=== PATIENT | female | born 1960 | race Caucasian/White ===

== ENCOUNTER → 2017-04-28 | Outpatient (CLI) | payer MEDICARE, SELFPAY | PROVIDERS: Visit Provider Family Medicine | DX: Z87.891 Personal history of nicotine dependence (principal); Z12.2 Encounter for screening for malignant neoplasm of respiratory organs ==

== ENCOUNTER 2017-06-01 13:06 | Day surgery (SDC) | payer MEDICARE, SELFPAY ==
[2017-05-27 16:27] VITALS: BMI 29.9
--- NOTE | 2017-05-27 16:51 | SUR.PREOP ---
LEFT MESSAGE WITH [facility] OFFICE FOR CLEARANCE
[2017-06-01 13:27] VITALS: BP 119/64; PULSE 81; RESP 20; TEMP 36.3; O2SAT 97
--- NOTE | 2017-06-01 13:42 | P.PN_ITS ---
[facility] Anesthesia Checklist - Patient Identification Patient Identification: Arm Band - Structural Data Admitted From: Home Consent for Planned Operative Procedure(s) Verified: Yes - Airway Assessment C-Spine Mobility Assessed: Yes TMJ Mobility Assessed: Yes Dentition: Edentulous - Neurological Assessment Level of Consciousness: Awake, Alert - Anesthesia Plan Anesthesia Risk discussed: Yes Anesthesia Plan: Verified ASA Class: III Anesthesia Type: MAC [facility] Anesthesia HX I have reviewed the patient's past medical history: Yes Medical History: Reports:: Chronic Obstructive Pulmonary Disease (COPD), Coronary Artery Disease (TRIPLE BYPASS), Diabetes Mellitus Type 2 (NIDDM), Hyperlipidemia, Hypertension, Lung Disease (COPD) Denies:: Diabetes Mellitus Type 1, Internal Pacemaker, Seizures Other Surgeries: Yes: Coronary Stent (X4), Hysterectomy-Total. No: Pacemaker Amputation: No Fractures: No Comment: [id number] [id number] *Family Hx:: Cancer, Hypertension, Diabetes
[2017-06-01 13:45] LABS: POC Glucose,Bedside 75 mg/dL
[2017-06-01 15:00] VITALS: O2SAT 98
--- NOTE | 2017-06-01 15:31 | HMH.PROC ---
[facility] Procedure Note Procedure Note:: Colonoscopy Procedure Report: Colonoscopy with cold snare polypectomy Endoscopist: Franky Preston II, MD Referring physician: Mikhail Catalan MD Date of Procedure: June 01, 2017 Equipment: Olympus 180 variable stiffness pediatric colonoscope Sedation: MAC sedation Indication: Mrs. Aguila is a 56-year-old female who is here for initial screening colonoscopy. She reports no abdominal pain, weight loss, change in her bowel habits or rectal bleeding. She reports no family history of colon cancer. Procedure: Prior to the procedure, a history and physical exam was performed, and patient's medications and allergies were reviewed. The risks, benefits and alternatives of the sedation and procedure were discussed with the patient. All questions were answered and informed consent was obtained. The patient was brought to the procedure room. Patient identification and proposed procedure were verified by the physician and the nurse. The patient was placed in a left lateral decubitus position and the scope was passed under direct vision. Throughout the procedure, the patient's blood pressure, pulse, and oxygen saturations were monitored continuously. The colonoscopy was accomplished without difficulty. The patient tolerated the procedure well. Findings: On digital rectal examination there was normal rectal tone. There were no external hemorrhoids. The colonoscope was introduced through the anal canal to the rectum and advanced to the cecum. The ileocecal valve and appendiceal orifice were identified. The scope was advanced a short distance into the ileum which appeared grossly normal. The scope was then withdrawn into the colon. There were 5 colon polyps identified in the transverse ?3 and descending ?2. These ranged in size from 4-8 mm and were all removed via cold snare polypectomy. The remaining cecum, ascending, transverse, descending, sigmoid and rectum were grossly normal. There were no other mucosal abnormalities identified. Upon retroflexion within the rectum there were grade 1 internal hemorrhoids. Impression: 1. Colonic polyps ?5 2. Grade 1 internal hemorrhoids Plan: I will follow up the polyp pathology and recommend repeat colonoscopy again in 3-5 years based upon the polyp histology. I would encourage fiber supplementation on a long-term daily maintenance basis.
[2017-06-01 15:35] VITALS: BP 91/61; PULSE 79; RESP 18; TEMP 36.5; O2SAT 92
[2017-06-01 15:45] VITALS: BP 109/63; PULSE 82; RESP 18; O2SAT 93
[2017-06-01 15:55] VITALS: BP 108/61; PULSE 81; RESP 18; O2SAT 93
[2017-06-01 15:59] VITALS: BP 118/58; PULSE 82; RESP 18; TEMP 36.5; O2SAT 94
== END 2017-06-01 15:59 | disposition home or self-care (01) ==
LOC: OUTP 13:08
PROVIDERS: Family Provider Family Medicine; PCP Family Medicine; Visit Provider Internal Medicine Gastroenterology
PROC: 0DJD8ZZ Inspection of Lower Intestinal Tract, Via Natural or Artificial Opening Endoscopic (ICD-10-PCS; CPT 45378; principal; 2017-06-01 14:00)
DX: Z12.11 Encounter for screening for malignant neoplasm of colon (principal); K63.5 Polyp of colon; K64.0 First degree hemorrhoids; E11.9 Type 2 diabetes mellitus without complications
CPT/HCPCS: 45380; 82962; 88305

== ENCOUNTER → 2017-06-29 13:47 | Outpatient (CLI) | payer MEDICARE, SELFPAY ==
--- NOTE | 2017-06-29 13:54 | XR_ITS ---
XR DEXA axial skeleton HISTORY: ITS.REASON: POST MENOPAUSAL ORDERING PHYSICIAN: Surinder Burgess MD PATIENT AGE: 56 years FINDINGS: The BMD measured at the left femoral neck is 1.214 g/cm squared with a T score of 1.3. This is considered normal according to the World Health Organization criteria. Fracture risk is low. Recommend follow up exam June 2019. The lumbar spine density from L1 L4 has a T score of 2.3 and is unchanged from 05/01/2014. The hip density is essentially unchanged from the previous exam.. IMPRESSION: Normal bone density
--- NOTE | 2017-06-29 13:54 | MM_ITS ---
MM Dig screening mamm BI w/CAD CAD Screening COMPARISON: Digital mammograms 05/07/2015 and 06/20/2016 INDICATION: There is a history of breast cancer patient's mother diagnosed at age 59. TECHNIQUE: Standard CC and MLO images were obtained. R2 CAD reviewed. FINDINGS: Moderate diffuse fibroglandular densities are seen throughout both breast. Again noted is a stable benign-appearing density upper outer quadrant right breast likely an intramammary node. There is a benign-appearing calcification left breast. There is no suspicious lesion in either breast and no suspicious microcalcifications. There are stable small nodes in both axilla. IMPRESSION: Stable exam no suspicious lesion seen BI-RADS Category: 2 Benign Finding(s) RECOMMENDED FOLLOW-UP: 1YR - 1 YEAR FOLLOW-UP (A letter has been sent to the patient regarding results of the study.)
== END ==
PROVIDERS: Family Provider Family Medicine; PCP Family Medicine; Visit Provider Obstetrics & Gynecology
DX: Z78.0 Asymptomatic menopausal state (principal); Z12.31 Encounter for screening mammogram for malignant neoplasm of breast; Z13.820 Encounter for screening for osteoporosis
CPT/HCPCS: 77067; 77080

== ENCOUNTER 2017-07-09 03:40 | Emergency (ER) | payer MEDICARE, SELFPAY ==
[2017-07-09 03:42] VITALS: BP 152/84; PULSE 72; RESP 16; TEMP 37.1; O2SAT 90; BMI 30.3
--- NOTE | 2017-07-09 04:00 | XR_ITS ---
XR chest 2V HISTORY: Left arm numbness ITS.REASON: left arm sensation change ORDERING PHYSICIAN: Barber Lucio MD PATIENT AGE: 56 years COMPARISON: 06-17-12 FINDINGS: There has been prior median sternotomy with CABG. Normal heart size. No evidence of CHF. Coronary artery stent is present. No lobar consolidation or collapse. No acute bony anomalies or effusions. IMPRESSION: Prior CABG. No change with no acute finding.
--- NOTE | 2017-07-09 04:00 | CT_ITS ---
CT head/brain wo con HISTORY: Disoriented, confusion, altered level of consciousness, ITS.REASON: disorientation, now resolved ORDERING PHYSICIAN: Barber Lucio MD PATIENT AGE: 56 years COMPARISON: None TECHNIQUE: Axial images obtained without contrast. Brain and bone windows reviewed. FINDINGS: No midline shift, mass effect, intracranial hemorrhage, hydrocephalus, or extra-axial fluid collection is evident. The calvarium has an unremarkable appearance. No mastoid effusion. No sinus air-fluid levels.. IMPRESSION: Negative CT head without contrast. No acute finding.
[2017-07-09 04:15] LABS: Basophils % 0.4 % (0.1-2.0); Eosinophils # 0.1 K/mm3 (0.0-0.4); Eosinophils % 1.5 % (0.1-12.0); Hematocrit 48.8 % (37.0-47.0); Hemoglobin 16.4 g/dL (12.2-16.2); Lymphocytes # 2.3 K/mm3 (0.7-4.5); Lymphocytes % 28.1 K/mm3 (10-50); Mean Corpuscular HGB Conc 33.6 g/dL (31.8-35.4); Mean Corpuscular Hemoglobin 32.7 pg (27.0-31.2); Mean Corpuscular Volume 97.2 fl (81-99); Mean Platelet Volume 7.7 fl (7.4-10.4); Monocytes # 0.6 K/mm3 (0.1-1.0); Monocytes % 7.3 % (1.7-9.3); Neutrophils # 5.1 K/mm3 (1.8-7.8); Neutrophils % 62.7 % (37.0-80.0); Platelet Count 251 K/mm3 (142-424); Red Blood Count 5.02 M/mm3 (4.20-5.40); Red Cell Distribution Width 13.8 % (11.5-17.5); White Blood Count 8.1 K/mm3 (4.8-10.8)
[2017-07-09 04:24] LABS: Activated Partial Thrombo Time 27.7 seconds (23.6-34.0); INR 0.93 (0.9-1.1)
[2017-07-09 04:40] LABS: Alanine Aminotransferase 26 U/L (12-78); Albumin Level 3.8 gm/dL (3.4-5.0); Albumin/Globulin Ratio 0.8 (1.1-1.8); Alkaline Phosphatase 95 U/L (46-116); Anion Gap 11.5 mEq/L (5-15); Aspartate Amino Transferase 14 U/L (15-37); Bilirubin,Total 0.3 mg/dL (0.2-1.0); Blood Urea Nitrogen 16 mg/dL (7-18); Calcium 9.1 mg/dL (8.5-10.1); Carbon Dioxide 31 mmol/L (21.0-32.0); Chloride 101 mmol/L (98-107); Creatine Kinase 90 U/L (26-192); Creatinine Clearance Estimated 81 mL/min (0-300); Creatinine,Serum 1.02 mg/dL (0.55-1.02); Estimated Glomerular Filt Rate 56 ml/min (>60); GFR (African American) 68 ML/MIN (>60); Globulin 4.7 gm/dl (1.3-3.2); Glucose 110 mg/dL (74-106); Potassium 3.5 mmoL/L (3.5-5.1); Sodium 140 mmol/L (136-145); Total Protein,Serum 8.5 gm/dL (6.4-8.2); Troponin I < 0.02 ng/ml (0.00-0.06)
[2017-07-09 04:41] LABS: CKMB Relative Index 0.6 U/L (0-4.0); Creatine Kinase MB < 0.5 mg/ml (0.0-3.6)
--- NOTE | 2017-07-09 04:49 | HMH.EDNEU ---
ED Disposition Clinical Impression: Cerebrovascular accident Qualifiers: CVA mechanism: unspecified Qualified Code(s): I63.9 - Cerebral infarction, unspecified Disposition: Xfer Short-Term Hosp Condition on Discharge: Good Referrals: Benja Catalan MD [Primary Care Provider] - - Critical Care Critical Care Time: No Attestation: On 07/09/17, the high probability of a clinically significant, sudden or life threatening deterioration of the following system(s) required my full and direct attention, intervention and personal management. The time I documented below is in addition to time spent performing reported procedures but includes the following listed in this critical care notation. Medical Decision Making - Medical Records Medical records reviewed: Yes: I reviewed the patient's medical records. Vital Signs: 07/09/17 03:42 Temperature 98.8 F Temperature Source Oral Pulse Rate [Right Radial] 72 Respiratory Rate 16 Blood Pressure [Right Arm] 152/84 Blood Pressure Mean [Right Arm] 106 Blood Pressure Source [Right Arm] Automatic Cuff Blood Pressure Position [Right Arm] Supine 02 Sat by Pulse Oximetry 90 L Oxygen Delivery Method Room Air - Lab Data Lab results reviewed: Yes: I reviewed the patient's lab results. Lab Results 07/09/17 04:00: WBC 8.1, RBC 5.02, Hgb 16.4 H, Hct 48.8 H, MCV 97.2, MCH 32.7 H, MCHC 33.6, RDW 13.8, Plt Count 251, MPV 7.7, Neut % (Auto) 62.7, Lymph % (Auto) 28.1, [place] % (Auto) 7.3, Eos % (Auto) 1.5, Baso % (Auto) 0.4, Neut # (Auto) 5.1, Lymph # (Auto) 2.3, [place] # (Auto) 0.6, Eos # (Auto) 0.1, Baso # (Auto) 0.0 07/09/17 04:00: Sodium 140, Potassium 3.5, Chloride 101, Carbon Dioxide 31, Anion Gap 11.5, BUN 16, Creatinine 1.02, Estimated Creat Clear 81, Estimated GFR 56 L, Est GFR ( Amer) 68, Glucose 110 H, Calcium 9.1, Total Bilirubin 0.3, AST 14 L, ALT 26, Alkaline Phosphatase 95, Total Creatine Kinase 90, CK-MB (CK-2) < 0.5, CK-MB (CK-2) Rel Index 0.6, Troponin I < 0.02, Total Protein 8.5 H, Albumin 3.8, Globulin 4.7 H, Albumin/Globulin Ratio 0.8 L 07/09/17 04:00: PT 10.0, INR 0.93, APTT 27.7 Result diagrams: 07/09/17 04:00 07/09/17 04:00 - Radiology Data #1 Image(s): Chest Image Reviewed: Yes I reviewed the patient's radiology image Preliminary Findings: Normal/NAD - CT Data CT Scan: Head Time Received: 04:[address] Reviewed: Yes: I have viewed the radiologist's interpretation Preliminary Findings: Normal/NAD - ECG Data Tracing #1 I reviewed this ECG and interpreted as documented below: Normal Sinus Rhythm: Yes Ischemic changes: non-specific ST-T wave changes - Physician Consults Physician Consulted: aj Reason -: Transfer to another facilty - [place] Inquiry Pt receiving controlled substance: No Neuro HPI - General Chief Complaint: Neuro Symptoms/Deficit Stated Complaint: left arm numb,disoriented Time Seen by Provider: 07/09/17 04:00 Mode of Arrival: Ambulatory Source of Information: Patient, Relative, Medical Record Limitations: No Limitations Description of Symptoms (Recalled from ER Triage Doc. by RN): left arm feels different but is able to move it, feels unsteady - History of Present Illness HPI Narrative: pt went to bed about 2200 last pm and awoke this am with dec use of lt upper ext and lt lower ext with confusion but no gross vision or speech sx- she is diabetic and does use tob -she is better now but not at baseline Onset (ago): hour(s) Timing confirmed by: family member Location: left arm, left leg History of same: No Severity: moderate Quality: weak Context: other (awoke with sx ) On Anticoagulants: Yes - Related Data Home Medications: Home Medications Medication Instructions Recorded Confirmed aspirin 81 mg tablet,delayed 81 mg PO QDAY 05/22/17 07/09/17 release ergocalciferol (vitamin D2) 400 400 unit PO QDAY 05/22/17 07/09/17 unit tablet metformin 1,000 mg tablet 1,000 mg PO BID 05/22/17
--- NOTE | 2017-07-09 04:52 | ED_ITS ---
ED Disposition Clinical Impression: Cerebrovascular accident Qualifiers: CVA mechanism: unspecified Qualified Code(s): I63.9 - Cerebral infarction, unspecified Disposition: Xfer Short-Term Hosp Condition on Discharge: Good Referrals: Benja Catalan MD [Primary Care Provider] - - Critical Care Critical Care Time: No Attestation: On 07/09/17, the high probability of a clinically significant, sudden or life threatening deterioration of the following system(s) required my full and direct attention, intervention and personal management. The time I documented below is in addition to time spent performing reported procedures but includes the following listed in this critical care notation. Medical Decision Making - Medical Records Medical records reviewed: Yes: I reviewed the patient's medical records. Vital Signs: 07/09/17 03:42 Temperature 98.8 F Temperature Source Oral Pulse Rate [Right Radial] 72 Respiratory Rate 16 Blood Pressure [Right Arm] 152/84 Blood Pressure Mean [Right Arm] 106 Blood Pressure Source [Right Arm] Automatic Cuff Blood Pressure Position [Right Arm] Supine 02 Sat by Pulse Oximetry 90 L Oxygen Delivery Method Room Air - Lab Data Lab results reviewed: Yes: I reviewed the patient's lab results. Lab Results 07/09/17 04:00: WBC 8.1, RBC 5.02, Hgb 16.4 H, Hct 48.8 H, MCV 97.2, MCH 32.7 H , MCHC 33.6, RDW 13.8, Plt Count 251, MPV 7.7, Neut % (Auto) 62.7, Lymph % (Auto ) 28.1, [place] % (Auto) 7.3, Eos % (Auto) 1.5, Baso % (Auto) 0.4, Neut # (Auto) 5.1, Lymph # (Auto) 2.3, [place] # (Auto) 0.6, Eos # (Auto) 0.1, Baso # (Auto) 0.0 07/09/17 04:00: Sodium 140, Potassium 3.5, Chloride 101, Carbon Dioxide 31, Anion Gap 11.5, BUN 16, Creatinine 1.02, Estimated Creat Clear 81, Estimated GFR 56 L, Est GFR ( Amer) 68, Glucose 110 H, Calcium 9.1, Total Bilirubin 0.3, AST 14 L, ALT 26, Alkaline Phosphatase 95, Total Creatine Kinase 90, CK-MB (CK-2) < 0.5, CK-MB (CK-2) Rel Index 0.6, Troponin I < 0.02, Total Protein 8.5 H, Albumin 3.8, Globulin 4.7 H, Albumin/Globulin Ratio 0.8 L 07/09/17 04:00: PT 10.0, INR 0.93, APTT 27.7 Result diagrams: 07/09/17 04:00 07/09/17 04:00 - Radiology Data #1 Image(s): Chest Image Reviewed: Yes I reviewed the patient's radiology image Preliminary Findings: Normal/NAD - CT Data CT Scan: Head Time Received: 04:[address] Reviewed: Yes: I have viewed the radiologist's interpretation Preliminary Findings: Normal/NAD - ECG Data Tracing #1 I reviewed this ECG and interpreted as documented below: Normal Sinus Rhythm: Yes Ischemic changes: non-specific ST-T wave changes - Physician Consults Physician Consulted: aj Reason -: Transfer to another facilty - [place] Inquiry Pt receiving controlled substance: No Neuro HPI - General Chief Complaint: Neuro Symptoms/Deficit Stated Complaint: left arm numb,disoriented Time Seen by Provider: 07/09/17 04:00 Mode of Arrival: Ambulatory Source of Information: Patient, Relative, Medical Record Limitations: No Limitations Description of Symptoms (Recalled from ER Triage Doc. by RN): left arm feels different but is able to move it, feels unsteady - History of Present Illness HPI Narrative: pt went to bed about 2200 last pm and awoke this am with dec use of lt upper ext and lt lower ext with confusion but no gross vision or speech sx- she is diabetic and does use tob -she is better now but not at ba
--- NOTE | 2017-07-09 05:10 | PC.NURSE ---
Dr Cuellar accepting pt at ER.
--- NOTE | 2017-07-09 05:20 | PC.NURSE ---
[facility] called for transport to .
[2017-07-09 05:31] VITALS: BP 153/72; PULSE 74; RESP 17; TEMP 37.2; O2SAT 91
== END 2017-07-09 05:32 | disposition short-term general hospital (02) ==
PROVIDERS: Emergency Provider Emergency Medicine; Family Provider Family Medicine; PCP Family Medicine
DX: I63.9 Cerebral infarction, unspecified (principal); R41.0 Disorientation, unspecified; R20.2 Paresthesia of skin
CPT/HCPCS: 70450; 71046; 80053; 82550; 82553; 84484; 85025; 85610; 85730; 93005; 93041; 99284

== ENCOUNTER → 2018-02-24 10:29 | Outpatient (CLI) | payer MEDICARE, SELFPAY ==
[2018-02-24 12:25] LABS: Alanine Aminotransferase 32 U/L (12-78); Albumin Level 3.8 gm/dL (3.4-5.0); Albumin/Globulin Ratio 1.1 (1.1-1.8); Alkaline Phosphatase 83 U/L (46-116); Anion Gap 10.3 mEq/L (5-15); Aspartate Amino Transferase 18 U/L (15-37); Bilirubin,Total 0.3 mg/dL (0.2-1.0); Blood Urea Nitrogen 18 mg/dL (7-18); Calcium 9.1 mg/dL (8.5-10.1); Carbon Dioxide 29 mmol/L (21.0-32.0); Chloride 105 mmol/L (98-107); Chol/HDL Ratio 3.1 (1-3.5); Cholesterol 129 mg/dL (140-200); Creatinine,Serum 0.81 mg/dL (0.55-1.02); Estimated Glomerular Filt Rate 73 ml/min (>60); GFR (African American) 89 ML/MIN (>60); Globulin 3.6 gm/dl (1.3-3.2); Glucose 130 mg/dL (74-106); HDL Cholesterol 42 mg/dL (29-89); LDL Cholesterol 69 mg/dL (0-130); Potassium 4.3 mmoL/L (3.5-5.1); Sodium 140 mmol/L (136-145); Total Protein,Serum 7.4 gm/dL (6.4-8.2); Triglycerides 89 mg/dL (30-200); VLDL Cholesterol 18 mg/dL (0-40)
[2018-02-24 12:45] LABS: Hemoglobin A1C 8.9 % (0.0-7.0)
== END ==
PROVIDERS: PCP Family Medicine; Visit Provider Family Medicine
DX: E11.9 Type 2 diabetes mellitus without complications (principal); I10 Essential (primary) hypertension; E78.5 Hyperlipidemia, unspecified; Z86.79 Personal history of other diseases of the circulatory system
CPT/HCPCS: 36415; 80053; 80061; 83036

== ENCOUNTER → 2018-07-15 15:08 | Outpatient (CLI) | payer MEDICARE, SELFPAY ==
--- NOTE | 2018-07-15 15:09 | XR_ITS ---
DEXA SCAN.-BONE DENSITY STUDY HIPS AND LUMBAR SPINE HISTORY: Postmenopausal female 57-year-old postmenopausal hysterectomy. No fracture remote past. Diabetic Female TECHNIQUE: DEXA scan hip and lumbar spine The most complete data summary and color graphic presentation of the today's ( and any prior ) DEXA findings are available in PACS. Definition and treatment guidelines included. COMPARISON: None listed LUMBAR SPINE: Overall normal bone marrow density L4 vertebral body demonstrates the lowest T score 0.7 with BMD1.283 g/cm sq Overall mean lumbar L1-L4 T score 1.4 with BMD1.348 g/cm sq . 06/29/2017 prior DEXA the mean T score 2.3 with BMD was1.46g/cm sq Thus when comparing today's study to the prior exam there's been a 7.7% decrease mean bone density at the lumbar spine. However the bone density still remains above normal-possibly dense marginal osteophytes contribute to such HIPS: Normal bone density bilaterally Femoral neck density is best predictor of hip fracture risk . Right femoral neck demonstrates the lowest T score 0.6 with BMD1.12 g/cm sq . Left femoral neck T score 1.0 with BMD 1.18 Average of all regions yields today's Hip Mean T score 1.1 with BMD1.143 g/cm sq . 2018 DEXA hip T score 2.1 with mean BMD1.272 g/cm sq Thus this reflects 10% decrease mean bone density at the hips in the interval. IMPRESSION------- 1. LUMBAR SPINE: Overall normal bone density Overall T score 1.4. L4 with lowest T score 0.7. 2. HIPS: Overall normal bone density Mean hip T score today = 1.1. Lowest femoral neck T score on right = 0.6 3. Added note: would note there is a curious 10% drop in hip bone density; & 7.7% overall decrease lumbar bone density since last years 2018 DEXA study.., More than typically seen. Possibly the patient is now on steroids? Or or other interval medical change. (I had the technologist reprocess the lumbar series and still same result. I would recommend follow-up next year to confirm & validate date this trend) WHO criteria for post-menopausal, Women: Normal: T-score at or above -1 SD Osteopenia: T-score between -1 and -2.5 SD Osteoporosis: T-score at or below -2.5 SD
--- NOTE | 2018-07-15 15:09 | MM_ITS ---
MM Dig screening mamm BI w/CAD CAD Screening COMPARISON: Digital mammograms with CAD to 06/29/2017 and 06/20/2016 INDICATION: There is a history of breast cancer in patient's mother diagnosed after menopause. TECHNIQUE: Standard CC and MLO images were obtained. R2 CAD reviewed. FINDINGS: Prominent diffuse fiber glandular densities are seen throughout both breasts. There is a stable nodular density with smooth borders upper outer quadrant right breast likely a low-lying node. There are couple benign-appearing calcifications in each breast. There is no suspicious lesion in either breast and there are no suspicious microcalcifications. IMPRESSION: Stable exam with no suspicious lesion seen BI-RADS Category: 2 Benign Finding(s) RECOMMENDED FOLLOW-UP: 1YR - 1 YEAR FOLLOW-UP (A letter has been sent to the patient regarding results of the study.)
== END ==
PROVIDERS: PCP Family Medicine; Visit Provider Obstetrics & Gynecology
DX: Z12.31 Encounter for screening mammogram for malignant neoplasm of breast (principal); Z78.0 Asymptomatic menopausal state
CPT/HCPCS: 77067; 77080

== ENCOUNTER → 2018-08-23 09:54 | Outpatient (CLI) | payer MEDICARE, SELFPAY ==
[2018-08-23 11:35] LABS: Hemoglobin A1C 8.9 % (0.0-7.0)
[2018-08-23 12:07] LABS: Alanine Aminotransferase 31 U/L (12-78); Albumin Level 3.9 gm/dL (3.4-5.0); Albumin/Globulin Ratio 1.1 (1.1-1.8); Alkaline Phosphatase 92 U/L (46-116); Anion Gap 14.2 mEq/L (5-15); Aspartate Amino Transferase 8 U/L (15-37); Bilirubin,Total 0.3 mg/dL (0.2-1.0); Blood Urea Nitrogen 25 mg/dL (7-18); Carbon Dioxide 26 mmol/L (21.0-32.0); Chloride 104 mmol/L (98-107); Chol/HDL Ratio 3.4 (1-3.5); Cholesterol 158 mg/dL (140-200); Creatinine,Serum 0.88 mg/dL (0.55-1.02); Estimated Glomerular Filt Rate 66 ml/min (>60); GFR (African American) 80 ML/MIN (>60); Globulin 3.7 gm/dl (1.3-3.2); Glucose 185 mg/dL (74-106); HDL Cholesterol 47 mg/dL (29-89); LDL Cholesterol 99 mg/dL (0-130); Potassium 4.2 mmoL/L (3.5-5.1); Sodium 140 mmol/L (136-145); Total Protein,Serum 7.6 gm/dL (6.4-8.2); Triglycerides 62 mg/dL (30-200); VLDL Cholesterol 12 mg/dL (0-40)
== END ==
PROVIDERS: Visit Provider Family Medicine
DX: E11.9 Type 2 diabetes mellitus without complications (principal); E78.5 Hyperlipidemia, unspecified; I10 Essential (primary) hypertension; Z79.84 Long term (current) use of oral hypoglycemic drugs; Z87.891 Personal history of nicotine dependence
CPT/HCPCS: 36415; 80053; 80061; 83036

== ENCOUNTER → 2018-11-30 13:08 | Outpatient (CLI) | payer MEDICARE, SELFPAY ==
--- NOTE | 2018-11-30 13:12 | XR_ITS ---
XR hand RT min 3V HISTORY: ITS.REASON: right hand pain/ trigger finger ORDERING PHYSICIAN: Tarik Sherman MD PATIENT AGE: 58 years COMPARISON: None FINDINGS: No fracture or dislocation. No lytic or blastic change. There is normal mineralization.. The joint spaces are well-preserved. No significant degenerative/arthritic changes. No erosive changes evident.. IMPRESSION: Negative, no acute finding
== END ==
PROVIDERS: PCP Family Medicine; Visit Provider Orthopaedic Surgery
DX: M79.641 Pain in right hand (principal)
CPT/HCPCS: 73130

== ENCOUNTER → 2019-01-07 10:37 | Outpatient (CLI) | payer MEDICARE, SELFPAY ==
--- NOTE | 2019-01-07 10:41 | XR_ITS ---
PROCEDURE: XR SHOULDER LT MIN 2V Three views obtained: AP internal and external rotation along with Y-view Patient Age:58Y CLINICAL INDICATION: LT SHOULDER PAIN No trauma. Persistent pain 1 month COMPARISON: CXR2V XR chest 2V from 07/09/2017 FINDINGS No acute findings.. No fracture nor dislocation. The humeral head and neck appear normal the glenohumeral joint intact. Normal relationships. AC joint intact. Bones well mineralized. No erosive changes. . The left lung apex is clear upper left ribs and scapula unremarkable. Previous sternotomy noted There is a modest subacromial space but nonspecific plain-film observation but can be seen with rotator cuff this thinning, demise or tear... Clinical correlation required IMPRESSION: Left shoulder is intact with no acute findings.. No prominent findings Humeral head and glenohumeral joint intact. I would note modest subacromial space. Nonspecific but can be seen with rotator cuff demise or impingement. Requires correlation Dictated by: Ander Clifford MD 01/07/2019 11:08 Signed by: <Electronically signed by Ander Clifford MD in [place]> 01/07/2019 11:08
== END ==
PROVIDERS: PCP Family Medicine; Visit Provider Family Medicine
DX: M25.512 Pain in left shoulder (principal)
CPT/HCPCS: 73030

== ENCOUNTER → 2019-01-25 12:57 | Outpatient (CLI) | payer MEDICARE, SELFPAY ==
--- NOTE | 2019-01-25 13:13 | XR_ITS ---
PROCEDURE: XR CHEST 2V CLINICAL HISTORY: HTN,FORMER TOBACCO USE COMPARISON: CXR1 CHEST-PORTABLE from 06/17/2012 CXR2V XR chest 2V from 07/09/2017 FINDINGS: Status post CABG. Normal heart size. There is fracture of the 2nd from top median sternotomy wire The lungs are clear without infiltrates, suspicious nodules, or pleural effusions. No acute bony abnormalities. IMPRESSION: No change with no acute finding Dictated by: Elias Diaz MD 01/25/2019 14:54 Electronically signed by Elias Diaz MD in [facility] 01/25/2019 14:54
[2019-01-25 13:36] LABS: Basophils % 0.4 % (0.1-2.0); Eosinophils # 0.1 K/mm3 (0.0-0.4); Eosinophils % 1.1 % (0.1-12.0); Hematocrit 44.8 % (37.0-47.0); Hemoglobin 14.4 g/dL (12.2-16.2); Lymphocytes # 1.6 K/mm3 (0.7-4.5); Lymphocytes % 24.7 % (10-50); Mean Corpuscular HGB Conc 32.2 g/dL (31.8-35.4); Mean Corpuscular Volume 93.3 fl (81-99); Mean Platelet Volume 7.7 fl (7.4-10.4); Monocytes # 0.3 K/mm3 (0.1-1.0); Monocytes % 5.4 % (1.7-9.3); Neutrophils # 4.3 K/mm3 (1.8-7.8); Neutrophils % 68.4 % (37.0-80.0); Platelet Count 262 K/mm3 (142-424); Red Cell Distribution Width 14.8 % (11.5-17.5); White Blood Count 6.3 K/mm3 (4.8-10.8)
--- NOTE | 2019-01-25 13:51 | ECG_ITS ---
APPROVED REPORT Exam: Resting ECG HR:82 bpm ECG Measurements Heart Rate 82 AXES ID 174 P 13 QRSd 74 QRS 55 QT 360 T 141 QTc 420 <Conclusion> Normal sinus rhythm Septal infarct, age undetermined T wave abnormality, consider anterior ischemia Abnormal ECG Electronically signed by : Jairo Powell, 01/26/2019 10:34:54
[2019-01-25 16:18] LABS: Anion Gap 18.2 mEq/L (5-15); Blood Urea Nitrogen 21 mg/dL (7-18); Calcium 9.6 mg/dL (8.5-10.1); Carbon Dioxide 25 mmol/L (21.0-32.0); Chloride 100 mmol/L (98-107); Creatinine,Serum 0.97 mg/dL (0.55-1.02); Estimated Glomerular Filt Rate 59 ml/min (>60); GFR (African American) 72 ML/MIN (>60); Glucose 285 mg/dL (74-106); Potassium 4.2 mmoL/L (3.5-5.1); Sodium 139 mmol/L (136-145)
[2019-01-25 17:00] LABS: Hemoglobin A1C 10.1 % (0.0-7.0)
== END ==
PROVIDERS: Visit Provider Orthopaedic Surgery
DX: Z01.818 Encounter for other preprocedural examination (principal); M65.311 Trigger thumb, right thumb; Z79.899 Other long term (current) drug therapy
CPT/HCPCS: 36415; 71046; 80048; 83036; 85025; 93005

== ENCOUNTER → 2019-02-01 13:30 | Outpatient (CLI) | payer MEDICARE, SELFPAY ==
--- NOTE | 2019-02-01 13:32 | CA_ITS ---
APPROVED REPORT EXAM: Comprehensive 2D, Doppler, and color-flow Echocardiogram Calculating Machine Operator: Rosio Drummond CRT Ht: 5 ft 5 in Wt: 199lbs BSA: 1.97 BP: 157/70 mmHg Indications: COPD, CVA/TIA, Diabetes, CAD,ex-smoker, stent, CABG 2D Dimensions LVOT 1.60 cm (M/F) 1.5-2.5 M-Mode Dimensions RVDd 2.00 cm (0.9-2.6) LA Diam 4.20 cm (1.9-4.0) LVDd 6.00 cm (3.5-5.7) Ao Diam 3.70 cm (2.0-3.7) LVDs 4.50 cm (3.5-5.7) AV Cusp 2.00 cm (1.5-2.6) IVSd 1.00 cm (0.6-1.1) PWd 0.70 cm (0.6-1.1) EF (Teich) 48.70% FS 25.00% EDV (Teich) 180.00 mL ESV (Teich) 92.40 mL LV Diastology E/A Ratio 1.20 MED E' 6.34 (< 7 cm/sec) E'/MED E' Ratio 16.10 (>14) LAT E' 7.51 (<10 cm/sec) E/LAT E' Ratio 13.60 (>14) Aortic Valve AoV Peak Pete. 161.00 (50-130 cm/s) AO Peak GR. 10.00 mmHg Mitral Valve MV E Max Pete. 102.00 (40-130 cm/s) MV A Velocity 85.90 (40-130 cm/s) E/A Ratio 1.20 Pulmonary Valve NJ End VMAX 160.00 cm/s PA Accel Time 116.00 (>120 msec) Tricuspid Valve TR P. Velocity 247.00 cm/s RAP Estimate 10.00 mmHg RVSP 34.00 mmHg Left Ventricle Left atrium is mildly enlarged, left ventricle is normal size, mild concentric left ventricular hypertrophy, visually estimated ejection fraction of 55% with no regional wall motion abnormality, grade 1 diastolic dysfunction seen with tissue Doppler evidence of raise left atrial pressure. Right Ventricle Right atrium and right ventricular mildly enlarged with normal contractility. Aortic Valve Aortic valve is minimally thickened and fibrosed, there is no aortic stenosis aortic insufficiency. Mitral Valve Mitral valve is grossly normal, there is mild mitral regurgitation. Tricuspid Valve Tricuspid valve is grossly normal, there is mild tricuspid regurgitation, tricuspid regurgitation jet velocity is inadequate for calculation of the right ventricular systolic pressure. Pulmonic Valve Pulmonic valve is poorly visualized. Great Vessels Aortic root is normal size. Pericardium No significant pericardial effusion noted. Conclusion 1. Mildly enlarged left atrium, normal left ventricular size, mild concentric left ventricular hypertrophy, visually estimated ejection fraction 55% with no regional wall motion abnormality, grade 1 diastolic dysfunction seen with tissue Doppler evidence of raise left atrial pressure. 2. Mildly enlarged right ventricle with normal contractility. 3. Mild mitral and tricuspid regurgitation. 4. No significant pericardial effusion noted. Electronically signed by : Ajith Evans, 02/02/2019 06:00:21
== END ==
PROVIDERS: PCP Family Medicine; Visit Provider Nurse Practitioner Family
DX: E11.9 Type 2 diabetes mellitus without complications (principal); E78.5 Hyperlipidemia, unspecified; F17.200 Nicotine dependence, unspecified, uncomplicated; I10 Essential (primary) hypertension; I25.10 Atherosclerotic heart disease of native coronary artery without angina pectoris; I63.9 Cerebral infarction, unspecified; J44.9 Chronic obstructive pulmonary disease, unspecified; Z95.1 Presence of aortocoronary bypass graft
CPT/HCPCS: 93306

== ENCOUNTER 2019-04-15 13:00 | Outpatient (RCR) | payer MEDICARE, SELFPAY ==
--- NOTE | 2019-02-23 14:01 | HMH.OTOPEV ---
OT Inpatient Evaluation Rehab OT Outpatient Eval Start: 02/23/19 13:37 Freq: Status: Active Protocol: Document 02/23/19 13:45 RMMARY ANN (Rec: 02/23/19 14:01 RMETHANHALL [id number]) Electronically Signed By Chriss Sher OT 02/23/19 13:45 Outpatient Therapy Subjective History Subjective History Pt is a 58 year old female who reports to therapy for initial evaluation to left shoulder. Pt explains her shoulder/arm pain began ~2 month ago and does not recall a specific injury causing symptoms. 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 Pt feels this may have attributed to her pain. Pt does demonstrate with a decline in normal shoulder AROM and strength. Pt will continue to be seen twice a week in order to address all deficits. Chief Complaint Stiff,Weakness Symptom Type Ache,Throb,Sharp,Dull Symptoms Relieved By Rest/Positioning Symptoms Aggravated By Physical Activity,Lifting Prior Functional Limitations None Current Functional Limitations Reaching,Lifting,Housework Symptom Description Intermittent,Activity Dependent Level of pain today (0-10) 0 Pain scale - at its best (0-10) 0 Pain scale - at its worst (0-10) 5 Shoulder/Elbow Eval Shoulder Objective Measurements Shoulder ROM Left Shoulder Abduction Active Range of 80 degrees Motion (degrees) Shoulder Flexion Active Range of Motion 118 degrees (degrees) Query Text: Shoulder External Rotation Active Range 50 degrees of Motion (degrees) Shoulder Internal Rotation Active Range 50 degrees of Motion (degrees) pain with active ROM shoulder exam left standard pain with passive ROM shoulder exam left standard decreased ROM shoulder exam standard left full ROM shoulder exam standard right Shoulder MMT Shoulder Abduction Strength Grade 4- Good- Shoulder Extension Strength Grade 4- Good- Shoulder Flexion Strength Grade 4- Good- Shoulder External Rotation Strength 4- Good- Grade Shoulder Internal Rotation Strength 4- Good- Grade Shoulder Strength Patient Testing Sitting Position
--- NOTE | 2019-04-12 13:52 | HMH.RHREAS ---
Rehab Reassessment Rehab OP Re-assessment Start: 04/12/19 13:21 Freq: Status: Active Protocol: Document 04/12/19 13:21 ALEJANDRO (Rec: 04/12/19 13:52 RMETHANHALL [id number]) Electronically Signed By Chriss Sher OT 04/12/19 13:21 Rehab Re-assessment Objective Objective Notes Pt continues to be seen twice a week for left shoulder. Each time pt engages in AROM/ AAROM/Strengthening exercises. Pt also receives modalities in order to decrease pain/ inflammation. Assessment Progress Assessment Progressing as Expected Assessment Notes Pt demonstrates some improvement of AROM and strength at left shoulder since initial evaluation. Pt has been inconsistent about attending therapy sessions. Pt reports she is completing HEP daily. Therapist recommended pt return to doctor in order to be evaluated again due to minimal improvement. Current L shoulder AROM/MMT Flex: 127 degrees, 4+ Abd: 117 degrees, 4+ ER: 68 degrees, 4 IR: 65 degrees, 4 Patient goals met n/a Goals Not Met All STG and LTG Revised Goals Continue progressing towards all STG and LTG written on initial evaluation. Plan Plan Continue with OT plan of care at this time Frequency of Therapy 2x's a week Duration of therapy 4 more weeks Time and Billing Re-Eval Time 15 Re-Eval Billing Units 1 PHYSICIAN CERTIFICATION: I certify the specified therapy services for Bibi Aguila are required, authorized, and reviewed every 30 days.
== END 2019-04-15 13:05 | disposition home or self-care (01) ==
LOC: OT 13:00
PROVIDERS: PCP Family Medicine; Visit Provider Orthopaedic Surgery
DX: M25.512 Pain in left shoulder (principal)
CPT/HCPCS: 97014; 97110; 97164; 97165; G0283

== ENCOUNTER → 2019-06-01 12:56 | Outpatient (CLI) | payer MEDICARE, SELFPAY ==
--- NOTE | 2019-06-01 12:56 | MR_ITS ---
PROCEDURE: MR SHOULDER LT WO CON CLINICAL INDICATION: evaluate for rotator cuff tear COMPARISON: No exams were available for comparison TECHNIQUE: Routine multiplanar multisequence exam was performed. FINDINGS: There is intermediate signal in the supraspinatus tendon compatible with tendinopathy but without definite tear. A thin rim of fluid is seen in the adjacent subacromial/subdeltoid bursa. Infraspinatus tendon has a normal appearance. There is mild acromioclavicular joint arthropathy with some bony overgrowth projecting inferiorly not appearing to impinge rotator cuff structures. A small amount of fluid is seen in the joint space. Glenoid labrum appears intact. Bicipital tendon is in place IMPRESSION: Supraspinatus tendinopathy but no rotator cuff tear. AC joint arthropathy without significant rotator cuff impingement at this time. Dictated by: Jaspal Perea 06/01/2019 14:26 Electronically signed by Jaspal Perea in [place] 06/01/2019 14:26
== END ==
PROVIDERS: PCP Family Medicine; Visit Provider Orthopaedic Surgery
DX: G89.29 Other chronic pain (principal); M25.512 Pain in left shoulder
CPT/HCPCS: 73221

== ENCOUNTER → 2019-08-08 09:11 | Outpatient (CLI) | payer MEDICARE, SELFPAY ==
--- NOTE | 2019-08-08 09:11 | MM_ITS ---
PROCEDURE: MM DIG SCREENING MAMM BI W/CAD Digital Breast Tomosynthesis Included CLINICAL INDICATION: screening COMPARISON: [facility] DIG MAMM-SCREEN EVA W/CAD from 06/20/2016 [facility] MM Dig screening mamm BI w/CAD from 06/29/2017 [facility] MM Dig screening mamm BI w/CAD from 07/15/2018 TECHNIQUE: Standard CC and MLO images and 3D Tomosynthesis was obtained. R2 CAD reviewed. FINDINGS: The breasts are heterogeneously dense. Benign appearing nodules in both breasts unchanged over the interval are most consistent with lymph nodes. There are no new findings suspicious for malignancy. IMPRESSION: BI-RAD Category: 2 Benign Finding(s) FOLLOW-UP: 1YR 1 Year Follow-up (A letter has been sent to the patient regarding results of the study.) Dictated by: Jaspal Perea 08/08/2019 18:32 Electronically signed by Jaspal Perea in [place] 08/08/2019 18:32
== END ==
PROVIDERS: PCP Family Medicine; Visit Provider Obstetrics & Gynecology
DX: Z12.31 Encounter for screening mammogram for malignant neoplasm of breast (principal)
CPT/HCPCS: 77063; 77067

== ENCOUNTER → 2019-10-28 10:36 | Outpatient (CLI) | payer MEDICARE, SELFPAY ==
--- NOTE | 2019-10-28 | XR_ITS ---
PROCEDURE: XR FOOT RT MIN 3V CLINICAL INDICATION: NEUROPATHY COMPARISON: No exams were available for comparison FINDINGS: No fracture or dislocation. No lytic or blastic change. There is normal mineralization. The joint spaces are well-preserved. No significant degenerative/arthritic changes. No erosive changes evident. Other findings:There is a small calcaneal spur IMPRESSION: No acute findings. Dictated by: Elias Diaz MD 10/28/2019 15:34 Electronically signed by Elias Diaz MD in [place] 10/28/2019 15:34
--- NOTE | 2019-10-28 | XR_ITS ---
PROCEDURE: XR FOOT LT MIN 3V CLINICAL INDICATION: Bilateral foot pain COMPARISON: No exams were available for comparison FINDINGS: No fracture or dislocation. No lytic or blastic change. There is normal mineralization. The joint spaces are well-preserved. No significant degenerative/arthritic changes. No erosive changes evident. Other findings:There is a small calcaneal spur IMPRESSION: No acute findings. Dictated by: Elias Diaz MD 10/28/2019 15:34 Electronically signed by Elias Diaz MD in [place] 10/28/2019 15:34
== END ==
PROVIDERS: PCP Family Medicine; Visit Provider Family Medicine
DX: M79.672 Pain in left foot (principal); M79.671 Pain in right foot
CPT/HCPCS: 73630

== ENCOUNTER → 2019-11-05 16:22 | Outpatient (CLI) | payer MEDICARE, SELFPAY ==
[2019-11-10 15:53] LABS: Covid-19 Nasal PCR Sendout UK NOT DETECTED
== END ==
PROVIDERS: PCP Family Medicine; Visit Provider Family Medicine
DX: Z03.818 Encounter for observation for suspected exposure to other biological agents ruled out (principal)
CPT/HCPCS: U0003

== ENCOUNTER → 2020-05-29 13:04 | Outpatient (CLI) | payer MEDICARE, SELFPAY ==
--- NOTE | 2020-05-29 13:09 | XR_ITS ---
PROCEDURE: XR SHOULDER LT MIN 2V CLINICAL INDICATION: left shoulder pain COMPARISON: CR XR SHOULDER LT MIN 2V from 01/07/2019 FINDINGS: No fracture or dislocation. No lytic or blastic change. There is normal mineralization. The joint spaces are well-preserved. No significant degenerative/arthritic changes. No erosive changes evident. Other findings:No subacromial stenosis IMPRESSION: Negative left shoulder Dictated by: Elias Diaz MD 05/29/2020 13:43 Elias Diaz MD in [place] 05/29/2020 13:43
== END ==
PROVIDERS: PCP Family Medicine; Visit Provider Orthopaedic Surgery
DX: G89.29 Other chronic pain (principal); M25.512 Pain in left shoulder
CPT/HCPCS: 73030

== ENCOUNTER → 2020-06-06 13:54 | Outpatient (CLI) | payer MEDICARE, SELFPAY ==
--- NOTE | 2020-06-06 14:02 | XR_ITS ---
PROCEDURE: XR SHOULDER RT MIN 2V CLINICAL INDICATION: right shoulder pain COMPARISON: CR XR SHOULDER LT MIN 2V from 01/07/2019 CR XR SHOULDER LT MIN 2V from 05/29/2020 FINDINGS: No fracture or dislocation. No lytic or blastic change. There is normal mineralization. The joint spaces are well-preserved. No significant degenerative/arthritic changes. No erosive changes evident. Other findings:None. IMPRESSION: No acute findings. Dictated by: Elias Diaz MD 06/06/2020 16:37 Elias Diaz MD in [place] 06/06/2020 16:37
== END ==
PROVIDERS: PCP Family Medicine; Visit Provider Orthopaedic Surgery
DX: M25.511 Pain in right shoulder (principal)
CPT/HCPCS: 73030

== ENCOUNTER → 2020-09-24 16:49 | Outpatient (CLI) | payer MEDICARE, SELFPAY ==
--- NOTE | 2020-09-24 16:49 | MR_ITS ---
PROCEDURE INFORMATION: Exam: MR Right Upper Extremity Joint Without Contrast; Shoulder Exam date and time: 09/24/2020 4:49 PM Age: 60 years old Clinical indication: Patient HX: Right shoulder pain, pulling sensation from elbow, trouble reaching behind back. No injury or trauma. Prior xray 06-06-20; Additional info: Right shoulder pain/ evaluate for rotator cufftear TECHNIQUE: Imaging protocol: MR of the Right upper extremity without contrast. Exam focused on the shoulder. COMPARISON: DX XR SHOULDER RT MIN 2V 06/06/2020 2:23 PM FINDINGS: Bones/joints: No acute fracture. No dislocation. Fluid: No significant joint effusion. Small fluid within subacromial-subdeltoid bursa. Glenoid labrum: Grossly intact. Supraspinatus tendon: Moderate tendinosis. No definite tear. Infraspinatus tendon: Moderate tendinosis. No definite tear. Subscapularis tendon: Moderate tendinosis. No definite tear. Teres minor tendon: No definite tear. Tendon of biceps brachii: Intact. Glenohumeral ligaments: Grossly intact. Muscles: Unremarkable. Soft tissues: Unremarkable. IMPRESSION: Rotator cuff tendinosis.
== END ==
PROVIDERS: PCP Family Medicine; Visit Provider Orthopaedic Surgery
DX: M25.511 Pain in right shoulder (principal)
CPT/HCPCS: 73221

== ENCOUNTER → 2020-11-21 13:42 | Outpatient (CLI) | payer MEDICARE, SELFPAY ==
--- NOTE | 2020-11-21 14:01 | XR_ITS ---
PROCEDURE: XR HAND RT MIN 3V CLINICAL INDICATION: right hand pain; CTS; trigger finger COMPARISON: No exams were available for comparison FINDINGS: No fracture or dislocation. No lytic or blastic change. There is normal mineralization. The joint spaces are well-preserved. No significant degenerative/arthritic changes. No erosive changes evident. Other findings:None. IMPRESSION: No acute findings. Dictated by: Elias Diaz MD 11/21/2020 14:55 Elias Diaz MD in [facility] 11/21/2020 14:55
--- NOTE | 2020-11-21 14:01 | XR_ITS ---
PROCEDURE: XR CHEST 2V CLINICAL HISTORY: surgery 11/29/20; hypertension COMPARISON: CR CXR1 CHEST-PORTABLE from 06/17/2012 CR CXR2V XR chest 2V from 07/09/2017 CR XR CHEST 2V from 01/25/2019 FINDINGS: There has been a prior CABG. There is fracture of the 2nd from top median sternotomy wire unchanged. Heart size is normal. The lungs are clear without infiltrates, suspicious nodules, or pleural effusions. No acute bony abnormalities. IMPRESSION: No change with no acute finding Dictated by: Elias Diaz MD 11/21/2020 14:55 Elias Diaz MD in [facility] 11/21/2020 14:55
[2020-11-21 14:19] LABS: Hemoglobin A1C 11.1 % (4.0-6.0)
[2020-11-21 14:28] LABS: Basophils % 0.6 % (0.1-2.0); Eosinophils # 0.1 K/mm3 (0.0-0.4); Hematocrit 43.6 % (37.0-47.0); Hemoglobin 14.8 g/dL (12.2-16.2); Lymphocytes # 1.6 K/mm3 (0.7-4.5); Mean Corpuscular HGB Conc 33.9 g/dL (31.8-35.4); Mean Corpuscular Hemoglobin 32.4 pg (27.0-31.2); Mean Corpuscular Volume 95.6 fl (81-99); Mean Platelet Volume 8.2 fl (7.4-10.4); Monocytes # 0.3 K/mm3 (0.1-1.0); Monocytes % 4.9 % (1.7-9.3); Neutrophils # 3.4 K/mm3 (1.8-7.8); Neutrophils % 63.6 % (37.0-80.0); Platelet Count 229 K/mm3 (142-424); Red Blood Count 4.57 M/mm3 (4.20-5.40); Red Cell Distribution Width 14.7 % (11.5-17.5); White Blood Count 5.3 K/mm3 (4.8-10.8)
[2020-11-21 14:41] LABS: Chloride 102 mmol/L (98-107); Sodium 140 mmol/L (136-145)
[2020-11-21 14:43] LABS: Alanine Aminotransferase 34 U/L (12-78); Albumin Level 4.7 g/dl (3.5-5.0); Albumin/Globulin Ratio 1.8 (1.1-1.8); Alkaline Phosphatase 87 U/L (38-126); Aspartate Amino Transferase 34 U/L (14-36); Bilirubin,Total 0.5 mg/dl (0.2-1.3); Blood Urea Nitrogen 21 mg/dl (7-17); Carbon Dioxide 29 mmol/L (22.0-30.0); Estimated Glomerular Filt Rate 64 ml/min (>60); GFR (African American) 78 ML/MIN (>60); Globulin 2.6 g/dL (1.3-3.2); Total Protein,Serum 7.3 g/dl (6.3-8.2)
[2020-11-21 15:00] LABS: Glucose 415 mg/dl (74-100)
== END ==
PROVIDERS: Visit Provider Orthopaedic Surgery
DX: Z01.818 Encounter for other preprocedural examination (principal); E11.9 Type 2 diabetes mellitus without complications; G56.01 Carpal tunnel syndrome, right upper limb; Z79.4 Long term (current) use of insulin
CPT/HCPCS: 36415; 71046; 73130; 80053; 83036; 85025

== ENCOUNTER → 2020-11-29 09:46 | Outpatient (CLI) | payer MEDICARE, SELFPAY ==
--- NOTE | 2020-11-29 09:49 | CA_ITS ---
APPROVED REPORT EXAM: Comprehensive 2D, Doppler, and color-flow Echocardiogram Butter Melter: Suzette Coronado, RCS, RVS Ht: 5 ft 5 in Wt: 203lbs BSA: 1.99 BP: 146/67 mmHg Indications: COPD, Diabetes, CAD, Hyperlipidemia, Hypertension/HDD, Pre-Op, hx-mi, hx-cabg age 36, Hx-CVA 2D Dimensions IVSd 1.32 cm LVEF (Visual) 37.20 % PWd 1.27 cm LA Volume 62.50 mL LVDd 5.10 cm LA Volume Index 31.40 mL/m2 (M/F) 16-34 LVDs 4.18 cm Aortic Root 2.92 cm Left Atrium 3.21 cm LVOT 2.07 cm (M/F) 1.5-2.5 M-Mode Dimensions LA Diam 4.24 cm (1.9-4.0) LVDd 4.61 cm (3.5-5.7) Ao Diam 3.13 cm (2.0-3.7) LVDs 3.36 cm (3.5-5.7) EF (Teich) 52.90% EPSs 0.74 cm FS 27.10% EDV (Teich) 97.80 mL TAPSE 1.86 (<1.7) ESV (Teich) 46.10 mL LV Diastology E Decel Time 177.00 (160-240 msec) E/A Ratio 1.17 MED E' 7.90 (< 7 cm/sec) MED A' 9.30 cm/s E'/MED E' Ratio 10.33 (>14) LAT E' 8.50 (<10 cm/sec) LAT A' 6.80 cm/s E/LAT E' Ratio 9.60 (>14) Pulm Vein s 49.00 cm/sec Pulm Vein d 20.00 cm/sec Ar-A Duration 117.00 msec Aortic Valve LVOT Max 97.00 (70-110 cm/s) LVOT VTI 23.96 cm AoV Peak Pete. 123.00 (50-130 cm/s) AO Peak GR. 6.00 mmHg AO Mean GR. 3.10 (<5 mmHg) AO VTI 28.05 (18-25 cm) DORINA (VTI) 2.87 (2.5-4.5 cm2) Mitral Valve MV A Velocity 70.00 (40-130 cm/s) E/A Ratio 1.17 MV Decel. Time 177.00 (160-240 ms) Pulmonary Valve PV Peak Velocity 81.00 (50-150 cm/s) GA End VMAX 198.00 cm/s Tricuspid Valve TR P. Velocity 205.00 cm/s Left Ventricle Left atrium is mildly enlarged, left ventricle is normal size, mild concentric left ventricular hypertrophy, visually estimated ejection fraction 55% with no regional wall motion abnormality, diastolic parameters are within normal range. Right Ventricle Right atrium and right ventricle are normal size and contractility. Aortic Valve Aortic valve is minimally thickened and fibrosed, there is no aortic stenosis or aortic insufficiency. Mitral Valve Mitral valve is grossly normal, there is mild mitral regurgitation. Tricuspid Valve Tricuspid valve grossly normal, there is mild tricuspid regurgitation, tricuspid regurgitation jet velocity is inadequate for calculation of the right ventricular systolic pressure. Pulmonic Valve Pulmonic valve is poorly visualized. Great Vessels Aortic root is normal size. Pericardium No significant pericardial effusion noted. Conclusion 1. Mildly enlarged left atrium, normal left ventricular size, visually estimated ejection fraction 55% with no regional wall motion abnormality, diastolic parameters are within normal range. 2. Mild mitral and tricuspid regurgitation. 3. No significant pericardial effusion noted. Electronically signed by : Ajith Evans, 11/29/2020 15:32:52
--- NOTE | 2020-11-29 10:23 | NM_ITS ---
APPROVED REPORT Exam: Nuclear Stress Test Indication: fatigue..pre-op Patient Location: Outpatient Stress Tech: Myriam Anand MA Tech:Marlene ManMICKEY RT(R)(N) Ht: 5 ft 5 in Wt: 202 lbs Bra Size: 2x HR: 65 bpm BP: 142/70 mmHg BSA: 1.99 m2 BMI: 33.6 History: fatigue..pre-op Procedure: Patient received a 0.4 mg of intravenous Lexiscan, resting heart rate 65 bpm, resting blood pressure 142/70 mmHg, with Lexiscan maximum heart rate achived was 95 bpm which is Less than 85 % of the maximum predicted heart rate and blood pressure was 161/72 mmHg. With Lexiscan, patient denied any complaint of chest pain. Electrocardiogram Resting electrocardiogram showed sinus rhythm, with Lexiscan there is less than 1.[address] segment depression noted from the baseline EKG. The EKG portion of the Lexiscan is nondiagnostic. Cardiac Stress and Resting SPECT Images: Cardiac Stress and Resting SPECT images were obtained using technetium 99m Myoview 31.6 mCi stress and 10.62 mCi at rest. Gated SPECT for analysis of segmental wall motion and calculation of the ejection fraction also done. Prone images were also obtained. Cardiac stress and resting SPECT images show a fixed defect involving the anteroseptal wall with reduced contractility gated SPECT is likely secondary to prior myocardial scarring without significant chelsey-infarct ischemia, computer derived ejection fraction is 50% with moderate anteroseptal wall hypokinesis. Right ventricle is normal size and contractility. Conclusion: 1. The EKG portion of the Lexiscan is nondiagnostic. 2. Scintigraphic evidence of myocardial scarring involving the anteroseptal wall, computer derived ejection fraction is 50% with segmental wall motion abnormality described above, right ventricle is normal size and contractility. 3. This study is technically limited due to patient's body habitus, possibility of breast attenuation cannot be excluded. 4. Likely abnormal Lexiscan Myoview study. Electronically signed by : Ajith Evans, 11/29/2020 15:51:27
--- NOTE | 2020-11-29 14:12 | CA_ITS ---
APPROVED REPORT Exam: Pharmacologic Technologist: Myriam Anand, Ht: 5 ft 5 in Wt: 203 lbs BSA: 1.99 m2 HR: 65 bpm BP: 142/70 mmHg Medical History Medications: Lisinopril,,,,, Aspirin,,,,, Metformin,,,,, Vitamin D3,,,,, Atorvastatin,,,,, Glimepiride,,,,, HCTZ,,,,, Citalopram,,,,, INSULIN,,,,, Plavix,,,,, Metoclopramide,,,,, Nitroglycerin,,,,, Stress Test Details Test: LEXISCAN HR Resting HR: 67 bpm Max Heart Rate (APMHR): 161.037473 bpm Max HR Achieved: 96 bpm Target HR (85% APMHR): 136.821702 bpm % of APMHR: 59.63 Recovery HR: 81 bpm BP Resting BP: 142/70 mmHg Max BP: 161/72 mmHg Recovery BP: 161.0/73.0 mmHg ECG Resting ECG: NSR, low voltage QRS, NS T wave abns, PVC Clinical Exercise duration: 04:00 min Highest Stage Achieved: Stress ECG Conclusion Symptoms: Mild SOA and nausea. Mildly light-headed. No CP. Arrhythmais/Ectopy: Occ PVC. ST-T Changes: NS ST-T abns inferiorly and anterolaterally Conclusion: Non-diagnostic Lexiscan stress. Myoview images reported separately. Electronically signed by : Ajith Evans, 11/29/2020 15:40:21
== END ==
PROVIDERS: PCP Family Medicine; Visit Provider Urology
DX: Z01.810 Encounter for preprocedural cardiovascular examination (principal); Z95.1 Presence of aortocoronary bypass graft; E78.2 Mixed hyperlipidemia; F17.200 Nicotine dependence, unspecified, uncomplicated; I10 Essential (primary) hypertension; I25.10 Atherosclerotic heart disease of native coronary artery without angina pectoris; I63.9 Cerebral infarction, unspecified; Z95.5 Presence of coronary angioplasty implant and graft; R94.31 Abnormal electrocardiogram [ECG] [EKG]
CPT/HCPCS: 78452; 93017; 93306; A9502; J2785

== ENCOUNTER → 2021-06-25 07:51 | Outpatient (CLI) | payer MEDICARE, SELFPAY ==
--- NOTE | 2021-06-25 07:54 | CT_ITS ---
FINAL REPORT CLINICAL HISTORY: H/O NICOTINE DEPENDENCE, PRIOR 04-28-17 COMPARISON: April 28, 2017 FINDINGS: Low-Dose Chest CT CTDI vol (mGy): 2.90 DLP (mGy-cm): 99.25 Axial images were obtained from the lung apex to the mid abdomen by computed tomography. Low-dose protocol was utilized. FINDINGS: CHEST: There is been median sternotomy. There is no axillary adenopathy. There is no hilar or mediastinal adenopathy. The heart is proper size. There is no pericardial or pleural effusion. Limited images of the upper abdomen are unremarkable. Lung window images demonstrate moderate emphysema. There are calcified granulomas in the left lung. There is a new 4 mm nodule in the posterior left upper lobe best seen on image 27. IMPRESSION: Lung RADS category 2. Recommend 12 month follow-up low-dose chest CT. Reviewed, Interpreted and Dictated by Wilton Jacobsen III, MD Transcribed by Gracia Pollock Authenticated by Wilton Jacobsen III, MD on 06/25/2021 10:23:34 AM [facility]
--- NOTE | 2021-06-25 07:55 | XR_ITS ---
FINAL REPORT TECHNIQUE: Bone densitometry calculations of the lumbar spine and left hip were obtained. CLINICAL HISTORY: . post menopausal FINDINGS: Using L1-4, the bone mineral density of the spine is 1.131 g/cm2, corresponding to T-score of 0.8. Using the left hip, the bone mineral density of the femoral neck is 0.968 g/cm2, corresponding to a T-score of 1.1. IMPRESSION: Normal bone mineralization of the lumbar spine and the left hip. Reviewed, Interpreted and Dictated by Wilton Jacobsen III, MD Transcribed by Gracia Pollock Authenticated by Wilton Jacobsen III, MD on 06/25/2021 03:42:59 PM [facility]
--- NOTE | 2021-06-25 07:56 | MM_ITS ---
PROCEDURE INFORMATION: Exam: MG Bilateral Screening 3D Mammography Exam date and time: 06/25/2021 7:56 AM Age: 60 years old Clinical indication: Screening mammogram TECHNIQUE: Imaging protocol: Bilateral Screening tomosynthesis and 2D mammography including computer-aided detection (CAD) when performed. COMPARISON: 1. MG MM DIG SCREENING MAMM BI W/CAD 08/08/2019 9:38 AM 2. MG [facility] MM Dig screening mamm BI w/CAD 07/15/2018 3:32 PM 3. MG [facility] MM Dig screening mamm BI w/CAD 06/29/2017 2:08 PM 4. MG D[facility]B DIG MAMM-SCREEN EVA W/CAD 06/20/2016 9:45 AM FINDINGS: MAMMOGRAPHY: Breast composition: There are scattered areas of fibroglandular density. Mass: None. Architectural distortion: No new or suspicious architectural distortion. Calcifications: No new or suspicious calcifications are present Asymmetric density: No new or suspicious asymmetric density is present Skin thickening: None. Axillary adenopathy: None. IMPRESSION: No mammographic evidence of malignancy. Recommend annual screening mammography unless otherwise clinically indicated. ASSESSMENT: BI-RADS category 1: Negative
== END ==
PROVIDERS: PCP Family Medicine; Visit Provider Family Medicine
DX: Z12.31 Encounter for screening mammogram for malignant neoplasm of breast (principal); Z78.0 Asymptomatic menopausal state; Z87.891 Personal history of nicotine dependence; Z12.2 Encounter for screening for malignant neoplasm of respiratory organs
CPT/HCPCS: 71271; 77063; 77067; 77080

== ENCOUNTER → 2021-07-01 10:51 | Outpatient (CLI) | payer MEDICARE, SELFPAY ==
--- NOTE | 2021-07-01 10:55 | XR_ITS ---
FINAL REPORT CLINICAL HISTORY: RIGHT SHOULDER PAIN FINDINGS: RIGHT SHOULDER Three views demonstrate no acute fracture or dislocation. The visualized joint spaces are normally aligned. The soft tissues are unremarkable. IMPRESSION: No acute process. Reviewed, Interpreted and Dictated by Godfrey Cuadra MD Transcribed by Sofya Coleman Authenticated by Godfrey Cuadra MD on 07/01/2021 01:15:[address] [facility]
== END ==
PROVIDERS: PCP Family Medicine; Visit Provider Orthopaedic Surgery
DX: M25.511 Pain in right shoulder (principal)
CPT/HCPCS: 73030

== ENCOUNTER 2021-07-30 11:00 | Outpatient (RCR) | payer MEDICARE, SELFPAY ==
--- NOTE | 2021-07-05 16:40 | HMH.OTOPEV ---
OT Inpatient Evaluation Rehab OT Outpatient Eval Start: 07/05/21 16:21 Freq: Status: Active Protocol: Document 07/05/21 16:21 LUISALDO (Rec: 07/05/21 16:40 JANET [id number]) Electronically Signed By Yamini Pompa OT 07/05/21 16:21 Outpatient Therapy Subjective History Subjective History 60 year old female referred to skilled OP OT services for right shoulder pain for the past 4-5 months. X-ray to R shoulder compled on 07/01/21 with no acute findings. Patient recieved cortisone shot on 07/03/21. Patient stated this was the 3rd cortisone shot in the R shoulder. Chief Complaint Pain,Weakness Symptom Type Ache Symptoms Relieved By Nothing Symptoms Aggravated By Physical Activity Prior Functional Limitations None Current Functional Limitations Reaching,Lifting,Recreation Activity Symptom Description Constant and Continuous Level of pain today (0-10) 3 Pain scale - at its best (0-10) 3 Pain scale - at its worst (0-10) 5 Shoulder/Elbow Eval Shoulder Objective Measurements Shoulder ROM Right Shoulder Abduction Active Range of 148 Motion (degrees) Shoulder Flexion Active Range of Motion 138 (degrees) Query Text: Shoulder External Rotation Passive Range 70 of Motion (degrees) Shoulder Internal Rotation Passive Range 50 of Motion (degrees) pain with active ROM shoulder exam right standard Shoulder MMT Shoulder Abduction Strength Grade 3- Fair- Shoulder Extension Strength Grade 3- Fair- Shoulder Flexion Strength Grade 3- Fair- Infraspinatus/Teres Minor Strength Grade 3- Fair- Shoulder External Rotation Strength 3- Fair- Grade Shoulder Internal Rotation Strength 3- Fair- Grade Elbow Objective Measurements OT Outpatient Assessment Impairments Problems/Impairments Impaired Range of Motion, Impaired Strength,Impaired Endurance,Subjective C/O Pain Prognosis Rehab Potential Good Clinical Impression Consistent with Diagnosis Yes Short Term Goals Number of Weeks 2 Increase Range of Motion Yes: AROM of RUE shoulder flex : 145; abd: 155; er: 80; ir: 60 Increase Strength Yes: Increase R UE shld
== END 2021-07-30 11:05 | disposition home or self-care (01) ==
LOC: OT 11:00
PROVIDERS: PCP Family Medicine; Visit Provider Orthopaedic Surgery
DX: M25.511 Pain in right shoulder (principal)
CPT/HCPCS: 97010; 97014; 97035; 97110; 97140; G0283

== ENCOUNTER 2021-12-24 22:48 | Emergency (ER) | payer MEDICARE, SELFPAY ==
[2021-12-24 22:49] VITALS: BP 132/62; PULSE 74; RESP 16; TEMP 36.5; O2SAT 98; BMI 32.3
--- NOTE | 2021-12-24 23:22 | PC.NURSE ---
Dr Lucio on phone with Dr. Parker who is alterations manager for Dr. Bolivar
[2021-12-24 23:23] VITALS: BP 132/62; PULSE 73; O2SAT 92
[2021-12-24 23:51] LABS: Microscopic, Urine URINE MICROSCOPIC (MICROSCOPIC)
[2021-12-24 23:52] LABS: Appearance,Urine CLEAR (Clear); Bilirubin,Urine Negative (Negative); Blood, Urine 3+ (Negative); Color,Urine YELLOW (Yellow); Glucose,Urine (UA) 3+ (Negative); Ketones,Urine Negative (Negative); Leukocyte Esterase,Urine Negative (Negative); Nitrate,Urine Negative (Negative); Protein,Urine Negative (Negative); Specific Gravity, Urine 1.015 (1.005-1.030); Urobilinogen,Urine 0.2 EU/dl (0.2)
[2021-12-24 23:58] LABS: Bacteria,Urine Trace /lpf; WBC,Urine Occasional #/hpf (0-3)
[2021-12-25] VITALS: BP 155/58; PULSE 75; O2SAT 92
--- NOTE | 2021-12-25 00:23 | HMH.EDUROGF ---
ED Disposition Clinical Impression: Hydronephrosis Qualifiers: Hydronephrosis type: unspecified Qualified Code(s): N13.30 - Unspecified hydronephrosis Disposition: Home, Self-Care Condition on Discharge: Good Instructions: DI for Urinary Tract Infection (UTI) Additional Instructions: fluids and call pcp in am Referrals: Benja Catalan MD [Primary Care Provider] - - Critical Care Critical Care Time: No Attestation: On 12/24/21, the high probability of a clinically significant, sudden or life threatening deterioration of the following system(s) required my full and direct attention, intervention and personal management. The time I documented below is in addition to time spent performing reported procedures but includes the following listed in this critical care notation. Medical Decision Making - Medical Records Medical records reviewed: Yes: I reviewed the patient's medical records. - [place] Inquiry Pt receiving controlled substance: No Vital Signs: 12/24/21 22:49 12/24/21 23:23 12/25/21 00:00 Temperature 97.7 F Temperature Source Oral Pulse Rate 73 75 Pulse Rate [Left] 74 Respiratory Rate 16 Blood Pressure 132/62 155/58 H Blood Pressure [Right Arm] 132/62 Blood Pressure Mean [Right Arm] 85 02 Sat by Pulse Oximetry 98 92 L 92 L Oxygen Delivery Method Room Air Room Air Room Air 12/25/21 01:49 Temperature Temperature Source Pulse Rate 82 Pulse Rate [Left] Respiratory Rate Blood Pressure 120/58 L Blood Pressure [Right Arm] Blood Pressure Mean [Right Arm] 02 Sat by Pulse Oximetry 94 L Oxygen Delivery Method Room Air - Lab Data Lab results reviewed: Yes: I reviewed the patient's lab results. Lab Results 12/24/21 23:00: Urine Color Yellow, Urine Appearance Clear, Urine pH 6.0, Ur Specific Gilliam 1.015, Urine Protein Negative, Urine Glucose (UA) 3+, Urine Ketones Negative, Urine Blood 3+, Urine Nitrate Negative, Urine Bilirubin Negative, Urine Urobilinogen 0.2, Ur Leukocyte Esterase Negative, Urine RBC 5-10, Urine WBC Occasional, Ur Squamous Epith Cells 3-5, Urine Bacteria Trace 12/25/21 00:00: WBC 6.0, RBC 4.61, Hgb 14.7, Hct 46.3, MCV 100.3 H, MCH 31.8 H, MCHC 31.7 L, RDW 14.0, Plt Count 285, MPV 8.4, Neut % (Auto) 63.7, Lymph % (Auto) 25.2, [place] % (Auto) 8.4, Eos % (Auto) 1.4, Baso % (Auto) 1.3, Neut # (Auto) 3.8, Lymph # (Auto) 1.5, [place] # (Auto) 0.5, Eos # (Auto) 0.1, Baso # (Auto) 0.1 12/25/21 00:00: Sodium 138, Potassium 3.9, Chloride 97 L, Carbon Dioxide 33 H, Anion Gap 11.9, BUN 22 H, Creatinine 1.00, Estimated Creat Clear 84, Estimated GFR 57 L, Est GFR ( Amer) 68, Glucose 167 H, Calcium 9.8, Total Bilirubin 0.2, AST 36, ALT 30, Alkaline Phosphatase 79, Total Protein 8.2, Albumin 4.6, Globulin 3.6 H, Albumin/Globulin Ratio 1.3 12/25/21 00:00: Lactate 1.6 12/25/21 00:00: Amylase 60, Lipase 206 Result diagrams: 12/25/21 00:00 12/25/21 00:00 Orders (Tests/Meds): ED MEDICATIONS Generic Name Dose Route Start Last Admin Trade Name Freq PRN Reason Stop Dose Admin Sodium Chloride 1,000 mls @ 999 mls/hr 12/25/21 00:30 12/25/21 00:29 Sod Chlor 0.9% 1000ml Bag IV 12/25/21 01:30 999 mls/hr .Q1H1M AUDREY Administration Discontinued Medications Generic Name Dose Route Start Last Admin Trade Name Freq PRN Reason Stop Dose Admin Ketorolac Tromethamine 30 mg 12/25/21 00:27 12/25/21 00:29 Ketorolac 30mg/Ml Vial IV 12/25/21 00:28 30 mg ONCE ONE Administration Ondansetron HCl 4 mg 12/25/21 00:16 12/25/21 00:29 Ondansetron 4mg/2ml Vial IV 12/25/21 00:17 4 mg ONCE ONE Administration - CT Data CT Scan: Abdomen, Pelvis Time Received: 02:[address] Reviewed: Yes: I have viewed the radiologist's interpretation Preliminary Findings: Abnormal (see report ) Medical Decision Narrative: rt kidney swollen w/o def stone Female Urogenital HPI - General Chief complaint: Urogenital-Female Stated complaint: possible UTI Mauro
[2021-12-25 00:24] LABS: Basophils # 0.1 K/mm3 (0-0.2); Basophils % 1.3 % (0.1-2.0); Eosinophils # 0.1 K/mm3 (0.0-0.4); Eosinophils % 1.4 % (0.1-12.0); Hematocrit 46.3 % (37.0-47.0); Hemoglobin 14.7 g/dL (12.2-16.2); Lymphocytes # 1.5 K/mm3 (0.7-4.5); Lymphocytes % 25.2 % (10-50); Mean Corpuscular HGB Conc 31.7 g/dL (31.8-35.4); Mean Corpuscular Hemoglobin 31.8 pg (27.0-31.2); Mean Corpuscular Volume 100.3 fl (81-99); Mean Platelet Volume 8.4 fl (7.4-10.4); Monocytes # 0.5 K/mm3 (0.1-1.0); Monocytes % 8.4 % (1.7-9.3); Neutrophils # 3.8 K/mm3 (1.8-7.8); Neutrophils % 63.7 % (37.0-80.0); Platelet Count 285 K/mm3 (142-424); Red Blood Count 4.61 M/mm3 (4.20-5.40)
--- NOTE | 2021-12-25 00:27 | CT_ITS ---
PROCEDURE INFORMATION: Exam: CT Abdomen And Pelvis Without Contrast Exam date and time: 12/25/2021 12:31 AM Age: 61 years old Clinical indication: Abdominal pain; Localized; Lower; Prior surgery; Surgery type: Hysterectomy TECHNIQUE: Imaging protocol: Computed tomography of the abdomen and pelvis without contrast. Radiation optimization: All CT scans at this facility use at least one of these dose optimization techniques: automated exposure control; mA and/or kV adjustment per patient size (includes targeted exams where dose is matched to clinical indication); or iterative reconstruction. COMPARISON: CT LUNG SCREENING 06/25/2021 8:01 AM FINDINGS: Liver: Multiple calcifications.. No mass. Gallbladder and bile ducts: Normal. No calcified stones. No ductal dilation. Pancreas: Normal. No ductal dilation. Spleen: Multiple small calcifications. No splenomegaly. Adrenal glands: Normal. No mass. Kidneys and ureters: Right kidney is mildly edematous. There is mild right sided hydronephrosis. 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 The ureter extends medially. There is dilatation ureter extending into the pelvis. There is no renal or ureteral stone. There is medial displacement left sided ureter but no similar inflammatory changes. There is no left sided edema. Stomach and bowel: See Bones/joints finding. Appendix: No evidence of appendicitis. Intraperitoneal space: Unremarkable. No free air. No significant fluid collection. Vasculature: Unremarkable. No abdominal aortic aneurysm. Lymph nodes: Unremarkable. No enlarged lymph nodes. Urinary bladder: Unremarkable as visualized. Reproductive: There are postsurgical changes from hysterectomy. There is no adnexal mass present. Bones/joints: Mild amount of fat stranding within the lower pelvis surrounding the rectum. There is no thickening of the rectal wall. The bowel is unremarkable. For Soft tissues: Unremarkable. IMPRESSION: 1. Moderate edema of the right kidney with mild hydronephrosis and dilatation ureter. There is no distal ureteral stone. This is concerning for pyelonephritis versus a stone that is too small to be seen. 2. Mild amount of fat stranding within the lower pelvis adjacent to the rectum. This may be consumer sales representative of proctitis but may be postsurgical in nature.
[2021-12-25 00:31] LABS: Alanine Aminotransferase 30 U/L (12-78); Albumin Level 4.6 g/dl (3.5-5.0); Albumin/Globulin Ratio 1.3 (1.1-1.8); Alkaline Phosphatase 79 U/L (38-126); Amylase 60 U/L (30-110); Anion Gap 11.9 mEq/L (5-15); Aspartate Amino Transferase 36 U/L (14-36); Bilirubin,Total 0.2 mg/dl (0.2-1.3); Blood Urea Nitrogen 22 mg/dl (7-17); Calcium 9.8 mg/dl (8.4-10.2); Carbon Dioxide 33 mmol/L (22.0-30.0); Chloride 97 mmol/L (98-107); Creatinine Clearance Estimated 84 mL/min (50-200); Estimated Glomerular Filt Rate 57 ml/min (>60); GFR (African American) 68 ML/MIN (>60); Globulin 3.6 g/dL (1.3-3.2); Glucose 167 mg/dl (74-100); Lactic Acid 1.6 mmol/L (0.7-2.1); Lipase 206 U/L (23-300); Potassium 3.9 mmoL/L (3.5-5.1); Sodium 138 mmol/L (136-145); Total Protein,Serum 8.2 g/dl (6.3-8.2)
[2021-12-25 01:49] VITALS: BP 120/58; PULSE 82; O2SAT 94
--- NOTE | 2021-12-25 01:54 | PC.NURSE ---
Pt ambulatory to bathroom. Pt back to bed. No new needs voiced at this time.
[2021-12-25 02:42] VITALS: BP 125/58; PULSE 80; RESP 16; TEMP 36.6; O2SAT 99
== END 2021-12-25 02:48 | disposition home or self-care (01) ==
PROVIDERS: Emergency Provider Emergency Medicine; PCP Family Medicine
DX: N13.2 Hydronephrosis with renal and ureteral calculous obstruction (principal); R11.0 Nausea; I10 Essential (primary) hypertension; I25.10 Atherosclerotic heart disease of native coronary artery without angina pectoris; E78.5 Hyperlipidemia, unspecified; E11.9 Type 2 diabetes mellitus without complications; Z79.4 Long term (current) use of insulin; Z79.82 Long term (current) use of aspirin; Z79.84 Long term (current) use of oral hypoglycemic drugs; Z79.899 Other long term (current) drug therapy; Z87.891 Personal history of nicotine dependence; Z95.1 Presence of aortocoronary bypass graft; Z95.5 Presence of coronary angioplasty implant and graft; Z82.49 Family history of ischemic heart disease and other diseases of the circulatory system; Z83.3 Family history of diabetes mellitus; Z80.9 Family history of malignant neoplasm, unspecified
CPT/HCPCS: 74176; 80053; 81001; 82150; 83605; 83690; 85025; 96361; 96374; 96375; 99285; J2405

== ENCOUNTER → 2021-12-31 12:09 | Outpatient (CLI) | payer MEDICARE, SELFPAY ==
--- NOTE | 2021-12-31 12:17 | XR_ITS ---
FINAL REPORT CLINICAL HISTORY: right hand pointer finger pain FINDINGS: RIGHT HAND Three views demonstrate no acute fracture or dislocation. The visualized joint spaces are normally aligned. The soft tissues are unremarkable. IMPRESSION: No acute bony abnormality. Reviewed, Interpreted and Dictated by Godfrey Cuadra MD Transcribed by Judi Cano Authenticated and [facility]
== END ==
PROVIDERS: PCP Family Medicine; Visit Provider Orthopaedic Surgery
DX: M79.641 Pain in right hand (principal)
CPT/HCPCS: 73130

== ENCOUNTER → 2022-05-15 09:04 | Outpatient (CLI) | payer MEDICARE, SELFPAY ==
[2022-05-15 10:04] LABS: Hemoglobin A1C 11.9 % (4.0-6.0)
[2022-05-15 10:11] LABS: Chloride 101 mmol/L (98-107); Potassium 4.1 mmoL/L (3.5-5.1); Sodium 140 mmol/L (136-145)
[2022-05-15 10:13] LABS: Blood Urea Nitrogen 20 mg/dl (7-17); Estimated Glomerular Filt Rate 64 ml/min (>60); GFR (African American) 77 ML/MIN (>60)
[2022-05-15 10:14] LABS: Alanine Aminotransferase 43 U/L (12-78); Albumin Level 4.4 g/dl (3.5-5.0); Albumin/Globulin Ratio 1.5 (1.1-1.8); Alkaline Phosphatase 69 U/L (38-126); Anion Gap 14.1 mEq/L (5-15); Aspartate Amino Transferase 47 U/L (14-36); Bilirubin,Total 0.5 mg/dl (0.2-1.3); Calcium 9.2 mg/dl (8.4-10.2); Carbon Dioxide 29 mmol/L (22.0-30.0); Chol/HDL Ratio 4.9 (1-3.5); Cholesterol 136 mg/dl (140-200); Globulin 2.9 g/dL (1.3-3.2); Glucose 234 mg/dl (74-100); HDL Cholesterol 28 mg/dl (40-60); Total Protein,Serum 7.3 g/dl (6.3-8.2); Triglycerides 146 mg/dl (30-150); VLDL Cholesterol 29 mg/dL (0-40)
[2022-05-15 10:25] LABS: Direct LDL Cholesterol 74.15 mg/dL (100-129)
== END ==
PROVIDERS: PCP Family Medicine; Visit Provider Family Medicine
DX: I10 Essential (primary) hypertension (principal); E78.5 Hyperlipidemia, unspecified; E11.42 Type 2 diabetes mellitus with diabetic polyneuropathy; Z79.4 Long term (current) use of insulin
CPT/HCPCS: 36415; 80053; 80061; 83036

== ENCOUNTER → 2022-07-22 11:19 | Outpatient (CLI) | payer MEDICARE, SELFPAY ==
--- NOTE | 2022-07-22 11:42 | CA_ITS ---
APPROVED REPORT EXAM: Comprehensive 2D, Doppler, and color-flow Echocardiogram Savings Teller: Macrina Stanley RVT Ht: 5 ft 5 in Wt: 207lbs BSA: 2.01 BP: 173/85 mmHg Indications: CP,CAD,CABG,COPD,SMOKER,HTN,HLD 2D Dimensions LVOT 1.86 cm (M/F) 1.5-2.5 LA Volume 44.50 mL LA Volume Index 22.14 mL/m2 (M/F) 16-34 M-Mode Dimensions RVDd 3.54 cm (0.9-2.6) LA Diam 4.34 cm (1.9-4.0) LVDd 5.63 cm (3.5-5.7) Ao Diam 3.11 cm (2.0-3.7) LVDs 4.10 cm (3.5-5.7) IVSd 0.68 cm (0.6-1.1) PWd 0.80 cm (0.6-1.1) EF (Teich) 52.30% FS 27.20% EDV (Teich) 155.60 mL TAPSE 1.72 (<1.7) ESV (Teich) 74.20 mL LV Diastology E Decel Time 150.00 (160-240 msec) E/A Ratio 1.3 MED E' 5.40 (< 7 cm/sec) E'/MED E' Ratio 17.67 (>14) LAT E' 6.20 (<10 cm/sec) E/LAT E' Ratio 15.39 (>14) Aortic Valve AO Peak GR. 3.00 mmHg Mitral Valve MV E Max Pete. 95.00 (40-130 cm/s) MV A Velocity 73.00 (40-130 cm/s) E/A Ratio 1.32 MV Decel. Time 150.00 (160-240 ms) MV PHT 44.00 ms Pulmonary Valve PV Peak Velocity 77.00 (50-150 cm/s) Tricuspid Valve TR P. Velocity 203.00 cm/s RAP Estimate 10.00 mmHg RVSP 26.50 mmHg Left Ventricle Technically difficult study because of the patient factors and poor acoustic windows. Left atrium is mildly enlarged, left ventricle is normal size, estimated ejection fraction 50% with no regional wall motion abnormality, diastolic parameters are inconclusive. Right Ventricle Right atrium and right ventricle are mildly enlarged with normal contractility. Aortic Valve Aortic valve is minimally thickened and fibrosed there is no aortic stenosis or aortic insufficiency. Mitral Valve Mitral valve is grossly normal, there is mild mitral regurgitation. Tricuspid Valve Tricuspid grossly normal, there is mild tricuspid regurgitation, tricuspid regurgitation jet velocity is inadequate for calculation of the right ventricular systolic pressure. Pulmonic Valve Pulmonic valve is poorly visualized. Great Vessels Aortic root is normal size. Inferior vena cava is poorly visualized. Pericardium No significant pericardial effusion noted. Conclusion 1. Mild biatrial enlargement, normal left ventricular size, mild concentric left ventricular hypertrophy, estimated ejection fraction 50% with no regional wall motion abnormality, endocardial surfaces are poorly visualized. 2. Mildly enlarged right ventricle with normal contractility. 3. Mild mitral and tricuspid regurgitation. 4. No significant pericardial effusion noted 5. Inferior vena cava is poorly visualized. Electronically signed by : Ajith Evans MD 07/22/2022 19:26:49
--- NOTE | 2022-07-22 12:54 | NM_ITS ---
APPROVED REPORT Exam: Nuclear Stress Test Indication: CAD, H/O ME, CABG, HTN, DM, HYPERLIPIDEMIA, FORMER SMOKER, FM HX, C.P., SOB, PALPITATIONS, FATIGUE Patient Location: Outpatient Stress Tech: Renetta Muñoz NM Tech:Cyn Clark GOLDENVincent RT (R)(N)(M) Ht: 5 ft 5 in Wt: 207 lbs Bra Size: D HR: 70 bpm BP: 148/76 mmHg BSA: 2.01 m2 TID: 1.12 BMI: 34.4 History: CAD, H/O ME, CABG, HTN, DM, HYPERLIPIDEMIA, FORMER SMOKER, FM HX, C.P., SOB, PALPITATIONS, FATIGUE Procedure: Patient received 0.4 mg of intravenous Lexiscan, resting heart rate 70 bpm, resting blood pressure 148/76 mmHg, with Lexiscan maximum heart rate achieved was 87 bpm which is Less than 85 % of the maximum predicted heart rate and blood pressure was 142/74 mmHg. Electrocardiogram Resting electrocardiogram shows sinus rhythm with Lexiscan there is less than 1.[address] segment depression noted from the baseline EKG. The EKG portion of the Lexiscan is nondiagnostic. Cardiac Stress and Resting SPECT Images: Cardiac Stress and Resting SPECT images were obtained using technetium 99m Myoview 31.9 mCi stress and 9.92 mCi at rest. Gated SPECT analysis of segmental wall motion and calculation of the ejection fraction also done. Cardiac stress and rest respectively show reversible ischemia involving the anterolateral and lateral wall, computer derived ejection fraction is 48% with mild anterolateral wall hypokinesis. Right ventricle is normal size and contractility. Conclusion: 1. The EKG portion of the Lexiscan is nondiagnostic. 2. Scintigraphic evidence of reversible ischemia involving the anterolateral lateral wall, computer derived ejection fraction is 48% with segmental wall motion abnormality described above, right ventricle is normal size and contractility. 3. Abnormal Lexiscan Myoview study. Electronically signed by : Ajith Evans MD 07/22/2022 19:06:01
--- NOTE | 2022-07-22 15:02 | CA_ITS ---
APPROVED REPORT Exam: Pharmacologic Technologist: Renetta Muñoz Ht: 5 ft 5 in Wt: 207 lbs BSA: 2.01 m2 HR: 70 bpm BP: 148/76 mmHg Indications: Angina, CAD Medical History Medications: Lisinopril,,,,, Asa,,,,, Metformin,,,,, Gabapentin,,,,, Vitamin E,,,,, Vitamin D3,,,,, Atorvastatin,,,,, Glimepiride,,,,, HCTZ,,,,, Citalopram,,,,, INSULIN,,,,, CloPIdogrel,,,,, Stress Test Details Test: LEXISCAN HR Resting HR: 73 bpm Max Heart Rate (APMHR): 160.990312 bpm Max HR Achieved: 89 bpm Target HR (85% APMHR): 136.729274 bpm % of APMHR: 55.63 Recovery HR: 82 bpm BP Resting BP: 148.0/76.0 mmHg Max BP: 148.0/76.0 mmHg Recovery BP: 146.0/79.0 mmHg ECG Resting ECG: Normal sinus rhythm, rightward axis Clinical Exercise duration: 03:00 min Highest Stage Achieved: Exercise capacity: 1.0 METs Stress ECG Conclusion Symptoms: Shortness of air, fleeting chest pain, mild and brief stomach discomfort. Arrhythmias/Ectopy: none ST-T Changes: No significant changes. Conclusion: Unremarkable Lexiscan stress. Myoview images reported separately. Test Summary REST . . . . . . . Resting REST 07:17 . . 73 . 148/ 76 . . Stage 1 . . . . . . . Myoview Injected Stage 1 01:00 . . 81 . . . . Stage 2 01:00 . . 87 . 142/ 74 . . Stage 3 01:00 . . 87 . 142/ 73 . Stop exercise at 03:00 RECOVERY 01:00 . . 87 . 140/ 75 . . RECOVERY 02:00 . . 88 . 140/ 75 . . RECOVERY 03:00 . . 82 . 140/ 75 . . RECOVERY 03:58 . . 82 . 146/ 79 . . Electronically signed by : Ajith Evans MD 07/22/2022 18:56:56
== END ==
PROVIDERS: PCP Family Medicine; Visit Provider Nurse Practitioner
DX: E78.2 Mixed hyperlipidemia (principal); F17.200 Nicotine dependence, unspecified, uncomplicated; I10 Essential (primary) hypertension; Z95.1 Presence of aortocoronary bypass graft; Z95.5 Presence of coronary angioplasty implant and graft; I20.8 Other forms of angina pectoris
CPT/HCPCS: 78452; 93017; 93306; A9502; J2785

== ENCOUNTER 2022-07-30 08:46 | Day surgery (SDC) | payer MEDICARE, SELFPAY ==
[2022-07-30] VITALS (13 sets, daily range): BP systolic 136–155; BP diastolic 51–100; PULSE 65–79; RESP 16–20; TEMP 36.1; O2SAT 89–98; BMI 34.4
--- NOTE | 2022-07-30 | IR_ITS ---
APPROVED REPORT Patient Location: Outpatient Band Sawyer: MICKEY Macias RT (R) PROCEDURES Left heart catheterization Left ventriculogram Selective coronary angiogram Selective engagement of left internal mammary artery Drug-eluting stent deployment to the mid dominant circumflex artery INDICATION Coronary artery disease, History of coronary bypass surgery, Angina pectoris, Abnormal Myoview, Informed consent was obtained prior to the procedure. COMPLICATIONS None Estimated Blood Loss: Less than 10 ML TECHNIQUE One percent lidocaine used to anesthetize the right groin. The right femoral artery was accessed via the Seldinger technique and a 5 [place] sheath was placed in the right femoral artery. A JL 4, JR4 catheter were used to perform left heart catheterization, left ventriculogram selective coronary angiography as well as selective engagement of the left internal mammary artery. The vein graft was noted to be occluded from previous diagnostic angiography. At the end of the procedure the 5 [place] sheath was exchanged for a 6 [place] sheath and therapeutic heparin was administered giving a therapeutic ACT. A JL 4 guide catheter was placed in the left main artery followed by Choice PT extra-support wire being placed on the circumflex artery. 3.5 x 34 mm resolute Anton stent was deployed at 20 yu reducing the severe stenosis to 0%. BIGG-3 flow was present before and after the procedure. At the end the procedure the apparatus was removed the groin is reprepped closure changed sheath was removed good hemostasis was achieved using Perclose device patient was transferred to the postop holding in stable condition ANGIOGRAPHIC RESULTS The left main artery Has a stent in the ostial proximal mid distal segment which is widely patent free of in-stent restenosis with excellent proximal distal transitioning The left anterior descending artery Ostially occluded The circumflex artery Has a stent which originates off the left main artery and is patent. Distal to the stent are tandem 80 and 90% stenoses The right coronary artery Small nondominant and patent The ORTEZ ventriculogram reveals Normal 65% The left ventricular end-diastolic pressure Severely elevated at 40 mmHg MURRAY to LAD widely patent Saphenous vein graft to circumflex artery noted to be previously occluded IMPRESSION Severe nulato coronary disease involving the dominant circumflex artery as described above with successful stenting reducing the severe and critical stenosis to 0% with 1 drug-eluting stent Normal ejection fraction Severe to critically elevated LVEDP PLAN 1. Dual antiplatelet therapy 2. Add Lasix 20 mg a day along with Aldactone 50 mg daily for treatment of severe diastolic dysfunction 3. Avoidance of carbonated drinks 4. LDL less than 55 to be achieved with high intensity statin 5. Cardiac rehabilitation 6. Aggressive risk factor modification Electronically signed by : Nilton Lange MD 07/30/2022 13:17:56
[2022-07-30 09:26] LABS: Basophils # 0.1 K/mm3 (0-0.2); Eosinophils # 0.1 K/mm3 (0.0-0.4); Eosinophils % 1.9 % (0.1-12.0); Hematocrit 42.5 % (37.0-47.0); Hemoglobin 13.6 g/dL (12.2-16.2); Lymphocytes # 1.8 K/mm3 (0.7-4.5); Lymphocytes % 33.6 % (10-50); Mean Corpuscular HGB Conc 32.1 g/dL (31.8-35.4); Mean Corpuscular Hemoglobin 31.7 pg (27.0-31.2); Mean Platelet Volume 8.4 fl (7.4-10.4); Monocytes # 0.4 K/mm3 (0.1-1.0); Monocytes % 7.8 % (1.7-9.3); Neutrophils % 54.9 % (37.0-80.0); Platelet Count 260 K/mm3 (142-424); Red Cell Distribution Width 14.7 % (11.5-17.5); White Blood Count 5.4 K/mm3 (4.8-10.8)
[2022-07-30 09:32] LABS: Chloride 102 mmol/L (98-107); Potassium 4.3 mmoL/L (3.5-5.1); Sodium 139 mmol/L (136-145)
[2022-07-30 09:35] LABS: Blood Urea Nitrogen 19 mg/dl (7-17); Creatinine Clearance Estimated 111 mL/min (50-200); Estimated Glomerular Filt Rate 73 ml/min (>60); GFR (African American) 89 ML/MIN (>60)
[2022-07-30 09:36] LABS: Anion Gap 11.3 mEq/L (5-15); Calcium 9.2 mg/dl (8.4-10.2); Carbon Dioxide 30 mmol/L (22.0-30.0); Glucose 228 mg/dl (74-100)
[2022-07-30 12:54] LABS: CATHL Activated Clotting Time 281 SEC (74-125)
--- NOTE | 2022-07-30 14:15 | HMH.PHACL ---
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
== END 2022-07-30 15:41 | disposition home or self-care (01) ==
PROVIDERS: PCP Family Medicine; Visit Provider Internal Medicine
DX: I25.118 Atherosclerotic heart disease of native coronary artery with other forms of angina pectoris (principal); R94.39 Abnormal result of other cardiovascular function study; Z95.1 Presence of aortocoronary bypass graft; I25.810 Atherosclerosis of coronary artery bypass graft(s) without angina pectoris; I25.82 Chronic total occlusion of coronary artery; Z79.899 Other long term (current) drug therapy; Z79.01 Long term (current) use of anticoagulants; E11.9 Type 2 diabetes mellitus without complications; Z79.4 Long term (current) use of insulin; J44.9 Chronic obstructive pulmonary disease, unspecified; Z95.5 Presence of coronary angioplasty implant and graft
CPT/HCPCS: 80048; 85025; 85347; 92928; 93459; 99152; C1725; C1760; C1769; C1876; C1894; C9600; J1644; Q9967

== ENCOUNTER → 2022-08-27 07:33 | Outpatient (CLI) | payer MEDICARE, SELFPAY ==
--- NOTE | 2022-08-27 07:37 | CT_ITS ---
FINAL REPORT CLINICAL HISTORY: H/O TOBACCO USE, previous smoker, quit 5 years ago, previously smoked 2 ppd x 30 years COMPARISON: 06/25/2021 FINDINGS: Low-Dose Chest CT Axial images were obtained from the lung apex to the mid abdomen by computed tomography. Low-dose protocol was utilized. CTDI vol (mGy): 2.90 DLP (mGy-cm): 102.3 There is no axillary adenopathy. There is no hilar adenopathy. There are small mediastinal lymph nodes. There are postoperative changes from median sternotomy. The heart is proper size. There is no pericardial or pleural effusion. Lung window images demonstrate mild changes of emphysema. There are multiple calcified granulomas. The posterior left upper lobe nodule measures 3 mm and was 4 mm. The difference in size may be due to imaging variation versus interval improvement. No new mass or nodule is identified. Limited images of the upper abdomen are unremarkable. IMPRESSION: Stable left upper lobe nodule. Lung RADS category 2. Recommend 12 month follow-up low-dose chest CT. Reviewed, Interpreted and Dictated by Wilton Jacobsen III, MD Transcribed by Gracia Pollock Authenticated and [facility]
--- NOTE | 2022-08-27 07:38 | MM_ITS ---
PROCEDURE INFORMATION: Exam: MG Bilateral Screening 3D Mammography Exam date and time: 08/27/2022 7:46 AM Age: 62 years old Clinical indication: Screening examination TECHNIQUE: Imaging protocol: Bilateral Screening tomosynthesis and 2D mammography including computer-aided detection (CAD) when performed. COMPARISON: 1. MG MM DIG SCREENING MAMM BI W/CAD 06/25/2021 8:18 AM 2. MG MM DIG SCREENING MAMM BI W/CAD 08/08/2019 9:38 AM 3. MG SCBI MM Dig screening mamm BI w/CAD 07/15/2018 3:32 PM FINDINGS: MAMMOGRAPHY: Breast composition: The breasts are heterogeneously dense, which may obscure small masses. Mass: No suspicious masses. Architectural distortion: No suspicious distortion. Calcifications: No suspicious calcifications. Asymmetric density: None. Skin thickening: None. Axillary adenopathy: None. IMPRESSION: No mammographic evidence of malignancy. Annual screening is recommended unless otherwise clinically indicated. ASSESSMENT: BI-RADS Category 1: Negative
== END ==
PROVIDERS: PCP Family Medicine; Visit Provider Family Medicine
DX: Z87.891 Personal history of nicotine dependence (principal); Z12.2 Encounter for screening for malignant neoplasm of respiratory organs; Z12.31 Encounter for screening mammogram for malignant neoplasm of breast
CPT/HCPCS: 71271; 77063; 77067

== ENCOUNTER 2023-05-27 08:51 | Outpatient (CLI) | payer MEDICARE, SELFPAY ==
--- NOTE | 2023-05-27 08:51 | MR_ITS ---
FINAL REPORT CLINICAL HISTORY: right shoulder pain. LIMITED ROM. NO INJURY OR TRAUMA COMPARISON: 09/24/2020 FINDINGS: Multiplanar MR imaging of the right shoulder was performed without contrast. There is supraspinatus tendinosis present, as well as a focal full-thickness tear at the footprint of the supraspinatus tendon which measures 8 mm in AP diameter. This tear is new since the prior MRI. There is mild acromioclavicular degenerative change present, with a spur projecting from the undersurface of the acromion. There is moderate fluid present in the subacromial/subdeltoid bursa. The glenoid labrum is intact. The long head of the biceps tendon is intact. A small glenohumeral joint effusion is seen. There is no evidence of fracture or dislocation. The musculature is intact. Small subchondral cysts are present in the humeral head. IMPRESSION: Supraspinatus tendinosis with a focal full-thickness tear at the footprint of the supraspinatus tendon as described, new since the prior MRI of 2020. There is a moderate amount of fluid present in the subacromial/subdeltoid bursa. Reviewed, Interpreted and Dictated by Wilton Jacobsen III, MD Transcribed by Reba Silva Authenticated and [facility]
== END 2023-05-27 23:59 ==
LOC: RAD 08:51
PROVIDERS: PCP Family Medicine; Visit Provider Orthopaedic Surgery
DX: M25.511 Pain in right shoulder (principal)
CPT/HCPCS: 73221

== ENCOUNTER 2023-08-17 09:44 | Outpatient (CLI) | payer MEDICARE, SELFPAY ==
--- NOTE | 2023-08-17 09:47 | XR_ITS ---
FINAL REPORT CLINICAL HISTORY: cough pre-op right shoulder 08/18/23 COMPARISON: None FINDINGS: Two views of the chest were obtained. The patient has undergone a prior midline sternotomy. The heart size and pulmonary vascularity are within normal limits. The mediastinum is normal. No acute pulmonary abnormality is identified. There is no pneumothorax. The bony thorax is intact. IMPRESSION: No active cardiopulmonary disease. Reviewed, Interpreted and Dictated by Wilton Jacobsen III, MD Transcribed by Reba Silva Authenticated and [facility]
--- NOTE | 2023-08-17 10:07 | ECG_ITS ---
APPROVED REPORT Exam: Resting ECG HR:71 bpm ECG Measurements Heart Rate 71 AXES KS 187 P 60 QRSd 94 QRS 65 QT 388 T 44 QTc 410 Conclusion SINUS RHYTHM LOW QRS VOLTAGE IN PRECORDIAL LEADS [QRS DEFLECTION < 1.0 mV IN CHEST LEADS] NONSPECIFIC ST & T-WAVE ABNORMALITY BORDERLINE ECG UNCONFIRMED REPORT Electronically signed by : Jairo Powell MD 08/17/2023 14:06:30
[2023-08-17 10:14] LABS: Basophils # 0.1 K/mm3 (0-0.2); Basophils % 1.1 % (0.1-2.0); Eosinophils # 0.1 K/mm3 (0.0-0.4); Eosinophils % 1.4 % (0.1-12.0); Hematocrit 44.7 % (37.0-47.0); Hemoglobin 14.3 g/dL (12.2-16.2); Lymphocytes # 2.3 K/mm3 (0.7-4.5); Mean Platelet Volume 8.9 fl (7.4-10.4); Monocytes # 0.3 K/mm3 (0.1-1.0); Neutrophils # 2.9 K/mm3 (1.8-7.8); Neutrophils % 51.5 % (37.0-80.0); Platelet Count 256 K/mm3 (142-424); Red Blood Count 4.47 M/mm3 (4.20-5.40); Red Cell Distribution Width 13.9 % (11.5-17.5); White Blood Count 5.7 K/mm3 (4.8-10.8)
[2023-08-17 12:00] LABS: Alanine Aminotransferase 39 U/L (12-78); Albumin Level 4.7 g/dl (3.5-5.0); Albumin/Globulin Ratio 1.7 (1.1-1.8); Alkaline Phosphatase 72 U/L (38-126); Anion Gap 14.4 mEq/L (5-15); Aspartate Amino Transferase 45 U/L (14-36); Bilirubin,Total 0.6 mg/dl (0.2-1.3); Blood Urea Nitrogen 23 mg/dl (7-17); Calcium 10.6 mg/dl (8.4-10.2); Carbon Dioxide 28 mmol/L (22.0-30.0); Chloride 99 mmol/L (98-107); Estimated Glomerular Filt Rate 64 ml/min (>60); GFR (African American) 77 ML/MIN (>60); Globulin 2.7 g/dL (1.3-3.2); Glucose 214 mg/dl (74-100); Potassium 4.4 mmoL/L (3.5-5.1); Sodium 137 mmol/L (136-145); Total Protein,Serum 7.4 g/dl (6.3-8.2)
== END 2023-08-17 23:59 ==
LOC: LAB 09:44
PROVIDERS: PCP Family Medicine; Visit Provider Orthopaedic Surgery
DX: M75.101 Unspecified rotator cuff tear or rupture of right shoulder, not specified as traumatic (principal); M25.511 Pain in right shoulder; Z01.818 Encounter for other preprocedural examination
CPT/HCPCS: 36415; 71046; 80053; 85025; 93005

== ENCOUNTER 2023-08-18 10:11 | Inpatient (IN) | payer MEDICARE, SELFPAY ==
[2023-08-18] VITALS (32 sets, daily range): BP systolic 98–192; BP diastolic 47–88; PULSE 70–98; RESP 15–22; TEMP 36.1–37.9; O2SAT 92–100; BMI 32.5
[2023-08-18] MEDS: LACTATED RINGERS 1000ML 1,000 ML 25 ML IV (06:23)
[2023-08-18] MEDS: EPINEPHrine 1 MG/ML AMPUL 2 MG (07:45)
[2023-08-18] MEDS: CEFAZOLIN SODIUM 2 GM in 0.9 % SODIUM CHLORIDE 100 ML IV (07:45)
--- NOTE | 2023-08-18 07:48 | P.PNANES_ITS ---
[facility] Disclaimer: The information contained in this section may have been updated after the patient was seen, as this information can be updated by other users. Medical History Sleep apnea History of stroke Typical angina Cerebrovascular accident COPD (chronic obstructive pulmonary disease) Tobacco dependence Diabetes mellitus HTN (hypertension) HLD (hyperlipidemia) CAD (coronary artery disease) Surgical History History of coronary artery stent placement H/O hysterectomy with oophorectomy History of coronary artery bypass graft Family History Other Heart disease Social History Smoking Status: Former smoker tobacco type: cigarettes packs per day: 1 second hand exposure: No alcohol intake: never substance use type: denies use current occupational status: disabled Travel in the last 8 weeks: None household members: significant other housing: house current occupational exposures/hazards: No caffeine: Yes [facility] Anesthesia Checklist Patient Identification Patient Identification: Arm Band and Verbal (Name & ) Structural Data Admitted From: Home Planned Operative Procedure/s: Shoulder arthroscopy Consent for Planned Operative Procedure(s) Verified: Yes NPO Status Verified Time NPO: 00:00 Chart Verification Results Verified: CBC and BMP Additional verifications Anesthesia Reactions: No Hx Blood Transfusions: No Blood Transfusion Reaction: No Airway Assessment Mallampati Score:: Class IV C-Spine Mobility Assessed: Yes TMJ Mobility Assessed: Yes Dentition: Edentulous Neurological Assessment Level of Consciousness: Awake Hx Seizures: No Numbness or tingling in extremities: No Anesthesia Plan Anesthesia Risk discussed: Yes Anesthesia Plan: Verified ASA Class: III Anesthesia Type: General w/block
[2023-08-18] MEDS: RINGERS SOLUTION,LACTATED 6,000 ML 100 ML IR (08:24)
--- NOTE | 2023-08-18 08:35 | P.OP_ITS ---
Date of procedure: 08/18/23 Pre-op Diagnosis:: Right shoulder impingement with partial-thickness rotator cuff tear of the supraspinatus Post-op Diagnosis:: Right shoulder impingement with partial-thickness rotator cuff tear of the supraspinatus Procedure performed:: Right shoulder arthroscopy with extensive debridement to include intra-articular and subacromial rotator cuff debridement along with bursectomy and labral debridement. Arthroscopic subacromial decompression Surgeon:: Xiang Tyson MD Wafer Polishing Worker(s):: None ANIMATION CAMERA OPERATOR:: Maxi Rangel Anesthesia: GETA and regional Estimated blood loss (mL): 5 Clinical Note:: Bibi is a very pleasant 62-year-old female who has been dealing with right shoulder pain over the past couple of years secondary to impingement syndrome with degenerative rotator cuff tear of the supraspinatus as seen on MRI from May. Subacromial cortisone injections most recently in February provided temporary relief but not long-lasting relief. She has been doing a home exercise program and takes [id number] anti-inflammatories as needed. History of coronary artery disease. She obtained cardiac clearance and stopped Plavix 5 days ago. Was deemed low cardiac risk for surgery. We discussed all the risks, benefits and alternatives to right shoulder arthroscopy for rotator cuff debridement versus repair. She agreed to proceed and surgical consent form was signed Operative findings:: Right shoulder glenohumeral joint with no significant degenerative changes. Age-related degenerative changes of the superior labrum. Long head biceps tendon intact with no significant fraying or inflammation. Less than 50% articular sided partial-thickness tear anterior leading edge of the supraspinatus with no full-thickness rotator cuff tear. Subacromial impingement with large subacromial spur. Operative note:: The patient was seen in the preoperative holding area. Right shoulder was signed to confirm the correct operative site. She received an interscalene block by anesthesia for perioperative pain control. She received Ancef 2 g IV prophylactic antibiotics within 1 hour incision time. She was brought back to the OR. General anesthesia induced without difficulty. She was placed in the lateral decubitus position. Axillary roll was placed and all bony prominences were well-padded. Right upper extremity was prepped and draped in the usual sterile fashion. Timeout performed to confirm right shoulder arthroscopy for patient Bibi Aguila. Arm hicks was placed with 15 pounds of traction. I made a posterior lateral viewing portal with an 11 blade scalpel. Arthroscope was introduced into the shoulder joint. I then made an anterior portal localizing with a spinal needle. This incision was made with an 11 blade. I placed a 5.5 mm cannula. Diagnostic arthroscopy commenced. She was seen to have some age-related degenerative fraying of the superior labrum. Long head biceps tendon was intact with no significant inflammation. No significant chondromalacia of the glenohumeral joint. Subscapularis tendon was intact. She had some partial-thickness fraying anterior leading edge articular sided supraspinatus less than 50%. This was debrided with a 4.0 mm shaver back to a smooth stable border. No full-thickness rotator cuff tear was seen. The superior aspect of the labrum was debrided as well with a shaver back to a smooth and stable border. Some inflamed tissue in the rotator interval was repeated with an electrocautery wand. We then redirected the scope into the subacromial space. A lateral portal was established. We performed a bursectomy with an electrocautery wand and the shaver. Edges of the acromion were well-defined. She was seen to have a large subacromial spur. This was treated with a subacromial decompression removing 5 to 7 mm of bone from the anterior aspect of the acromion with the shaver. The bursal side of the cuff was debrided. No significant tearing other than some mild fraying of the bursal side of the cuff. At this time arthroscopy instruments were removed from the joint. Portals were closed with 3-0 nylon horizontal mattress sutures. Applied a sterile dressing with Xeroform, 4 x 4's, ABD and tape. She was placed in a sling. Anesthesia reversed without difficulty. Transferred to recovery in stable condition. All sponge and needle counts were correct. Postoperative plan: She will remain in the sling at all times unless bathing or changing clothes. Okay to remove the dressing in 3 days and apply Band-Aids to the incisions and shower. Oxycodone prescribed to take as needed for pain. Follow-up in the office next Sunday 08/27 and we will initiate physical therapy at that time. Tourniquet time (min): 0 Condition: stable Disposition: PACU Specimens:: None Complications:: None
--- NOTE | 2023-08-18 08:42 | P.PNANES_ITS ---
[facility] Anesthesia Record Part I Anesthesia Record I Intake, IV Amount: 1,000 Hydration: Adequate Estimated blood loss (mL): 25 Urine output (mL): 0 Blood Pressure: 149/84 SaO2: 92 Pulse Rate: 98 Airway Patency: Patent Respiratory Rate: 15 Temperature: 97 F Patient is:: Awake Stable to PACU at:: 08:38
[2023-08-18 09:00] LABS: POC Glucose,Bedside 264 (70-110)
--- NOTE | 2023-08-18 09:34 | XR_ITS ---
FINAL REPORT CLINICAL HISTORY: s/p surgery drop in sats COMPARISON: 08/17/2023 FINDINGS: A single portable view of the chest was obtained. Cardiomegaly is noted. There is evidence of prior median sternotomy. Worsening pulmonary vascular congestion is noted. There are worsening pulmonary opacities which are favored to represent edema over pneumonia. The bony thorax is intact. IMPRESSION: Worsening pulmonary opacities favor edema over pneumonia. Cardiomegaly with worsening pulmonary vascular congestion. Reviewed, Interpreted and Dictated by Wilton Jacobsen III, MD Transcribed by Yary Estrada Authenticated and [facility]
[2023-08-18] MEDS: IPRATROPIUM/ALBUTEROL 3 ML NEB IH ×3 (09:40→23:21)
--- NOTE | 2023-08-18 09:41 | ECG_ITS ---
APPROVED REPORT Exam: Resting ECG HR:106 bpm ECG Measurements Heart Rate 106 AXES IN 201 P 74 QRSd 104 QRS -15 QT 348 T 102 QTc 410 Conclusion SINUS TACHYCARDIA WITH OCCASIONAL SUPRAVENTRICULAR PREMATURE COMPLEXES SEPTAL MYOCARDIAL INFARCTION , OF INDETERMINATE AGE [40+ ms Q WAVE IN V1/V2] ST DEVIATION AND MODERATE T-WAVE ABNORMALITY, CONSIDER LATERAL ISCHEMIA [-0.1+ mV T-WAVE IN I/aVL/V5/V6] ABNORMAL ECG UNCONFIRMED REPORT Electronically signed by : Jairo Powell MD 08/18/2023 20:37:13
[2023-08-18] MEDS: FUROSEMIDE 40MG/4ML VIAL 40 MG (09:50)
[2023-08-18] MEDS: ASPIRIN 300MG SUPPOSITORY 300 MG RC (09:50)
--- NOTE | 2023-08-18 10:06 | ECG_ITS ---
APPROVED REPORT Exam: Resting ECG HR:97 bpm ECG Measurements Heart Rate 97 AXES CA 210 P 87 QRSd 90 QRS 21 QT 373 T 82 QTc 428 Conclusion SINUS RHYTHM WITH FIRST DEGREE AV BLOCK LOW QRS VOLTAGE IN PRECORDIAL LEADS [QRS DEFLECTION < 1.0 mV IN CHEST LEADS] MODERATE ST DEPRESSION [0.05+ mV ST DEPRESSION] ABNORMAL ECG INTERPRETATION BASED ON A DEFAULT AGE OF 40 YEARS UNCONFIRMED REPORT Electronically signed by : Jairo Powell MD 08/18/2023 20:36:43
--- NOTE | 2023-08-18 10:07 | XR_ITS ---
FINAL REPORT CLINICAL HISTORY: check placement COMPARISON: 08/18/2023 FINDINGS: SINGLE-VIEW CHEST There is cardiomegaly. The patient is status post median sternotomy. NG tube terminates 1.5 cm from the collin. There is worsening pulmonary vascular congestion. There are worsening pulmonary opacities, favor edema. There is no pneumothorax. IMPRESSION: NG tube as above. Worsening pulmonary opacities and pulmonary vascular congestion. Reviewed, Interpreted and Dictated by Wilton Jacobsen III, MD Transcribed by Kamla Woody Authenticated and [facility]
[2023-08-18] MEDS: PROPOFOL 10 MG/ML 50 MG IV ×3 (10:09→10:45)
[2023-08-18] MEDS: INSULIN HUMAN REGULAR 100 UNITS/ML 10ML VIAL 100 UNIT (10:21)
[2023-08-18 10:48] LABS: ABG Oxygen Saturation 97 % (90-100); ABG PCO2 54.1 mmhg (35.0-45.0); ABG PH 7.14 mmol/L (7.35-7.45); ABG PO2 116.2 mmhg (80-100); ABG TCO2 19.7 mmhg (23-27); Lactate Arterial 2.8 mmol/L (0.4-2.0)
--- NOTE | 2023-08-18 10:50 | PC.NURSE ---
Pt arrived to the floor at this time via stretcher.
[2023-08-18 10:53] LABS: Anion Gap 13.7 mEq/L (5-15); Blood Urea Nitrogen 20 mg/dl (7-17); Calcium 8.5 mg/dl (8.4-10.2); Carbon Dioxide 21 mmol/L (22.0-30.0); Chloride 104 mmol/L (98-107); Creatinine Clearance Estimated 83 mL/min (50-200); Estimated Glomerular Filt Rate 73 ml/min (>60); GFR (African American) 88 ML/MIN (>60); Glucose 363 mg/dl (74-100); Potassium 4.7 mmoL/L (3.5-5.1); Sodium 134 mmol/L (136-145)
[2023-08-18 11:00] LABS: Basophils # 0.1 K/mm3 (0-0.2); Basophils % 0.7 % (0.1-2.0); Eosinophils # 0.1 K/mm3 (0.0-0.4); Eosinophils % 0.7 % (0.1-12.0); Hematocrit 39.9 % (37.0-47.0); Hemoglobin 12.3 g/dL (12.2-16.2); Lymphocytes # 2.8 K/mm3 (0.7-4.5); Lymphocytes % 40.1 % (10-50); Mean Corpuscular HGB Conc 30.8 g/dL (31.8-35.4); Mean Corpuscular Hemoglobin 32.3 pg (27.0-31.2); Mean Corpuscular Volume 104.6 fl (81-99); Mean Platelet Volume 8.9 fl (7.4-10.4); Monocytes # 0.2 K/mm3 (0.1-1.0); Monocytes % 2.8 % (1.7-9.3); Neutrophils # 3.9 K/mm3 (1.8-7.8); Neutrophils % 55.7 % (37.0-80.0); Platelet Count 200 K/mm3 (142-424); Red Blood Count 3.82 M/mm3 (4.20-5.40); Red Cell Distribution Width 13.9 % (11.5-17.5); White Blood Count 7.1 K/mm3 (4.8-10.8)
[2023-08-18 11:02] LABS: Alanine Aminotransferase 37 U/L (12-78); Albumin Level 3.6 g/dl (3.5-5.0); Albumin/Globulin Ratio 1.5 (1.1-1.8); Alkaline Phosphatase 74 U/L (38-126); Aspartate Amino Transferase 41 U/L (14-36); Bilirubin,Total 0.3 mg/dl (0.2-1.3); Globulin 2.4 g/dL (1.3-3.2); Magnesium 1.4 mg/dl (1.6-2.3)
--- NOTE | 2023-08-18 11:02 | CT_ITS ---
FINAL REPORT CLINICAL HISTORY: acute respiratory failure COMPARISON: 08/27/2022 FINDINGS: Thin section axial CT images of the chest were obtained with contrast. 3D reformatted images were also obtained. This study was performed with techniques to keep radiation doses as low as reasonably achievable (ALARA). Individualized dose reduction techniques using automated exposure control or adjustment of mA and/or kV according to the patient''s size were employed. There is cardiomegaly. The patient is status post median sternotomy. Endotracheal tube tip is near the collin. There is soft tissue air in the right shoulder and chest wall of uncertain etiology. There is no evidence of pulmonary embolism. There is no evidence of thoracic aortic aneurysm or dissection. There is no evidence of mediastinal or hilar mass or adenopathy. There is bilateral lower lobe atelectasis. There are bilateral pulmonary ground-glass and alveolar opacities worrisome for bilateral pneumonia. This may be superimposed on edema. Limited images of the upper abdomen are unremarkable. IMPRESSION: No evidence of pulmonary embolism. Bilateral ground-glass and alveolar opacities worrisome for pneumonia. This may be superimposed on edema. Reviewed, Interpreted and Dictated by Wilton Jacobsen III, MD Transcribed by Kamla Woody Authenticated and [facility]
--- NOTE | 2023-08-18 11:03 | HMH.PHAINT1 ---
Pharmacy Intervention Comments: HOME MEDICATION LIST VERIFED VIA OUTSIDE PHARMACY AND LAST OFFICE VISIT IN JUN 2023
[2023-08-18] MEDS: propofoL 100 ML 10.67 MG IV (11:06)
[2023-08-18] MEDS: FENTANYL CITRATE/PF 1,000 MCG in 0.9 % SODIUM CHLORIDE 80 ML 2.5 MCG IV (11:06)
--- NOTE | 2023-08-18 11:06 | CA_ITS ---
APPROVED REPORT EXAM: Comprehensive 2D, Doppler, and color-flow Echocardiogram Charge Coordinator: Macrina Stanley RVT Ht: 5 ft 5 in Wt: 196lbs BSA: 1.96 BP: 145/71 mmHg Indications: CHF,RESP FAILURE S/P SHOULDER SURGERY,PT INTUBATED,CABG,CAD,HTN,HLD TDS-PT INTUBATED FLAT ON BACK,EXTERNAL PACER PADSAND PT'S RT ARM IN SLING 2D Dimensions IVSd 0.75 cm F: 0.6-1.0 LVEF (Visual) 56.50 % PWd 0.98 cm F: 0.6 - 1.0 LA Volume 39.80 mL LVDd 5.58 cm F: 3.9 - 5.3 LA Volume Index 20.31 mL/m2 (M/F) 16-34 LVDs 3.91 cm F: 2.2 - 3.5 EF AP4 51.50 % Left Atrium 3.16 cm F: 2.7 - 3.8 GL Strain -17.4 % RVID Base (AP4) 3.27 cm (M/F) 2.5-4.1 LVOT 1.94 cm (M/F) 1.5-2.5 M-Mode Dimensions LVDd 5.58 cm (3.5-5.7) Ao Diam 2.85 cm (2.0-3.7) LVDs 3.91 cm (3.5-5.7) IVSd 0.75 cm (0.6-1.1) PWd 0.98 cm (0.6-1.1) FS 29.90% LV Diastology E Decel Time 233 (160-240 msec) E/A Ratio 0.8 MED E' 5.8 (>= 7 cm/sec) E'/MED E' Ratio 11.69 (<= 14) LAT E' 6.2 (>= 10 cm/sec) E/LAT E' Ratio 10.94 (<= 14) Aortic Valve LVOT Max 108.0 (70-110 cm/s) DORINA Index 1.49 cm2/m2 LVOT VTI 21.36 cm AoV Peak Pete. 135.0 (50-130 cm/s) AO Peak GR. 5.80 mmHg AO Mean GR. 4.10 (<5 mmHg) AO VTI 21.6 (18-25 cm) DORINA (VTI) 2.93 (2.5-4.5 cm2) Mitral Valve MV E Max Pete. 68.0 (40-130 cm/s) MV A Velocity 88.0 (40-130 cm/s) E/A Ratio 0.77 MV Decel. Time 233 (160-240 ms) Tricuspid Valve TR P. Velocity 248.00 cm/s RAP Estimate 10.00 mmHg RVSP 34.60 mmHg Left Ventricle The left ventricle is normal size. The left ventricular systolic function is low normal. There is increased LV wall thickness. The septum is asynchronous. There is mild hypokinesis of the septal and anteroseptal LV lozano. Diastolic function is indeterminate. LVEF is 50%. Right Ventricle The right ventricle is mildly dilated. Right ventricle is mildly hypokinetic. Atria The left atrium size is normal. The right atrium size is normal. Lipomatous hypertrophy of the interatrial septum is noted. Aortic Valve The aortic valve is mildly thickened. There is no aortic valvular stenosis. Trace aortic regurgitation. Mitral Valve The mitral valve leaflets are mildly thickened. No evidence of mitral valve stenosis. Mild mitral regurgitation. Tricuspid Valve The tricuspid valve leaflets are thin and pliable. Trace tricuspid regurgitation. There is insufficient TR jet to estimate RVSP. Pulmonic Valve The pulmonary valve is normal in structure. Trace pulmonic regurgitation. Great Vessels The aortic root is not well-visualized. The IVC is not well-visualized. Pericardium There is no pericardial effusion. Other Information Study Quality: Technically Difficult Conclusion Technically difficult study due to intubation and mechanical ventilation. Low normal LV systolic function (LVEF 50%). Septum is asynchronous. There is mild hypokinesis of the septal and anteroseptal LV lozano. Mild RV dilation with mild reduction in RV function. Mild MR. When visually and directly compared to the prior study from 1 year prior on 07/22/2022, there is no significant change in the LVEF or the regional wall motion. Electronically signed by : Samira Amanda MD 08/18/2023 23:01:22
[2023-08-18 11:12] LABS: NT Pro Brain Natriuretic Pep. 59.5 pg/mL (0-125)
[2023-08-18 11:15] LABS: Troponin I < 0.01 ng/ml (0.00-0.034)
[2023-08-18 11:35] LABS: Hemoglobin A1C 10.4 % (4.0-6.0)
[2023-08-18 12:00] LABS: Thyroid Stimulating Hormone 2.77 uIU/mL (0.465-4.68)
--- NOTE | 2023-08-18 12:07 | SUR.PHASEII ---
0910: Pt to postop bay with Nathaly Pinedo RN. Report given to this RN and Juan Luis Feliciano RN. Pt is alert and requests starry. Vitals: 163/85, HR 100, Resp 19 (shallow and unlabored), 78% O2 sat room air. Pt placed on 3L NC. states: Pt has sleep apnea , and pt confirmed. 0915: Pt continues to be alert. Complains of urge to have a BM. Pt placed on Bedpan per this RN and Lee Ann Phillips RN. Pt continues to be hypoxic despite increased O2 and being placed on simple mask. 0920: Pt is diaphoretic but still alert and following commands. Incentive spirometer is in use at this time. Pt unable to take deep breaths despite multiple efforts by nursing staff. She is sitting on the side of the bed. Sat 63% on non rebreather. Finger stick bg obtained. Readin. 0925: Maxi Rangel CREDENTIALING COORDINATOR contacted to come to bedside. Respiratory staff called to bedside for duo neb. 0932: Pt O2 sat 62% non rebreather. Still conscious and able to respond to commands. BP stable. CREDENTIALING COORDINATOR Rosalva Rangel at bedside. Duo neb being administered. 0938: Pt becomes less responsive. Rapid response called overhead. 0943: Bipap in place, pt sats not improving. 0944: Ambu initiated, pt placed on zoll. Pt tachy on monitor. BP stable: 139/87 0950: Eunice Ernandez and Eunice Mars at head of bed preparing to intubate. 0952: ABG being obtained. Dr. Tyson updated at this time. 0955: 150mg succs and 30mg of etomidate. 0957: Pt intubated. 7.5 et tube 22 at lip. Hakeem breath sounds: Crackles noted per Dr. Mars, color change noted. 0958:152/94, hr 109, sat 91% bvm in place. Dr. Mars obtaining US of heart at bedside. 40 of lasix and rectal aspirin administered at this time. Lab at bedside. 1003: Changed to Vent by Janie RT. Radiology at bedside for chest xray post tube placement. Lactic 4.8. Second IV placed 20g in lac per Candice Murguia RN. 1007: Repeat EKG. hot dip tinning supervisor on phone with admitting hospitalist giving report. 1021: Gonzalez cath placed. Bg obtained BG 422. 10 units IV insulin administered. 1040: 105/61, 94HR, 95% 1050: Pt transferred to the floor to room 219 ICU. Pt on electrical line mechanic, pulse ox, zoll, RT ambu bagging. Also present Maxi Rangel, kev RN, Candice Murguia, Lee Ann Phillips, Melissa Perea, Lucille Castellanos. See MAR for medication administration documentation.
--- NOTE | 2023-08-18 12:33 | EXP.HP ---
History of Present Illness *Admission Date: 08/18/23 *Reason for visit:: respiratory failure *History of present illness: Ms. Aguila is a 62-year-old female with history of poorly [place], history of CABG, hypertension, history of CVA, hyperlipidemia, CAD. She presented today for an elective repair of her right rotator cuff. Tolerated procedure well with no complications during procedure other than hypertension. After surgery while in PACU, developed worsening respiratory failure. Symptoms declined and she did not respond to noninvasive methods of ventilation including Ventimask and BiPAP. Necessitated intubation for stability of her respiratory failure. Initial imaging showed concern for bilateral pulmonary edema. Given her respiratory failure, medicine was consulted for admission and further management. Upon arrival to the floor, patient is intubated and on a ventilator. Requiring PEEP of 10 and FiO2 100% to maintain sats in the 90s. Volume 420 and rate 22. Initial pH 7.1. Pulmonology consulted to assist with management of respiratory failure and ventilator. Initial troponin 0.01. Labs showing hyperglycemia with mild hypercarbia with pCO2 in the 50s. Lactate initially 4.5. Has shown response to initial vent settings. Was somewhat responsive on initial exam, making eye contact and nodding when spoken to. Sedation increased with propofol and fentanyl. Patient's initial blood pressure elevated in the 150s systolic, has decreased with sedation but not necessitating vasopressors at this time. [facility] Disclaimer: The information contained in this section may have been updated after the patient was seen, as this information can be updated by other users. Medical History (Updated 08/18/23 @ 18:58 by Matthieu Parker MD) On mechanically assisted ventilation Sleep apnea History of stroke Typical angina Cerebrovascular accident COPD (chronic obstructive pulmonary disease) Tobacco dependence Diabetes mellitus HTN (hypertension) HLD (hyperlipidemia) CAD (coronary artery disease) Surgical History History of coronary artery stent placement H/O hysterectomy with oophorectomy History of coronary artery bypass graft Family History Heart disease Social History Smoking Status: Former smoker tobacco type: cigarettes packs per day: 1 second hand exposure: No alcohol intake: never substance use type: denies use current occupational status: disabled Travel in the last 8 weeks: None household members: significant other housing: house current occupational exposures/hazards: No caffeine: Yes Review of Systems Review of Systems Review of systems:: unable to obtain Meds Home Medications and Allergies Home Medications Medication Instructions Recorded Confirmed Type aspirin 81 mg tablet,delayed 81 mg PO DAILY 05/22/17 08/18/23 History release (Aspir-) multivitamin-ferrous 1 tab PO QAM 05/22/17 08/18/23 History fumarate-folic acid 18 mg-400 mcg tablet (Centrum Complete) nitroglycerin 0.6 mg sublingual 0.6 mg sublingual Q5M PRN Chest 05/22/17 08/18/23 History tablet Pain cholecalciferol (vitamin D3) 25 1,000 unit PO DAILY 09/22/17 08/18/23 History mcg (1,000 unit) capsule sennosides 8.6 mg tablet (Senna 8.6 mg PO DAILY PRN Constipation 09/22/17 08/18/23 History Lax) black cohosh 200 mg capsule 540 mg PO DAILY 06/05/20 08/18/23 History glimepiride 4 mg tablet 8 mg PO DAILY 06/05/20 08/18/23 History insulin aspart prot-aspart 100 60 unit SQ BID 06/05/20 08/18/23 History unit/mL (70-30) subcutaneous cartridge metoclopramide HCl 10 mg tablet 10 mg PO BID 06/05/20 08/18/23 History vitamin E 400 unit tablet 450 mg PO DAILY 06/05/20 08/18/23 History gabapentin 800 mg tablet 800 mg PO TID 07/08/21 08/18/23 History metformin 1,000 mg tablet 1,000 mg PO QPMWITHMEAL 07/29/22 08/18/23 History furosemide 20 mg tablet (Lasix) 20 mg PO DAILY #30 tabs 07/30/22 08/18/23 Rx spironolactone 50 mg tablet 50 mg PO DAILY #30 tabs 07/30/22 08/18/23 Rx (Aldactone) atorvastatin 80 mg tablet 80 mg PO HS 08/18/23 08/18/23 History bisoprolol fumarate 5 mg tablet 5 mg PO DAILY 08/18/23 08/18/23 History citalopram 40 mg tablet 40 mg PO DAILY 08/18/23 08/18/23 History clopidogrel 75 mg tablet (Plavix) 75 mg PO DAILY 08/18/23 08/18/23 History gemfibrozil 600 mg tablet 600 mg PO BID 08/18/23 08/18/23 History hydrochlorothiazide 25 mg tablet 25 mg PO DAILY 08/18/23 08/18/23 History lisinopril 10 mg tablet 10 mg PO BID 08/18/23 08/18/23 History omega-3 fatty acids 1,000 mg 1,000 mg PO QDAY 08/18/23 08/18/23 History capsule oxycodone 5 mg tablet 5 mg PO Q4H PRN pain #30 tabs 08/18/23 08/18/23 Rx semaglutide 1 mg/dose (4 mg/3 mL) 1 mg SQ WEEKLY 08/18/23 08/18/23 History subcutaneous pen injector (Ozempic) New Prescriptions to Start Prescriptions: Allergies Allergy/AdvReac Type Severity Reaction Status Date / Time No Known Allergies Allergy Verified 08/18/23 06:28 Exam Data for Last 24 hours Vital signs and Labs for Last 24 Hours: Temp Pulse Resp BP Pulse Ox O2 Del Method O2 Flow Rate 97 F L 90 19 188/82 H 95 Nasal Cannula 2 08/18/23 08:43 08/18/23 09:08 08/18/23 09:08 08/18/23 09:08 08/18/23 09:08 08/18/23 09:08 08/18/23 09:08 Laboratory Results - last 24 hr 08/18/23 08:52: POC Glucose 264 H 08/18/23 10:00: WBC 7.1, RBC 3.82 L, Hgb 12.3, Hct 39.9, MCV 104.6 H, MCH 32.3 H, MCHC 30.8 L, RDW 13.9, Plt Count 200, MPV 8.9, Neut % (Auto) 55.7, Lymph % (Auto) 40.1, Curry % (Auto) 2.8, Eos % (Auto) 0.7, Baso % (Auto) 0.7, Neut # (Auto) 3.9, Lymph # (Auto) 2.8, Curry # (Auto) 0.2, Eos # (Auto) 0.1, Baso # (Auto) 0.1, Sodium 134 L, Potassium 4.7, Chloride 104, Carbon Dioxide 21 L, Anion Gap 13.7, BUN 20 H, Creatinine 0.80, Estimated Creat Clear 83, Estimated GFR 73, Est GFR ( Amer) 88, Glucose 363 H, Hemoglobin A1c 10.4 H, Calcium 8.5, Magnesium 1.4 L, Total Bilirubin 0.3, AST 41 H, ALT 37, Alkaline Phosphatase 74, Troponin I < 0.01, NT-Pro-B Natriuret Pep 59.5, Total Protein 6.0 L, Albumin 3.6 D, Globulin 2.4, Albumin/Globulin Ratio 1.5, TSH 2.77 08/18/23 10:45: ABG pH 7.14 L*, ABG pCO2 54.1 H, ABG pO2 116.2 H, ABG HCO3 18.0 L, ABG Total CO2 19.7 L, ABG O2 Saturation 97, ABG Base Excess -11.0 L, ABG Lactate 2.8 H I & O for Last 24 hours: Intake & Output 08/15/23 08/16/23 08/17/23 08/18/23 23:59 23:59 23:59 23:59 Intake Total 1000 / 1000 Output Total 650 / 650 Balance 350 / 350 Weight 88.904 kg Constitutional Constitutional: mild distress, obese and somnolent *Routine HEENT Exam Head: Present normocephalic Eye: Present EOMI and PERRL ENT: Present mucous membranes moist *Routine Neck Exam Neck: Present supple; Absent lymphadenopathy *Routine Respiratory Exam Respiratory: Present patient mechanically ventilated, rhonchi and crackles *Routine Cardiovascular Exam Cardiovascular: Present RRR *Routine Abdominal Exam Abdominal: Present soft and normoactive bowel sounds; Absent tenderness *Routine Rectal Exam Rectal:: deferred *Routine Genitalia Exam Genitalia:: normal female *Routine Extremities Exam Extremities: Absent cyanosis, clubbing or edema Comments: right shoulder in post-op bandage. *Routine Skin Exam Skin: Present warm; Absent rash *Routine Neurological Exam Neurological: Present alert Comments: sedated, intubated, opens eyes spontaneously. Assessment and Plan *Assessment and plan (1) Acute hypoxemic respiratory failure: Status: Acute Category: Medical Code(s): J96.01 - Acute respiratory failure with hypoxia (2) Pulmonary edema: Status: Acute Category: Medical Code(s): J81.1 - Chronic pulmonary edema (3) Rotator cuff tear, right: Status: Acute Qualifiers: Rotator cuff tear extent: complete Rotator cuff tear trauma status: nontraumatic Qualified Code(s): M75.121 - Complete rotator cuff tear or rupture of right shoulder, not specified as traumatic Category: Medical Code(s): M75.101 - Unspecified rotator cuff tear or rupture of right shoulder, not specified as traumatic (4) Diabetes mellitus: Status: Chronic Qualifiers: Diabetes mellitus complication status: without complication Diabetes mellitus cake puncher insulin use: without alf use Diabetes mellitus type: type 2 Qualified Code(s): E11.9 - Type 2 diabetes mellitus without complications Category: Medical Code(s): E11.9 - Type 2 diabetes mellitus without complications (5) CAD (coronary artery disease): Status: Chronic Qualifiers: Associated angina: without angina Coronary Disease-Associated Artery/Lesion type: [place] artery [place] vs. transplanted heart: [place] heart Qualified Code(s): I25.10 - Atherosclerotic heart disease of [place] coronary artery without angina pectoris Category: Medical Code(s): I25.10 - Atherosclerotic heart disease of [place] coronary artery without angina pectoris (6) HLD (hyperlipidemia): Status: Chronic Qualifiers: Hyperlipidemia type: mixed hyperlipidemia Qualified Code(s): E78.2 - Mixed hyperlipidemia Category: Medical Code(s): E78.5 - Hyperlipidemia, unspecified (7) HTN (hypertension): Status: Chronic Qualifiers: Hypertension type: essential hypertension Qualified Code(s): I10 - Essential (primary) hypertension Category: Medical Code(s): I10 - Essential (primary) hypertension (8) COPD (chronic obstructive pulmonary disease): Status: Chronic Qualifiers: COPD type: emphysema Emphysema type: centrilobular Qualified Code(s): J43.2 - Centrilobular emphysema Category: Medical Code(s): J44.9 - Chronic obstructive pulmonary disease, unspecified (9) NSTEMI (non-ST elevated myocardial infarction): Status: Acute Category: Medical Code(s): I21.4 - Non-ST elevation (NSTEMI) myocardial infarction (10) On mechanically assisted ventilation: Status: Acute Category: Medical Code(s): Z99.11 - Dependence on respirator [ventilator] status Plan 62-year-old female who presented for elective right rotator cuff repair. Postsurgery had acute hypoxemic respiratory failure. Differential includes pneumonia, flash pulmonary edema, [place], PE. Intubated in PACU. Discussed case with anesthesia, requested admission for further management. Medicine agreed to admit. Pulmonology consulted to assist with respiratory failure treatment. Necessitating ICU level care. Problems addressed as follows: Acute hypoxemic respiratory failure Mixed respiratory and metabolic acidosis -CTA of the chest obtained, no PE is identified. Does have bilateral opacifications on personal review. Concerning for edema versus pneumonia versus combination. -Discussed case with pulmonology, continue mechanical ventilation. Initial blood gas showing respiratory and metabolic acidosis with pH 7.1. Adjustments made to vent. Current vent settings include PEEP of 10, rate of 18, FiO2 50%, volume 420. Most recent blood gas improving with pH 7.4. Oxygenation showing improvement. -Status post Lasix 40 mg IV x 1. -2 L so far. Continue to monitor strict output with Gonzalez catheter. Consider repeat diuresis in the morning. -Continue propofol and fentanyl for sedation, pending improvement in ventilation, consider SBT in the morning - Continue DuoNebs every 6 hours on a scheduled basis. - Initiate levofloxacin 750mg daily pending tracheal aspirate cultures History of CAD and CABG NSTEMI -Initial troponin less than 0.01. Repeat troponin elevated to 4.0. Discussed case with cardiology, consult placed for them to see patient in the morning. EKGs obtained showing no ST elevations or depressions as troponin increases. Initial EKG showed ST depression during hypoxemic event with severely elevated blood pressure. -Resumed aspirin 81 mg daily, Plavix 75 mg daily. First dose given per tube this afternoon. Loaded with aspirin 300 mg rectal during event in the PACU -Repeat echocardiogram obtained. Preliminary review with no new wall motion abnormalities. EF 45 to 50%. - holding home antihtn regimen in setting of normotensive state with sedation, resume if BP elevates SBP >160 Uncontrolled diabetes with hyperglycemia -Initiated on sliding scale insulin every 6 hours with fingersticks every 6 hours scheduled -A1c obtained, 10.4 Electrolyte disturbances -BUN/creatinine within normal limits. Adequate urine output. Hypomagnesemia, repleted with primary team. GI prophy: Famotidine 20mg IV BID Full code NPO TLOV
[2023-08-18 12:43] LABS: ABG Base Excess -9.9 mmol/L (-2.4-2.3); ABG HCO3 18.9 mmhg (22.0-26.0); ABG Oxygen Saturation 96 % (90-100); ABG TCO2 20.6 mmhg (23-27); Allen's Test Acceptable; Oxygen 100% %; Source Left Brachial
[2023-08-18 12:44] LABS: ABG PCO2 54.7 mmhg (35.0-45.0); ABG PH 7.16 mmol/L (7.35-7.45)
--- NOTE | 2023-08-18 13:09 | EXP.PULM.CON ---
History of Present Illness History of present illness: Ms. Aguila is a 62-year-old female with reported history of greater than 77-[id number]-vwix smoking history, stopped smoking in 2018 after CVA, COPD, sleep apnea on CPAP, CAD status post CABG, CVA uncontrolled diabetes presented to hospital for elective shoulder surgery procedure complicated by worsening hypoxic respiratory failure postprocedure needing intubation mechanical ventilatory support and pulmonary was called for further evaluation and management. Much of the history is obtained from chart review and patient's family. [facility] Disclaimer: The information contained in this section may have been updated after the patient was seen, as this information can be updated by other users. Medical History (Updated 08/18/23 @ 13:24 by Gaby Singh MD) On mechanically assisted ventilation Sleep apnea History of stroke Typical angina Cerebrovascular accident COPD (chronic obstructive pulmonary disease) Tobacco dependence Diabetes mellitus HTN (hypertension) HLD (hyperlipidemia) CAD (coronary artery disease) Surgical History History of coronary artery stent placement H/O hysterectomy with oophorectomy History of coronary artery bypass graft Family History Heart disease Social History Smoking Status: Former smoker tobacco type: cigarettes packs per day: 1 second hand exposure: No alcohol intake: never substance use type: denies use current occupational status: disabled Travel in the last 8 weeks: None household members: significant other housing: house current occupational exposures/hazards: No caffeine: Yes Review of Systems Review of Systems Review of systems:: unable to obtain Review of systems (narrative): Intubated and Sedated Pulmonology Exam Inpatient Vital signs and Labs for Last 24 Hours: Temp Pulse Resp BP Pulse Ox O2 Del Method O2 Flow Rate 97 F L 90 19 188/82 H 95 Mechanical Ventilation 2 08/18/23 08:43 08/18/23 09:08 08/18/23 09:08 08/18/23 09:08 08/18/23 09:08 08/18/23 13:00 08/18/23 09:08 Laboratory Results - last 24 hr 08/18/23 08:52: POC Glucose 264 H 08/18/23 10:00: WBC 7.1, RBC 3.82 L, Hgb 12.3, Hct 39.9, MCV 104.6 H, MCH 32.3 H, MCHC 30.8 L, RDW 13.9, Plt Count 200, MPV 8.9, Neut % (Auto) 55.7, Lymph % (Auto) 40.1, [place] % (Auto) 2.8, Eos % (Auto) 0.7, Baso % (Auto) 0.7, Neut # (Auto) 3.9, Lymph # (Auto) 2.8, [place] # (Auto) 0.2, Eos # (Auto) 0.1, Baso # (Auto) 0.1, Specimen Source Left brachial, O2 % 100%, ABG pH 7.16 L*, ABG pCO2 54.7 H, ABG pO2 100.0, ABG HCO3 18.9 L, ABG Total CO2 20.6 L, ABG O2 Saturation 96, ABG Base Excess -9.9 L, Elias Test Acceptable, Sodium 134 L, Potassium 4.7, Chloride 104, Carbon Dioxide 21 L, Anion Gap 13.7, BUN 20 H, Creatinine 0.80, Estimated Creat Clear 83, Estimated GFR 73, Est GFR ( Amer) 88, Glucose 363 H, Hemoglobin A1c 10.4 H, Calcium 8.5, Magnesium 1.4 L, Total Bilirubin 0.3, AST 41 H, ALT 37, Alkaline Phosphatase 74, Troponin I < 0.01, NT-Pro-B Natriuret Pep 59.5, Total Protein 6.0 L, Albumin 3.6 D, Globulin 2.4, Albumin/Globulin Ratio 1.5, TSH 2.77 08/18/23 10:45: ABG pH 7.14 L*, ABG pCO2 54.1 H, ABG pO2 116.2 H, ABG HCO3 18.0 L, ABG Total CO2 19.7 L, ABG O2 Saturation 97, ABG Base Excess -11.0 L, ABG Lactate 2.8 H I & O for Labs for Last 24 Hours: Intake & Output 08/15/23 08/16/23 08/17/23 08/18/23 23:59 23:59 23:59 23:59 Intake Total 1000 / 1000 Output Total 1450 / 1450 Balance -450 / -450 Weight 196 lb Constitutional: Present severe distress Comment:: Intubated and Sedated Head: Present normocephalic and atraumatic Neck: Present normal inspection and trachea midline Respiratory: Present patient mechanically ventilated, prolonged expiratory phase, rhonchi and wheezes Cardiac: Present S1/S2 and Tachycardia GI: Present soft; Absent distention or tenderness Skin: Present intact; Absent cyanosis Neuro: Absent alert, awake or oriented x 3 Extremities: Present normal inspection; Absent clubbing or cyanosis Psychiatric: Present unable to assess Meds Home Medications and Allergies Home Medications Medication Instructions Recorded Confirmed Type aspirin 81 mg tablet,delayed 81 mg PO DAILY 05/22/17 08/18/23 History release (Aspir-) multivitamin-ferrous 1 tab PO QAM 05/22/17 08/18/23 History fumarate-folic acid 18 mg-400 mcg tablet (Centrum Complete) nitroglycerin 0.6 mg sublingual 0.6 mg sublingual Q5M PRN Chest 05/22/17 08/18/23 History tablet Pain cholecalciferol (vitamin D3) 25 1,000 unit PO DAILY 09/22/17 08/18/23 History mcg (1,000 unit) capsule sennosides 8.6 mg tablet (Senna 8.6 mg PO DAILY PRN Constipation 09/22/17 08/18/23 History Lax) black cohosh 200 mg capsule 540 mg PO DAILY 06/05/20 08/18/23 History glimepiride 4 mg tablet 8 mg PO DAILY 06/05/20 08/18/23 History insulin aspart prot-aspart 100 60 unit SQ BID 06/05/20 08/18/23 History unit/mL (70-30) subcutaneous cartridge metoclopramide HCl 10 mg tablet 10 mg PO BID 06/05/20 08/18/23 History vitamin E 400 unit tablet 450 mg PO DAILY 06/05/20 08/18/23 History gabapentin 800 mg tablet 800 mg PO TID 07/08/21 08/18/23 History metformin 1,000 mg tablet 1,000 mg PO QPMWITHMEAL 07/29/22 08/18/23 History furosemide 20 mg tablet (Lasix) 20 mg PO DAILY #30 tabs 07/30/22 08/18/23 Rx spironolactone 50 mg tablet 50 mg PO DAILY #30 tabs 07/30/22 08/18/23 Rx (Aldactone) atorvastatin 80 mg tablet 80 mg PO HS 08/18/23 08/18/23 History bisoprolol fumarate 5 mg tablet 5 mg PO DAILY 08/18/23 08/18/23 History citalopram 40 mg tablet 40 mg PO DAILY 08/18/23 08/18/23 History clopidogrel 75 mg tablet (Plavix) 75 mg PO DAILY 08/18/23 08/18/23 History gemfibrozil 600 mg tablet 600 mg PO BID 08/18/23 08/18/23 History hydrochlorothiazide 25 mg tablet 25 mg PO DAILY 08/18/23 08/18/23 History lisinopril 10 mg tablet 10 mg PO BID 08/18/23 08/18/23 History omega-3 fatty acids 1,000 mg 1,000 mg PO QDAY 08/18/23 08/18/23 History capsule oxycodone 5 mg tablet 5 mg PO Q4H PRN pain #30 tabs 08/18/23 08/18/23 Rx semaglutide 1 mg/dose (4 mg/3 mL) 1 mg SQ WEEKLY 08/18/23 08/18/23 History subcutaneous pen injector (Ozempic) New Prescriptions to Start Prescriptions: Allergies Allergy/AdvReac Type Severity Reaction Status Date / Time No Known Allergies Allergy Verified 08/18/23 06:28 Results Laboratory Findings 08/18/23 10:00 08/18/23 10:00 ABG ABG pH 7.14 mmol/L (7.35-7.45) L* 08/18/23 10:45 ABG pCO2 54.1 mmhg (35.0-45.0) H 08/18/23 10:45 ABG pO2 116.2 mmhg (80-100) H 08/18/23 10:45 ABG O2 Saturation 97 % (90-100) 08/18/23 10:45 Abnormal lab findings: Abnormal Labs 08/18/23 08/18/23 08/18/23 08:52 10:00 10:45 RBC 3.82 L MCV 104.6 H MCH 32.3 H MCHC 30.8 L ABG pH 7.16 L* 7.14 L* ABG pCO2 54.7 H 54.1 H ABG pO2 116.2 H ABG HCO3 18.9 L 18.0 L ABG Total CO2 20.6 L 19.7 L ABG Base Excess -9.9 L -11.0 L ABG Lactate 2.8 H Sodium 134 L Carbon Dioxide 21 L BUN 20 H Glucose 363 H POC Glucose 264 H Hemoglobin A1c 10.4 H Magnesium 1.4 L AST 41 H Total Protein 6.0 L Assessment and Plan *Assessment and plan (1) Acute hypoxemic respiratory failure: Status: Acute Category: Medical Code(s): J96.01 - Acute respiratory failure with hypoxia (2) On mechanically assisted ventilation: Status: Acute Category: Medical Code(s): Z99.11 - Dependence on respirator [ventilator] status Plan Ms. Aguila is a 62-year-old female with reported history of greater than 91-khgc-zizr smoking history, stopped smoking in 2018 after CVA, COPD, sleep apnea on CPAP, CAD status post CABG, CVA uncontrolled diabetes presented to hospital for elective shoulder surgery procedure complicated by worsening hypoxic respiratory failure postprocedure needing intubation mechanical ventilatory support and pulmonary was called for further evaluation and management. Much of the history is obtained from chart review and patient's family. Chest x-ray postprocedure bilateral diffuse pulm infiltrates, concerning for pulmonary edema/aspiration pneumonitis. Afebrile. Hemodynamically stable. Hypertensive. No evidence of worsening leukocytosis postintubation. ABG postintubation showed hypercarbic respiratory failure. Patient currently on PEEP of 10 FiO2 of 70% for 20 and a rate of 22. Will follow with repeat ABG. Plan: -Continue propofol and fentanyl for sedation, SBT when appropriate. F/U CTA-PE protocol Continue current ventilator settings at PEEP of 10, rate of 22, FiO2 of 70% and tidal volume of 420. Continue to wean FiO2 as tolerated. Follow with repeat ABG. Continue DuoNebs every 6 hours on a scheduled basis. Initiate levofloxacin 750mg daily pending tracheal aspirate cultures -Hemodynamically stable. Received 40mg IV Lasix ONCE postintubation. Responded well. Follow with echocardiogram. -Abdomen soft nontender. -BUN/creatinine within normal limits. Adequate urine output. Hypomagnesemia, repleted with primary team. - Continue mechanical ventilatory support - Continue AnalgoSedation with Propofol and Fentanyl with CPOT gal less than or euqal to 2 and RASS goal of to 2 (No need for deep sedation) - VAP bundle Recommend elevate head of the bed at 30 to 45 degrees Recommend oral care with chlorhexidne Recommend GI ulcer prophylaxis - Famotidine 20mg IV BID Recommend chemical DVT prophylaxis Total critical care time spent on this patient is 35 minutes managing acute hypoxic respiratory failure needing mechanical ventilation. This time spent include reviewing test results including interpreting chest x-rays, labs and arterial blood gas, optimizing the ventilator settings,formulating plan of care, discussing the plan of care with the team and the nursing staff.
[2023-08-18] MEDS: IOPAMIDOL-370 (76%);100ML BOTTLE 70 ML IV (13:48)
[2023-08-18] MEDS: 0.9 % SODIUM CHLORIDE 50 ML VIAL IV (13:48)
[2023-08-18] MEDS: SODIUM CHLORIDE 0.9% 10ML SYR (RAD ONLY) 10 ML IV (13:48)
--- NOTE | 2023-08-18 14:01 | XR_ITS ---
FINAL REPORT CLINICAL HISTORY: et placement COMPARISON: 08/18/2023 FINDINGS: SINGLE-VIEW CHEST There is cardiomegaly with pulmonary vascular congestion. The patient is status post median sternotomy. New ET tube tip terminates approximately 1.5 cm above the collin. There are slightly improved pulmonary opacities, may represent improved edema. There is no pneumothorax. IMPRESSION: New ETT as above. Slightly improved pulmonary opacities. Reviewed, Interpreted and Dictated by Wilton Jacobsen III, MD Transcribed by Kamla Woody Authenticated and [facility]
[2023-08-18] MEDS: MAGNESIUM SULFATE IN WATER 2 GM/50 ML PIGGYBACK IV (14:34)
[2023-08-18] MEDS: LEVOFLOXACIN/D5W 750 MG/150 ML 750 MG/150 ML PIGGYBACK 100 MG IV (14:35)
[2023-08-18] MEDS: propofoL 100 ML 60 MG IV (14:43)
[2023-08-18] MEDS: humaLOG 100 UNITS/ML 3ML VIAL (SSI) SQ ×2 (15:06→21:33)
[2023-08-18 15:36] LABS: Troponin I 4.14 ng/ml (0.00-0.034)
[2023-08-18 15:36] LABS: Microscopic,Cath URINE MICROSCOPIC (MICROSCOPIC)
[2023-08-18 15:40] LABS: Appearance,Urine/Cath CLEAR (Clear); Bilirubin,Cath Negative (Negative); Blood, Urine/Cath Negative (Negative); Color,Urine/Cath YELLOW (Yellow); Glucose,Urine/Cath (UA) 2+ (Negative); Ketones,Urine/Cath Negative (Negative); Leukocyte Esterase,Cath Negative (Negative); Nitrate,Cath Negative (Negative); Protein,Urine/Cath Negative (Negative); Specific Gravity, Urine/Cath 1.015 (1.005-1.030); Urobilinogen,Cath 0.2 EU/dl (0.2)
[2023-08-18 15:42] LABS: Adenovirus,PCR Not Detected (NotDetected); Coronavirus 19, PCR Not Detected (NotDetected); Coronavirus 229E Not Detected (NotDetected); Coronavirus NL63 Not Detected (NotDetected); Coronavirus OC43 Not Detected (NotDetected); Coronovirus HKU1,PCR Not Detected (NotDetected); Human Metapneumovirus Not Detected (NotDetected); Influenza A, PCR Not Detected (NotDetected); Influenza AH1, 2009 Not Detected (NotDetected); Influenza AH1, PCR Not Detected (NotDetected); Influenza AH3,PCR Not Detected (NotDetected); Influenza B, PCR Not Detected (NotDetected); Parainfluenza 1, PCR Not Detected (NotDetected); Parainfluenza 2, PCR Not Detected (NotDetected); Parainfluenza 3, PCR Not Detected (NotDetected); Parainfluenza 4, PCR Not Detected (NotDetected); Respiratory Syncytial Virus Not Detected (NotDetected); Rhinovirus/Enterovirus Not Detected (NotDetected)
[2023-08-18 15:51] LABS: ABG Base Excess -4.9 mmol/L (-2.4-2.3); ABG Oxygen Saturation 98 % (90-100); ABG PCO2 27.7 mmhg (35.0-45.0); ABG PH 7.46 mmol/L (7.35-7.45); ABG PO2 128.5 mmhg (80-100); ABG TCO2 19.9 mmhg (23-27)
[2023-08-18 15:54] LABS: Allen's Test ACCEPTABLE; Oxygen 70 %; PEEP 10; Source Right Radial; Tidal Volume 420; Vent Rate 22
--- NOTE | 2023-08-18 15:56 | ECG_ITS ---
APPROVED REPORT Exam: Resting ECG HR:75 bpm ECG Measurements Heart Rate 75 AXES SC 200 P 50 QRSd 109 QRS 59 QT 402 T 46 QTc 430 Conclusion SINUS RHYTHM LOW QRS VOLTAGE IN PRECORDIAL LEADS [QRS DEFLECTION < 1.0 mV IN CHEST LEADS] POSSIBLE RIGHT VENTRICULAR CONDUCTION DELAY [RSR (QR) IN V1/V2] NONSPECIFIC ST & T-WAVE ABNORMALITY BORDERLINE ECG UNCONFIRMED REPORT Electronically signed by : Jairo Powell MD 08/18/2023 20:35:23
--- NOTE | 2023-08-18 16:07 | XR_ITS ---
PROCEDURE INFORMATION: Exam: XR Chest Exam date and time: 08/18/2023 4:35 PM Age: 62 years old Clinical indication: Device placement; Other: Og tube placement; Additional info: Check og tube placement TECHNIQUE: Imaging protocol: Radiologic exam of the chest. Views: 1 view. COMPARISON: CR XR CHEST PORTABLE 08/18/2023 4:35 PM FINDINGS: Tubes, catheters and devices: NG tube in the stomach. ET tube is below the thoracic inlet and above the collin. Lungs: Unremarkable. No consolidation. Pleural spaces: Unremarkable. No pleural effusion. No pneumothorax. Heart/Mediastinum: Unremarkable. No cardiomegaly. Bones/joints: Median sternotomy with CABG. IMPRESSION: 1. NG tube in the stomach. 2. ET tube is below the thoracic inlet and above the collin.
--- NOTE | 2023-08-18 16:58 | PC.NURSE ---
VS stable, vent managed by rt fio2 decreased tp 50% peep 10, rate 18. tidal volume 420. Turn q2, perez in place, patient diuresing well. NSR on monitor, og tube placed and verified to use. Lung sounds diminished on ascultation.
[2023-08-18] MEDS: CLOPIDOGREL 75MG TAB 75 MG PO (17:14)
[2023-08-18] MEDS: ASPIRIN EC 81MG TABLET 81 MG PO (17:15)
[2023-08-18] MEDS: FENTANYL CITRATE/PF 1,000 MCG in 0.9 % SODIUM CHLORIDE 80 ML 12.5 MCG IV ×2 (18:28→21:34)
[2023-08-18 18:29] LABS: Squamous Epithelial Ur./Cath Occasional #/hpf (0-5)
[2023-08-18] MEDS: propofoL 100 ML 26.67 MG IV ×2 (18:29→21:28)
--- NOTE | 2023-08-18 19:00 | ECG_ITS ---
APPROVED REPORT Exam: Resting ECG HR:78 bpm ECG Measurements Heart Rate 78 AXES [place] 192 P 52 QRSd 94 QRS 61 QT 396 T 91 QTc 429 Conclusion SINUS RHYTHM LOW QRS VOLTAGE IN PRECORDIAL LEADS [QRS DEFLECTION < 1.0 mV IN CHEST LEADS] POSSIBLE RIGHT VENTRICULAR CONDUCTION DELAY [RSR (QR) IN V1/V2] NONSPECIFIC ST & T-WAVE ABNORMALITY BORDERLINE ECG UNCONFIRMED REPORT Electronically signed by : Jairo Powell MD 08/20/2023 19:24:52
[2023-08-18 19:39] LABS: POC Glucose,Bedside 379 (70-110)
[2023-08-18] MEDS: ATORVASTATIN 40MG TABLET 80 MG PO (21:28)
[2023-08-18] MEDS: ENOXAPARIN 100MG/ML SYRINGE 90 MG SQ (21:28)
--- NOTE | 2023-08-18 22:00 | ECG_ITS ---
APPROVED REPORT Exam: Resting ECG HR:71 bpm ECG Measurements Heart Rate 71 AXES [place] 203 P 47 QRSd 95 QRS 57 QT 410 T 90 QTc 433 Conclusion SINUS RHYTHM NONSPECIFIC ST & T-WAVE ABNORMALITY BORDERLINE ECG UNCONFIRMED REPORT Electronically signed by : Jairo Powell MD 08/20/2023 19:24:45
[2023-08-18] MEDS: FAMOTIDINE 20MG/2ML VIAL 20 MG IV (22:01)
[2023-08-18 22:15] LABS: POC Glucose,Bedside 227 (70-110)
[2023-08-19] VITALS (90 sets, daily range): BP systolic 85–188; BP diastolic 45–82; PULSE 70–90; RESP 18–36; TEMP 36.1–37.6; O2SAT 73–99; BMI 33.0
--- NOTE | 2023-08-19 02:45 | ECG_ITS ---
APPROVED REPORT Exam: Resting ECG HR:75 bpm ECG Measurements Heart Rate 75 AXES AL 190 P 25 QRSd 90 QRS 44 QT 403 T 39 QTc 433 Conclusion SINUS RHYTHM POSSIBLE RIGHT VENTRICULAR CONDUCTION DELAY [RSR (QR) IN V1/V2] ST DEVIATION AND MODERATE T-WAVE ABNORMALITY, CONSIDER ANTERIOR ISCHEMIA [-0.1+ mV T-WAVE IN V3/V4] ABNORMAL ECG UNCONFIRMED REPORT Electronically signed by : Jairo Powell MD 08/20/2023 19:24:40
--- NOTE | 2023-08-19 03:19 | P.PN_ITS ---
Subjective *Date: 08/19/23 *Time: 03:19 Interval history: Trend in troponin to 16.9 this morning. EKG with notable mild ST changes. Spoke with Dr. Lange in regards to EKG changes. Patient is currently on the ventilator unable to answer questions regarding chest pain. Given patient's increased troponin ST changes, per Dr. Lange, will initiate low-dose nitro drip. Patient was medicated with therapeutic Lovenox last night. No orders for heparin drip at this time. Will repeat EKG at 3-hour cindy and update Dr. Lange with any changes. Also instructions for no further IV diuresis at this time. Medical Exam Vital signs and Labs for Last 24 Hours: Vital Signs Temp Pulse Pulse Pulse Resp BP BP 08/19/23 02:45 115/50 L 08/19/23 02:30 107/62 L 08/19/23 02:15 101/56 L 08/19/23 02:00 73 18 91/51 L 08/19/23 01:00 74 18 92/49 L 08/19/23 01:00 08/19/23 00:00 73 18 91/51 L 08/19/23 00:00 99.6 F 08/19/23 00:00 08/18/23 23:48 82 08/18/23 23:46 18 08/18/23 23:00 70 18 101/56 L 08/18/23 23:00 08/18/23 22:00 78 18 104/47 L 08/18/23 21:00 73 18 100/55 L 08/18/23 21:00 08/18/23 20:42 18 08/18/23 20:00 75 18 103/59 L 08/18/23 20:00 08/18/23 20:00 80 08/18/23 19:54 98.5 F 08/18/23 19:00 08/18/23 19:00 77 18 124/53 L 08/18/23 18:29 18 08/18/23 18:28 83 08/18/23 18:00 78 18 105/59 L 08/18/23 17:58 98.4 F 08/18/23 17:00 08/18/23 17:00 100.3 F H 80 18 98/56 L 08/18/23 16:00 80 08/18/23 16:00 08/18/23 16:00 75 22 108/58 L 08/18/23 15:00 08/18/23 15:00 74 22 111/59 L 08/18/23 14:00 97.6 F 84 22 117/70 08/18/23 13:30 73 22 111/60 08/18/23 13:00 80 22 150/79 H 08/18/23 13:00 08/18/23 12:30 81 22 145/71 H 08/18/23 12:00 85 22 150/78 H 08/18/23 12:00 90 08/18/23 11:45 89 22 154/82 H 08/18/23 11:30 92 H 22 150/88 H 08/18/23 11:15 92 H 22 153/81 H 08/18/23 11:00 91 H 22 146/73 H 08/18/23 10:54 08/18/23 09:08 90 19 188/82 H 08/18/23 08:58 90 19 192/61 H 08/18/23 08:48 97 H 19 179/88 H 08/18/23 08:43 97 F L 98 H 15 149/84 H 08/18/23 08:38 97.0 F L 97 H 19 149/84 H 08/18/23 06:29 97.6 F 71 18 167/78 H Pulse Ox O2 Del Method O2 Flow Rate FiO2 08/19/23 02:45 08/19/23 02:30 08/19/23 02:15 08/19/23 02:00 96 Mechanical Ventilation 08/19/23 01:00 96 Mechanical Ventilation 08/19/23 01:00 Mechanical Ventilation 08/19/23 00:00 96 Mechanical Ventilation 08/19/23 00:00 08/19/23 00:00 Mechanical Ventilation 08/18/23 23:48 08/18/23 23:46 50 08/18/23 23:00 97 Mechanical Ventilation 08/18/23 23:00 Mechanical Ventilation 08/18/23 22:00 96 Mechanical Ventilation 08/18/23 21:00 96 Mechanical Ventilation 08/18/23 21:00 Mechanical Ventilation 08/18/23 20:42 50 08/18/23 20:00 98 Mechanical Ventilation 08/18/23 20:00 Mechanical Ventilation 08/18/23 20:00 08/18/23 19:54 08/18/23 19:00 Room Air 08/18/23 19:00 97 Mechanical Ventilation 50 08/18/23 18:29 50 08/18/23 18:28 08/18/23 18:00 97 Mechanical Ventilation 50 08/18/23 17:58 08/18/23 17:00 Room Air 08/18/23 17:00 Mechanical Ventilation 08/18/23 16:00 08/18/23 16:00 Mechanical Ventilation 08/18/23 16:00 98 Mechanical Ventilation 08/18/23 15:00 Room Air 08/18/23 15:00 99 Mechanical Ventilation 70 08/18/23 14:00 98 Mechanical Ventilation 70 08/18/23 13:30 98 Mechanical Ventilation 08/18/23 13:00 98 Mechanical Ventilation 70 08/18/23 13:00 Mechanical Ventilation 08/18/23 12:30 98 Mechanical Ventilation 08/18/23 12:00 96 Mechanical Ventilation 70 08/18/23 12:00 08/18/23 11:45 96 Mechanical Ventilation 08/18/23 11:30 95 Mechanical Ventilation 08/18/23 11:15 100 Mechanical Ventilation 08/18/23 11:00 100 Mechanical Ventilation 70 08/18/23 10:54 Mechanical Ventilation 70 08/18/23 09:08 95 Nasal Cannula 2 08/18/23 08:58 95 Nasal Cannula 4 08/18/23 08:48 94 L Nasal Cannula 4 08/18/23 08:43 08/18/23 08:38 94 L Nasal Cannula 4 08/18/23 06:29 92 L Room Air Intake and Output 08/18/23 08/18/23 08/19/23 15:59 23:59 07:59 Intake Total 1130.063 / 1420.573 290.510 / 1420.573 73.175 / 73.175 Output Total 2550 / 3135 585 / 3135 Balance -1419.937 / -1714.427 -294.490 / -1714.427 73.175 / 73.175 Intake: Intake, Oral Amount 0 / 0 Intake, Total IV Amount 1130.063 / 1420.573 290.510 / 1420.573 73.175 / 73.175 Output: Output, Urine Amount (Catheter) 2550 / 3135 585 / 3135 Gonzalez 2550 / 3135 585 / 3135 Other: Number of Unmeasured Voids 0 0 Number of Bowel Movements 1 Laboratory Results - last 24 hr 08/18/23 08:52: POC Glucose 264 H 08/18/23 10:00: WBC 7.1, RBC 3.82 L, Hgb 12.3, Hct 39.9, MCV 104.6 H, MCH 32.3 H , MCHC 30.8 L, RDW 13.9, Plt Count 200, MPV 8.9, Neut % (Auto) 55.7, Lymph % (Auto) 40.1, [place] % (Auto) 2.8, Eos % (Auto) 0.7, Baso % (Auto) 0.7, Neut # (Auto) 3.9, Lymph # (Auto) 2.8, [place] # (Auto) 0.2, Eos # (Auto) 0.1, Baso # (Auto) 0.1, Specimen Source Left brachial, O2 % 100%, ABG pH 7.16 L*, ABG pCO2 54.7 H, ABG pO2 100.0, ABG HCO3 18.9 L, ABG Total CO2 20.6 L, ABG O2 Saturation 96, ABG Base Excess -9.9 L, Elias Test Acceptable, Sodium 134 L, Potassium 4.7, Chloride 104, Carbon Dioxide 21 L, Anion Gap 13.7, BUN 20 H, Creatinine 0.80, Estimated Creat Clear 83, Estimated GFR 73, Est GFR ( Amer) 88, Glucose 363 H, Hemoglobin A1c 10.4 H, Calcium 8.5, Magnesium 1.4 L, Total Bilirubin 0.3, AST 41 H, ALT 37, Alkaline Phosphatase 74, Troponin I < 0.01, NT-Pro-B Natriuret Pep 59.5, Total Protein 6.0 L, Albumin 3.6 D, Globulin 2.4, Albumin/Globulin Ratio 1.5, TSH 2.77 08/18/23 10:45: ABG pH 7.14 L*, ABG pCO2 54.1 H, ABG pO2 116.2 H, ABG HCO3 18.0 L, ABG Total CO2 19.7 L, ABG O2 Saturation 97, ABG Base Excess -11.0 L, ABG Lactate 2.8 H 08/18/23 14:06: POC Glucose 379 H* 08/18/23 14:25: Chlamy pneumoniae PCR TNP, Adenovirus (PCR) Not detected, B. pertussis DNA (PCR) TNP, Coronavirus OC43 (PCR) Not detected, Coronavirus HKU1 (PCR) Not detected, Coronavirus 229E (PCR) Not detected, SARS-CoV-2 (PCR) Not detected, Coronavirus NL63 (PCR) Not detected, Human Metapneumovir PCR Not detected, Influenza A (H1) PCR Not detected, Influ A (H1N1/09) PCR Not detected, Influenza A (H3) PCR Not detected, Influenza Type A (PCR) Not detected, Influenza Type B (PCR) Not detected, M. pneumoniae (PCR) TNP, Parainfluenza 1 (PCR) Not detected, Parainfluenza 2 (PCR) Not detected, Parainfluenza 3 (PCR) Not detected, Parainfluenza 4 (PCR) Not detected, RSV (PCR) Not detected, Entero/Rhino (PCR) Not detected 08/18/23 14:35: Troponin I 4.14 H 08/18/23 15:25: Specimen Source Right radial, O2 % 70, ABG pH 7.46 H, ABG pCO2 27.7 L, ABG pO2 128.5 H, ABG HCO3 19.0 L, ABG Total CO2 19.9 L, ABG O2 Saturation 98, ABG Base Excess -4.9 L, Elias Test Acceptable, Vent Rate 22, Tidal Volume 420, PEEP 10 08/18/23 15:26: Urine Color Yellow, Urine Appearance Clear, Urine pH 6.0, Ur Specific [place] 1.015, Urine Protein Negative, Urine Glucose (UA) 2+, Urine Ketones Negative, Urine Blood Negative, Urine Nitrate Negative, Urine Bilirubin Negative, Urine Urobilinogen 0.2, Ur Leukocyte Esterase Negative, Urine RBC None, Urine WBC None, Ur Squamous Epith Cells Occasional, Urine Bacteria None, Hyaline Casts 3-5 08/18/23 18:02: Troponin I 12.50 H 08/18/23 21:32: POC Glucose 227 H 08/18/23 22:04: Troponin I 14.50 H 08/19/23 02:05: Troponin I 16.90 H I & O for Labs for Last 24 Hours: Intake & Output 08/16/23 08/17/23 08/18/23 08/19/23 23:59 23:59 23:59 23:59 Intake Total 1420.573 / 1420.573 73.175 / 73.175 Output Total 3135 / 3135 Balance -1714.427 / -1714.427 73.175 / 73.175 Weight 88.904 kg Constitutional: Present no acute distress Head: Present atraumatic ENT: Present normal exam Neck: Present normal inspection Respiratory: Present patient mechanically ventilated and normal respiratory effort Cardiac: Present Reg Rate and Rhythm GI: Present normal bowel sounds; Absent tenderness (female): Present deferred Extremities: Present normal inspection and full ROM Skin: Present intact; Absent erythema Neuro: Present Grossly Intact and moves all extremities
[2023-08-19] MEDS: NITROGLYCERIN IN 5 % DEXTROSE 250 ML 1.5 MG IV (03:29)
[2023-08-19] MEDS: humaLOG 100 UNITS/ML 3ML VIAL (SSI) SQ ×3 (03:33→21:11)
[2023-08-19 03:40] LABS: POC Glucose,Bedside 188 (70-110)
[2023-08-19] MEDS: propofoL 100 ML 13.34 MG IV (04:31)
[2023-08-19 05:30] LABS: Basophils % 0.5 % (0.1-2.0); Eosinophils # 0.1 K/mm3 (0.0-0.4); Eosinophils % 1.1 % (0.1-12.0); Hemoglobin 11.9 g/dL (12.2-16.2); Lymphocytes # 1.8 K/mm3 (0.7-4.5); Lymphocytes % 20.5 % (10-50); Mean Corpuscular HGB Conc 32.3 g/dL (31.8-35.4); Mean Corpuscular Volume 99.1 fl (81-99); Mean Platelet Volume 9.2 fl (7.4-10.4); Monocytes # 0.4 K/mm3 (0.1-1.0); Monocytes % 5.1 % (1.7-9.3); Neutrophils # 6.3 K/mm3 (1.8-7.8); Neutrophils % 72.7 % (37.0-80.0); Platelet Count 209 K/mm3 (142-424); Red Blood Count 3.73 M/mm3 (4.20-5.40); Red Cell Distribution Width 14.2 % (11.5-17.5); White Blood Count 8.6 K/mm3 (4.8-10.8)
[2023-08-19 05:34] LABS: Chloride 103 mmol/L (98-107); Potassium 3.9 mmoL/L (3.5-5.1); Sodium 135 mmol/L (136-145)
[2023-08-19 05:37] LABS: Alanine Aminotransferase 44 U/L (12-78); Albumin Level 3.8 g/dl (3.5-5.0); Albumin/Globulin Ratio 1.5 (1.1-1.8); Alkaline Phosphatase 70 U/L (38-126); Anion Gap 9.9 mEq/L (5-15); Aspartate Amino Transferase 112 U/L (14-36); Bilirubin,Total 0.4 mg/dl (0.2-1.3); Blood Urea Nitrogen 27 mg/dl (7-17); Calcium 9.3 mg/dl (8.4-10.2); Carbon Dioxide 26 mmol/L (22.0-30.0); Creatinine Clearance Estimated 64 mL/min (50-200); Estimated Glomerular Filt Rate 42 ml/min (>60); GFR (African American) 50 ML/MIN (>60); Globulin 2.5 g/dL (1.3-3.2); Glucose 194 mg/dl (74-100); Lactic Acid 2.1 mmol/L (0.7-2.1); Total Protein,Serum 6.3 g/dl (6.3-8.2)
[2023-08-19 05:50] LABS: C-Reactive Protein 12.5 mg/L (0-4)
[2023-08-19 05:53] LABS: Erythrocyte Sedimentation Rate 35 mm/hr (0-30)
--- NOTE | 2023-08-19 05:54 | ECG_ITS ---
APPROVED REPORT Exam: Resting ECG HR:75 bpm ECG Measurements Heart Rate 75 AXES ID 183 P 20 QRSd 97 QRS 36 QT 392 T 0 QTc 421 Conclusion SINUS RHYTHM INCOMPLETE RIGHT BUNDLE BRANCH BLOCK [90+ ms QRS DURATION, TERMINAL R IN V1/V2, 40+ ms S IN I/aVL/V4/V5/V6] ST DEVIATION AND MODERATE T-WAVE ABNORMALITY, CONSIDER ANTERIOR ISCHEMIA [-0.1+ mV T-WAVE IN V3/V4] ABNORMAL ECG UNCONFIRMED REPORT Electronically signed by : Jairo Powell MD 08/20/2023 19:24:36
[2023-08-19 06:05] LABS: Procalcitonin 0.127 ng/mL (0.0-2.0)
[2023-08-19] MEDS: FENTANYL CITRATE/PF 1,000 MCG in 0.9 % SODIUM CHLORIDE 80 ML 15 MCG IV ×2 (06:19→13:10)
[2023-08-19] MEDS: IPRATROPIUM/ALBUTEROL 3 ML NEB IH ×2 (06:25→18:42)
[2023-08-19 07:09] LABS: ABG HCO3 22.8 mmhg (22.0-26.0); ABG Oxygen Saturation 97 % (90-100); ABG PCO2 32.7 mmhg (35.0-45.0); ABG PH 7.46 mmol/L (7.35-7.45); ABG PO2 100.7 mmhg (80-100); ABG TCO2 23.8 mmhg (23-27)
[2023-08-19 07:10] LABS: Allen's Test Acceptable; Oxygen 50% %; PEEP 8; Source Right Radial; Tidal Volume 420; Vent Rate 19
--- NOTE | 2023-08-19 07:29 | IR_ITS ---
APPROVED REPORT Patient Location: Inpatient Software Engineer Mobile: MICKEY Montgomery RT (R) PROCEDURES Left heart catheterization Left ventriculogram Selective coronary angiogram Selective engagement of the left internal mammary artery to the LAD Drug-eluting stent deployment to the mid dominant circumflex artery Bilateral selective renal angiography INDICATION Acute non-ST elevation myocardial infarction, Coronary artery disease, History of coronary bypass surgery, Chronic renal sufficiency creatinine 1.3, Flash pulmonary edema suspect possible renovascular hypertension with malignant hypertension from renal artery stenosis Informed consent was obtained prior to the procedure. COMPLICATIONS NONE Estimated Blood Loss: LESS THAN 10 ML TECHNIQUE One percent lidocaine used to anesthetize the right groin. The right femoral artery was accessed via the Seldinger technique and a 5 [place] sheath was placed in the right femoral artery. A JL 4, JR4 catheter were used to perform left heart catheterization, left ventriculogram selective coronary angiography as well as selective engagement of the left internal mammary artery. At the end of the diagnostic angiogram therapeutic Was administered giving a therapeutic ACT and the 5 [place] sheath was exchanged for a 6 [place] sheath. A JL 4 guide catheter was placed in the left main artery followed by Choice PT extra-support wire placed distally in the circumflex artery. A 2.75 x 18 mm Satish frontier stent was deployed at 24 yu reducing the critical stenosis to 0%. BIGG-3 flow was present before and after the procedure. At the end the procedure the apparatus was removed the groin was reprepped closure change sheath was removed however there was resistance upon passing both the Angio-Seal device and the Perclose device as the sheath was accessed and a calcified area. I felt it was unsafe to deploy a closure device therefore the apparatus was removed and the sheath was reinserted with plans to perform manual pull. Patient was transferred to postop holding in stable condition ANGIOGRAPHIC RESULTS The left main artery Has a stent in the ostial segment which extends into the dominant circumflex artery which is widely patent with a minimal 20% distal stenosis The left anterior descending artery Proximally occluded The circumflex artery Large dominant and has stents originating off the left main artery which are widely patent with minimal in-stent restenosis. Distal to the stent and proximal to multiple distal circumflex artery branches there is a concentric 80 to 90% stenosis The right coronary artery Small nondominant with an ostial 80% stenosis however the vessel was smaller than 2 mm in diameter The ORTEZ ventriculogram reveals Preserved at 55 to 60% The left ventricular end-diastolic pressure 10 mmHg MURRAY to LAD widely patent Saphenous vein graft noted to be ostially occluded Bilateral renal artery singular normal IMPRESSION Severe stenosis involving the mid dominant circumflex artery with successful stenting reducing severe to critical stenosis to 0% with 1 drug-eluting stent Patent MURRAY to LAD Severe disease in a small nondominant right coronary artery which is too small for percutaneous intervention Preserved ejection fraction Normal left ventricular end-diastolic pressure Suspect flash pulmonary edema stemming from transient papillary muscle dysfunction creating severe mitral regurgitation secondary to severe ischemia Normal renal arteries Calcified atheromatous right femoral artery PLAN 1. I would like for patient to remain intubated as long as the femoral sheath is in place and throughout the entire post sheath removal recovery. 2. The femoral access was a high stick and patient is at increased risk for retroperitoneal bleed upon removal of the sheath. She needs to be closely monitored following sheath removal and I would like her to remain heavily sedated so as not to move cough or increased intraperitoneal pressure which could precipitate bleeding in the groin. 3. Dual antiplatelet therapy 4. Cardiac rehabilitation 5. Avoidance of tobacco products 6. LDL less than 55 to be achieved with high intensity statin Electronically signed by : Nilton Lange MD 08/19/2023 10:24:45
--- NOTE | 2023-08-19 07:46 | EXP.ANES.II ---
[facility] Anesthesia Record Part II Anesthesia Record Part II Discharge Time: 09:08 Destination: Surgical Day Care (OP Surgery) PACU nurse assessment reviewed?: Yes Patient Condition:: Good Anesthesia Complications:: None Swallowing reflex intact?: Yes Airway Patency: Patent Cyanosis?: No Blood Pressure: 188/82 SaO2: 95 Respiratory Rate: 19 Pulse Rate: 90 Temperature: 97 F Mental Status: Alert & Oriented Pain level:: 0 Nausea and/or vomitting:: None Intake, IV Amount: 0 Hydration: Adequate Comments:: Pt was stable upon leaving PACU area with 02 Saturations 95% and pt talking. Upon entering Post-Op area, pt 02 saturations decreased to 70's with labor breathing and eventually became unresponsive. Rapid Response called. Pt ultimately required intubation with mechanical ventilation. Discussed case with Dr. Parker and Dr. Singh and they both agreed to admit. Pt was taken to MedSurg/StepDown with vital signs stable.
--- NOTE | 2023-08-19 07:58 | P.PN_ITS ---
Subjective *Date: 08/19/23 *Time: 16:09 Interval history: Overnight patient's troponin continued to elevate, peaked at 16. Cardiology was consulted. Will go for cath this morning. Continues to require mechanical ventilation though she is tolerating weaning. Alert on exam, following commands with wiggling of toes. Nodding head to questions. Afebrile overnight. Blood pressure acceptable with MAP greater than 65. Urine output is decreased overnight after diuresis yesterday. Medical Exam Vital signs and Labs for Last 24 Hours: Vital Signs Temp Pulse Pulse Pulse Resp BP BP 08/19/23 07:51 19 08/19/23 07:15 78 20 106/47 L 08/19/23 06:29 80 08/19/23 06:29 76 08/19/23 06:20 18 08/19/23 06:00 73 18 98/55 L 08/19/23 05:00 74 18 85/46 L 08/19/23 05:00 08/19/23 04:00 80 08/19/23 04:00 73 18 98/51 L 08/19/23 04:00 08/19/23 04:00 98.8 F 08/19/23 03:00 74 18 103/50 L 08/19/23 02:45 115/50 L 08/19/23 02:30 107/62 L 08/19/23 02:15 101/56 L 08/19/23 02:00 73 18 91/51 L 08/19/23 01:00 74 18 92/49 L 08/19/23 01:00 08/19/23 00:00 70 08/19/23 00:00 73 18 91/51 L 08/19/23 00:00 99.6 F 08/19/23 00:00 08/18/23 23:48 82 08/18/23 23:46 18 08/18/23 23:00 70 18 101/56 L 08/18/23 23:00 08/18/23 22:00 78 18 104/47 L 08/18/23 21:00 73 18 100/55 L 08/18/23 21:00 08/18/23 20:42 18 08/18/23 20:00 75 18 103/59 L 08/18/23 20:00 08/18/23 20:00 80 08/18/23 19:54 98.5 F 08/18/23 19:00 08/18/23 19:00 77 18 124/53 L 08/18/23 18:29 18 08/18/23 18:28 83 08/18/23 18:00 78 18 105/59 L 08/18/23 17:58 98.4 F 08/18/23 17:00 08/18/23 17:00 100.3 F H 80 18 98/56 L 08/18/23 16:00 80 08/18/23 16:00 08/18/23 16:00 75 22 108/58 L 08/18/23 15:00 08/18/23 15:00 74 22 111/59 L 08/18/23 14:00 97.6 F 84 22 117/70 08/18/23 13:30 73 22 111/60 08/18/23 13:00 80 22 150/79 H 08/18/23 13:00 08/18/23 12:30 81 22 145/71 H 08/18/23 12:00 85 22 150/78 H 08/18/23 12:00 90 08/18/23 11:45 89 22 154/82 H 08/18/23 11:30 92 H 22 150/88 H 08/18/23 11:15 92 H 22 153/81 H 08/18/23 11:00 91 H 22 146/73 H 08/18/23 10:54 08/18/23 09:08 90 19 188/82 H 08/18/23 08:58 90 19 192/61 H 08/18/23 08:48 97 H 19 179/88 H 08/18/23 08:43 97 F L 98 H 15 149/84 H 08/18/23 08:38 97.0 F L 97 H 19 149/84 H Pulse Ox O2 Del Method O2 Flow Rate FiO2 08/19/23 07:51 08/19/23 07:15 97 Mechanical Ventilation 08/19/23 06:29 08/19/23 06:29 08/19/23 06:20 97 50 08/19/23 06:00 73 L Mechanical Ventilation 08/19/23 05:00 95 Mechanical Ventilation 08/19/23 05:00 Mechanical Ventilation 08/19/23 04:00 08/19/23 04:00 97 Mechanical Ventilation 08/19/23 04:00 Mechanical Ventilation 08/19/23 04:00 08/19/23 03:00 97 Mechanical Ventilation 08/19/23 02:45 08/19/23 02:30 08/19/23 02:15 08/19/23 02:00 96 Mechanical Ventilation 08/19/23 01:00 96 Mechanical Ventilation 08/19/23 01:00 Mechanical Ventilation 08/19/23 00:00 08/19/23 00:00 96 Mechanical Ventilation 08/19/23 00:00 08/19/23 00:00 Mechanical Ventilation 08/18/23 23:48 08/18/23 23:46 50 08/18/23 23:00 97 Mechanical Ventilation 08/18/23 23:00 Mechanical Ventilation 08/18/23 22:00 96 Mechanical Ventilation 08/18/23 21:00 96 Mechanical Ventilation 08/18/23 21:00 Mechanical Ventilation 08/18/23 20:42 50 08/18/23 20:00 98 Mechanical Ventilation 08/18/23 20:00 Mechanical Ventilation 08/18/23 20:00 08/18/23 19:54 08/18/23 19:00 Room Air 08/18/23 19:00 97 Mechanical Ventilation 50 08/18/23 18:29 50 08/18/23 18:28 08/18/23 18:00 97 Mechanical Ventilation 50 08/18/23 17:58 08/18/23 17:00 Room Air 08/18/23 17:00 Mechanical Ventilation 08/18/23 16:00 08/18/23 16:00 Mechanical Ventilation 08/18/23 16:00 98 Mechanical Ventilation 08/18/23 15:00 Room Air 08/18/23 15:00 99 Mechanical Ventilation 70 08/18/23 14:00 98 Mechanical Ventilation 70 08/18/23 13:30 98 Mechanical Ventilation 08/18/23 13:00 98 Mechanical Ventilation 70 08/18/23 13:00 Mechanical Ventilation 08/18/23 12:30 98 Mechanical Ventilation 08/18/23 12:00 96 Mechanical Ventilation 70 08/18/23 12:00 08/18/23 11:45 96 Mechanical Ventilation 08/18/23 11:30 95 Mechanical Ventilation 08/18/23 11:15 100 Mechanical Ventilation 08/18/23 11:00 100 Mechanical Ventilation 70 08/18/23 10:54 Mechanical Ventilation 70 08/18/23 09:08 95 Nasal Cannula 2 08/18/23 08:58 95 Nasal Cannula 4 08/18/23 08:48 94 L Nasal Cannula 4 08/18/23 08:43 08/18/23 08:38 94 L Nasal Cannula 4 Intake and Output 08/18/23 08/18/23 08/19/23 15:59 23:59 07:59 Intake Total 1130.063 / 1420.573 290.510 / 1420.573 191.222 / 191.222 Output Total 2550 / 3154 585 / 3154 104 / 104 Balance -1419.937 / -1733.427 -294.490 / -1733.427 87.222 / 87.222 Intake: Intake, Oral Amount 0 / 0 Intake, Total IV Amount 1130.063 / 1420.573 290.510 / 1420.573 191.222 / 191.222 Output: Output, Urine Amount (Catheter) 2550 / 3154 585 / 3154 104 / 104 Gonzalez 2550 / 3154 585 / 3154 104 / 104 Other: Number of Unmeasured Voids 0 0 Number of Bowel Movements 1 Weight 89.811 kg Patient Weight 08/19/23 23:59 Weight 89.811 kg Laboratory Results - last 24 hr 08/18/23 08:52: POC Glucose 264 H 08/18/23 10:00: WBC 7.1, RBC 3.82 L, Hgb 12.3, Hct 39.9, MCV 104.6 H, MCH 32.3 H , MCHC 30.8 L, RDW 13.9, Plt Count 200, MPV 8.9, Neut % (Auto) 55.7, Lymph % (Auto) 40.1, [place] % (Auto) 2.8, Eos % (Auto) 0.7, Baso % (Auto) 0.7, Neut # (Auto) 3.9, Lymph # (Auto) 2.8, [place] # (Auto) 0.2, Eos # (Auto) 0.1, Baso # (Auto) 0.1, Specimen Source Left brachial, O2 % 100%, ABG pH 7.16 L*, ABG pCO2 54.7 H, ABG pO2 100.0, ABG HCO3 18.9 L, ABG Total CO2 20.6 L, ABG O2 Saturation 96, ABG Base Excess -9.9 L, Elias Test Acceptable, Sodium 134 L, Potassium 4.7, Chloride 104, Carbon Dioxide 21 L, Anion Gap 13.7, BUN 20 H, Creatinine 0.80, Estimated Creat Clear 83, Estimated GFR 73, Est GFR ( Amer) 88, Glucose 363 H, Hemoglobin A1c 10.4 H, Calcium 8.5, Magnesium 1.4 L, Total Bilirubin 0.3, AST 41 H, ALT 37, Alkaline Phosphatase 74, Troponin I < 0.01, NT-Pro-B Natriuret Pep 59.5, Total Protein 6.0 L, Albumin 3.6 D, Globulin 2.4, Albumin/Globulin Ratio 1.5, TSH 2.77 08/18/23 10:45: ABG pH 7.14 L*, ABG pCO2 54.1 H, ABG pO2 116.2 H, ABG HCO3 18.0 L, ABG Total CO2 19.7 L, ABG O2 Saturation 97, ABG Base Excess -11.0 L, ABG Lactate 2.8 H 08/18/23 14:06: POC Glucose 379 H* 08/18/23 14:25: Chlamy pneumoniae PCR TNP, Adenovirus (PCR) Not detected, B. pertussis DNA (PCR) TNP, Coronavirus OC43 (PCR) Not detected, Coronavirus HKU1 (PCR) Not detected, Coronavirus 229E (PCR) Not detected, SARS-CoV-2 (PCR) Not detected, Coronavirus NL63 (PCR) Not detected, Human Metapneumovir PCR Not detected, Influenza A (H1) PCR Not detected, Influ A (H1N1/09) PCR Not detected, Influenza A (H3) PCR Not detected, Influenza Type A (PCR) Not detected, Influenza Type B (PCR) Not detected, M. pneumoniae (PCR) TNP, Parainfluenza 1 (PCR) Not detected, Parainfluenza 2 (PCR) Not detected, Parainfluenza 3 (PCR) Not detected, Parainfluenza 4 (PCR) Not detected, RSV (PCR) Not detected, Entero/Rhino (PCR) Not detected 08/18/23 14:35: Troponin I 4.14 H 08/18/23 15:25: Specimen Source Right radial, O2 % 70, ABG pH 7.46 H, ABG pCO2 27.7 L, ABG pO2 128.5 H, ABG HCO3 19.0 L, ABG Total CO2 19.9 L, ABG O2 Saturation 98, ABG Base Excess -4.9 L, Elias Test Acceptable, Vent Rate 22, Tidal Volume 420, PEEP 10 08/18/23 15:26: Urine Color Yellow, Urine Appearance Clear, Urine pH 6.0, Ur Specific [place] 1.015, Urine Protein Negative, Urine Glucose (UA) 2+, Urine Ketones Negative, Urine Blood Negative, Urine Nitrate Negative, Urine Bilirubin Negative, Urine Urobilinogen 0.2, Ur Leukocyte Esterase Negative, Urine RBC None, Urine WBC None, Ur Squamous Epith Cells Occasional, Urine Bacteria None, Hyaline Casts 3-5 08/18/23 18:02: Troponin I 12.50 H 08/18/23 21:32: POC Glucose 227 H 08/18/23 22:04: Troponin I 14.50 H 08/19/23 02:05: Troponin I 16.90 H 08/19/23 03:32: POC Glucose 188 H 08/19/23 05:10: WBC 8.6, RBC 3.73 L, Hgb 11.9 L, Hct 37.0, MCV 99.1 H, MCH 32.0 H, MCHC 32.3, RDW 14.2, Plt Count 209, MPV 9.2, Neut % (Auto) 72.7, Lymph % (Auto) 20.5, [place] % (Auto) 5.1, Eos % (Auto) 1.1, Baso % (Auto) 0.5, Neut # (Auto) 6.3, Lymph # (Auto) 1.8, [place] # (Auto) 0.4, Eos # (Auto) 0.1, Baso # (Auto) 0.0, ESR 35 H, Sodium 135 L, Potassium 3.9, Chloride 103, Carbon Dioxide 26, Anion Gap 9.9, BUN 27 H D, Creatinine 1.30 H D, Estimated Creat Clear 64, Estimated GFR 42 L, Est GFR ( Amer) 50 L D, Glucose 194 H D, Lactate 2.1, Calcium 9.3, Magnesium 2.0 D, Total Bilirubin 0.4, AST 112 H D, ALT 44, Alkaline Phosphatase 70, Troponin I 15.50 H, C-Reactive Protein 12.5 H, Total Protein 6.3, Albumin 3.8, Globulin 2.5, Albumin/Globulin Ratio 1.5, Procalcitonin 0.127 08/19/23 06:00: Specimen Source Right radial, O2 % 50%, ABG pH 7.46 H, ABG pCO2 32.7 L, ABG pO2 100.7 H, ABG HCO3 22.8, ABG Total CO2 23.8, ABG O2 Saturation 97, ABG Base Excess -1.0, Elisa Test Acceptable, Vent Rate 19, Tidal Volume 420, PEEP 8 I & O for Labs for Last 24 Hours: Intake & Output 08/16/23 08/17/23 08/18/23 08/19/23 23:59 23:59 23:59 23:59 Intake Total 1420.573 / 1420.573 191.222 / 191.222 Output Total 3135 / 3154 104 / 104 Balance -1714.427 / -1733.427 87.222 / 87.222 Weight 88.904 kg 89.811 kg Constitutional: Present no acute distress and obese Head: Present atraumatic ENT: Present normal exam Comment:: ETT and OG in place Neck: Present normal inspection Respiratory: Present patient mechanically ventilated and normal respiratory effort Cardiac: Present Reg Rate and Rhythm GI: Present soft and normal bowel sounds; Absent distention or tenderness (female): Present deferred Extremities: Present normal inspection and full ROM Skin: Present intact; Absent erythema Neuro: Present Grossly Intact, alert and moves all extremities Assessment and Plan *Assessment and plan (1) Acute hypoxemic respiratory failure: Status: Acute Category: Medical Code(s): J96.01 - Acute respiratory failure with hypoxia (2) Pulmonary edema: Status: Acute Category: Medical Code(s): J81.1 - Chronic pulmonary edema (3) Rotator cuff tear, right: Status: Acute Qualifiers: Rotator cuff tear extent: complete Rotator cuff tear trauma status: nontraumatic Qualified Code(s): M75.121 - Complete rotator cuff tear or rupture of right shoulder, not specified as traumatic Category: Medical Code(s): M75.101 - Unspecified rotator cuff tear or rupture of right shoulder, not specified as traumatic (4) Diabetes mellitus: Status: Chronic Qualifiers: Diabetes mellitus complication status: without complication Diabetes mellitus longterm insulin use: without longterm use Diabetes mellitus type: type 2 Qualified Code(s): E11.9 - Type 2 diabetes mellitus without complications Category: Medical Code(s): E11.9 - Type 2 diabetes mellitus without complications (5) CAD (coronary artery disease): Status: Chronic Qualifiers: Associated angina: without angina Coronary Disease-Associated Artery/Lesion type: [place]ski artery [place] vs. transplanted heart: andreafski heart Qualified Code(s): I25.10 - Atherosclerotic heart disease of andreafski coronary artery without angina pectoris Category: Medical Code(s): I25.10 - Atherosclerotic heart disease of [place]reafski coronary artery without angina pectoris (6) HLD (hyperlipidemia): Status: Chronic Qualifiers: Hyperlipidemia type: mixed hyperlipidemia Qualified Code(s): E78.2 - Mixed hyperlipidemia Category: Medical Code(s): E78.5 - Hyperlipidemia, unspecified (7) HTN (hypertension): Status: Chronic Qualifiers: Hypertension type: essential hypertension Qualified Code(s): I10 - Essential (primary) hypertension Category: Medical Code(s): I10 - Essential (primary) hypertension (8) COPD (chronic obstructive pulmonary disease): Status: Chronic Qualifiers: COPD type: emphysema Emphysema type: centrilobular Qualified Code(s): J43.2 - Centrilobular emphysema Category: Medical Code(s): J44.9 - Chronic obstructive pulmonary disease, unspecified (9) NSTEMI (non-ST elevated myocardial infarction): Status: Acute Category: Medical Code(s): I21.4 - Non-ST elevation (NSTEMI) myocardial infarction (10) On mechanically assisted ventilation: Status: Acute Category: Medical Code(s): Z99.11 - Dependence on respirator [ventilator] status (11) Class 1 obesity: Status: Chronic Category: Medical Code(s): E66.9 - Obesity, unspecified (12) Complication of surgery: Status: Acute Category: Medical Code(s): T81.9XXA - Unspecified complication of procedure, initial encounter Plan 62-year-old female who presented for elective right rotator cuff repair. Postsurgery had acute hypoxemic respiratory failure. Differential includes pneumonia, flash pulmonary edema, SC, PE. Intubated in PACU. Discussed case with anesthesia, requested admission for further management. Medicine agreed to admit. Pulmonology consulted to assist with respiratory failure treatment. Patient continues to require intubation and sedation. Going for heart cath today. Necessitating ICU level care. Problems addressed as follows: Acute hypoxemic respiratory failure Mixed respiratory and metabolic acidosis -Patient has diuresed well. Negative over 2 L since initiation of diuretics. Had slight bump in creatinine this morning to 1.3, BUN 27. Will hold on further diuretics today -Discussed case with pulmonology. Tolerating weaning on vent. Most recent settings with vent 50% FiO2, volume 420, rate 18, PEEP of 8. -Status post Lasix 40 mg IV x 1. -2 L so far. Continue to monitor strict output with Gonzalez catheter. Consider repeat diuresis in the morning. -Continue propofol and fentanyl for sedation, pending improvement in ventilation, consider SBT in the morning - Continue DuoNebs every 6 hours on a scheduled basis. -Continue levofloxacin 750mg daily pending tracheal aspirate cultures History of CAD and CABG NSTEMI -Initial troponin less than 0.01. Repeat troponin elevated to 4.0, trended up to 16 overnight with most recent troponin 15.5. Discussed case with cardiology, going for left heart cath today. Findings as follows: Severe stenosis involving the mid dominant circumflex artery with successful stenting reducing severe to critical stenosis to 0% with 1 drug-eluting stent Patent MURRAY to LAD Severe disease in a small nondominant right coronary artery which is too small for percutaneous intervention Preserved ejection fraction Normal left ventricular end-diastolic pressure Suspect flash pulmonary edema stemming from transient papillary muscle dysfunction creating severe mitral regurgitation secondary to severe ischemia Normal renal arteries Calcified atheromatous right femoral artery - Discussed case with cardiology, will resume aspirin 81 mg daily and Plavix 75 mg daily. - Repeat echocardiogram obtained. Preliminary review with no new wall motion abnormalities. EF 45 to 50%. - holding home antihtn regimen in setting of normotensive state with sedation, resume if BP elevates SBP >160 -Will keep patient intubated and sedated to maintain her laying supine given fem oral access. Uncontrolled diabetes with hyperglycemia -Initiated on sliding scale insulin every 6 hours with fingersticks every 6 hours scheduled. received 22 units yesterday. -Initiate Jardiance 10 mg daily -Will initiate long-acting insulin when patient extubated and able to eat. Further adjustments prior to discharge home pending improvement in p.o. intake and close monitoring of glucose -A1c obtained, 10.4 MINAL: Creatinine bumped to 1.3. Will give 500 cc LR after her cath today to decrease risk for contrast-induced nephropathy. Monitoring closely with repeat BMP this afternoon and CBC, CMP, magnesium ordered for the morning. GI prophy: Famotidine 20mg IV BID Full code NPO TLOV
--- NOTE | 2023-08-19 08:07 | DIET.NUTRFU ---
start TF if NPO >3 days d/t vent tx. Start Glucerna 1.0 at 20ml/hr and increase to 80ml/hr to provide 1920ml/1920kcal/80gm protein/1637ml
--- NOTE | 2023-08-19 08:10 | EXP.ANES.I ---
[facility] Anesthesia Record Part I Anesthesia Record I Intake, IV Amount: 0 Hydration: Adequate Estimated blood loss (mL): 0 Urine output (mL): 0 Blood Products used (#): none Blood Pressure: 92/39 SaO2: 98 Pulse Rate: 130 Airway Patency: Patent Respiratory Rate: 24 Temperature: 98 F Patient is:: Drowsy and Stable Stable to PACU at:: 08:05
[2023-08-19] MEDS: diphenhydrAMINE 50MG/ML VIAL 50 MG IV (09:04)
[2023-08-19 09:05] LABS: POC Glucose,Bedside 231 (70-110)
[2023-08-19] MEDS: LIDOCAINE 1% 10ML MDV 20 ML IJ (09:07)
[2023-08-19] MEDS: HEPARIN 1,000 UNITS/500ML NS (CATH LAB) 3000 UNIT IV (09:07)
[2023-08-19] MEDS: 0.9 % SODIUM CHLORIDE 500 ML 25 ML IV (09:07)
[2023-08-19] MEDS: HEPARIN 1,000 UNITS/ML 10ML VIAL (CATH LAB) 10000 UNIT IV (09:20)
[2023-08-19 09:22] LABS: Reflex Lactic Add Lactic Reflex
--- NOTE | 2023-08-19 09:42 | EXP.PULM.PN ---
Subjective *Date: 08/19/23 *Time: 15:48 Interval history: No acute respiratory events overnight. Improving ventilator settings. Pulmonology Exam Inpatient Vital signs and Labs for Last 24 Hours: Temp Pulse Resp BP Pulse Ox O2 Del Method O2 Flow Rate 98 F 130 H 24 92/39 L 96 Mechanical Ventilation 70 08/19/23 08:12 08/19/23 08:12 08/19/23 08:12 08/19/23 08:12 08/19/23 08:00 08/19/23 08:00 08/18/23 15:00 FiO2 50 08/19/23 08:00 Laboratory Results - last 24 hr 08/18/23 10:00: WBC 7.1, RBC 3.82 L, Hgb 12.3, Hct 39.9, MCV 104.6 H, MCH 32.3 H, MCHC 30.8 L, RDW 13.9, Plt Count 200, MPV 8.9, Neut % (Auto) 55.7, Lymph % (Auto) 40.1, [place] % (Auto) 2.8, Eos % (Auto) 0.7, Baso % (Auto) 0.7, Neut # (Auto) 3.9, Lymph # (Auto) 2.8, [place] # (Auto) 0.2, Eos # (Auto) 0.1, Baso # (Auto) 0.1, Specimen Source Left brachial, O2 % 100%, ABG pH 7.16 L*, ABG pCO2 54.7 H, ABG pO2 100.0, ABG HCO3 18.9 L, ABG Total CO2 20.6 L, ABG O2 Saturation 96, ABG Base Excess -9.9 L, Elias Test Acceptable, Sodium 134 L, Potassium 4.7, Chloride 104, Carbon Dioxide 21 L, Anion Gap 13.7, BUN 20 H, Creatinine 0.80, Estimated Creat Clear 83, Estimated GFR 73, Est GFR ( Amer) 88, Glucose 363 H, Hemoglobin A1c 10.4 H, Calcium 8.5, Magnesium 1.4 L, Total Bilirubin 0.3, AST 41 H, ALT 37, Alkaline Phosphatase 74, Troponin I < 0.01, NT-Pro-B Natriuret Pep 59.5, Total Protein 6.0 L, Albumin 3.6 D, Globulin 2.4, Albumin/Globulin Ratio 1.5, TSH 2.77 04/09/24 10:45: ABG pH 7.14 L*, ABG pCO2 54.1 H, ABG pO2 116.2 H, ABG HCO3 18.0 L, ABG Total CO2 19.7 L, ABG O2 Saturation 97, ABG Base Excess -11.0 L, ABG Lactate 2.8 H 08/18/23 14:06: POC Glucose 379 H* 08/18/23 14:25: Chlamy pneumoniae PCR TNP, Adenovirus (PCR) Not detected, B. pertussis DNA (PCR) TNP, Coronavirus OC43 (PCR) Not detected, Coronavirus HKU1 (PCR) Not detected, Coronavirus 229E (PCR) Not detected, SARS-CoV-2 (PCR) Not detected, Coronavirus NL63 (PCR) Not detected, Human Metapneumovir PCR Not detected, Influenza A (H1) PCR Not detected, Influ A (H1N1/) PCR Not detected, Influenza A (H3) PCR Not detected, Influenza Type A (PCR) Not detected, Influenza Type B (PCR) Not detected, M. pneumoniae (PCR) TNP, Parainfluenza 1 (PCR) Not detected, Parainfluenza 2 (PCR) Not detected, Parainfluenza 3 (PCR) Not detected, Parainfluenza 4 (PCR) Not detected, RSV (PCR) Not detected, Entero/Rhino (PCR) Not detected 08/18/23 14:35: Troponin I 4.14 H 08/18/23 15:25: Specimen Source Right radial, O2 % 70, ABG pH 7.46 H, ABG pCO2 27.7 L, ABG pO2 128.5 H, ABG HCO3 19.0 L, ABG Total CO2 19.9 L, ABG O2 Saturation 98, ABG Base Excess -4.9 L, Elias Test Acceptable, Vent Rate 22, Tidal Volume 420, PEEP 10 08/18/23 15:26: Urine Color Yellow, Urine Appearance Clear, Urine pH 6.0, Ur Specific [place] 1.015, Urine Protein Negative, Urine Glucose (UA) 2+, Urine Ketones Negative, Urine Blood Negative, Urine Nitrate Negative, Urine Bilirubin Negative, Urine Urobilinogen 0.2, Ur Leukocyte Esterase Negative, Urine RBC None, Urine WBC None, Ur Squamous Epith Cells Occasional, Urine Bacteria None, Hyaline Casts 3-5 08/18/23 18:02: Troponin I 12.50 H 08/18/23 21:32: POC Glucose 227 H 08/18/23 22:04: Troponin I 14.50 H 08/19/23 02:05: Troponin I 16.90 H 08/19/23 03:32: POC Glucose 188 H 08/19/23 05:10: WBC 8.6, RBC 3.73 L, Hgb 11.9 L, Hct 37.0, MCV 99.1 H, MCH 32.0 H, MCHC 32.3, RDW 14.2, Plt Count 209, MPV 9.2, Neut % (Auto) 72.7, Lymph % (Auto) 20.5, [place] % (Auto) 5.1, Eos % (Auto) 1.1, Baso % (Auto) 0.5, Neut # (Auto) 6.3, Lymph # (Auto) 1.8, [place] # (Auto) 0.4, Eos # (Auto) 0.1, Baso # (Auto) 0.0, ESR 35 H, Sodium 135 L, Potassium 3.9, Chloride 103, Carbon Dioxide 26, Anion Gap 9.9, BUN 27 H D, Creatinine 1.30 H D, Estimated Creat Clear 64, Estimated GFR 42 L, Est GFR ( Amer) 50 L D, Glucose 194 H D, Lactate 2.1, Calcium 9.3, Magnesium 2.0 D, Total Bilirubin 0.4, AST 112 H D, ALT 44, Alkaline Phosphatase 70, Troponin I 15.50 H, C-Reactive Protein 12.5 H, Total Protein 6.3, Albumin 3.8, Globulin 2.5, Albumin/Globulin Ratio 1.5, Procalcitonin 0.127 08/19/23 06:00: Specimen Source Right radial, O2 % 50%, ABG pH 7.46 H, ABG pCO2 32.7 L, ABG pO2 100.7 H, ABG HCO3 22.8, ABG Total CO2 23.8, ABG O2 Saturation 97, ABG Base Excess -1.0, Elias Test Acceptable, Vent Rate 19, Tidal Volume 420, PEEP 8 08/19/23 08:38: POC Glucose 231 H Temp Pulse Resp BP Pulse Ox O2 Del Method O2 Flow Rate 97 F L 90 19 188/82 H 95 Mechanical Ventilation 2 08/18/23 08:43 08/18/23 09:08 08/18/23 09:08 08/18/23 09:08 08/18/23 09:08 08/18/23 13:00 08/18/23 09:08 Laboratory Results - last 24 hr 08/18/23 08:52: POC Glucose 264 H 08/18/23 10:00: WBC 7.1, RBC 3.82 L, Hgb 12.3, Hct 39.9, MCV 104.6 H, MCH 32.3 H, MCHC 30.8 L, RDW 13.9, Plt Count 200, MPV 8.9, Neut % (Auto) 55.7, Lymph % (Auto) 40.1, [place] % (Auto) 2.8, Eos % (Auto) 0.7, Baso % (Auto) 0.7, Neut # (Auto) 3.9, Lymph # (Auto) 2.8, [place] # (Auto) 0.2, Eos # (Auto) 0.1, Baso # (Auto) 0.1, Specimen Source Left brachial, O2 % 100%, ABG pH 7.16 L*, ABG pCO2 54.7 H, ABG pO2 100.0, ABG HCO3 18.9 L, ABG Total CO2 20.6 L, ABG O2 Saturation 96, ABG Base Excess -9.9 L, Elias Test Acceptable, Sodium 134 L, Potassium 4.7, Chloride 104, Carbon Dioxide 21 L, Anion Gap 13.7, BUN 20 H, Creatinine 0.80, Estimated Creat Clear 83, Estimated GFR 73, Est GFR ( Amer) 88, Glucose 363 H, Hemoglobin A1c 10.4 H, Calcium 8.5, Magnesium 1.4 L, Total Bilirubin 0.3, AST 41 H, ALT 37, Alkaline Phosphatase 74, Troponin I < 0.01, NT-Pro-B Natriuret Pep 59.5, Total Protein 6.0 L, Albumin 3.6 D, Globulin 2.4, Albumin/Globulin Ratio 1.5, TSH 2.77 08/18/23 10:45: ABG pH 7.14 L*, ABG pCO2 54.1 H, ABG pO2 116.2 H, ABG HCO3 18.0 L, ABG Total CO2 19.7 L, ABG O2 Saturation 97, ABG Base Excess -11.0 L, ABG Lactate 2.8 H I & O for Labs for Last 24 Hours: Intake & Output 08/16/23 08/17/23 08/18/23 08/19/23 23:59 23:59 23:59 23:59 Intake Total 1420.573 / 1420.573 191.222 / 191.222 Output Total 3135 / 3154 109 / 109 Balance -1714.427 / -1733.427 82.222 / 82.222 Weight 196 lb 197 lb 15.99 oz Intake & Output 08/15/23 08/16/23 08/17/23 08/18/23 23:59 23:59 23:59 23:59 Intake Total 1000 / 1000 Output Total 1450 / 1450 Balance -450 / -450 Weight 196 lb Constitutional: Present severe distress Comment:: Intubated and Sedated Head: Present normocephalic and atraumatic Neck: Present normal inspection and trachea midline Respiratory: Present patient mechanically ventilated, prolonged expiratory phase, rhonchi and wheezes Cardiac: Present S1/S2 and Tachycardia GI: Present soft; Absent distention or tenderness Skin: Present intact; Absent cyanosis Neuro: Absent alert, awake or oriented x 3 Extremities: Present normal inspection; Absent clubbing or cyanosis Psychiatric: Present unable to assess Assessment and Plan *Assessment and plan (1) Acute hypoxemic respiratory failure: Status: Acute Category: Medical Code(s): J96.01 - Acute respiratory failure with hypoxia (2) On mechanically assisted ventilation: Status: Acute Category: Medical Code(s): Z99.11 - Dependence on respirator [ventilator] status Plan Ms. Aguila is a 62-year-old female with reported history of greater than [id number] smoking history, stopped smoking in 2018 after CVA, COPD, sleep apnea on CPAP, CAD status post CABG, CVA uncontrolled diabetes presented to hospital for elective shoulder surgery procedure complicated by worsening hypoxic respiratory failure postprocedure needing intubation mechanical ventilatory support and pulmonary was called for further evaluation and management. Much of the history is obtained from chart review and patient's family. Chest x-ray postprocedure bilateral diffuse pulm infiltrates, concerning for pulmonary edema/aspiration pneumonitis. Afebrile. Hemodynamically stable. Hypertensive. No evidence of worsening leukocytosis postintubation. ABG postintubation showed hypercarbic respiratory failure. Interval update: Interval update: No acute respiratory events overnight. Improving ventilator settings and arterial blood gas. Afebrile. Stable leukocytosis. Worsening BUN/creatinine. Echo reported relatively stable from prior, with chronic changes including regional wall motion abnormalities. Worsening troponins, scheduled for right left heart catheter today. CT PE protocol no evidence of pulmonary embolism. Bilateral upper lobe predominant lung lesser percent lower lobe dense consolidative changes, left greater than right. Deep Chest wall emphysema likely from shoulder surgery. Plan: -Continue propofol and fentanyl for sedation, SBT when appropriate. -No significant respiratory events overnight. Improving ventilator settings, 2 PEEP of 8 and FiO2 50%. Increased settings while lying flat post left heart cath today. Currently on PEEP of 10 and FiO2 of 60%. Will continue to wean as tolerated. Patient supposed to lie flat as per cardiology for 8 hours postprocedure. Will hold off on weaning sedation and SBT today. Continue DuoNebs every 6 hours on a scheduled basis. Continue levofloxacin 750mg daily pending tracheal aspirate cultures -Adequate urine output.. BUN/creatinine slightly worsened from yesterday. Status post 500 LR bolus. Monitor UO -Abdomen soft nontender -Hemodynamically stable. Status post left heart cath. F/U cards recs - Continue mechanical ventilatory support - Continue AnalgoSedation with Propofol and Fentanyl with CPOT gal less than or euqal to 2 and RASS goal of to 2 (No need for deep sedation) - VAP bundle Recommend elevate head of the bed at 30 to 45 degrees Recommend oral care with chlorhexidne Recommend GI ulcer prophylaxis - Famotidine 20mg IV BID Recommend chemical DVT prophylaxis Total critical care time spent on this patient is 35 minutes managing acute hypoxic respiratory failure needing mechanical ventilation. This time spent include reviewing test results including interpreting chest x-rays, labs and arterial blood gas, optimizing the ventilator settings,formulating plan of care, discussing the plan of care with the team and the nursing staff.
--- NOTE | 2023-08-19 09:49 | PC.NURSE ---
Patient in [employer] lab[employer] while lactic acid lab draw due. Will call lab when pt back to floor.
[2023-08-19] MEDS: propofoL 100 ML 21.34 MG IV ×3 (10:04→17:37)
[2023-08-19] MEDS: FENTANYL CITRATE/PF 1,000 MCG in 0.9 % SODIUM CHLORIDE 80 ML 20 MCG IV (10:06)
--- NOTE | 2023-08-19 10:06 | [facility].ITSTN ---
Patient in Cathlab. We were unable to do port cxr at this time. Nurse Monique will call and let us know when patient is ready for port cxr. Patient has to lay flat due to sheath in groin.
--- NOTE | 2023-08-19 11:17 | P.CONCA_ITS ---
History of Present Illness History of Present Illness Consult date: 08/19/23 Requesting physician: Matthieu Parker Consult reason: known to you Chief complaint: respiratory failure, eelvated troponin History of present illness: This is a 62-year-old white female who was admitted to the hospital due to respiratory failure following an elective repair of her right rotator cuff. The patient has a past medical history of CAD status post coronary artery bypass grafting, hypertension, hyperlipidemia, and CVA. The patient underwent an elective right rotator repair cuff surgery. The patient tolerated the procedure well except for having some hypertension during the surgery. After surgery while in PACU she developed worsening respiratory failure and she declined. The patient did not respond to noninvasive methods of ventilation with a Ventimask and BiPAP. She ultimately ended up intubated and on mechanical ventilation. The patient's initial troponin after her respiratory event was negative and then did elevate to 4.14. Cardiology was consulted and an echocardiogram was obtained. Her echo showed an EF of 50% with mild MR and mild RV dilatation. There was also mild hypokinesis of the septal and anterior septal lozano which was unchanged from previous echocardiogram a year ago. She was started back on her dual antiplatelet therapy with Plavix and aspirin via OG tube. Through the night her troponin continued to elevate to a max of 16.90 with some dynamic EKG changes. So the patient will be taken to the [facility] this morning to undergo left cardiac catheterization for further evaluation of her coronary artery disease secondary to her non-STEMI. [facility] Disclaimer: The information contained in this section may have been updated after the patient was seen, as this information can be updated by other users. Medical History (Updated 08/19/23 @ 11:54 by Matthieu Parker MD) On mechanically assisted ventilation Sleep apnea History of stroke Typical angina Cerebrovascular accident COPD (chronic obstructive pulmonary disease) Tobacco dependence Diabetes mellitus HTN (hypertension) HLD (hyperlipidemia) CAD (coronary artery disease) Surgical History History of coronary artery stent placement H/O hysterectomy with oophorectomy History of coronary artery bypass graft Family History Heart disease Social History Smoking Status: Former smoker tobacco type: cigarettes packs per day: 1 second hand exposure: No alcohol intake: never substance use type: denies use current occupational status: disabled Travel in the last 8 weeks: None household members: significant other housing: house current occupational exposures/hazards: No caffeine: Yes Review of Systems Review of Systems Review of systems:: unable to obtain (Patient intubated and on mechanical ventilation.) Exam Data for Last 24 hours Vital signs and Labs for Last 24 Hours: Temp Pulse Resp BP Pulse Ox O2 Del Method O2 Flow Rate 98 F 80 34 H 101/58 L 99 Mechanical Ventilation 70 08/19/23 08:12 08/19/23 11:15 08/19/23 11:15 08/19/23 11:15 08/19/23 11:15 08/19/23 11:15 08/18/23 15:00 FiO2 50 08/19/23 08:00 Laboratory Results - last 24 hr 08/18/23 10:00: Specimen Source Left brachial, O2 % 100%, ABG pH 7.16 L*, ABG pCO2 54.7 H, ABG pO2 100.0, ABG HCO3 18.9 L, ABG Total CO2 20.6 L, ABG O2 Saturation 96, ABG Base Excess -9.9 L, Elias Test Acceptable, Hemoglobin A1c 10.4 H, TSH 2.77 08/18/23 14:06: POC Glucose 379 H* 08/18/23 14:25: Chlamy pneumoniae PCR TNP, Adenovirus (PCR) Not detected, B. pertussis DNA (PCR) TNP, Coronavirus OC43 (PCR) Not detected, Coronavirus HKU1 (PCR) Not detected, Coronavirus 229E (PCR) Not detected, SARS-CoV-2 (PCR) Not detected, Coronavirus NL63 (PCR) Not detected, Human Metapneumovir PCR Not detected, Influenza A (H1) PCR Not detected, Influ A (H1N1/09) PCR Not detected, Influenza A (H3) PCR Not detected, Influenza Type A (PCR) Not detected, Influenza Type B (PCR) Not detected, M. pneumoniae (PCR) TNP, Parainfluenza 1 (PCR) Not detected, Parainfluenza 2 (PCR) Not detected, Parainfluenza 3 (PCR) Not detected, Parainfluenza 4 (PCR) Not detected, RSV (PCR) Not detected, Entero/Rhino (PCR) Not detected 08/18/23 14:35: Troponin I 4.14 H 08/18/23 15:25: Specimen Source Right radial, O2 % 70, ABG pH 7.46 H, ABG pCO2 27.7 L, ABG pO2 128.5 H, ABG HCO3 19.0 L, ABG Total CO2 19.9 L, ABG O2 Saturation 98, ABG Base Excess -4.9 L, Elias Test Acceptable, Vent Rate 22, Tidal Volume 420, PEEP 10 08/18/23 15:26: Urine Color Yellow, Urine Appearance Clear, Urine pH 6.0, Ur Specific [place] 1.015, Urine Protein Negative, Urine Glucose (UA) 2+, Urine Ketones Negative, Urine Blood Negative, Urine Nitrate Negative, Urine Bilirubin Negative, Urine Urobilinogen 0.2, Ur Leukocyte Esterase Negative, Urine RBC None, Urine WBC None, Ur Squamous Epith Cells Occasional, Urine Bacteria None, Hyaline Casts 3-5 08/18/23 18:02: Troponin I 12.50 H 08/18/23 21:32: POC Glucose 227 H 08/18/23 22:04: Troponin I 14.50 H 08/19/23 02:05: Troponin I 16.90 H 08/19/23 03:32: POC Glucose 188 H 08/19/23 05:10: WBC 8.6, RBC 3.73 L, Hgb 11.9 L, Hct 37.0, MCV 99.1 H, MCH 32.0 H, MCHC 32.3, RDW 14.2, Plt Count 209, MPV 9.2, Neut % (Auto) 72.7, Lymph % (Auto) 20.5, [place] % (Auto) 5.1, Eos % (Auto) 1.1, Baso % (Auto) 0.5, Neut # (Auto) 6.3, Lymph # (Auto) 1.8, [place] # (Auto) 0.4, Eos # (Auto) 0.1, Baso # (Auto) 0.0, ESR 35 H, Sodium 135 L, Potassium 3.9, Chloride 103, Carbon Dioxide 26, Anion Gap 9.9, BUN 27 H D, Creatinine 1.30 H D, Estimated Creat Clear 64, Estimated GFR 42 L, Est GFR ( Amer) 50 L D, Glucose 194 H D, Lactate 2.1, Calcium 9.3, Magnesium 2.0 D, Total Bilirubin 0.4, AST 112 H D, ALT 44, Alkaline Phosphatase 70, Troponin I 15.50 H, C-Reactive Protein 12.5 H, Total Protein 6.3, Albumin 3.8, Globulin 2.5, Albumin/Globulin Ratio 1.5, Procalcitonin 0.127 08/19/23 06:00: Specimen Source Right radial, O2 % 50%, ABG pH 7.46 H, ABG pCO2 32.7 L, ABG pO2 100.7 H, ABG HCO3 22.8, ABG Total CO2 23.8, ABG O2 Saturation 97, ABG Base Excess -1.0, Elias Test Acceptable, Vent Rate 19, Tidal Volume 420, PEEP 8 08/19/23 08:38: POC Glucose 231 H I & O for Last 24 hours: Intake & Output 08/16/23 08/17/23 08/18/23 08/19/23 23:59 23:59 23:59 23:59 Intake Total 1420.573 / 1420.573 322.009 / 322.009 Output Total 3135 / 3154 109 / 109 Balance -1714.427 / -1733.427 213.009 / 213.009 Weight 196 lb 197 lb 15.99 oz Constitutional Constitutional: no acute distress and obese *Routine HEENT Exam Head: Present normocephalic and atraumatic ENT: Present mucous membranes moist *Routine Neck Exam Neck: Present supple; Absent JVD or lymphadenopathy *Routine Respiratory Exam Respiratory: Present patient mechanically ventilated *Routine Cardiovascular Exam Cardiovascular: Present RRR, Normal S1 and Normal S2; Absent murmur or gallop *Routine Abdominal Exam Abdominal: Present soft and normoactive bowel sounds; Absent organomegaly *Routine Extremities Exam Extremities: Present pulses intact and normal capillary refill; Absent cyanosis, clubbing or edema *Routine Skin Exam Skin: Present intact and warm; Absent erythema *Routine Neurological Exam Neurological: Present altered mental status (Due to sedation) Routine Psychiatric Exam Psychiatric: Present unable to assess Meds Home Medications and Allergies Home Medications Medication Instructions Recorded Confirmed Type aspirin 81 mg tablet,delayed 81 mg PO DAILY 05/22/17 08/18/23 History release (Aspir-) multivitamin-ferrous 1 tab PO QAM 05/22/17 08/18/23 History fumarate-folic acid 18 mg-400 mcg tablet (Centrum Complete) nitroglycerin 0.6 mg sublingual 0.6 mg sublingual Q5M PRN Chest 05/22/17 08/18/23 History tablet Pain cholecalciferol (vitamin D3) 25 1,000 unit PO DAILY 09/22/17 08/18/23 History mcg (1,000 unit) capsule sennosides 8.6 mg tablet (Senna 8.6 mg PO DAILY PRN Constipation 09/22/17 08/18/23 History Lax) black cohosh 200 mg capsule 540 mg PO DAILY 06/05/20 08/18/23 History glimepiride 4 mg tablet 8 mg PO DAILY 06/05/20 08/18/23 History insulin aspart prot-aspart 100 60 unit SQ BID 06/05/20 08/18/23 History unit/mL (70-30) subcutaneous cartridge metoclopramide HCl 10 mg tablet 10 mg PO BID 06/05/20 08/18/23 History vitamin E 400 unit tablet 450 mg PO DAILY 06/05/20 08/18/23 History gabapentin 800 mg tablet 800 mg PO TID 07/08/21 08/18/23 History metformin 1,000 mg tablet 1,000 mg PO QPMWITHMEAL 07/29/22 08/18/23 History furosemide 20 mg tablet (Lasix) 20 mg PO DAILY #30 tabs 07/30/22 08/18/23 Rx spironolactone 50 mg tablet 50 mg PO DAILY #30 tabs 07/30/22 08/18/23 Rx (Aldactone) atorvastatin 80 mg tablet 80 mg PO HS 08/18/23 08/18/23 History bisoprolol fumarate 5 mg tablet 5 mg PO DAILY 08/18/23 08/18/23 History citalopram 40 mg tablet 40 mg PO DAILY 08/18/23 08/18/23 History clopidogrel 75 mg tablet (Plavix) 75 mg PO DAILY 08/18/23 08/18/23 History gemfibrozil 600 mg tablet 600 mg PO BID 08/18/23 08/18/23 History hydrochlorothiazide 25 mg tablet 25 mg PO DAILY 08/18/23 08/18/23 History lisinopril 10 mg tablet 10 mg PO BID 08/18/23 08/18/23 History omega-3 fatty acids 1,000 mg 1,000 mg PO QDAY 08/18/23 08/18/23 History capsule oxycodone 5 mg tablet 5 mg PO Q4H PRN pain #30 tabs 08/18/23 08/18/23 Rx semaglutide 1 mg/dose (4 mg/3 mL) 1 mg SQ WEEKLY 08/18/23 08/18/23 History subcutaneous pen injector (Ozempic) New Prescriptions to Start Prescriptions: Allergies Allergy/AdvReac Type Severity Reaction Status Date / Time No Known Allergies Allergy Verified 08/18/23 06:28 Assessment and Plan *Assessment and plan (1) NSTEMI (non-ST elevated myocardial infarction): Status: Acute Category: Medical Code(s): I21.4 - Non-ST elevation (NSTEMI) myocardial infarction (2) On mechanically assisted ventilation: Status: Acute Category: Medical Code(s): Z99.11 - Dependence on respirator [ventilator] status (3) Pulmonary edema: Status: Acute Qualifiers: Chronicity: acute Qualified Code(s): J81.0 - Acute pulmonary edema Category: Medical Code(s): J81.1 - Chronic pulmonary edema (4) Acute hypoxemic respiratory failure: Status: Acute Category: Medical Code(s): J96.01 - Acute respiratory failure with hypoxia (5) Rotator cuff tear, right: Status: Acute Qualifiers: Rotator cuff tear extent: complete Rotator cuff tear trauma status: nontraumatic Qualified Code(s): M75.121 - Complete rotator cuff tear or rupture of right shoulder, not specified as traumatic Category: Medical Code(s): M75.101 - Unspecified rotator cuff tear or rupture of right shoulder, not specified as traumatic (6) CAD (coronary artery disease): Status: Chronic Qualifiers: Associated angina: without angina Coronary Disease-Associated Artery/Lesion type: squaxin artery [place] vs. transplanted heart: squaxin heart Qualified Code(s): I25.10 - Atherosclerotic heart disease of squaxin coronary artery without angina pectoris Category: Medical Code(s): I25.10 - Atherosclerotic heart disease of squaxin coronary artery without angina pectoris (7) History of coronary artery bypass graft: Status: Chronic Category: Surgical Code(s): Z95.1 - Presence of aortocoronary bypass graft (8) HLD (hyperlipidemia): Status: Chronic Qualifiers: Hyperlipidemia type: mixed hyperlipidemia Qualified Code(s): E78.2 - Mixed hyperlipidemia Category: Medical Code(s): E78.5 - Hyperlipidemia, unspecified (9) HTN (hypertension): Status: Chronic Qualifiers: Hypertension type: essential hypertension Qualified Code(s): I10 - Essential (primary) hypertension Category: Medical Code(s): I10 - Essential (primary) hypertension (10) Tobacco dependence: Status: Chronic Category: Medical Code(s): F17.200 - Nicotine dependence, unspecified, uncomplicated (11) Cerebrovascular accident: Status: Resolved Qualifiers: CVA mechanism: unspecified Qualified Code(s): I63.9 - Cerebral infarction, unspecified Category: Medical Code(s): I63.9 - Cerebral infarction, unspecified (12) Diabetes mellitus: Status: Chronic Qualifiers: Diabetes mellitus complication status: without complication Diabetes mellitus 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 The patient came into the hospital to undergo elective right rotator cuff repair. The patient tolerated the surgery well then while in PACU she did have respiratory distress and ultimately ended up intubated and on the ventilator. Pulmonology has been consulted. Will defer management of the ventilator to pulmonology. 2. The patient's chest x-ray is concerning for pulmonary edema/aspiration pneumonitis. The patient was given a dose of Lasix. Her BNP is negative. Will hold off on Lasix at this time to see how she recovers following left cardiac catheterization. 3. The patient's initial troponin after her respiratory failure event was normal at 0.02. Her second troponin did elevate to 4.14. Her third troponin went up to 12.50 fourth troponin was 14.50 and fifth troponin did elevate to a max of 16.90. Around 3 AM the patient did have some dynamic EKG changes with ST depression and T wave inversion. The patient will be taken directly to the cardiac catheterization laboratory this morning to undergo left cardiac catheterization for evaluation of her coronary artery disease due to her non- STEMI and EKG changes. 4. The patient's family has been educated the risk and benefits of proceeding with left cardiac catheterization. They verbalized understanding and are agreeable in proceeding with the procedure. 5. The patient's blood pressure is marginal but acceptable at this time. 6. Her LDL goal is less than 55. She is on a statin. Will get a lipid panel in the morning. 7. Her echocardiogram shows a preserved ejection fraction of 50%. The patient does have some mild hypokinesis of the septal and anterior septal lozano which is unchanged from her previous echocardiogram 1 year ago. 8. Continue Plavix and aspirin at this time due to her coronary artery disease and non-STEMI. 9. Continue bisoprolol for her CAD. 10. Further recommendations will be made pending the patient's response to treatment and the results of her left cardiac catheterization today. Thank you for the opportunity to help participate in the care of this patient. All recommendations and orders are per Dr. Amanda. Addendum: [facility] shows: Severe stenosis involving the mid dominant circumflex artery with successful stenting reducing severe to critical stenosis to 0% with 1 drug-eluting stent Patent MURRAY to LAD Severe disease in a small nondominant right coronary artery which is too small for percutaneous intervention Preserved ejection fraction Normal left ventricular end-diastolic pressure Suspect flash pulmonary edema stemming from transient papillary muscle dysfunction creating severe mitral regurgitation secondary to severe ischemia Normal renal arteries Calcified atheromatous right femoral artery PLAN 1. I would like for patient to remain intubated as long as the femoral sheath is in place and throughout the entire post sheath removal recovery. 2. The femoral access was a high stick and patient is at increased risk for retroperitoneal bleed upon removal of the sheath. She needs to be closely monitored following sheath removal and I would like her to remain heavily sedated so as not to move cough or increased intraperitoneal pressure which could precipitate bleeding in the groin. 3. Dual antiplatelet therapy 4. Cardiac rehabilitation 5. Avoidance of tobacco products 6. LDL less than 55 to be achieved with high intensity statin
[2023-08-19] MEDS: CLOPIDOGREL 300MG TABLET 300 MG PO (11:40)
[2023-08-19 12:02] LABS: POC Glucose,Bedside 309 (70-110)
[2023-08-19 12:02] LABS: POC Glucose,Bedside 230 (70-110)
[2023-08-19] MEDS: IOPAMIDOL-370 (76%);100ML BOTTLE 80 ML IV (12:46)
[2023-08-19 12:48] LABS: CATHL Activated Clotting Time 316 SEC (74-125)
[2023-08-19] MEDS: LEVOFLOXACIN/D5W 750 MG/150 ML 750 MG/150 ML PIGGYBACK 100 MG IV (13:11)
[2023-08-19] MEDS: LACTATED RINGERS 1000ML 500 ML 250 ML IV (13:12)
[2023-08-19] MEDS: FAMOTIDINE 20MG/2ML VIAL 20 MG IV ×2 (13:23→21:11)
[2023-08-19 14:01] LABS: POC Glucose,Bedside 279 (70-110)
[2023-08-19 15:08] LABS: Lactic Acid Follow Up (RFLX 1) 1.8 mmol/L (0.7-2.1)
--- NOTE | 2023-08-19 15:48 | PC.NURSE ---
VS stable, Patient remained flat for shift, bedrest until 1999 per cardiology. Vent settings managed per rt, fio2 50 peep 10. Right groin site covered with gauze and tegaderm. Site clean dry and intact, no hematoma noted. Lung sounds clear.
--- NOTE | 2023-08-19 16:10 | HMH.ITSTN ---
Spoke to RN, states patient not able to sit up for chest xray. Wants to wait until rounds 4/11 am for xray.
[2023-08-19 17:43] LABS: Chloride 107 mmol/L (98-107); Potassium 4.4 mmoL/L (3.5-5.1); Sodium 134 mmol/L (136-145)
[2023-08-19 17:46] LABS: Anion Gap 9.4 mEq/L (5-15); Blood Urea Nitrogen 30 mg/dl (7-17); Calcium 8.7 mg/dl (8.4-10.2); Carbon Dioxide 22 mmol/L (22.0-30.0); Creatinine Clearance Estimated 64 mL/min (50-200); Estimated Glomerular Filt Rate 42 ml/min (>60); GFR (African American) 50 ML/MIN (>60); Glucose 224 mg/dl (74-100)
[2023-08-19] MEDS: FENTANYL CITRATE/PF 1,000 MCG in 0.9 % SODIUM CHLORIDE 80 ML 17.5 MCG IV (19:23)
[2023-08-19] MEDS: propofoL 100 ML 37.34 MG IV (20:24)
[2023-08-19 20:48] LABS: POC Glucose,Bedside 232 (70-110)
[2023-08-19] MEDS: ATORVASTATIN 40MG TABLET 80 MG PO (21:11)
[2023-08-19] MEDS: SODIUM CHLORIDE 0.9% 10ML VIAL 8 ML IV (21:11)
[2023-08-19] MEDS: propofoL 100 ML 24 MG IV (23:52)
[2023-08-20] VITALS (30 sets, daily range): BP systolic 95–176; BP diastolic 53–102; PULSE 70–105; RESP 18–26; TEMP 36.7–38.1; O2SAT 91–99; BMI 33.0
[2023-08-20] MEDS: IPRATROPIUM/ALBUTEROL 3 ML NEB IH ×5 (00:22→23:13)
[2023-08-20 02:02] LABS: POC Glucose,Bedside 279 (70-110)
[2023-08-20] MEDS: humaLOG 100 UNITS/ML 3ML VIAL (SSI) SQ ×4 (02:02→20:46)
[2023-08-20] MEDS: propofoL 100 ML 24 MG IV (03:58)
[2023-08-20] MEDS: FENTANYL CITRATE/PF 1,000 MCG in 0.9 % SODIUM CHLORIDE 80 ML 7.5 MCG IV (04:55)
--- NOTE | 2023-08-20 06:00 | XR_ITS ---
PROCEDURE INFORMATION: Exam: XR Chest Exam date and time: 08/20/2023 6:05 AM Age: 62 years old Clinical indication: Device placement; Ett placement (vent status); Additional info: Mv TECHNIQUE: Imaging protocol: Radiologic exam of the chest. Views: 1 view. COMPARISON: CR XR CHEST PORTABLE 08/18/2023 4:35 PM FINDINGS: Tubes, catheters and devices: Endotracheal tube 4 cm above the collin. Overlying monitoring leads. Nasogastric tube tip and side hole overlying left upper quadrant of abdomen. Lungs: Low lung volumes. Interstitial edema. New retrocardiac indistinctness. Pleural spaces: Unremarkable. No pleural effusion. No pneumothorax. Heart/Mediastinum: Cardiac enlargement. Post CABG pericardiac surgical clips. Coronary artery stent. Bones/joints: Sternotomy wires. IMPRESSION: New left lower lung field opacity may be secondary to atelectasis in the setting of hypoventilated lungs. Pneumonia not excluded.
[2023-08-20 06:34] LABS: Basophils % 0.5 % (0.1-2.0); Eosinophils # 0.1 K/mm3 (0.0-0.4); Eosinophils % 1.1 % (0.1-12.0); Hematocrit 32.6 % (37.0-47.0); Hemoglobin 11.5 g/dL (12.2-16.2); Lymphocytes # 1.1 K/mm3 (0.7-4.5); Lymphocytes % 17.4 % (10-50); Mean Corpuscular HGB Conc 35.2 g/dL (31.8-35.4); Mean Corpuscular Hemoglobin 35.1 pg (27.0-31.2); Mean Corpuscular Volume 99.6 fl (81-99); Mean Platelet Volume 9.9 fl (7.4-10.4); Monocytes # 0.5 K/mm3 (0.1-1.0); Monocytes % 7.3 % (1.7-9.3); Neutrophils # 4.9 K/mm3 (1.8-7.8); Neutrophils % 73.8 % (37.0-80.0); Platelet Count 173 K/mm3 (142-424); Red Blood Count 3.28 M/mm3 (4.20-5.40); Red Cell Distribution Width 14.3 % (11.5-17.5); White Blood Count 6.6 K/mm3 (4.8-10.8)
[2023-08-20 06:43] LABS: Chloride 99 mmol/L (98-107)
[2023-08-20 06:44] LABS: Potassium 3.9 mmoL/L (3.5-5.1); Sodium 127 mmol/L (136-145)
[2023-08-20 06:46] LABS: Alanine Aminotransferase 30 U/L (12-78); Aspartate Amino Transferase 90 U/L (14-36); Bilirubin,Total 0.5 mg/dl (0.2-1.3); Blood Urea Nitrogen 27 mg/dl (7-17); Creatinine Clearance Estimated 70 mL/min (50-200); Estimated Glomerular Filt Rate 46 ml/min (>60); GFR (African American) 55 ML/MIN (>60)
[2023-08-20 06:47] LABS: Albumin Level 3.1 g/dl (3.5-5.0); Albumin/Globulin Ratio 1.1 (1.1-1.8); Alkaline Phosphatase 61 U/L (38-126); Anion Gap 9.9 mEq/L (5-15); Calcium 8.2 mg/dl (8.4-10.2); Carbon Dioxide 22 mmol/L (22.0-30.0); Globulin 2.8 g/dL (1.3-3.2); Glucose 253 mg/dl (74-100); Magnesium 1.8 mg/dl (1.6-2.3); Total Protein,Serum 5.9 g/dl (6.3-8.2)
[2023-08-20 07:03] LABS: Cholesterol 133 mg/dl (140-200); HDL Cholesterol 19 mg/dl (40-60)
[2023-08-20 07:13] LABS: Direct LDL Cholesterol 31.11 mg/dL (100-129)
--- NOTE | 2023-08-20 08:06 | EXP.ACUTE.PN ---
Subjective *Date: 08/20/23 *Time: 16:49 Interval history: Patient did well overnight. Able to wean vent for extubated will settings. Performing SBT this morning. Had temperature to 100.6 this morning at 1 AM. Labs reassuring aside from hyponatremia. White cell count normal. Having improved urine output. Medical Exam Vital signs and Labs for Last 24 Hours: Vital Signs Temp Pulse Pulse Resp BP BP Pulse Ox 08/20/23 07:00 87 24 95/53 L 92 L 08/20/23 06:47 08/20/23 06:00 94 H 18 132/69 99 08/20/23 05:48 92 H 08/20/23 05:48 81 08/20/23 05:48 18 97 08/20/23 05:00 76 18 109/55 L 96 08/20/23 05:00 08/20/23 04:36 100 F H 08/20/23 04:00 80 08/20/23 04:00 77 95 08/20/23 04:00 77 18 106/57 L 95 08/20/23 03:00 88 18 120/62 96 08/20/23 03:00 08/20/23 02:15 18 96 08/20/23 02:00 83 18 109/55 L 97 08/20/23 01:00 100.6 F H 85 18 107/59 L 96 08/20/23 01:00 08/20/23 00:35 80 08/20/23 00:35 80 08/20/23 00:00 70 08/20/23 00:00 77 98 08/20/23 00:00 75 18 100/57 L 98 08/19/23 23:26 19 98 08/19/23 23:00 08/19/23 23:00 80 18 110/60 99 08/19/23 22:00 79 18 99/57 L 96 08/19/23 21:00 81 18 115/58 L 96 08/19/23 21:00 08/19/23 20:21 19 97 08/19/23 20:00 80 08/19/23 20:00 79 96 08/19/23 20:00 80 18 109/54 L 96 08/19/23 20:00 80 18 109/54 L 96 08/19/23 19:00 79 24 103/59 L 97 08/19/23 18:56 74 08/19/23 18:56 80 08/19/23 18:56 18 95 08/19/23 18:41 08/19/23 18:00 74 24 96/57 L 08/19/23 17:00 08/19/23 17:00 72 22 108/59 L 95 08/19/23 16:00 70 08/19/23 16:00 08/19/23 16:00 74 22 113/57 L 96 08/19/23 15:30 75 24 107/59 L 96 08/19/23 15:00 75 24 101/75 L 08/19/23 15:00 08/19/23 14:30 76 24 109/57 L 97 08/19/23 14:00 77 24 107/60 L 99 08/19/23 14:00 08/19/23 13:45 76 28 H 106/55 L 98 08/19/23 13:30 76 26 H 101/52 L 97 08/19/23 13:15 76 26 H 101/52 L 97 08/19/23 13:00 78 30 H 110/56 L 98 08/19/23 13:00 08/19/23 12:54 80 08/19/23 12:45 80 32 H 101/55 L 97 08/19/23 12:42 79 30 H 98/54 L 97 08/19/23 12:39 79 34 H 96/53 L 97 08/19/23 12:36 79 36 H 95/55 L 97 08/19/23 12:33 80 30 H 94/51 L 97 08/19/23 12:30 81 32 H 95/55 L 97 08/19/23 12:27 81 32 H 99/55 L 97 08/19/23 12:24 81 30 H 102/58 L 97 08/19/23 12:21 80 34 H 104/59 L 98 08/19/23 12:18 78 34 H 99/55 L 97 08/19/23 12:15 78 30 H 96/54 L 97 08/19/23 12:12 78 30 H 97/52 L 97 08/19/23 12:09 79 32 H 97/54 L 97 08/19/23 12:06 79 32 H 98/54 L 97 08/19/23 12:03 79 34 H 96/53 L 97 08/19/23 12:00 79 30 H 96/55 L 97 08/19/23 11:57 79 32 H 95/53 L 97 08/19/23 11:54 79 32 H 94/55 L 97 08/19/23 11:51 80 30 H 94/53 L 97 08/19/23 11:48 79 30 H 94/56 L 97 08/19/23 11:45 79 32 H 93/55 L 98 08/19/23 11:42 79 34 H 95/66 L 99 08/19/23 11:39 80 36 H 98/56 L 99 08/19/23 11:36 81 30 H 107/62 L 99 08/19/23 11:33 80 34 H 103/55 L 97 08/19/23 11:30 80 32 H 99/56 L 98 08/19/23 11:27 78 30 H 97/57 L 98 08/19/23 11:24 79 36 H 100/57 L 99 08/19/23 11:21 79 30 H 98/55 L 99 08/19/23 11:18 79 36 H 98/54 L 99 08/19/23 11:15 80 34 H 101/58 L 99 08/19/23 11:12 79 36 H 98/56 L 98 08/19/23 11:09 79 32 H 99/56 L 98 08/19/23 11:06 80 34 H 103/58 L 98 08/19/23 11:03 79 32 H 103/59 L 97 08/19/23 11:00 79 30 H 99/55 L 97 08/19/23 10:57 78 34 H 100/56 L 96 08/19/23 10:54 78 36 H 99/54 L 96 08/19/23 10:51 78 30 H 98/54 L 95 08/19/23 10:48 79 34 H 98/54 L 95 08/19/23 10:45 78 30 H 99/56 L 95 08/19/23 10:42 79 32 H 97/57 L 94 L 08/19/23 10:39 79 30 H 98/55 L 92 L 08/19/23 10:36 79 28 H 98/55 L 92 L 08/19/23 10:33 80 28 H 96/54 L 92 L 08/19/23 10:30 80 30 H 95/54 L 94 L 08/19/23 10:24 79 34 H 96/53 L 94 L 08/19/23 10:21 79 34 H 94/54 L 94 L 08/19/23 10:18 80 30 H 97/54 L 95 08/19/23 10:15 81 25 H 94/53 L 95 08/19/23 10:12 80 25 H 96/54 L 96 08/19/23 10:09 81 30 H 97/57 L 97 08/19/23 10:06 83 29 H 97/56 L 94 L 08/19/23 10:03 86 28 H 104/52 L 97 08/19/23 10:00 84 30 H 111/59 L 96 O2 Del Method FiO2 08/20/23 07:00 Mechanical Ventilation 08/20/23 06:47 Mechanical Ventilation 08/20/23 06:00 Mechanical Ventilation 08/20/23 05:48 08/20/23 05:48 08/20/23 05:48 40 08/20/23 05:00 Mechanical Ventilation 50 08/20/23 05:00 Mechanical Ventilation 08/20/23 04:36 08/20/23 04:00 08/20/23 04:00 Mechanical Ventilation 50 08/20/23 04:00 Mechanical Ventilation 50 08/20/23 03:00 Mechanical Ventilation 50 08/20/23 03:00 Mechanical Ventilation 08/20/23 02:15 49 08/20/23 02:00 Mechanical Ventilation 50 08/20/23 01:00 Mechanical Ventilation 50 08/20/23 01:00 Mechanical Ventilation 08/20/23 00:35 08/20/23 00:35 08/20/23 00:00 08/20/23 00:00 Mechanical Ventilation 50 08/20/23 00:00 Mechanical Ventilation 50 08/19/23 23:26 49 08/19/23 23:00 Mechanical Ventilation 08/19/23 23:00 Mechanical Ventilation 50 08/19/23 22:00 Mechanical Ventilation 50 08/19/23 21:00 Mechanical Ventilation 50 08/19/23 21:00 Mechanical Ventilation 08/19/23 20:21 49 08/19/23 20:00 08/19/23 20:00 Mechanical Ventilation 70 08/19/23 20:00 Mechanical Ventilation 50 08/19/23 20:00 Mechanical Ventilation 50 08/19/23 19:00 Mechanical Ventilation 08/19/23 18:56 08/19/23 18:56 08/19/23 18:56 49 08/19/23 18:41 Mechanical Ventilation 08/19/23 18:00 Mechanical Ventilation 08/19/23 17:00 Mechanical Ventilation 08/19/23 17:00 Mechanical Ventilation 08/19/23 16:00 08/19/23 16:00 Mechanical Ventilation 08/19/23 16:00 Mechanical Ventilation 08/19/23 15:30 Mechanical Ventilation 08/19/23 15:00 Mechanical Ventilation 08/19/23 15:00 Mechanical Ventilation 08/19/23 14:30 Mechanical Ventilation 08/19/23 14:00 Mechanical Ventilation 08/19/23 14:00 80 08/19/23 13:45 Mechanical Ventilation 08/19/23 13:30 Mechanical Ventilation 08/19/23 13:15 Mechanical Ventilation 08/19/23 13:00 Mechanical Ventilation 08/19/23 13:00 Mechanical Ventilation 80 08/19/23 12:54 08/19/23 12:45 08/19/23 12:42 08/19/23 12:39 08/19/23 12:36 08/19/23 12:33 08/19/23 12:30 08/19/23 12:27 08/19/23 12:24 08/19/23 12:21 08/19/23 12:18 08/19/23 12:15 08/19/23 12:12 08/19/23 12:09 08/19/23 12:06 08/19/23 12:03 08/19/23 12:00 08/19/23 11:57 08/19/23 11:54 08/19/23 11:51 08/19/23 11:48 08/19/23 11:45 08/19/23 11:42 08/19/23 11:39 08/19/23 11:36 08/19/23 11:33 08/19/23 11:30 08/19/23 11:27 08/19/23 11:24 Mechanical Ventilation 08/19/23 11:21 Mechanical Ventilation 08/19/23 11:18 Mechanical Ventilation 08/19/23 11:15 Mechanical Ventilation 08/19/23 11:12 Mechanical Ventilation 08/19/23 11:09 Mechanical Ventilation 08/19/23 11:06 Mechanical Ventilation 08/19/23 11:03 Mechanical Ventilation 08/19/23 11:00 Mechanical Ventilation 08/19/23 10:57 Mechanical Ventilation 08/19/23 10:54 Mechanical Ventilation 08/19/23 10:51 Mechanical Ventilation 08/19/23 10:48 Mechanical Ventilation 08/19/23 10:45 Mechanical Ventilation 08/19/23 10:42 Mechanical Ventilation 08/19/23 10:39 Mechanical Ventilation 08/19/23 10:36 Mechanical Ventilation 08/19/23 10:33 Mechanical Ventilation 08/19/23 10:30 08/19/23 10:24 08/19/23 10:21 08/19/23 10:18 08/19/23 10:15 08/19/23 10:12 08/19/23 10:09 08/19/23 10:06 08/19/23 10:03 08/19/23 10:00 Intake and Output 08/19/23 08/20/23 08/20/23 23:59 07:59 15:59 Intake Total 393.531 / 867.568 254.863 / 254.863 Output Total 360 / 726 260 / 260 Balance 33.531 / 141.568 -5.137 / -5.137 Intake: Intake, Oral Amount 0 / 0 Intake, Total IV Amount 393.531 / 867.568 254.863 / 254.863 Output: Output, Urine Amount 100 / 100 Output, Urine Amount (Catheter) 260 / 626 260 / 260 Gonzalez 260 / 626 260 / 260 Other: Number of Unmeasured Voids 0 Weight 89.8 kg Patient Weight 08/20/23 23:59 Weight 89.8 kg Laboratory Results - last 24 hr 08/18/23 06:31: POC Glucose 230 H 08/18/23 09:35: POC Glucose 309 H* 08/19/23 08:38: POC Glucose 231 H 08/19/23 09:16: Activated Clotting Time 316 H* 08/19/23 13:24: POC Glucose 279 H 08/19/23 14:45: Lactate 1.8 08/19/23 16:42: Sodium 134 L, Potassium 4.4, Chloride 107, Carbon Dioxide 22, Anion Gap 9.4, BUN 30 H, Creatinine 1.30 H, Estimated Creat Clear 64, Estimated GFR 42 L, Est GFR ( Amer) 50 L, Glucose 224 H, Calcium 8.7 08/19/23 19:59: POC Glucose 232 H 08/20/23 01:55: POC Glucose 279 H 08/20/23 05:25: WBC 6.6, RBC 3.28 L, Hgb 11.5 L, Hct 32.6 L, MCV 99.6 H, MCH 35.1 H, MCHC 35.2, RDW 14.3, Plt Count 173, MPV 9.9, Neut % (Auto) 73.8, Lymph % (Auto) 17.4, [place] % (Auto) 7.3, Eos % (Auto) 1.1, Baso % (Auto) 0.5, Neut # (Auto) 4.9, Lymph # (Auto) 1.1, [place] # (Auto) 0.5, Eos # (Auto) 0.1, Baso # (Auto) 0.0, Sodium 127 L, Potassium 3.9, Chloride 99, Carbon Dioxide 22, Anion Gap 9.9, BUN 27 H, Creatinine 1.20 H, Estimated Creat Clear 70, Estimated GFR 46 L, Est GFR ( Amer) 55 L, Glucose 253 H, Calcium 8.2 L, Magnesium 1.8, Total Bilirubin 0.5, AST 90 H, ALT 30 D, Alkaline Phosphatase 61, Total Protein 5.9 L, Albumin 3.1 L D, Globulin 2.8, Albumin/Globulin Ratio 1.1, Cholesterol 133 L, LDL Cholesterol Direct 31.11 L, HDL Cholesterol 19 L, Cholesterol/HDL Ratio 7.0 H I & O for Labs for Last 24 Hours: Intake & Output 08/17/23 08/18/23 08/19/23 08/20/23 23:59 23:59 23:59 23:59 Intake Total 1420.573 / 1420.573 867.568 / 867.568 254.863 / 254.863 Output Total 3135 / 3154 696 / 726 260 / 260 Balance -1714.427 / -1733.427 171.568 / 141.568 -5.137 / -5.137 Weight 88.904 kg 89.811 kg 89.8 kg Microbiology Reports for the Last 24 Hours: Microbiology 08/18/23 10:47 Sputum - Endotracheal Tube Aspirate Gram Stain - Final 08/18/23 10:47 Sputum - Endotracheal Tube Aspirate Sputum Culture - Preliminary Constitutional: Present no acute distress and obese Head: Present atraumatic ENT: Present normal exam Comment:: ETT and OG in place Neck: Present normal inspection Respiratory: Present patient mechanically ventilated and normal respiratory effort Cardiac: Present Reg Rate and Rhythm GI: Present soft and normal bowel sounds; Absent distention or tenderness (female): Present deferred Extremities: Present normal inspection and full ROM Comment:: Right shoulder with scant amount of dried blood at one of the surgical incisions. No active bleeding. No erythema. Skin: Present intact; Absent erythema Neuro: Present Grossly Intact, alert and moves all extremities Assessment and Plan *Assessment and plan (1) Acute hypoxemic respiratory failure: Status: Acute Category: Medical Code(s): J96.01 - Acute respiratory failure with hypoxia (2) On mechanically assisted ventilation: Status: Acute Category: Medical Code(s): Z99.11 - Dependence on respirator [ventilator] status (3) Pulmonary edema: Status: Acute Qualifiers: Chronicity: acute Qualified Code(s): J81.0 - Acute pulmonary edema Category: Medical Code(s): J81.1 - Chronic pulmonary edema (4) Rotator cuff tear, right: Status: Acute Qualifiers: Rotator cuff tear extent: complete Rotator cuff tear trauma status: nontraumatic Qualified Code(s): M75.121 - Complete rotator cuff tear or rupture of right shoulder, not specified as traumatic Category: Medical Code(s): M75.101 - Unspecified rotator cuff tear or rupture of right shoulder, not specified as traumatic (5) Diabetes mellitus: Status: Chronic Qualifiers: Diabetes mellitus type: type 2 Diabetes mellitus complication status: without complication 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 transplanted heart: marshall heart Associated angina: without angina Qualified Code(s): I25.10 - Atherosclerotic heart disease of marshall coronary artery without angina pectoris Category: Medical Code(s): I25.10 - Atherosclerotic heart disease of marshall coronary artery without angina pectoris (7) HLD (hyperlipidemia): Status: Chronic Qualifiers: Hyperlipidemia type: mixed hyperlipidemia Qualified Code(s): E78.2 - Mixed hyperlipidemia Category: Medical Code(s): E78.5 - Hyperlipidemia, unspecified (8) HTN (hypertension): Status: Chronic Qualifiers: Hypertension type: essential hypertension Qualified Code(s): I10 - Essential (primary) hypertension Category: Medical Code(s): I10 - Essential (primary) hypertension (9) COPD (chronic obstructive pulmonary disease): Status: Chronic Qualifiers: COPD type: emphysema Emphysema type: centrilobular Qualified Code(s): J43.2 - Centrilobular emphysema Category: Medical Code(s): J44.9 - Chronic obstructive pulmonary disease, unspecified (10) NSTEMI (non-ST elevated myocardial infarction): Status: Acute Category: Medical Code(s): I21.4 - Non-ST elevation (NSTEMI) myocardial infarction (11) Class 1 obesity: Status: Chronic Category: Medical Code(s): E66.9 - Obesity, unspecified (12) Complication of surgery: Status: Acute Category: Medical Code(s): T81.9XXA - Unspecified complication of procedure, initial encounter (13) Hyponatremia: Status: Acute Category: Medical Code(s): E87.1 - Hypo-osmolality and hyponatremia Plan 62-year-old female who presented for elective right rotator cuff repair. Postsurgery had acute hypoxemic respiratory failure. Differential includes pneumonia, flash pulmonary edema, [place], PE. Intubated in PACU. Discussed case with anesthesia, requested admission for further management. Medicine agreed to admit. Pulmonology consulted to assist with respiratory failure treatment. Tolerating SBT this morning. Anticipate extubation today. Cardiology consulted, taken for heart cath yesterday. Continues to require ICU level care. Problems addressed as follows: Acute hypoxemic respiratory failure Mixed respiratory and metabolic acidosis -Diuresed well. Continues to be negative fluid status. Tolerating SBT, extubate this afternoon. -Discontinue sedation with propofol and fentanyl - Continue DuoNebs every 6 hours on a scheduled basis. - Continue levofloxacin 750mg daily pending tracheal aspirate cultures History of CAD and CABG NSTEMI -Peak and troponin at 16. Taken for heart cath yesterday. Severe stenosis involving mid dominant circumflex, status post stenting x 1. Doing well today. - Discussed case with cardiology, continue aspirin 81 mg daily and Plavix 75 mg daily. - Repeat echocardiogram obtained. Preliminary review with no new wall motion abnormalities. EF 45 to 50%. -Resume home bisoprolol 5 mg daily. Hypertriglyceridemia -Triglycerides over 1999, suspect secondary to propofol. Repeat lipid panel ordered for the morning. Lipase obtained, within normal range, negative for pancreatitis Hyponatremia: Sodium 127. Will repeat labs this evening with BMP to monitor for improvement. Uncontrolled diabetes with hyperglycemia -Initiated on sliding scale insulin every 6 hours with fingersticks every 6 hours scheduled. Glucose remains elevated -Initiate Jardiance 10 mg daily -Will initiate long-acting insulin this evening with 10 units nightly. Adjust pending morning glucose. -A1c obtained, 10.4 MINAL: Creatinine stable at 1.2, BUN 27. No more IV fluids today. Monitoring closely with repeat BMP this afternoon and CBC, CMP, magnesium ordered for the morning. GI prophy: Famotidine 20mg IV BID Full code NPO TLOV
[2023-08-20] MEDS: ASPIRIN 81MG CHEWABLE TABLET 81 MG PO (08:12)
[2023-08-20 08:16] LABS: Triglycerides 2633 mg/dl (30-150)
[2023-08-20] MEDS: BISOPROLOL 5MG TABLET 5 MG PO (08:16)
[2023-08-20] MEDS: FAMOTIDINE 20MG/2ML VIAL 20 MG IV ×2 (08:16→20:45)
[2023-08-20] MEDS: DAPAGLIFLOZIN PROPANEDIOL 10 MG TABLET PO (08:16)
[2023-08-20] MEDS: CLOPIDOGREL 75MG TAB 75 MG PO (08:16)
[2023-08-20] MEDS: hydroCHLOROthiazide 25MG TABLET 25 MG PO (08:16)
[2023-08-20] MEDS: propofoL 100 ML 18.67 MG IV (08:58)
--- NOTE | 2023-08-20 09:46 | P.PN_ITS ---
Subjective *Date: 08/20/23 *Time: 11:56 Interval history: No acute respiratory vents overnight Pulmonology Exam Inpatient Vital signs and Labs for Last 24 Hours: Temp Pulse Resp BP Pulse Ox O2 Del Method O2 Flow Rate 99.2 F 100 H 24 95/53 L 92 L Mechanical Ventilation 70 08/20/23 08:00 08/20/23 08:00 08/20/23 07:00 08/20/23 07:00 08/20/23 07:00 08/20/23 07:00 08/18/23 15:00 FiO2 40 08/20/23 05:48 Laboratory Results - last 24 hr 08/18/23 06:31: POC Glucose 230 H 08/18/23 09:35: POC Glucose 309 H* 08/19/23 09:16: Activated Clotting Time 316 H* 08/19/23 13:24: POC Glucose 279 H 08/19/23 14:45: Lactate 1.8 08/19/23 16:42: Sodium 134 L, Potassium 4.4, Chloride 107, Carbon Dioxide 22, Anion Gap 9.4, BUN 30 H, Creatinine 1.30 H, Estimated Creat Clear 64, Estimated GFR 42 L, Est GFR ( Amer) 50 L, Glucose 224 H, Calcium 8.7 08/19/23 19:59: POC Glucose 232 H 08/20/23 01:55: POC Glucose 279 H 08/20/23 05:25: WBC 6.6, RBC 3.28 L, Hgb 11.5 L, Hct 32.6 L, MCV 99.6 H, MCH 35.1 H, MCHC 35.2, RDW 14.3, Plt Count 173, MPV 9.9, Neut % (Auto) 73.8, Lymph % (Auto) 17.4, [place] % (Auto) 7.3, Eos % (Auto) 1.1, Baso % (Auto) 0.5, Neut # (Au to) 4.9, Lymph # (Auto) 1.1, [place] # (Auto) 0.5, Eos # (Auto) 0.1, Baso # (Auto) 0.0, Sodium 127 L, Potassium 3.9, Chloride 99, Carbon Dioxide 22, Anion Gap 9.9, BUN 27 H, Creatinine 1.20 H, Estimated Creat Clear 70, Estimated GFR 46 L, Est GFR ( Amer) 55 L, Glucose 253 H, Calcium 8.2 L, Magnesium 1.8, Total Bilirubin 0.5, AST 90 H, ALT 30 D, Alkaline Phosphatase 61, Total Protein 5.9 L , Albumin 3.1 L D, Globulin 2.8, Albumin/Globulin Ratio 1.1, Triglycerides 2633 H, Cholesterol 133 L, LDL Cholesterol Direct 31.11 L, HDL Cholesterol 19 L, Cholesterol/HDL Ratio 7.0 H Temp Pulse Resp BP Pulse Ox O2 Del Method O2 Flow Rate 97 F L 90 19 188/82 H 95 Mechanical Ventilation 2 08/18/23 08:43 08/18/23 09:08 08/18/23 09:08 08/18/23 09:08 08/18/23 09:08 08/18/23 13:00 08/18/23 09:08 Laboratory Results - last 24 hr 08/18/23 08:52: POC Glucose 264 H 08/18/23 10:00: WBC 7.1, RBC 3.82 L, Hgb 12.3, Hct 39.9, MCV 104.6 H, MCH 32.3 H , MCHC 30.8 L, RDW 13.9, Plt Count 200, MPV 8.9, Neut % (Auto) 55.7, Lymph % (Auto) 40.1, [place] % (Auto) 2.8, Eos % (Auto) 0.7, Baso % (Auto) 0.7, Neut # (Auto) 3.9, Lymph # (Auto) 2.8, [place] # (Auto) 0.2, Eos # (Auto) 0.1, Baso # (Auto) 0.1, Specimen Source Left brachial, O2 % 100%, ABG pH 7.16 L*, ABG pCO2 54.7 H, ABG pO2 100.0, ABG HCO3 18.9 L, ABG Total CO2 20.6 L, ABG O2 Saturation 96, ABG Base Excess -9.9 L, Elias Test Acceptable, Sodium 134 L, Potassium 4.7, Chloride 104, Carbon Dioxide 21 L, Anion Gap 13.7, BUN 20 H, Creatinine 0.80, Estimated Creat Clear 83, Estimated GFR 73, Est GFR ( Amer) 88, Glucose 363 H, Hemoglobin A1c 10.4 H, Calcium 8.5, Magnesium 1.4 L, Total Bilirubin 0.3, AST 41 H, ALT 37, Alkaline Phosphatase 74, Troponin I < 0.01, NT-Pro-B Natriuret Pep 59.5, Total Protein 6.0 L, Albumin 3.6 D, Globulin 2.4, Albumin/Globulin Ratio 1.5, TSH 2.77 08/18/23 10:45: ABG pH 7.14 L*, ABG pCO2 54.1 H, ABG pO2 116.2 H, ABG HCO3 18.0 L, ABG Total CO2 19.7 L, ABG O2 Saturation 97, ABG Base Excess -11.0 L, ABG Lactate 2.8 H I & O for Labs for Last 24 Hours: Intake & Output 08/17/23 08/18/23 08/19/23 08/20/23 23:59 23:59 23:59 23:59 Intake Total 1420.573 / 1420.573 867.568 / 867.568 267.442 / 267.442 Output Total 3135 / 3154 696 / 726 260 / 260 Balance -1714.427 / -1733.427 171.568 / 141.568 7.442 / 7.442 Weight 196 lb 197 lb 15.99 oz 197 lb 15.602 oz Intake & Output 08/15/23 08/16/23 08/17/23 08/18/23 23:59 23:59 23:59 23:59 Intake Total 1000 / 1000 Output Total 1450 / 1450 Balance -450 / -450 Weight 196 lb Microbiology Reports for the Last 24 Hours: Microbiology 08/18/23 10:47 Sputum - Endotracheal Tube Aspirate Gram Stain - Final 08/18/23 10:47 Sputum - Endotracheal Tube Aspirate Sputum Culture - Pr eliminary Constitutional: Present severe distress Comment:: Intubated and Sedated Head: Present normocephalic and atraumatic Neck: Present normal inspection and trachea midline Respiratory: Present patient mechanically ventilated and rhonchi; Absent prolonged expiratory phase or wheezes Cardiac: Present S1/S2 GI: Present soft; Absent distention or tenderness Skin: Present intact; Absent cyanosis Neuro: Present awake; Absent alert or oriented x 3 Extremities: Present normal inspection; Absent clubbing or cyanosis Psychiatric: Present unable to assess Assessment and Plan *Assessment and plan (1) Acute hypoxemic respiratory failure: Status: Acute Category: Medical Code(s): J96.01 - Acute respiratory failure with hypoxia (2) On mechanically assisted ventilation: Status: Acute Category: Medical Code(s): Z99.11 - Dependence on respirator [ventilator] status Plan Ms. Aguila is a 62-year-old female with reported history of greater than [id number] smoking history, stopped smoking in 2018 after CVA, COPD, sleep apnea on CPAP, CAD status post CABG, CVA uncontrolled diabetes presented to hospital for elective shoulder surgery procedure complicated by worsening hypoxic respiratory failure postprocedure needing intubation mechanical ventilatory support and pulmonary was called for further evaluation and management. Much of the history is obtained from chart review and patient's family. Chest x-ray postprocedure bilateral diffuse pulm infiltrates, concerning for pulmonary edema/aspiration pneumonitis. No evidence of worsening leukocytosis postintubation. ABG postintubation showed hypercarbic respiratory failure. Interval update: CT PE protocol no evidence of pulmonary embolism. Bilateral upper lobe predominant lung lesser percent lower lobe dense consolidative changes, left greater than right. Deep Chest wall emphysema likely from shoulder surgery. Interval update: No acute respiratory events overnight. Stable vent requirements. Plan -Continue propofol and fentanyl for sedation. Wean sedation and perform SBT and extubation as tolerated -No significant respiratory events overnight. Improving ventilator settings from yesterday, currently on PEEP of 6 FiO2 40% tidal volume of 420 and a rate of 18. Will wean sedation SBT and extubation Continue DuoNebs every 6 hours on a scheduled basis. Continue levofloxacin to complete a total of 5-day course -Abdomen soft and nontender. Hypertriglyceridemia acute. May be from propofol infusion.. Follow with amylase lipase. Patient already receiving insulin and statins. -Adequate urine output. Stable renal function. Closely monitor -Hemodynamically stable. Status post left heart cath. F/U cards recs - Continue mechanical ventilatory support - Continue AnalgoSedation with Propofol and Fentanyl with CPOT gal less than or euqal to 2 and RASS goal of to 2 (No need for deep sedation) - VAP bundle Recommend elevate head of the bed at 30 to 45 degrees Recommend oral care with chlorhexidne Recommend GI ulcer prophylaxis - Famotidine 20mg IV BID Recommend chemical DVT prophylaxis Total critical care time spent on this patient is 35 minutes managing acute hypoxic respiratory failure needing mechanical ventilation. This time spent include reviewing test results including interpreting chest x-rays, labs and arterial blood gas, optimizing the ventilator settings,formulating plan of care, discussing the plan of care with the team and the nursing staff.
[2023-08-20 10:17] LABS: Lipase 175 U/L (23-300)
[2023-08-20 10:18] LABS: Amylase 285 U/L (30-110)
[2023-08-20] MEDS: LEVOFLOXACIN/D5W 750 MG/150 ML 750 MG/150 ML PIGGYBACK 100 MG IV (10:50)
--- NOTE | 2023-08-20 12:33 | PC.NURSE ---
Pt. was extubated at 1220 to a 6lpm nc per DR. Singh order. No distress noted at this . Pt. resting.
--- NOTE | 2023-08-20 13:10 | EXP.CARD.PN ---
Subjective Subjective Date: 08/20/23 Time: 09:30 Principal diagnosis: pulmonary edema, nonstemi Interval history: The patient remains intubated and on the ventilator this morning but she is on a spontaneous breathing trial and doing well. She appears to be in no distress. She does answer simple yes and no questions with the shake of her head. She denies any chest pain this morning. She denies any pain anywhere in her body. Her vital signs are stable this morning. They do plan to extubate the patient today if she does well on the spontaneous breathing trial. She is status post stenting to her circumflex artery yesterday and tolerated the procedure well. Exam Data for Last 24 hours Vital signs and Labs for Last 24 Hours: Temp Pulse Resp BP Pulse Ox O2 Del Method O2 Flow Rate 98.5 F 89 18 170/85 H 96 Mechanical Ventilation 70 08/20/23 12:00 08/20/23 12:00 08/20/23 12:00 08/20/23 12:00 08/20/23 12:00 08/20/23 12:00 08/18/23 15:00 FiO2 40 08/20/23 11:03 Laboratory Results - last 24 hr 08/19/23 13:24: POC Glucose 279 H 08/19/23 14:45: Lactate 1.8 08/19/23 16:42: Sodium 134 L, Potassium 4.4, Chloride 107, Carbon Dioxide 22, Anion Gap 9.4, BUN 30 H, Creatinine 1.30 H, Estimated Creat Clear 64, Estimated GFR 42 L, Est GFR ( Amer) 50 L, Glucose 224 H, Calcium 8.7 08/19/23 19:59: POC Glucose 232 H 08/20/23 01:55: POC Glucose 279 H 08/20/23 05:25: WBC 6.6, RBC 3.28 L, Hgb 11.5 L, Hct 32.6 L, MCV 99.6 H, MCH 35.1 H, MCHC 35.2, RDW 14.3, Plt Count 173, MPV 9.9, Neut % (Auto) 73.8, Lymph % (Auto) 17.4, [place] % (Auto) 7.3, Eos % (Auto) 1.1, Baso % (Auto) 0.5, Neut # (Auto) 4.9, Lymph # (Auto) 1.1, [place] # (Auto) 0.5, Eos # (Auto) 0.1, Baso # (Auto) 0.0, Sodium 127 L, Potassium 3.9, Chloride 99, Carbon Dioxide 22, Anion Gap 9.9, BUN 27 H, Creatinine 1.20 H, Estimated Creat Clear 70, Estimated GFR 46 L, Est GFR ( Amer) 55 L, Glucose 253 H, Calcium 8.2 L, Magnesium 1.8, Total Bilirubin 0.5, AST 90 H, ALT 30 D, Alkaline Phosphatase 61, Total Protein 5.9 L, Albumin 3.1 L D, Globulin 2.8, Albumin/Globulin Ratio 1.1, Triglycerides 2633 H, Cholesterol 133 L, LDL Cholesterol Direct 31.11 L, HDL Cholesterol 19 L, Cholesterol/HDL Ratio 7.0 H, Amylase 285 H, Lipase 175 I & O for Last 24 hours: Intake & Output 08/17/23 08/18/23 08/19/23 08/20/23 23:59 23:59 23:59 23:59 Intake Total 1420.573 / 1420.573 867.568 / 867.568 309.006 / 309.006 Output Total 3135 / 3154 696 / 726 330 / 330 Balance -1714.427 / -1733.427 171.568 / 141.568 -20.994 / -20.994 Weight 196 lb 197 lb 15.99 oz 197 lb 15.602 oz Microbiology Reports for the Last 24 Hours: Microbiology 08/18/23 10:47 Sputum - Endotracheal Tube Aspirate Gram Stain - Final 08/18/23 10:47 Sputum - Endotracheal Tube Aspirate Sputum Culture - Preliminary Constitutional Constitutional: no acute distress and obese *Routine HEENT Exam Head: Present normocephalic and atraumatic ENT: Present mucous membranes moist *Routine Neck Exam Neck: Present supple; Absent JVD or lymphadenopathy *Routine Respiratory Exam Respiratory: Present patient mechanically ventilated *Routine Cardiovascular Exam Cardiovascular: Present RRR, Normal S1 and Normal S2; Absent murmur or gallop *Routine Abdominal Exam Abdominal: Present soft and normoactive bowel sounds; Absent organomegaly *Routine Extremities Exam Extremities: Present pulses intact and normal capillary refill; Absent cyanosis, clubbing or edema *Routine Skin Exam Skin: Present intact and warm; Absent erythema *Routine Neurological Exam Neurological: Present altered mental status (Due to sedation) Routine Psychiatric Exam Psychiatric: Present unable to assess Progress Note: A&P Assessment and plan (1) Acute hypoxemic respiratory failure: Status: Acute (2) On mechanically assisted ventilation: Status: Acute (3) NSTEMI (non-ST elevated myocardial infarction): Status: Acute (4) Pulmonary edema: Status: Acute (5) CAD (coronary artery disease): Status: Chronic (6) COPD (chronic obstructive pulmonary disease): Status: Chronic (7) History of coronary artery stent placement: Status: Chronic (8) HLD (hyperlipidemia): Status: Chronic (9) HTN (hypertension): Status: Chronic (10) Tobacco dependence: Status: Chronic (11) History of coronary artery bypass graft: Status: Chronic (12) Diabetes mellitus: Status: Chronic Assessment and Plan Assessment and Plan for All Diagnoses:: Plan: 1. The patient came into the hospital undergo elective right rotator cuff repair surgery and she tolerated the procedure well. While in PACU the patient did have respiratory distress and ultimately ended up intubated on mechanical ventilation. Pulmonology is following the patient for ventilator support. She is currently on a spontaneous breathing trial doing well. There are plans to extubate her today if she has successful spontaneous breathing trial. 2. The patient had a chest x-ray concerning for flash pulmonary edema while in PACU. She was treated with IV Lasix initially. Her BNP is negative. No further Lasix at this time. 3. The patient did have an elevated troponin consistent with a non-STEMI. Her troponin max was 16.90. She underwent left cardiac catheterization yesterday and had stenting to her circumflex artery. She tolerated the procedure well and is on Plavix and aspirin for dual antiplatelet therapy. 4. We suspect she had flash pulmonary edema stemming from transient papillary muscle dysfunction creating severe MR secondary to her severe ischemia. 5. Her coronary artery disease is likely stable at this time. 6. Her blood pressure is well-controlled. 7. Her LDL goal is less than 55. Her LDL is 31. She is on a statin. 8. She does have a preserved ejection fraction. 9. Continue bisoprolol. 10. Continue Jardiance. 11. Further recommendations will be made pending the patient's response to treatment. Thank you for the opportunity to help participate in the care of this patient. All recommendations and orders are per Dr. Amanda.
--- NOTE | 2023-08-20 13:33 | PC.NURSE ---
Patient extubated 1220, patient on 6 LNC
[2023-08-20 14:31] LABS: POC Glucose,Bedside 336 (70-110)
[2023-08-20 14:31] LABS: POC Glucose,Bedside 314 (70-110)
[2023-08-20] MEDS: ONDANSETRON 4MG/2ML VIAL 4 MG IV (16:35)
[2023-08-20] MEDS: LISINOPRIL 10MG TABLET 10 MG PO (20:45)
[2023-08-20] MEDS: SODIUM CHLORIDE 0.9% 10ML VIAL 8 ML IV (20:45)
[2023-08-20] MEDS: GABAPENTIN 800MG TABLET 800 MG PO (20:45)
[2023-08-20] MEDS: ATORVASTATIN 40MG TABLET 80 MG PO (20:45)
[2023-08-20] MEDS: INSULIN GLARGINE 100 UNITS/ML 3ML FLEXPEN 10 UNIT SQ (20:48)
[2023-08-20 21:12] LABS: POC Glucose,Bedside 302 (70-110)
[2023-08-21] VITALS (10 sets, daily range): BP systolic 115–157; BP diastolic 36–82; PULSE 80–100; RESP 18–24; TEMP 36.5–37.2; O2SAT 87–96; BMI 33.6
[2023-08-21] MEDS: humaLOG 100 UNITS/ML 3ML VIAL (SSI) SQ ×2 (01:27→11:49)
--- NOTE | 2023-08-21 01:36 | PC.NURSE ---
Wasted 70cc of Fentanyl remaining from prescribed drip that had been discontinued.
[2023-08-21] MEDS: IPRATROPIUM/ALBUTEROL 3 ML NEB IH ×2 (06:34→11:15)
[2023-08-21 06:54] LABS: Basophils % 0.4 % (0.1-2.0); Eosinophils # 0.1 K/mm3 (0.0-0.4); Eosinophils % 1.4 % (0.1-12.0); Hematocrit 39.2 % (37.0-47.0); Hemoglobin 12.7 g/dL (12.2-16.2); Lymphocytes # 1.3 K/mm3 (0.7-4.5); Lymphocytes % 16.5 % (10-50); Mean Corpuscular HGB Conc 32.3 g/dL (31.8-35.4); Mean Corpuscular Hemoglobin 32.4 pg (27.0-31.2); Mean Corpuscular Volume 100.3 fl (81-99); Mean Platelet Volume 8.8 fl (7.4-10.4); Monocytes # 0.5 K/mm3 (0.1-1.0); Monocytes % 6.3 % (1.7-9.3); Neutrophils % 75.4 % (37.0-80.0); Platelet Count 174 K/mm3 (142-424); Red Blood Count 3.91 M/mm3 (4.20-5.40)
[2023-08-21 06:56] LABS: POC Glucose,Bedside 321 (70-110)
[2023-08-21 07:05] LABS: Chloride 105 mmol/L (98-107); Sodium 141 mmol/L (136-145)
[2023-08-21 07:06] LABS: Potassium 4.3 mmoL/L (3.5-5.1)
[2023-08-21 07:08] LABS: Alanine Aminotransferase 32 U/L (12-78); Albumin Level 4.1 g/dl (3.5-5.0); Albumin/Globulin Ratio 1.3 (1.1-1.8); Alkaline Phosphatase 77 U/L (38-126); Anion Gap 15.3 mEq/L (5-15); Aspartate Amino Transferase 76 U/L (14-36); Bilirubin,Total 0.9 mg/dl (0.2-1.3); Blood Urea Nitrogen 26 mg/dl (7-17); Carbon Dioxide 25 mmol/L (22.0-30.0); Creatinine Clearance Estimated 77 mL/min (50-200); Estimated Glomerular Filt Rate 50 ml/min (>60); GFR (African American) 61 ML/MIN (>60); Globulin 3.2 g/dL (1.3-3.2); Total Protein,Serum 7.3 g/dl (6.3-8.2)
[2023-08-21 07:09] LABS: Calcium 9.8 mg/dl (8.4-10.2); Glucose 238 mg/dl (74-100)
[2023-08-21] MEDS: METOCLOPRAMIDE 10MG TABLET 10 MG PO ×2 (07:32→11:40)
[2023-08-21] MEDS: OXYCODONE 5MG IMMEDIATE RELEASE TABLET 5 MG PO (07:32)
[2023-08-21 08:11] LABS: Chol/HDL Ratio 6.3 (1-3.5); Cholesterol 201 mg/dl (140-200); HDL Cholesterol 32 mg/dl (40-60); Magnesium 2.2 mg/dl (1.6-2.3); Triglycerides 292 mg/dl (30-150); VLDL Cholesterol 58 mg/dL (0-40)
--- NOTE | 2023-08-21 08:17 | EXP.PHA.PN ---
Subjective *Date: 08/21/23 *Time: 08:17 Medical Exam Vital signs and Labs for Last 24 Hours: Vital Signs Temp Pulse Pulse Resp BP Pulse Ox O2 Del Method 08/21/23 08:04 98.9 F 08/21/23 06:46 Nasal Cannula 08/21/23 06:34 84 08/21/23 06:34 84 08/21/23 06:34 92 L Nasal Cannula 08/21/23 06:00 87 20 126/65 96 Nasal Cannula 08/21/23 05:00 Nasal Cannula 08/21/23 04:00 90 08/21/23 04:00 91 H 96 Nasal Cannula 08/21/23 04:00 97.7 F 94 H 24 115/36 L 94 L Nasal Cannula 08/21/23 03:00 Nasal Cannula 08/21/23 02:00 98 H 20 139/74 90 L Nasal Cannula 08/21/23 01:00 Nasal Cannula 08/21/23 00:00 100 H 08/21/23 00:00 98.3 F 100 H 22 157/56 H 95 Nasal Cannula 08/20/23 23:20 101 H 08/20/23 23:20 101 H 08/20/23 22:58 Nasal Cannula 08/20/23 22:00 99 H 20 147/76 H 95 Nasal Cannula 08/20/23 21:00 99 H 22 152/80 H 95 Nasal Cannula 08/20/23 21:00 Nasal Cannula 08/20/23 20:00 100 H 08/20/23 20:00 97 H 97 Nasal Cannula 08/20/23 20:00 98.1 F 96 H 20 155/82 H 93 L Nasal Cannula 08/20/23 18:56 93 H 08/20/23 18:56 96 H 08/20/23 18:56 96 Nasal Cannula 08/20/23 18:55 105 H 24 176/102 H 94 L Nasal Cannula 08/20/23 18:50 Nasal Cannula 08/20/23 18:00 95 H 24 171/94 H 95 Nasal Cannula 08/20/23 17:00 Nasal Cannula 08/20/23 17:00 93 H 22 169/90 H Nasal Cannula 08/20/23 16:00 Nasal Cannula 08/20/23 16:00 95 H 08/20/23 16:00 98.5 F 08/20/23 15:00 Nasal Cannula 08/20/23 15:00 92 H 24 164/91 H 91 L Nasal Cannula 08/20/23 14:00 92 H 26 H 146/83 H 94 L Nasal Cannula 08/20/23 13:00 92 H 20 164/84 H 94 L Nasal Cannula 08/20/23 13:00 Nasal Cannula 08/20/23 12:00 98.5 F 08/20/23 12:00 90 08/20/23 12:00 Mechanical Ventilation 08/20/23 12:00 89 18 170/85 H 96 Mechanical Ventilation 08/20/23 11:03 87 08/20/23 11:03 87 08/20/23 11:03 98 Mechanical Ventilation 08/20/23 11:00 Mechanical Ventilation 08/20/23 11:00 87 20 156/83 H 96 Mechanical Ventilation 08/20/23 10:00 84 20 111/60 94 L Mechanical Ventilation 08/20/23 09:00 Mechanical Ventilation 08/20/23 09:00 90 24 135/71 94 L Mechanical Ventilation O2 Flow Rate FiO2 08/21/23 08:04 08/21/23 06:46 4.5 08/21/23 06:34 08/21/23 06:34 08/21/23 06:34 5 08/21/23 06:00 4.5 08/21/23 05:00 4.5 08/21/23 04:00 08/21/23 04:00 4.5 08/21/23 04:00 4.5 08/21/23 03:00 4.5 08/21/23 02:00 4.5 08/21/23 01:00 4.5 08/21/23 00:00 08/21/23 00:00 4.5 08/20/23 23:20 08/20/23 23:20 08/20/23 22:58 4.5 08/20/23 22:00 4.5 08/20/23 21:00 4.5 08/20/23 21:00 4.5 08/20/23 20:00 08/20/23 20:00 4.5 08/20/23 20:00 4.5 08/20/23 18:56 08/20/23 18:56 08/20/23 18:56 4.5 08/20/23 18:55 4.5 08/20/23 18:50 4.5 08/20/23 18:00 4.5 08/20/23 17:00 4.5 08/20/23 17:00 4.5 08/20/23 16:00 4.5 08/20/23 16:00 08/20/23 16:00 08/20/23 15:00 5 08/20/23 15:00 6 08/20/23 14:00 5 08/20/23 13:00 6 08/20/23 13:00 6 08/20/23 12:00 08/20/23 12:00 08/20/23 12:00 08/20/23 12:00 08/20/23 11:03 08/20/23 11:03 08/20/23 11:03 40 08/20/23 11:00 08/20/23 11:00 08/20/23 10:00 08/20/23 09:00 08/20/23 09:00 Intake and Output 08/20/23 08/21/23 08/21/23 23:59 07:59 15:59 Intake Total 360 / 669.006 0 / 0 Output Total 930 / 2385 500 / 500 Balance -570 / -1715.994 -500 / -500 0 / -500 Intake: Intake, Oral Amount 360 / 360 0 / 0 Output: Output, Urine Amount (Catheter) 930 / 2385 500 / 500 Gonzalez 930 / 2385 500 / 500 Other: Number of Unmeasured Voids 0 Weight 91.654 kg Patient Weight 08/21/23 23:59 Weight 91.654 kg Laboratory Results - last 24 hr 08/20/23 05:25: Amylase 285 H, Lipase 175 08/20/23 08:05: POC Glucose 314 H* 08/20/23 14:10: POC Glucose 336 H* 08/20/23 20:25: POC Glucose 302 H* 08/21/23 01:03: POC Glucose 321 H* 08/21/23 06:35: WBC 8.0, RBC 3.91 L, Hgb 12.7, Hct 39.2, MCV 100.3 H, MCH 32.4 H, MCHC 32.3, RDW 14.0, Plt Count 174, MPV 8.8, Neut % (Auto) 75.4, Lymph % (Auto) 16.5, [place] % (Auto) 6.3, Eos % (Auto) 1.4, Baso % (Auto) 0.4, Neut # (Auto) 6.0, Lymph # (Auto) 1.3, [place] # (Auto) 0.5, Eos # (Auto) 0.1, Baso # (Auto) 0.0, Sodium 141, Potassium 4.3, Chloride 105, Carbon Dioxide 25, Anion Gap 15.3 H, BUN 26 H, Creatinine 1.10 H, Estimated Creat Clear 77, Estimated GFR 50 L, Est GFR ( Amer) 61, Glucose 238 H, Calcium 9.8, Total Bilirubin 0.9, AST 76 H, ALT 32, Alkaline Phosphatase 77, Total Protein 7.3, Albumin 4.1 D, Globulin 3.2, Albumin/Globulin Ratio 1.3 I & O for Labs for Last 24 Hours: Intake & Output 08/18/23 08/19/23 08/20/23 08/21/23 23:59 23:59 23:59 23:59 Intake Total 1420.573 / 1420.573 867.568 / 867.568 669.006 / 669.006 0 / 0 Output Total 3135 / 3154 696 / 726 2310 / 2385 500 / 500 Balance -1714.427 / -1733.427 171.568 / 141.568 -1640.994 / -1715.994 -500 / -500 Weight 88.904 kg 89.811 kg 89.8 kg 91.654 kg Microbiology Reports for the Last 24 Hours: Microbiology 08/18/23 10:47 Sputum - Endotracheal Tube Aspirate Gram Stain - Final 08/18/23 10:47 Sputum - Endotracheal Tube Aspirate Sputum Culture - Preliminary The patient's infection will respond to the chosen ABx?: Yes (SPUTUM CULTURE PENDING, AFEBRILE OVER 24 HR, WHITE COUNT 8.0.) Is the patient receiving the right drug, dose, and route?: Yes Could a more targeted ABx be ordered?: No
[2023-08-21 08:22] LABS: Direct LDL Cholesterol 75.44 mg/dL (100-129)
[2023-08-21] MEDS: SENNA 8.6MG TABLET 8.6 MG PO (08:43)
[2023-08-21] MEDS: LISINOPRIL 10MG TABLET 10 MG PO (08:44)
[2023-08-21] MEDS: GABAPENTIN 800MG TABLET 800 MG PO ×2 (08:44→12:32)
[2023-08-21] MEDS: ASPIRIN 81MG CHEWABLE TABLET 81 MG PO (08:44)
[2023-08-21] MEDS: BISOPROLOL 5MG TABLET 5 MG PO (08:44)
[2023-08-21] MEDS: hydroCHLOROthiazide 25MG TABLET 25 MG PO (08:45)
[2023-08-21] MEDS: SODIUM CHLORIDE 0.9% 10ML VIAL 8 ML IV (08:45)
[2023-08-21] MEDS: CITALOPRAM 40MG TABLET 40 MG PO (08:45)
[2023-08-21] MEDS: DAPAGLIFLOZIN PROPANEDIOL 10 MG TABLET PO (08:45)
[2023-08-21] MEDS: CLOPIDOGREL 75MG TAB 75 MG PO (08:45)
[2023-08-21] MEDS: FAMOTIDINE 20MG/2ML VIAL 20 MG IV (08:46)
--- NOTE | 2023-08-21 08:55 | P.PN_ITS ---
Subjective *Date: 08/21/23 *Time: 14:36 Medical Exam Vital signs and Labs for Last 24 Hours: Vital Signs Temp Pulse Pulse Resp BP Pulse Ox O2 Del Method 08/21/23 08:36 Nasal Cannula 08/21/23 08:04 98.9 F 08/21/23 08:00 85 08/21/23 08:00 90 18 118/82 94 L Nasal Cannula 08/21/23 06:46 Nasal Cannula 08/21/23 06:34 84 08/21/23 06:34 84 08/21/23 06:34 92 L Nasal Cannula 08/21/23 06:00 87 20 126/65 96 Nasal Cannula 08/21/23 05:00 Nasal Cannula 08/21/23 04:00 90 08/21/23 04:00 91 H 96 Nasal Cannula 08/21/23 04:00 97.7 F 94 H 24 115/36 L 94 L Nasal Cannula 08/21/23 03:00 Nasal Cannula 08/21/23 02:00 98 H 20 139/74 90 L Nasal Cannula 08/21/23 01:00 Nasal Cannula 08/21/23 00:00 100 H 08/21/23 00:00 98.3 F 100 H 22 157/56 H 95 Nasal Cannula 08/20/23 23:20 101 H 08/20/23 23:20 101 H 08/20/23 22:58 Nasal Cannula 08/20/23 22:00 99 H 20 147/76 H 95 Nasal Cannula 08/20/23 21:00 99 H 22 152/80 H 95 Nasal Cannula 08/20/23 21:00 Nasal Cannula 08/20/23 20:00 100 H 08/20/23 20:00 97 H 97 Nasal Cannula 08/20/23 20:00 98.1 F 96 H 20 155/82 H 93 L Nasal Cannula 08/20/23 18:56 93 H 08/20/23 18:56 96 H 08/20/23 18:56 96 Nasal Cannula 08/20/23 18:55 105 H 24 176/102 H 94 L Nasal Cannula 08/20/23 18:50 Nasal Cannula 08/20/23 18:00 95 H 24 171/94 H 95 Nasal Cannula 08/20/23 17:00 Nasal Cannula 08/20/23 17:00 93 H 22 169/90 H Nasal Cannula 08/20/23 16:00 Nasal Cannula 08/20/23 16:00 95 H 08/20/23 16:00 98.5 F 08/20/23 15:00 Nasal Cannula 08/20/23 15:00 92 H 24 164/91 H 91 L Nasal Cannula 08/20/23 14:00 92 H 26 H 146/83 H 94 L Nasal Cannula 08/20/23 13:00 92 H 20 164/84 H 94 L Nasal Cannula 08/20/23 13:00 Nasal Cannula 08/20/23 12:00 98.5 F 08/20/23 12:00 90 08/20/23 12:00 Mechanical Ventilation 08/20/23 12:00 89 18 170/85 H 96 Mechanical Ventilation 08/20/23 11:03 87 08/20/23 11:03 87 08/20/23 11:03 98 Mechanical Ventilation 08/20/23 11:00 Mechanical Ventilation 08/20/23 11:00 87 20 156/83 H 96 Mechanical Ventilation 08/20/23 10:00 84 20 111/60 94 L Mechanical Ventilation 08/20/23 09:00 Mechanical Ventilation 08/20/23 09:00 90 24 135/71 94 L Mechanical Ventilation O2 Flow Rate FiO2 08/21/23 08:36 4.5 08/21/23 08:04 08/21/23 08:00 08/21/23 08:00 4.5 08/21/23 06:46 4.5 08/21/23 06:34 08/21/23 06:34 08/21/23 06:34 5 08/21/23 06:00 4.5 08/21/23 05:00 4.5 08/21/23 04:00 08/21/23 04:00 4.5 08/21/23 04:00 4.5 08/21/23 03:00 4.5 08/21/23 02:00 4.5 08/21/23 01:00 4.5 08/21/23 00:00 08/21/23 00:00 4.5 08/20/23 23:20 08/20/23 23:20 08/20/23 22:58 4.5 08/20/23 22:00 4.5 08/20/23 21:00 4.5 08/20/23 21:00 4.5 08/20/23 20:00 08/20/23 20:00 4.5 08/20/23 20:00 4.5 08/20/23 18:56 08/20/23 18:56 08/20/23 18:56 4.5 08/20/23 18:55 4.5 08/20/23 18:50 4.5 08/20/23 18:00 4.5 08/20/23 17:00 4.5 08/20/23 17:00 4.5 08/20/23 16:00 4.5 08/20/23 16:00 08/20/23 16:00 08/20/23 15:00 5 08/20/23 15:00 6 08/20/23 14:00 5 08/20/23 13:00 6 08/20/23 13:00 6 08/20/23 12:00 08/20/23 12:00 08/20/23 12:00 08/20/23 12:00 08/20/23 11:03 08/20/23 11:03 08/20/23 11:03 40 08/20/23 11:00 08/20/23 11:00 08/20/23 10:00 08/20/23 09:00 08/20/23 09:00 Intake and Output 08/20/23 08/21/23 08/21/23 23:59 07:59 15:59 Intake Total 360 / 669.006 0 / 0 Output Total 930 / 2385 500 / 500 Balance -570 / -1715.994 -500 / -500 0 / -500 Intake: Intake, Oral Amount 360 / 360 0 / 0 Output: Output, Urine Amount (Catheter) 930 / 2385 500 / 500 Gonzalez 930 / 2385 500 / 500 Other: Number of Unmeasured Voids 0 Weight 91.654 kg Patient Weight 08/21/23 23:59 Weight 91.654 kg Laboratory Results - last 24 hr 08/20/23 05:25: Amylase 285 H, Lipase 175 08/20/23 08:05: POC Glucose 314 H* 08/20/23 14:10: POC Glucose 336 H* 08/20/23 20:25: POC Glucose 302 H* 08/21/23 01:03: POC Glucose 321 H* 08/21/23 06:35: WBC 8.0, RBC 3.91 L, Hgb 12.7, Hct 39.2, MCV 100.3 H, MCH 32.4 H , MCHC 32.3, RDW 14.0, Plt Count 174, MPV 8.8, Neut % (Auto) 75.4, Lymph % (Auto) 16.5, [place] % (Auto) 6.3, Eos % (Auto) 1.4, Baso % (Auto) 0.4, Neut # (Auto) 6.0, Lymph # (Auto) 1.3, [place] # (Auto) 0.5, Eos # (Auto) 0.1, Baso # (Auto) 0.0, Sodium 141, Potassium 4.3, Chloride 105, Carbon Dioxide 25, Anion Gap 15.3 H, BUN 26 H, Creatinine 1.10 H, Estimated Creat Clear 77, Estimated GFR 50 L, Est GFR ( Amer) 61, Glucose 238 H, Calcium 9.8, Magnesium 2.2 D, Total Bilirubin 0.9, AST 76 H, ALT 32, Alkaline Phosphatase 77, Total Protein 7.3, Albumin 4.1 D, Globulin 3.2, Albumin/Globulin Ratio 1.3, Triglycerides 292 H, Cholesterol 201 H, LDL Cholesterol Direct 75.44 L, VLDL Cholesterol 58 H, HDL Cholesterol 32 L, Cholesterol/HDL Ratio 6.3 H I & O for Labs for Last 24 Hours: Intake & Output 08/18/23 08/19/23 08/20/23 08/21/23 23:59 23:59 23:59 23:59 Intake Total 1420.573 / 1420.573 867.568 / 867.568 669.006 / 669.006 0 / 0 Output Total 3135 / 3154 696 / 726 2310 / 2385 500 / 500 Balance -1714.427 / -1733.427 171.568 / 141.568 -1640.994 / -1715.994 -500 / - 500 Weight 88.904 kg 89.811 kg 89.8 kg 91.654 kg Microbiology Reports for the Last 24 Hours: Microbiology 08/18/23 10:47 Sputum - Endotracheal Tube Aspirate Gram Stain - Final 08/18/23 10:47 Sputum - Endotracheal Tube Aspirate Sputum Culture - Preliminary
--- NOTE | 2023-08-21 09:23 | EXP.PULM.PN ---
Subjective *Date: 08/21/23 *Time: 12:05 Interval history: No acute respiratory vents overnight. Tolerating extubation well. Pulmonology Exam Inpatient Vital signs and Labs for Last 24 Hours: Temp Pulse Resp BP Pulse Ox O2 Del Method O2 Flow Rate 98.9 F 90 18 118/82 94 L Nasal Cannula 4.5 08/21/23 08:04 08/21/23 08:00 08/21/23 08:00 08/21/23 08:00 08/21/23 08:00 08/21/23 08:36 08/21/23 08:36 FiO2 40 08/20/23 11:03 Laboratory Results - last 24 hr 08/20/23 05:25: Amylase 285 H, Lipase 175 08/20/23 08:05: POC Glucose 314 H* 08/20/23 14:10: POC Glucose 336 H* 08/20/23 20:25: POC Glucose 302 H* 08/21/23 01:03: POC Glucose 321 H* 08/21/23 06:35: WBC 8.0, RBC 3.91 L, Hgb 12.7, Hct 39.2, MCV 100.3 H, MCH 32.4 H, MCHC 32.3, RDW 14.0, Plt Count 174, MPV 8.8, Neut % (Auto) 75.4, Lymph % (Auto) 16.5, [place] % (Auto) 6.3, Eos % (Auto) 1.4, Baso % (Auto) 0.4, Neut # (Auto) 6.0, Lymph # (Auto) 1.3, [place] # (Auto) 0.5, Eos # (Auto) 0.1, Baso # (Auto) 0.0, Sodium 141, Potassium 4.3, Chloride 105, Carbon Dioxide 25, Anion Gap 15.3 H, BUN 26 H, Creatinine 1.10 H, Estimated Creat Clear 77, Estimated GFR 50 L, Est GFR ( Amer) 61, Glucose 238 H, Calcium 9.8, Magnesium 2.2 D, Total Bilirubin 0.9, AST 76 H, ALT 32, Alkaline Phosphatase 77, Total Protein 7.3, Albumin 4.1 D, Globulin 3.2, Albumin/Globulin Ratio 1.3, Triglycerides 292 H, Cholesterol 201 H, LDL Cholesterol Direct 75.44 L, VLDL Cholesterol 58 H, HDL Cholesterol 32 L, Cholesterol/HDL Ratio 6.3 H Temp Pulse Resp BP Pulse Ox O2 Del Method O2 Flow Rate 97 F L 90 19 188/82 H 95 Mechanical Ventilation 2 08/18/23 08:43 08/18/23 09:08 08/18/23 09:08 08/18/23 09:08 08/18/23 09:08 08/18/23 13:00 08/18/23 09:08 Laboratory Results - last 24 hr 08/18/23 08:52: POC Glucose 264 H 08/18/23 10:00: WBC 7.1, RBC 3.82 L, Hgb 12.3, Hct 39.9, MCV 104.6 H, MCH 32.3 H, MCHC 30.8 L, RDW 13.9, Plt Count 200, MPV 8.9, Neut % (Auto) 55.7, Lymph % (Auto) 40.1, [place] % (Auto) 2.8, Eos % (Auto) 0.7, Baso % (Auto) 0.7, Neut # (Auto) 3.9, Lymph # (Auto) 2.8, [place] # (Auto) 0.2, Eos # (Auto) 0.1, Baso # (Auto) 0.1, Specimen Source Left brachial, O2 % 100%, ABG pH 7.16 L*, ABG pCO2 54.7 H, ABG pO2 100.0, ABG HCO3 18.9 L, ABG Total CO2 20.6 L, ABG O2 Saturation 96, ABG Base Excess -9.9 L, Elias Test Acceptable, Sodium 134 L, Potassium 4.7, Chloride 104, Carbon Dioxide 21 L, Anion Gap 13.7, BUN 20 H, Creatinine 0.80, Estimated Creat Clear 83, Estimated GFR 73, Est GFR ( Amer) 88, Glucose 363 H, Hemoglobin A1c 10.4 H, Calcium 8.5, Magnesium 1.4 L, Total Bilirubin 0.3, AST 41 H, ALT 37, Alkaline Phosphatase 74, Troponin I < 0.01, NT-Pro-B Natriuret Pep 59.5, Total Protein 6.0 L, Albumin 3.6 D, Globulin 2.4, Albumin/Globulin Ratio 1.5, TSH 2.77 08/18/23 10:45: ABG pH 7.14 L*, ABG pCO2 54.1 H, ABG pO2 116.2 H, ABG HCO3 18.0 L, ABG Total CO2 19.7 L, ABG O2 Saturation 97, ABG Base Excess -11.0 L, ABG Lactate 2.8 H I & O for Labs for Last 24 Hours: Intake & Output 08/18/23 08/19/23 08/20/23 08/21/23 23:59 23:59 23:59 23:59 Intake Total 1420.573 / 1420.573 867.568 / 867.568 669.006 / 669.006 0 / 0 Output Total 3135 / 3154 696 / 726 2310 / 2385 500 / 500 Balance -1714.427 / -1733.427 171.568 / 141.568 -1640.994 / -1715.994 -500 / -500 Weight 196 lb 197 lb 15.99 oz 197 lb 15.602 oz 202 lb 1 oz Intake & Output 08/15/23 08/16/23 08/17/23 08/18/23 23:59 23:59 23:59 23:59 Intake Total 1000 / 1000 Output Total 1450 / 1450 Balance -450 / -450 Weight 196 lb Microbiology Reports for the Last 24 Hours: Microbiology 08/18/23 10:47 Sputum - Endotracheal Tube Aspirate Gram Stain - Final 08/18/23 10:47 Sputum - Endotracheal Tube Aspirate Sputum Culture - Preliminary Constitutional: Present mild distress Comment:: Intubated and Sedated Head: Present normocephalic and atraumatic Neck: Present normal inspection and trachea midline Respiratory: Present patient mechanically ventilated, rhonchi, diminished air movement and able to speak in complete sentences; Absent respiratory distress or wheezes Cardiac: Present S1/S2 GI: Present soft; Absent distention or tenderness Skin: Present intact; Absent cyanosis Neuro: Present alert, awake and oriented x 3 Extremities: Present normal inspection; Absent clubbing or cyanosis Psychiatric: Present normal affect Assessment and Plan *Assessment and plan (1) Acute hypoxemic respiratory failure: Status: Acute Category: Medical Code(s): J96.01 - Acute respiratory failure with hypoxia (2) Pneumonia: Status: Acute Category: Medical Code(s): J18.9 - Pneumonia, unspecified organism Plan Ms. Aguila is a 63-year-old female with reported history of greater than [id number] smoking history, stopped smoking in 2018 after CVA, COPD, sleep apnea on CPAP, CAD status post CABG, CVA uncontrolled diabetes presented to hospital for elective shoulder surgery procedure complicated by worsening hypoxic respiratory failure postprocedure needing intubation mechanical ventilatory support and pulmonary was called for further evaluation and management. Much of the history is obtained from chart review and patient's family. Chest x-ray postprocedure bilateral diffuse pulm infiltrates, concerning for pulmonary edema/aspiration pneumonitis. No evidence of worsening leukocytosis postintubation. ABG postintubation showed hypercarbic respiratory failure. CT PE protocol no evidence of pulmonary embolism. Bilateral upper lobe predominant lung lesser percent lower lobe dense consolidative changes, left greater than right. Deep Chest wall emphysema likely from shoulder surgery. Patient respiratory status significantly improved, extubated to nasal cannula 08/20/2023. Tolerating well. Afebrile. Hemodynamically stable. Stable WBC. Significant improvement in the noted triglycerides. Lipase within normal limits. Chest x-ray from this morning significant improvement in aeration. Continued show left lower lobe atelectasis/airspace disease. Plan -DuoNebs every 6 hours only on as-needed basis -Continue levofloxacin to complete a total of 5-day course -Incentive spirometry and flutter valve. -PT OT -Continue oxygen supplementation to maintain O2 saturation goal of 90 to 95%, weaned to 3 L this morning. Continue to wean as tolerated. # Thank you for involving pulmonary in this patient care. Will continue to follow.
--- NOTE | 2023-08-21 09:24 | XR_ITS ---
FINAL REPORT CLINICAL HISTORY: PNM COMPARISON: 08/20/2023 FINDINGS: A single portable view of the chest was obtained. The endotracheal tube and nasogastric tube have been removed. The heart size and pulmonary vascularity are within normal limits. Prior median sternotomy. There are persistent partially improved left base opacities which likely represent atelectasis or pneumonia. The bony thorax is intact. IMPRESSION: Persistent but partially improved left base opacities, likely atelectasis or pneumonia. Reviewed, Interpreted and Dictated by Wilton Jacobsen III, MD Transcribed by Yary Estrada Authenticated and [facility]
--- NOTE | 2023-08-21 09:51 | HMH.PTEV ---
Physical Therapy Evaluation Rehab PT IP Evaluation Start: 08/21/23 08:55 Freq: ONCE Status: Active Protocol: Document 08/21/23 09:42 LOUISE (Rec: 08/21/23 09:51 LOUISE [id number]) Subjective/History History History Per H&P: Ms. Aguila is a 62-year-old female with history of poorly [place], history of CABG, hypertension, history of CVA, hyperlipidemia, CAD. She presented today for an elective repair of her right rotator cuff. Tolerated procedure well with no complications during procedure other than hypertension. After surgery while in PACU, developed worsening respiratory failure. Symptoms declined and she did not respond to noninvasive methods of ventilation including Ventimask and BiPAP. Necessitated intubation for stability of her respiratory failure. Initial imaging showed concern for bilateral pulmonary edema. Given her respiratory failure, medicine was consulted for admission and further management. Subjective Subjective PLOF per pt report: Lives with in single-story home with no ERNESTO. IND with mobility , ADLs, and IADLs without AD use. Pt was driving prior to admission. is retired and able to assist pt as needed. New diagnosis of cancer in past 12 No months? Rehab PT IP Eval Objective Appearance Patient Behavior Appropriate Patient Orientation Person,Birthday Difficulty following instructions none Speech Pattern Clear Ambulation Patient Able to Ambulate Yes Ambulation Observation IP General Gait Pattern Observation Narrow Based Gait,Shuffling Step Ambulation Distance (feet) 8 Ambulation Assistive Device None Ambulation Ability Minimal x 1 (25% assist) Balance Ability to Arise Able, uses arms to help Sitting Balance Steady, safe Standing Balance Steady, wide stance Transfers Bed Transfer Ability Moderate x 1 (50% assist) Sit to Stand Bed Transfer Ability Minimal x 1 (25% assist) Rehab PT IP prob,goals,plan Problems Date of Evaluation: 08/21/23 PT IP Problems Bed Mobility,Transfers,Gait, Balance,Self care,Safety Rehab Potential Rehab Potential Good Plan PT Intervention Plan Bed Mobility,Transfers,Gait, Balance,Safety,Therapeutic Exercise Other Intervention Plan 1-2 times PT Plan Frequency Daily Duration LOS Discharge Goals Bed Transfer Ability Supervision/Stand by Sit to Stand Chair Transfer Ability Supervision/Stand by Ambulation Distance (feet) 20 Discharge Plan PT Discharge Plan Initial physical therapy evaluation performed. Patient presents below baseline at this time in functional mobility, transfers, gait, and strength. Pt required VCs to correct shuffling gait. Pt required Min A with ambulation . Pt is currently in R shoulder sling d/t s/p RC surgery. Pt would benefit from skilled PT while at [facility] to prevent further functional decline and maximize safety with mobility. Pt safe to d/c home when deemed medically necessary d/t current level of mobility, home set-up, and family support. PT recommending home health PT services to address deficits. Eval Complexity Eval Charge Codes 89995 - Moderate Complexity PHYSICIAN CERTIFICATION: I certify the specified therapy services for Bibi Aguila are required, authorized, and reviewed every 30 days.
--- NOTE | 2023-08-21 10:46 | EXP.CARD.PN ---
Subjective Subjective Date: 08/21/23 Time: 08:30 Principal diagnosis: pulmonary edema, nonstemi Interval history: The patient was successfully extubated yesterday. She is on nasal cannula and tolerating this well. She denies any chest pain or pressure. She denies any shortness of breath or edema. She denies any fever, chills, nausea, vomiting, diarrhea, PND or orthopnea. She states that she feels very well and is eager to go home. Exam Data for Last 24 hours Vital signs and Labs for Last 24 Hours: Temp Pulse Resp BP Pulse Ox O2 Del Method O2 Flow Rate 98.9 F 90 18 118/82 94 L Nasal Cannula 4.5 08/21/23 08:04 08/21/23 08:00 08/21/23 08:00 08/21/23 08:00 08/21/23 08:00 08/21/23 08:36 08/21/23 08:36 FiO2 40 08/20/23 11:03 Laboratory Results - last 24 hr 08/20/23 08:05: POC Glucose 314 H* 08/20/23 14:10: POC Glucose 336 H* 08/20/23 20:25: POC Glucose 302 H* 08/21/23 01:03: POC Glucose 321 H* 08/21/23 06:35: WBC 8.0, RBC 3.91 L, Hgb 12.7, Hct 39.2, MCV 100.3 H, MCH 32.4 H, MCHC 32.3, RDW 14.0, Plt Count 174, MPV 8.8, Neut % (Auto) 75.4, Lymph % (Auto) 16.5, [place] % (Auto) 6.3, Eos % (Auto) 1.4, Baso % (Auto) 0.4, Neut # (Auto) 6.0, Lymph # (Auto) 1.3, [place] # (Auto) 0.5, Eos # (Auto) 0.1, Baso # (Auto) 0.0, Sodium 141, Potassium 4.3, Chloride 105, Carbon Dioxide 25, Anion Gap 15.3 H, BUN 26 H, Creatinine 1.10 H, Estimated Creat Clear 77, Estimated GFR 50 L, Est GFR ( Amer) 61, Glucose 238 H, Calcium 9.8, Magnesium 2.2 D, Total Bilirubin 0.9, AST 76 H, ALT 32, Alkaline Phosphatase 77, Total Protein 7.3, Albumin 4.1 D, Globulin 3.2, Albumin/Globulin Ratio 1.3, Triglycerides 292 H, Cholesterol 201 H, LDL Cholesterol Direct 75.44 L, VLDL Cholesterol 58 H, HDL Cholesterol 32 L, Cholesterol/HDL Ratio 6.3 H I & O for Last 24 hours: Intake & Output 08/18/23 08/19/23 08/20/23 08/21/23 23:59 23:59 23:59 23:59 Intake Total 1420.573 / 1420.573 867.568 / 867.568 669.006 / 669.006 0 / 0 Output Total 3135 / 3154 696 / 726 2310 / 2385 500 / 500 Balance -1714.427 / -1733.427 171.568 / 141.568 -1640.994 / -1715.994 -500 / -500 Weight 196 lb 197 lb 15.99 oz 197 lb 15.602 oz 202 lb 1 oz Microbiology Reports for the Last 24 Hours: Microbiology 08/18/23 10:47 Sputum - Endotracheal Tube Aspirate Gram Stain - Final 08/18/23 10:47 Sputum - Endotracheal Tube Aspirate Sputum Culture - Preliminary Constitutional Constitutional: no acute distress and obese *Routine HEENT Exam Head: Present normocephalic and atraumatic ENT: Present mucous membranes moist *Routine Neck Exam Neck: Present supple and full ROM; Absent JVD or lymphadenopathy *Routine Respiratory Exam Respiratory: Present decreased breath sounds, CTA bilaterally, normal respiratory effort and able to speak in complete sentences *Routine Cardiovascular Exam Cardiovascular: Present RRR, Normal S1 and Normal S2; Absent murmur or gallop *Routine Abdominal Exam Abdominal: Present soft and normoactive bowel sounds; Absent tenderness, distended, guarding or organomegaly *Routine Extremities Exam Extremities: Present full ROM, pulses intact and normal capillary refill; Absent cyanosis, clubbing or edema *Routine Skin Exam Skin: Present intact and warm; Absent erythema *Routine Neurological Exam Neurological: Present alert, oriented X3 and CN II-XII intact Routine Psychiatric Exam Psychiatric: Present normal affect Progress Note: A&P Assessment and plan (1) Acute hypoxemic respiratory failure: Status: Acute (2) NSTEMI (non-ST elevated myocardial infarction): Status: Acute (3) Pulmonary edema: Status: Acute (4) CAD (coronary artery disease): Status: Chronic (5) COPD (chronic obstructive pulmonary disease): Status: Chronic (6) History of coronary artery stent placement: Status: Chronic (7) HLD (hyperlipidemia): Status: Chronic (8) HTN (hypertension): Status: Chronic (9) Tobacco dependence: Status: Chronic (10) History of coronary artery bypass graft: Status: Chronic (11) Diabetes mellitus: Status: Chronic Assessment and Plan Assessment and Plan for All Diagnoses:: Plan: 1. Patient came into the hospital to undergo elective right rotator cuff repair surgery. She tolerated procedure well. While in PACU she had respiratory distress and ultimately ended up intubated and on mechanical ventilation. She was extubated yesterday successfully. She is being followed by pulmonology. Will defer. 2. The patient did have a chest x-ray concerning for flash pulmonary edema while she was in PACU. She was treated with IV Lasix initially. Her BNP was negative. At this time she denies any shortness of breath and has no overt signs or symptoms of being in pulmonary edema/congestive heart failure at this time. No additional IV Lasix at this time. 3. The patient did have an elevated troponin consistent with a non-STEMI. Her max troponin was 16.90. She underwent left cardiac catheterization and had stenting to her circumflex artery. She tolerated this well. She will be on Plavix and aspirin for dual antiplatelet therapy. Her coronary artery disease is now likely stable. 4. Her blood pressure is well-controlled. 5. Her LDL goal is less than 55. Her LDL is 75. She is on a statin. 6. She did have significantly high triglycerides yesterday. However she was on propofol which is a fatty motion. Her propofol has been stopped and her lipid panel was repeated this morning and her triglycerides have significantly improved to 292. 7. Her echocardiogram shows a preserved ejection fraction. 8. Continue bisoprolol and lisinopril for her coronary artery disease and HFpEF. 9. Continue Jardiance, oral Lasix and oral spironolactone for her HFpEF. 10. No further recommendations at this time from a cardiac standpoint. If any other cardiac issues arise throughout the patient's hospitalization, please feel free to contact cardiology again. She will need to follow-up in 1 week on an outpatient basis in cardiology clinic when she is discharged from the hospital. Thank you for the opportunity to help participate in the care of this patient. All recommendations and orders are per Dr. Amanda.
--- NOTE | 2023-08-21 11:11 | HMH.OTEV ---
OT Inpatient Evaluation Rehab OT IP Evaluation Start: 08/21/23 08:55 Freq: ONCE Status: Active Protocol: Document 08/21/23 09:52 JANET (Rec: 08/21/23 11:10 JANET [id number]) Rehab OT IP Assessment Subjective History Ms. Aguila is a 62-year-old female with history of poorly [place], history of CABG, hypertension, history of CVA, hyperlipidemia, CAD. She presented today for an elective repair of her right rotator cuff. Tolerated procedure well with no complications during procedure other than hypertension. After surgery while in PACU, developed worsening respiratory failure. Symptoms declined and she did not respond to noninvasive methods of ventilation including Ventimask and BiPAP. Necessitated intubation for stability of her respiratory failure. Initial imaging showed concern for bilateral pulmonary edema. Given her respiratory failure, medicine was consulted for admission and further management. Upon arrival to the floor, patient is intubated and on a ventilator. Requiring PEEP of 10 and FiO2 100% to maintain sats in the 90s. Volume 420 and rate 22. Initial pH 7.1. Pulmonology consulted to assist with management of respiratory failure and ventilator. Initial troponin 0.01. Labs showing hyperglycemia with mild hypercarbia with pCO2 in the 50s. Lactate initially 4.5. Has shown response to initial vent settings. Was somewhat responsive on initial exam, making eye contact and nodding when spoken to. Sedation increased with propofol and fentanyl. Patient's initial blood pressure elevated in the 150s systolic, has decreased with sedation but not necessitating vasopressors at this time. Patient lives with in 1 story home with 1-2 ERNESTO. Independent with all ADLs and fx'l mobility prior. is retired and at home with if needed. Subjective I can sit up. Instructed Patient on proper hand and foot placement to complete bed mobility from supine->sit @ EOB->stand with needing Min A x2. Patient demonstrated good dynamic sitting balance at EOB. Instructed Patietn on sit-> stand requiring Min A x2 with taking ~3ft of gait. Objective Patient Orientation Person,Place,Name,Age,Birthday ,Year Right Upper Extremity Gross ROM WFL Left Upper Extremity Gross ROM WFL Bed Mobility bed mobility - supine/sit Assist Level Minimal x 2 (25% assist) Transfer Training Sit/Stand Transfer Assist Level Minimal x 2 (25% assist) Chair Transfer Ability Minimal x 2 (25% assist) Chair Transfer Technique Sit to/from Ambulatory Chair Transfer Assistive Devices Rolling Walker Lower Body Dressing Ability Maximum Assistance Rehab OT IP prob,goals,plan Problems Date of Evaluation: 08/21/23 Rehab Potential Rehab Potential Good Equipment Needs Assistive Devices Rolling / Wheeled Walker Plan OT intervention Plan Bed Mobility,Transfers,Balance ,Self care,Safety,Therapeutic Exercise OT Plan Frequency Daily Duration LOS Discharge Goals Bed Mobility Ability Assistance x1 Sit to Stand Chair Transfer Ability Contact Guard/Hand Hold Chair Transfer Ability Contact Guard/Hand Hold Chair Transfer Technique Sit to/from Ambulatory Chair Transfer Assistive Devices Rolling Walker Lower Body Dressing Ability Moderate Assistance Discharge Plan OT Discharge Plan Recommend patient to return home with assistance from at this time. Recommend HH services if return home. Patient to continue skilled OT IP services while here at [facility]. Eval Complexity Eval Charge Codes 93808 - Low Complexity PHYSICIAN CERTIFICATION: I certify the specified therapy services for Bibi Aguila are required, authorized, and reviewed every 30 days.
[2023-08-21] MEDS: LEVOFLOXACIN/D5W 750 MG/150 ML 750 MG/150 ML PIGGYBACK 100 MG IV (11:40)
[2023-08-21 11:56] LABS: POC Glucose,Bedside 279 (70-110)
--- NOTE | 2023-08-21 13:31 | SW/DCPLANNER ---
Patient and her are not interested in home health services at time of discharge. Patient prefers to return to Ortho follow up and then do outpatient PT for shoulder once ordered by Ortho MD.
--- NOTE | 2023-08-21 14:09 | DIET.NUTRFU ---
interviewed patient post lunch, tolerated regular diet with fair po intake. She does not have her dentures with her but tolerated regular diet. Denied any swallowing issues. At home she eats 2 meals/day, wt stable. Denies any N/V or constipation, LBM 08/17. Reports she has BM Q3D at home. She was not concerned. No dietary concerns, will follow POC
--- NOTE | 2023-08-21 14:13 | PC.NURSE ---
room air saturation 87%
--- NOTE | 2023-08-21 14:36 | EXP.DC.SUM ---
General Admission date:: 08/18/23 Discharge date: 08/21/23 HPI HPI HPI: Ms. Aguila is a 62-year-old female with history of poorly [place], history of CABG, hypertension, history of CVA, hyperlipidemia, CAD. She presented today for an elective repair of her right rotator cuff. Tolerated procedure well with no complications during procedure other than hypertension. After surgery while in PACU, developed worsening respiratory failure. Symptoms declined and she did not respond to noninvasive methods of ventilation including Ventimask and BiPAP. Necessitated intubation for stability of her respiratory failure. Initial imaging showed concern for bilateral pulmonary edema. Given her respiratory failure, medicine was consulted for admission and further management. Upon arrival to the floor, patient is intubated and on a ventilator. Requiring PEEP of 10 and FiO2 100% to maintain sats in the 90s. Volume 420 and rate 22. Initial pH 7.1. Pulmonology consulted to assist with management of respiratory failure and ventilator. Initial troponin 0.01. Labs showing hyperglycemia with mild hypercarbia with pCO2 in the 50s. Lactate initially 4.5. Has shown response to initial vent settings. Was somewhat responsive on initial exam, making eye contact and nodding when spoken to. Sedation increased with propofol and fentanyl. Patient's initial blood pressure elevated in the 150s systolic, has decreased with sedation but not necessitating vasopressors at this time. Hospital Course Hospital Course Hospital Course: Patient is 87% on room air at rest. Necessitating 2 L nasal cannula continuous. Total time spent on discharge 35 minutes in counseling, documentation, chart review, and direct care with patient. Exam Data for Last 24 hours Vital signs and Labs for Last 24 Hours: Temp Pulse Resp BP Pulse Ox O2 Del Method O2 Flow Rate 98.8 F 87 18 116/64 87 L Room Air 3 08/21/23 12:00 08/21/23 12:00 08/21/23 12:00 08/21/23 12:00 08/21/23 14:32 08/21/23 14:32 08/21/23 12:46 FiO2 40 08/20/23 11:03 Laboratory Results - last 24 hr 08/20/23 20:25: POC Glucose 302 H* 08/21/23 01:03: POC Glucose 321 H* 08/21/23 06:35: WBC 8.0, RBC 3.91 L, Hgb 12.7, Hct 39.2, MCV 100.3 H, MCH 32.4 H, MCHC 32.3, RDW 14.0, Plt Count 174, MPV 8.8, Neut % (Auto) 75.4, Lymph % (Auto) 16.5, Robertson % (Auto) 6.3, Eos % (Auto) 1.4, Baso % (Auto) 0.4, Neut # (Auto) 6.0, Lymph # (Auto) 1.3, Robertson # (Auto) 0.5, Eos # (Auto) 0.1, Baso # (Auto) 0.0, Sodium 141, Potassium 4.3, Chloride 105, Carbon Dioxide 25, Anion Gap 15.3 H, BUN 26 H, Creatinine 1.10 H, Estimated Creat Clear 77, Estimated GFR 50 L, Est GFR ( Amer) 61, Glucose 238 H, Calcium 9.8, Magnesium 2.2 D, Total Bilirubin 0.9, AST 76 H, ALT 32, Alkaline Phosphatase 77, Total Protein 7.3, Albumin 4.1 D, Globulin 3.2, Albumin/Globulin Ratio 1.3, Triglycerides 292 H, Cholesterol 201 H, LDL Cholesterol Direct 75.44 L, VLDL Cholesterol 58 H, HDL Cholesterol 32 L, Cholesterol/HDL Ratio 6.3 H 08/21/23 11:48: POC Glucose 279 H I & O for Last 24 hours: Intake & Output 08/18/23 08/19/23 08/20/23 08/21/23 23:59 23:59 23:59 23:59 Intake Total 1420.573 / 1420.573 867.568 / 867.568 669.006 / 669.006 0 / 0 Output Total 3135 / 3154 696 / 726 2310 / 2385 900 / 900 Balance -1714.427 / -1733.427 171.568 / 141.568 -1640.994 / -1715.994 -900 / -900 Weight 88.904 kg 89.811 kg 89.8 kg 91.654 kg Microbiology Reports for the Last 24 Hours: Microbiology 08/18/23 10:47 Sputum - Endotracheal Tube Aspirate Gram Stain - Final 08/18/23 10:47 Sputum - Endotracheal Tube Aspirate Sputum Culture - Preliminary Results Data Completed and Pending Labs on day of discharge: Labs from last 24 hours 08/21/23 08/21/23 08/21/23 11:48 06:35 01:03 WBC 8.0 RBC 3.91 L Hgb 12.7 Hct 39.2 MCV 100.3 H MCH 32.4 H MCHC 32.3 RDW 14.0 Plt Count 174 MPV 8.8 Neut % (Auto) 75.4 Lymph % (Auto) 16.5 Robertson % (Auto) 6.3 Eos % (Auto) 1.4 Baso % (Auto) 0.4 Neut # (Auto) 6.0 Lymph # (Auto) 1.3 Robertson # (Auto) 0.5 Eos # (Auto) 0.1 Baso # (Auto) 0.0 Sodium 141 Potassium 4.3 Chloride 105 Carbon Dioxide 25 Anion Gap 15.3 H BUN 26 H Creatinine 1.10 H Estimated Creat Clear 77 Estimated GFR 50 L Est GFR ( Amer) 61 Glucose 238 H POC Glucose 279 H 321 H* Calcium 9.8 Magnesium 2.2 D Total Bilirubin 0.9 AST 76 H ALT 32 Alkaline Phosphatase 77 Total Protein 7.3 Albumin 4.1 D Globulin 3.2 Albumin/Globulin Ratio 1.3 Triglycerides 292 H Cholesterol 201 H LDL Cholesterol Direct 75.44 L VLDL Cholesterol 58 H HDL Cholesterol 32 L Cholesterol/HDL Ratio 6.3 H 08/20/23 20:25 WBC RBC Hgb Hct MCV MCH MCHC RDW Plt Count MPV Neut % (Auto) Lymph % (Auto) Robertson % (Auto) Eos % (Auto) Baso % (Auto) Neut # (Auto) Lymph # (Auto) Robertson # (Auto) Eos # (Auto) Baso # (Auto) Sodium Potassium Chloride Carbon Dioxide Anion Gap BUN Creatinine Estimated Creat Clear Estimated GFR Est GFR ( Amer) Glucose POC Glucose 302 H* Calcium Magnesium Total Bilirubin AST ALT Alkaline Phosphatase Total Protein Albumin Globulin Albumin/Globulin Ratio Triglycerides Cholesterol LDL Cholesterol Direct VLDL Cholesterol HDL Cholesterol Cholesterol/HDL Ratio Preliminary micro results at discharge 08/18/23 10:47 Sputum Culture - Preliminary Sputum - Endotracheal Tube Aspirate DS: Diagnosis Discharge Diagnosis (1) Acute hypoxemic respiratory failure: Status: Acute Code(s): J96.01 - Acute respiratory failure with hypoxia (2) Pneumonia: Status: Acute Code(s): J18.9 - Pneumonia, unspecified organism Meds Home Medications and Allergies Home Medications Medication Instructions Recorded Confirmed Type aspirin 81 mg tablet,delayed 81 mg PO DAILY 05/22/17 08/18/23 History release (Aspir-) multivitamin-ferrous 1 tab PO QAM 05/22/17 08/18/23 History fumarate-folic acid 18 mg-400 mcg tablet (Centrum Complete) nitroglycerin 0.6 mg sublingual 0.6 mg sublingual Q5M PRN Chest 05/22/17 08/18/23 History tablet Pain cholecalciferol (vitamin D3) 25 1,000 unit PO DAILY 09/22/17 08/18/23 History mcg (1,000 unit) capsule sennosides 8.6 mg tablet (Senna 8.6 mg PO DAILY PRN Constipation 09/22/17 08/18/23 History Lax) black cohosh 200 mg capsule 540 mg PO DAILY 06/05/20 08/18/23 History glimepiride 4 mg tablet 8 mg PO DAILY 06/05/20 08/18/23 History insulin aspart prot-aspart 100 60 unit SQ BID 06/05/20 08/18/23 History unit/mL (70-30) subcutaneous cartridge metoclopramide HCl 10 mg tablet 10 mg PO BID 06/05/20 08/18/23 History vitamin E 400 unit tablet 450 mg PO DAILY 06/05/20 08/18/23 History gabapentin 800 mg tablet 800 mg PO TID 07/08/21 08/18/23 History metformin 1,000 mg tablet 1,000 mg PO QPMWITHMEAL 07/29/22 08/18/23 History furosemide 20 mg tablet (Lasix) 20 mg PO DAILY #30 tabs 07/30/22 08/18/23 Rx spironolactone 50 mg tablet 50 mg PO DAILY #30 tabs 07/30/22 08/18/23 Rx (Aldactone) atorvastatin 80 mg tablet 80 mg PO HS 08/18/23 08/18/23 History bisoprolol fumarate 5 mg tablet 5 mg PO DAILY 08/18/23 08/18/23 History citalopram 40 mg tablet 40 mg PO DAILY 08/18/23 08/18/23 History clopidogrel 75 mg tablet (Plavix) 75 mg PO DAILY 08/18/23 08/18/23 History gemfibrozil 600 mg tablet 600 mg PO BID 08/18/23 08/18/23 History hydrochlorothiazide 25 mg tablet 25 mg PO DAILY 08/18/23 08/18/23 History lisinopril 10 mg tablet 10 mg PO BID 08/18/23 08/18/23 History omega-3 fatty acids 1,000 mg 1,000 mg PO QDAY 08/18/23 08/18/23 History capsule oxycodone 5 mg tablet 5 mg PO Q4H PRN pain #30 tabs 08/18/23 08/18/23 Rx semaglutide 1 mg/dose (4 mg/3 mL) 1 mg SQ WEEKLY 08/18/23 08/18/23 History subcutaneous pen injector (Ozempic) dapagliflozin propanediol 10 mg 10 mg PO DAILY 30 days #30 tabs 08/21/23 Rx tablet (Farxiga) levofloxacin 750 mg tablet 750 mg PO DAILY 1 day #1 tab 08/21/23 Rx New Prescriptions to Start Prescriptions: dapagliflozin propanediol [Farxiga] Matthieu Parker levofloxacin Matthieu Parker Allergies Allergy/AdvReac Type Severity Reaction Status Date / Time No Known Allergies Allergy Verified 08/18/23 06:28 Discharge Plan Disposition Patient Disposition: Home, Self-Care Condition: Fair Discharge Order Discharge Orders: Discharge Order (Routine); Ordered 08/21/23 Ordered By: Matthieu Parker Follow up Plan Follow up with: Benja Catalan MD [Primary Care Provider] - 08/27/23 3:15 pm Nilton Lange MD [Staff Physician] - 08/27/23 10:30 am Xiang Tyson MD [Physician] - 08/28/23 9:45 am Gaby Singh MD [Physician] - 08/27/23 10:00 am Prescriptions/Medication Reconciliation: New dapagliflozin propanediol [Farxiga] 10 mg Tablet 10 mg PO DAILY 30 Days Qty: 30 0RF levofloxacin 750 mg tablet 750 mg PO DAILY 1 Days Qty: 1 0RF Rx Instructions: take one tab 08/21 Continued cholecalciferol (vitamin D3) 1,000 unit capsule 1,000 unit PO DAILY sennosides [Senna Lax] 8.6 mg tablet 8.6 mg PO DAILY PRN (Reason: Constipation) insulin asp prt-insulin aspart 100 unit/mL (70-30) cartridge 60 unit SQ BID metformin 1,000 mg tablet 1,000 mg PO QPMWITHMEAL Rx Instructions: 500 in AM and 500 at HS nitroglycerin 0.6 mg tablet, sublingual 0.6 mg SUBLINGUAL Q5M PRN (Reason: Chest Pain) [id number] acid [Centrum Complete] 18-400 mg-mcg tablet 1 tab PO QAM aspirin [Aspir-81] 81 mg tablet,delayed release (DR/EC) 81 mg PO DAILY metoclopramide HCl 10 mg tablet 10 mg PO BID black cohosh 200 mg capsule 540 mg PO DAILY vitamin E 400 unit tablet 450 mg PO DAILY gabapentin 800 mg tablet 800 mg PO TID oxycodone 5 mg tablet 5 mg PO Q4H PRN (Reason: pain) Qty: 30 0RF furosemide [Lasix] 20 mg Tablet 20 mg PO DAILY Qty: 30 3RF spironolactone [Aldactone] 50 mg Tablet 50 mg PO DAILY Qty: 30 3RF glimepiride 4 mg tablet 8 mg PO DAILY atorvastatin 80 mg tablet 80 mg PO HS Patient Comments: TAKE 1 TABLET BY MOUTH ONCE DAILY citalopram 40 mg tablet 40 mg PO DAILY Patient Comments: TAKE 1 TABLET BY MOUTH ONCE DAILY bisoprolol fumarate 5 mg tablet 5 mg PO DAILY Patient Comments: TAKE 1 TABLET BY MOUTH ONCE DAILY gemfibrozil 600 mg tablet 600 mg PO BID Patient Comments: TAKE 1 TABLET BY MOUTH TWICE DAILY lisinopril 10 mg tablet 10 mg PO BID Patient Comments: TAKE 1 TABLET BY MOUTH TWICE DAILY clopidogrel [Plavix] 75 mg tablet 75 mg PO DAILY hydrochlorothiazide 25 mg tablet 25 mg PO DAILY Ozempic 1 mg/dose (4 mg/3 mL) pen injector 1 mg SQ WEEKLY Patient Comments: INJECT 1 MG SUBCUTANEOUSLY ONCE A WEEK omega-3 fatty acids 1,000 mg capsule 1,000 mg PO QDAY Other Ambulatory Orders: Home Medical Equipment (Routine) Location: None Selected Ordered By: Matthieu Parker Basic Metabolic Panel (Routine) Timeframe: 20230827 Facility: [facility] - Location: Laboratory Ordered By: Nilton Lange Complete Blood Count Auto Diff (Routine) Timeframe: [id number] Facility: [facility] - Location: Laboratory Ordered By: Nilton Lange Problem Reconciliation Problems Reviewed?: Yes Patient Discharge Instructions ACTIVITY: Ambulate as tolerated and No heavy lifting DIET: advance to your usual diet Additional Instructions: Keep right arm in sling at all times unless bathing or changing clothes. Okay to remove dressing in 3 days and apply Band-Aids to the incisions and shower at that time. Okay to move elbow, wrist and hand. No active shoulder motion. Patient Instructions: DI for Heart Attack, DI for Cardiac Catheterization, DI for Surgical Site Infection, Ventilator-Associated Pneumonia, DI for Respiratory Failure, Moderate Sedation, DI for Shoulder Arthroscopy, DI for Post-Surgical Bleeding, Catheter-Associated Urinary Tract Infection Providers Primary Care Provider: Benja Catalan Admit Provider: Matthieu Parker Attending Provider: Matthieu Parker
--- NOTE | 2023-08-21 21:46 | EXP.DC.SUM ---
General Admission date:: 08/18/23 Discharge date: 08/21/23 HPI HPI HPI: Ms. Aguila is a 62-year-old female with history of poorly Alexis, history of CABG, hypertension, history of CVA, hyperlipidemia, CAD. She presented today for an elective repair of her right rotator cuff. Tolerated procedure well with no complications during procedure other than hypertension. After surgery while in PACU, developed worsening respiratory failure. Symptoms declined and she did not respond to noninvasive methods of ventilation including Ventimask and BiPAP. Necessitated intubation for stability of her respiratory failure. Initial imaging showed concern for bilateral pulmonary edema. Given her respiratory failure, medicine was consulted for admission and further management. Upon arrival to the floor, patient is intubated and on a ventilator. Requiring PEEP of 10 and FiO2 100% to maintain sats in the 90s. Volume 420 and rate 22. Initial pH 7.1. Pulmonology consulted to assist with management of respiratory failure and ventilator. Initial troponin 0.01. Labs showing hyperglycemia with mild hypercarbia with pCO2 in the 50s. Lactate initially 4.5. Has shown response to initial vent settings. Was somewhat responsive on initial exam, making eye contact and nodding when spoken to. Sedation increased with propofol and fentanyl. Patient's initial blood pressure elevated in the 150s systolic, has decreased with sedation but not necessitating vasopressors at this time. Hospital Course Hospital Course Hospital Course: 62-year-old female who presented for elective right rotator cuff repair. Postsurgery had acute hypoxemic respiratory failure. Differential includes pneumonia, flash pulmonary edema, KS, PE. Intubated in PACU. Discussed case with anesthesia, requested admission for further management. Medicine agreed to admit. Pulmonology consulted to assist with respiratory failure treatment. Patient did well during admission. Able to wean the ventilator and extubate without difficulty. Progressed with weaning of oxygen, necessitating 2 L a day of discharge. Stable to discharge home to continue to convalesce from her surgery. Follow-up with pulmonology, cardiology, orthopedics. Problems addressed during hospitalization as follows: Acute hypoxemic respiratory failure Mixed respiratory and metabolic acidosis Pulmonary edema -Intubated in the PACU. Pulmonology was consulted to assist with ventilator management and respiratory failure. Diuresed upon admission. Had good response with negative volume status. Initiated on empiric antibiotics. Will continue levofloxacin to complete 5 days total of antibiotics. Patient's respiratory failure improved fairly quickly over the next 24 to 48 hours. Able to extubate to nasal cannula oxygen. Still requiring 2 L nasal cannula at discharge. Room air saturation of 87% at rest on day of discharge. Necessitating 2 L nasal cannula continuously. Plan to follow-up with pulmonology in the next 1 to 2 weeks for further evaluation. History of CAD and CABG NSTEMI -Patient had no chest pain but serial troponins were monitored because of her cardiac history and respiratory failure post intubation. Initial troponin less than 0.01. They gradually increased over the course of the next 12 hours with peak troponin at 16. Cardiology was consulted and patient was taken for heart cath. Severe stenosis involving mid dominant circumflex, status post stenting x 1. Did well after intervention. Was started on dual antiplatelet therapy with aspirin 81 mg daily and Plavix 75 mg daily. Echocardiogram obtained with preliminary review showing no wall motion abnormalities. EF 45 to 50%. Continue home bisoprolol 5 mg daily. Status post rotator cuff repair. Patient initially presented for elective rotator cuff repair. Tolerated procedure well. Having minimal pain after extubation. Slight oozing from single incision. No signs of infection. Follow-up with orthopedics as scheduled. Hypertriglyceridemia -Triglycerides over 1999, suspect secondary to propofol. Improved after discontinuing sedation. Decreased to 200 after extubation and discontinuation of sedation. No signs of pancreatitis. Encouraged continued improvement in diabetes control and statin therapy to assist with improving hypertriglyceridemia. Uncontrolled diabetes with hyperglycemia -Patient has a history of uncontrolled diabetes. A1c elevated at 10.4 on admission. Initiated on sliding scale insulin. Given proven close control, will transition to Farxiga 10 mg daily, glimepiride 8 mg daily the, insulin 70/30 60 units twice daily per home regimen, metformin 1000 mg nightly with meal. Continue Reglan 10 mg twice daily for gastric Diana this. Continue Ozempic 1 mg a week. Needs further management as an outpatient. May benefit from transitioning to mealtime and basal insulin versus pump therapy with CGM. Her poor control continues to complicate her coronary artery disease. Patient initially had an MINAL after diuresis. Creatinine improved to 1.1 by morning of discharge. Close to her baseline. Stable discharge home. Extensive discussion on day of discharge. Total time spent on discharge 35 minutes in counseling, documentation, chart review, and direct care with patient. Exam Data for Last 24 hours Vital signs and Labs for Last 24 Hours: Temp Pulse Resp BP Pulse Ox O2 Del Method O2 Flow Rate 98.8 F 87 18 116/64 87 L Nasal Cannula 2 08/21/23 12:00 08/21/23 12:00 08/21/23 12:00 08/21/23 12:00 08/21/23 14:32 08/21/23 15:00 08/21/23 15:00 FiO2 40 08/20/23 11:03 Laboratory Results - last 24 hr 08/21/23 01:03: POC Glucose 321 H* 08/21/23 06:35: WBC 8.0, RBC 3.91 L, Hgb 12.7, Hct 39.2, MCV 100.3 H, MCH 32.4 H, MCHC 32.3, RDW 14.0, Plt Count 174, MPV 8.8, Neut % (Auto) 75.4, Lymph % (Auto) 16.5, Campbell % (Auto) 6.3, Eos % (Auto) 1.4, Baso % (Auto) 0.4, Neut # (Auto) 6.0, Lymph # (Auto) 1.3, Campbell # (Auto) 0.5, Eos # (Auto) 0.1, Baso # (Auto) 0.0, Sodium 141, Potassium 4.3, Chloride 105, Carbon Dioxide 25, Anion Gap 15.3 H, BUN 26 H, Creatinine 1.10 H, Estimated Creat Clear 77, Estimated GFR 50 L, Est GFR ( Amer) 61, Glucose 238 H, Calcium 9.8, Magnesium 2.2 D, Total Bilirubin 0.9, AST 76 H, ALT 32, Alkaline Phosphatase 77, Total Protein 7.3, Albumin 4.1 D, Globulin 3.2, Albumin/Globulin Ratio 1.3, Triglycerides 292 H, Cholesterol 201 H, LDL Cholesterol Direct 75.44 L, VLDL Cholesterol 58 H, HDL Cholesterol 32 L, Cholesterol/HDL Ratio 6.3 H 08/21/23 11:48: POC Glucose 279 H I & O for Last 24 hours: Intake & Output 08/18/23 08/19/23 08/20/23 08/21/23 23:59 23:59 23:59 23:59 Intake Total 1420.573 / 1420.573 867.568 / 867.568 669.006 / 669.006 0 / 0 Output Total 3135 / 3154 696 / 726 2310 / 2385 900 / 900 Balance -1714.427 / -1733.427 171.568 / 141.568 -1640.994 / -1715.994 -900 / -900 Weight 88.904 kg 89.811 kg 89.8 kg 91.654 kg Microbiology Reports for the Last 24 Hours: Microbiology 08/18/23 10:47 Sputum - Endotracheal Tube Aspirate Gram Stain - Final 08/18/23 10:47 Sputum - Endotracheal Tube Aspirate Sputum Culture - Preliminary Constitutional Constitutional: no acute distress, obese and chronically ill appearing *Routine HEENT Exam Head: Present normocephalic Eye: Present EOMI and PERRL ENT: Present mucous membranes moist Comments: edentulous *Routine Neck Exam Neck: Present supple; Absent lymphadenopathy *Routine Respiratory Exam Respiratory: Present CTA bilaterally; Absent rhonchi, wheezes or crackles *Routine Cardiovascular Exam Cardiovascular: Present RRR *Routine Abdominal Exam Abdominal: Present soft and normoactive bowel sounds; Absent tenderness *Routine Rectal Exam Patient deferred: visual exam *Routine Exam Patient deferred: external exam *Routine Extremities Exam Extremities: Absent cyanosis, clubbing or edema Comments: Right arm in sling, postsurgical wounds clean dry and intact, minimal bleeding from 1 incision. No redness or concern for infection *Routine Skin Exam Skin: Present warm; Absent rash *Routine Neurological Exam Neurological: Present alert and oriented X3 Results Data Completed and Pending Labs on day of discharge: Labs from last 24 hours 08/21/23 08/21/23 08/21/23 11:48 06:35 01:03 WBC 8.0 RBC 3.91 L Hgb 12.7 Hct 39.2 MCV 100.3 H MCH 32.4 H MCHC 32.3 RDW 14.0 Plt Count 174 MPV 8.8 Neut % (Auto) 75.4 Lymph % (Auto) 16.5 Campbell % (Auto) 6.3 Eos % (Auto) 1.4 Baso % (Auto) 0.4 Neut # (Auto) 6.0 Lymph # (Auto) 1.3 Campbell # (Auto) 0.5 Eos # (Auto) 0.1 Baso # (Auto) 0.0 Sodium 141 Potassium 4.3 Chloride 105 Carbon Dioxide 25 Anion Gap 15.3 H BUN 26 H Creatinine 1.10 H Estimated Creat Clear 77 Estimated GFR 50 L Est GFR ( Amer) 61 Glucose 238 H POC Glucose 279 H 321 H* Calcium 9.8 Magnesium 2.2 D Total Bilirubin 0.9 AST 76 H ALT 32 Alkaline Phosphatase 77 Total Protein 7.3 Albumin 4.1 D Globulin 3.2 Albumin/Globulin Ratio 1.3 Triglycerides 292 H Cholesterol 201 H LDL Cholesterol Direct 75.44 L VLDL Cholesterol 58 H HDL Cholesterol 32 L Cholesterol/HDL Ratio 6.3 H Preliminary micro results at discharge 08/18/23 10:47 Sputum Culture - Preliminary Sputum - Endotracheal Tube Aspirate DS: Diagnosis Discharge Diagnosis (1) Acute hypoxemic respiratory failure: Status: Acute Code(s): J96.01 - Acute respiratory failure with hypoxia (2) Pneumonia: Status: Acute Code(s): J18.9 - Pneumonia, unspecified organism Meds Home Medications and Allergies Home Medications Medication Instructions Recorded Confirmed Type aspirin 81 mg tablet,delayed 81 mg PO DAILY 05/22/17 08/18/23 History release (Aspir-) multivitamin-ferrous 1 tab PO QAM 05/22/17 08/18/23 History fumarate-folic acid 18 mg-400 mcg tablet (Centrum Complete) nitroglycerin 0.6 mg sublingual 0.6 mg sublingual Q5M PRN Chest 05/22/17 08/18/23 History tablet Pain cholecalciferol (vitamin D3) 25 1,000 unit PO DAILY 09/22/17 08/18/23 History mcg (1,000 unit) capsule sennosides 8.6 mg tablet (Senna 8.6 mg PO DAILY PRN Constipation 09/22/17 08/18/23 History Lax) black cohosh 200 mg capsule 540 mg PO DAILY 06/05/20 08/18/23 History glimepiride 4 mg tablet 8 mg PO DAILY 06/05/20 08/18/23 History insulin aspart prot-aspart 100 60 unit SQ BID 06/05/20 08/18/23 History unit/mL (70-30) subcutaneous cartridge metoclopramide HCl 10 mg tablet 10 mg PO BID 06/05/20 08/18/23 History vitamin E 400 unit tablet 450 mg PO DAILY 06/05/20 08/18/23 History gabapentin 800 mg tablet 800 mg PO TID 07/08/21 08/18/23 History metformin 1,000 mg tablet 1,000 mg PO QPMWITHMEAL 07/29/22 08/18/23 History furosemide 20 mg tablet (Lasix) 20 mg PO DAILY #30 tabs 07/30/22 08/18/23 Rx spironolactone 50 mg tablet 50 mg PO DAILY #30 tabs 07/30/22 08/18/23 Rx (Aldactone) atorvastatin 80 mg tablet 80 mg PO HS 08/18/23 08/18/23 History bisoprolol fumarate 5 mg tablet 5 mg PO DAILY 08/18/23 08/18/23 History citalopram 40 mg tablet 40 mg PO DAILY 08/18/23 08/18/23 History clopidogrel 75 mg tablet (Plavix) 75 mg PO DAILY 08/18/23 08/18/23 History gemfibrozil 600 mg tablet 600 mg PO BID 08/18/23 08/18/23 History hydrochlorothiazide 25 mg tablet 25 mg PO DAILY 08/18/23 08/18/23 History lisinopril 10 mg tablet 10 mg PO BID 08/18/23 08/18/23 History omega-3 fatty acids 1,000 mg 1,000 mg PO QDAY 08/18/23 08/18/23 History capsule oxycodone 5 mg tablet 5 mg PO Q4H PRN pain #30 tabs 08/18/23 08/18/23 Rx semaglutide 1 mg/dose (4 mg/3 mL) 1 mg SQ WEEKLY 08/18/23 08/18/23 History subcutaneous pen injector (Ozempic) dapagliflozin propanediol 10 mg 10 mg PO DAILY 30 days #30 tabs 08/21/23 Rx tablet (Farxiga) levofloxacin 750 mg tablet 750 mg PO DAILY 1 day #1 tab 08/21/23 Rx New Prescriptions to Start Prescriptions: dapagliflozin propanediol [Farxiga] Matthieu Parker levofloxacin Matthieu Parker Allergies Allergy/AdvReac Type Severity Reaction Status Date / Time No Known Allergies Allergy Verified 08/18/23 06:28 Discharge Plan Disposition Patient Disposition: Home, Self-Care Condition: Fair Discharge Order Discharge Orders: Discharge Order (Routine); Ordered 08/21/23 Ordered By: Matthieu Parker Follow up Plan Follow up with: Benja Catalan MD [Primary Care Provider] - 08/27/23 3:15 pm Nilton Lange MD [Staff Physician] - 08/27/23 10:30 am Xiang Tyson MD [Physician] - 08/28/23 9:45 am Gaby Singh MD [Physician] - 08/27/23 10:00 am Prescriptions/Medication Reconciliation: New dapagliflozin propanediol [Farxiga] 10 mg Tablet 10 mg PO DAILY 30 Days Qty: 30 0RF levofloxacin 750 mg tablet 750 mg PO DAILY 1 Days Qty: 1 0RF Rx Instructions: take one tab 08/21 Continued cholecalciferol (vitamin D3) 1,000 unit capsule 1,000 unit PO DAILY sennosides [Senna Lax] 8.6 mg tablet 8.6 mg PO DAILY PRN (Reason: Constipation) insulin asp prt-insulin aspart 100 unit/mL (70-30) cartridge 60 unit SQ BID metformin 1,000 mg tablet 1,000 mg PO QPMWITHMEAL Rx Instructions: 500 in AM and 500 at HS nitroglycerin 0.6 mg tablet, sublingual 0.6 mg SUBLINGUAL Q5M PRN (Reason: Chest Pain) qvnffptqnbsn-ohoi-bgruc acid [Centrum Complete] 18-400 mg-mcg tablet 1 tab PO QAM aspirin [Aspir-81] 81 mg tablet,delayed release (DR/EC) 81 mg PO DAILY metoclopramide HCl 10 mg tablet 10 mg PO BID black cohosh 200 mg capsule 540 mg PO DAILY vitamin E 400 unit tablet 450 mg PO DAILY gabapentin 800 mg tablet 800 mg PO TID oxycodone 5 mg tablet 5 mg PO Q4H PRN (Reason: pain) Qty: 30 0RF furosemide [Lasix] 20 mg Tablet 20 mg PO DAILY Qty: 30 3RF spironolactone [Aldactone] 50 mg Tablet 50 mg PO DAILY Qty: 30 3RF glimepiride 4 mg tablet 8 mg PO DAILY atorvastatin 80 mg tablet 80 mg PO HS Patient Comments: TAKE 1 TABLET BY MOUTH ONCE DAILY citalopram 40 mg tablet 40 mg PO DAILY Patient Comments: TAKE 1 TABLET BY MOUTH ONCE DAILY bisoprolol fumarate 5 mg tablet 5 mg PO DAILY Patient Comments: TAKE 1 TABLET BY MOUTH ONCE DAILY gemfibrozil 600 mg tablet 600 mg PO BID Patient Comments: TAKE 1 TABLET BY MOUTH TWICE DAILY lisinopril 10 mg tablet 10 mg PO BID Patient Comments: TAKE 1 TABLET BY MOUTH TWICE DAILY clopidogrel [Plavix] 75 mg tablet 75 mg PO DAILY hydrochlorothiazide 25 mg tablet 25 mg PO DAILY Ozempic 1 mg/dose (4 mg/3 mL) pen injector 1 mg SQ WEEKLY Patient Comments: INJECT 1 MG SUBCUTANEOUSLY ONCE A WEEK omega-3 fatty acids 1,000 mg capsule 1,000 mg PO QDAY Other Ambulatory Orders: Home Medical Equipment (Routine) Location: None Selected Ordered By: Matthieu Parker Basic Metabolic Panel (Routine) Timeframe: 20230827 Facility: [facility] - Location: Laboratory Ordered By: Nilton Lange Complete Blood Count Auto Diff (Routine) Timeframe: 20230827 Facility: [facility] - Location: Laboratory Ordered By: Nilton Lange Problem Reconciliation Problems Reviewed?: Yes Patient Discharge Instructions ACTIVITY: Ambulate as tolerated and No heavy lifting DIET: advance to your usual diet Additional Instructions: Keep right arm in sling at all times unless bathing or changing clothes. Okay to remove dressing in 3 days and apply Band-Aids to the incisions and shower at that time. Okay to move elbow, wrist and hand. No active shoulder motion. Patient Instructions: DI for Heart Attack, DI for Cardiac Catheterization, DI for Surgical Site Infection, Ventilator-Associated Pneumonia, DI for Respiratory Failure, Moderate Sedation, DI for Shoulder Arthroscopy, DI for Post-Surgical Bleeding, Catheter-Associated Urinary Tract Infection Providers Primary Care Provider: Benja Catalan Admit Provider: Matthieu Parker Attending Provider: Matthieu Parker
--- NOTE | 2023-08-24 13:34 | SW/DCPLANNER ---
Follow up phone call: patient's stated that patient was resting but doing well at home. is aware of all follow up appointments for 08/27/23 and 08/28/23. stated no further questions/needs at this time.
== END 2023-08-21 16:33 | disposition home or self-care (01) | DRG 321 ==
LOC: 2ND 10:12
PROVIDERS: Emergency Medicine; Internal Medicine; Internal Medicine Pulmonary Disease; Nurse Practitioner Acute Care; Nurse Practitioner Family; Orthopaedic Surgery; Admitting Provider Internal Medicine Adolescent Medicine; PCP Family Medicine; Visit Provider Internal Medicine Adolescent Medicine
PROC: 0RNJ4ZZ Release Right Shoulder Joint, Percutaneous Endoscopic Approach (ICD-10-PCS; CPT 29805; principal; 2023-08-18 07:30)
PROC: 0270346 Dilation of Coronary Artery, One Artery, Bifurcation, with Drug-eluting Intraluminal Device, Percutaneous Approach (ICD-10-PCS; principal; 2023-08-19 08:40)
DX: I21.4 Non-ST elevation (NSTEMI) myocardial infarction (principal); J95.821 Acute postprocedural respiratory failure; J81.1 Chronic pulmonary edema; E87.21 Acute metabolic acidosis; I97.191 Other postprocedural cardiac functional disturbances following other surgery; N17.9 Acute kidney failure, unspecified; M75.111 Incomplete rotator cuff tear or rupture of right shoulder, not specified as traumatic; I25.10 Atherosclerotic heart disease of native coronary artery without angina pectoris; E78.2 Mixed hyperlipidemia; E78.1 Pure hyperglyceridemia; E11.65 Type 2 diabetes mellitus with hyperglycemia; J44.9 Chronic obstructive pulmonary disease, unspecified; J43.2 Centrilobular emphysema; G47.30 Sleep apnea, unspecified; I10 Essential (primary) hypertension; E66.9 Obesity, unspecified; Z79.02 Long term (current) use of antithrombotics/antiplatelets; Z79.4 Long term (current) use of insulin; Z79.891 Long term (current) use of opiate analgesic; Z79.85 Long-term (current) use of injectable non-insulin antidiabetic drugs; Z95.1 Presence of aortocoronary bypass graft; Z79.84 Long term (current) use of oral hypoglycemic drugs; Z79.82 Long term (current) use of aspirin; Z79.899 Other long term (current) drug therapy; Z86.73 Personal history of transient ischemic attack (TIA), and cerebral infarction without residual deficits; Z87.891 Personal history of nicotine dependence; Z68.33 Body mass index [BMI] 33.0-33.9, adult
CPT/HCPCS: 36252; 36415; 71045; 71046; 71275; 80048; 80053; 80061; 81001; 82150; 82803; 82962; 83036; 83605; 83690; 83735; 83880; 84145; 84443; 84484; 85025; 85347; 85651; 86140; 87070; 87205; 87632; 87635; 92941; 93005; 93306; 93454; 94002; 94003; 94640; 94761; 96374; 97110; 97162; 97165; 97530; C1725; C1760; C1769; C1876; C1894; C9606; G0238; J1644; J1956; J2405; J2704; J3475; Q9967

== ENCOUNTER 2023-08-27 09:23 | Outpatient (CLI) | payer MEDICARE, SELFPAY ==
[2023-08-27 09:52] LABS: Basophils # 0.1 K/mm3 (0-0.2); Basophils % 1.4 % (0.1-2.0); Eosinophils # 0.1 K/mm3 (0.0-0.4); Eosinophils % 1.2 % (0.1-12.0); Hematocrit 39.6 % (37.0-47.0); Hemoglobin 12.8 g/dL (12.2-16.2); Lymphocytes # 2.4 K/mm3 (0.7-4.5); Lymphocytes % 32.3 % (10-50); Mean Corpuscular HGB Conc 32.2 g/dL (31.8-35.4); Mean Corpuscular Hemoglobin 31.9 pg (27.0-31.2); Mean Corpuscular Volume 98.9 fl (81-99); Mean Platelet Volume 8.3 fl (7.4-10.4); Monocytes # 0.5 K/mm3 (0.1-1.0); Monocytes % 6.2 % (1.7-9.3); Neutrophils # 4.3 K/mm3 (1.8-7.8); Neutrophils % 58.8 % (37.0-80.0); Platelet Count 309 K/mm3 (142-424); Red Cell Distribution Width 14.7 % (11.5-17.5); White Blood Count 7.3 K/mm3 (4.8-10.8)
[2023-08-27 10:13] LABS: Chloride 102 mmol/L (98-107); Sodium 142 mmol/L (136-145)
[2023-08-27 10:14] LABS: Potassium 4.1 mmoL/L (3.5-5.1)
[2023-08-27 10:16] LABS: Blood Urea Nitrogen 20 mg/dl (7-17); Estimated Glomerular Filt Rate 63 ml/min (>60); GFR (African American) 77 ML/MIN (>60)
[2023-08-27 10:17] LABS: Anion Gap 13.1 mEq/L (5-15); Calcium 9.9 mg/dl (8.4-10.2); Carbon Dioxide 31 mmol/L (22.0-30.0); Glucose 134 mg/dl (74-100)
== END 2023-08-27 23:59 | disposition home or self-care (01) ==
LOC: LAB 09:24
PROVIDERS: PCP Family Medicine; Visit Provider Internal Medicine
DX: I25.10 Atherosclerotic heart disease of native coronary artery without angina pectoris (principal)
CPT/HCPCS: 36415; 80048; 85025

== ENCOUNTER 2023-09-07 12:55 | Outpatient (CLI) | payer MEDICARE, SELFPAY ==
--- NOTE | 2023-09-07 13:00 | US_ITS ---
FINAL REPORT CLINICAL HISTORY: discoloration of BLE, HTN, HLD, DM, CAD. FINDINGS: LOWER EXTREMITY SEGMENTAL PRESSURE MEASUREMENTS FINDINGS: Pressure indices are as follows: RIGHT LOWER EXTREMITY: Upper thigh: 126 Calf: 123 Ankle, posterior tibial artery: 114 Ankle, dorsalis pedis: 117 Toe: 97 Comments: The ankle-brachial index is 0.9, suggestive of mild infrapopliteal popliteal peripheral vascular disease. LEFT LOWER EXTREMITY: Upper thigh: 123 Calf: 129 Ankle, posterior tibial artery: 99 Ankle, dorsalis pedis: 104 Toe: 78 Comments: The ankle-brachial index is 0.8, suggestive of mild infrapopliteal peripheral vascular disease. IMPRESSION: Results are suggestive of mild infrapopliteal peripheral vascular disease. Reviewed, Interpreted and Dictated by Sukhjinder Campos MD Transcribed by Reba Silva Authenticated and [facility]
== END 2023-09-07 23:59 | disposition home or self-care (01) ==
LOC: RT 12:58
PROVIDERS: PCP Family Medicine; Visit Provider Nurse Practitioner Family
DX: I73.9 Peripheral vascular disease, unspecified (principal); L81.9 Disorder of pigmentation, unspecified; I11.9 Hypertensive heart disease without heart failure; I25.119 Atherosclerotic heart disease of native coronary artery with unspecified angina pectoris; E78.2 Mixed hyperlipidemia; Z87.891 Personal history of nicotine dependence; Z95.1 Presence of aortocoronary bypass graft; Z95.5 Presence of coronary angioplasty implant and graft
CPT/HCPCS: 93923

== ENCOUNTER 2023-10-16 07:48 | Day surgery (SDC) | payer MEDICARE, SELFPAY ==
[2023-10-16] VITALS (13 sets, daily range): BP systolic 117–143; BP diastolic 49–81; PULSE 70–78; RESP 16–18; TEMP 36.6; O2SAT 90–99; BMI 31.4
--- NOTE | 2023-10-16 07:06 | IR_ITS ---
APPROVED REPORT Patient Location: Outpatient Caregiver Services Home: MICKEY Macias RT (R) PROCEDURES Catheter placement in the right external iliac artery Right external iliac artery antegrade angiogram with unilateral runoff to the right foot Catheter placed in the left external iliac artery Left external iliac artery antegrade angiogram with unilateral runoff to the left foot Catheter placed into the distal abdominal aorta Distal abdominal aortography INDICATION Abnormal MARIOLA, Suspected peripheral artery disease Informed consent was obtained prior to the procedure. COMPLICATIONS NONE Estimated Blood Loss: LESS THAN 10 ML TECHNIQUE One percent lidocaine used to anesthetize the right anterior aspect of the wrist. The right radial artery was accessed via the Seldinger technique. A 6 Croatian sheath was placed in the right radial artery. 2.5 mg of Verapamil, 800 mcg of nitroglycerin, 1mg Lidocaine and 5000 U Heparin were given through the arterial sheath. The PV multi curve was advanced under fluoroscopic guidance into the left external iliac artery left external iliac artery antegrade angiography was performed with unilateral runoff to the left foot. This procedure was repeated in the right external iliac artery with antegrade angiography. The catheter was then pulled back to the distal abdominal aorta were distal abdominal aortography was performed. The catheter and sheath were removed and hemostasis achieved using TR banding patient was transferred to the postop putting in stable addition ANGIOGRAPHIC RESULTS Wide patency of the distal abdominal aorta bilateral common internal and external iliac arteries and bilateral common femoral arteries Bilateral SFA and popliteal arteries are widely patent There is slow flow below the knee however all 3 vessels appear patent IMPRESSION Patent lower extremity vascular tree as described above PLAN 1. Treatment of microvascular disease based on slow flow below the knee 2. Medical management Electronically signed by : Nilton Lange MD 10/16/2023 13:10:09
[2023-10-16 08:38] LABS: Basophils # 0.1 K/mm3 (0-0.2); Basophils % 2.8 % (0.1-2.0); Eosinophils # 0.1 K/mm3 (0.0-0.4); Eosinophils % 1.7 % (0.1-12.0); Hematocrit 43.4 % (37.0-47.0); Hemoglobin 14.1 g/dL (12.2-16.2); Lymphocytes # 2.3 K/mm3 (0.7-4.5); Lymphocytes % 44.5 % (10-50); Mean Corpuscular HGB Conc 32.5 g/dL (31.8-35.4); Mean Corpuscular Hemoglobin 32.3 pg (27.0-31.2); Mean Corpuscular Volume 99.3 fl (81-99); Mean Platelet Volume 8.5 fl (7.4-10.4); Monocytes # 0.4 K/mm3 (0.1-1.0); Monocytes % 7.5 % (1.7-9.3); Neutrophils # 2.2 K/mm3 (1.8-7.8); Neutrophils % 43.5 % (37.0-80.0); Platelet Count 224 K/mm3 (142-424); Red Blood Count 4.37 M/mm3 (4.20-5.40); Red Cell Distribution Width 14.5 % (11.5-17.5); White Blood Count 5.1 K/mm3 (4.8-10.8)
[2023-10-16 08:42] LABS: Anion Gap 16.1 mEq/L (5-15); Blood Urea Nitrogen 17 mg/dl (7-17); Calcium 10.2 mg/dl (8.4-10.2); Carbon Dioxide 28 mmol/L (22.0-30.0); Chloride 104 mmol/L (98-107); Creatinine Clearance Estimated 79 mL/min (50-200); Estimated Glomerular Filt Rate 56 ml/min (>60); GFR (African American) 68 ML/MIN (>60); Glucose 109 mg/dl (74-100); Potassium 4.1 mmoL/L (3.5-5.1); Sodium 144 mmol/L (136-145)
[2023-10-16] MEDS: LIDOCAINE 1% 10ML MDV 20 ML IJ (09:23)
[2023-10-16] MEDS: HEPARIN 1,000 UNITS/500ML NS (CATH LAB) 3000 UNIT IV (09:23)
[2023-10-16] MEDS: HEPARIN 1,000 UNITS/ML 10ML VIAL (CATH LAB) 10000 UNIT IV (09:23)
[2023-10-16] MEDS: diphenhydrAMINE 50MG/ML VIAL 50 MG IV (09:23)
[2023-10-16] MEDS: 0.9 % SODIUM CHLORIDE 500 ML 25 ML IV (09:23)
[2023-10-16] MEDS: NITROGLYCERIN 800MCG/8ML SYR (CATH LAB) 800 MCG IA (09:24)
[2023-10-16] MEDS: VERAPAMIL 2.5MG/ML 2ML VIAL 2.5 MG IV (09:24)
[2023-10-16] MEDS: FENTANYL 100MCG/2ML VIAL 50 MCG IV (09:57)
[2023-10-16] MEDS: MIDAZOLAM HCL 1MG/1ML 5ML VIAL 1 MG IV (09:57)
[2023-10-16] MEDS: IOPAMIDOL-250 (51%) 100ML BOT 154 ML IV (13:35)
== END 2023-10-16 13:06 | disposition home or self-care (01) ==
PROVIDERS: PCP Family Medicine; Visit Provider Internal Medicine
DX: I70.213 Atherosclerosis of native arteries of extremities with intermittent claudication, bilateral legs (principal); I10 Essential (primary) hypertension; E78.5 Hyperlipidemia, unspecified; Z79.899 Other long term (current) drug therapy; Z79.4 Long term (current) use of insulin; Z79.01 Long term (current) use of anticoagulants; J44.9 Chronic obstructive pulmonary disease, unspecified; E11.9 Type 2 diabetes mellitus without complications; I25.10 Atherosclerotic heart disease of native coronary artery without angina pectoris; Z87.891 Personal history of nicotine dependence; Z95.1 Presence of aortocoronary bypass graft; Z95.5 Presence of coronary angioplasty implant and graft
CPT/HCPCS: 36247; 75716; 80048; 85025; 99152; C1725; C1769; J1644; Q9966

== ENCOUNTER 2023-10-19 14:12 | Outpatient (CLI) | payer MEDICARE, SELFPAY ==
--- NOTE | 2023-10-19 14:13 | CA_ITS ---
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 FINDINGS: There is no evidence of right radial artery thrombosis or pseudoaneurysm. IMPRESSION: No evidence of right radial artery thrombosis or pseudoaneurysm. Reviewed, Interpreted and Dictated by Wilton Jacobsen III, MD Transcribed by Bhargavi Goins Authenticated and [facility]
== END 2023-10-19 23:59 | disposition home or self-care (01) ==
LOC: RT 14:13
PROVIDERS: PCP Family Medicine; Visit Provider Nurse Practitioner Family
DX: I77.0 Arteriovenous fistula, acquired (principal)
CPT/HCPCS: 93931

== ENCOUNTER 2023-11-06 11:00 | Outpatient (RCR) | payer MEDICARE, SELFPAY ==
--- NOTE | 2023-09-07 16:29 | HMH.OTOPEV ---
OT Inpatient Evaluation Rehab OT Outpatient Eval Start: 09/07/23 16:12 Freq: Status: Active Protocol: Document 09/07/23 16:12 LUISALDO (Rec: 09/07/23 16:24 JANET [id number]) E-signed By Yamini Pompa, OT Outpatient Therapy Subjective History Subjective History 63 year old female referred to skilled OP OT services for R shld scope; debridement and SAD on 08/18/2023. Patient is currently 3 weeks out from initial surgery. New diagnosis of cancer in past 12 No months? Chief Complaint Pain,Weakness Symptom Type Ache Symptoms Relieved By Nothing Symptoms Aggravated By Physical Activity Prior Functional Limitations None Current Functional Limitations Reaching,Lifting,Recreation Activity Symptom Description Constant and Continuous Level of pain today (0-10) 1 Pain scale - at its best (0-10) 1 Pain scale - at its worst (0-10) 5 Shoulder/Elbow Eval Shoulder Objective Measurements Shoulder ROM Right Shoulder Abduction Active Range of 60 Motion (degrees) Shoulder Flexion Active Range of Motion 80 (degrees) Query Text: Shoulder External Rotation Active Range 0 of Motion (degrees) Shoulder Internal Rotation Active Range 0 of Motion (degrees) Shoulder MMT Shoulder Abduction Strength Grade 2+ Poor+ Shoulder Extension Strength Grade 2+ Poor+ Shoulder Flexion Strength Grade 2+ Poor+ Shoulder Horizontal Abduction Strength 2+ Poor+ Grade Shoulder Horizontal Adduction Strength 2+ Poor+ Grade Infraspinatus/Teres Minor Strength Grade 2+ Poor+ Shoulder External Rotation Strength 2+ Poor+ Grade Shoulder Internal Rotation Strength 2+ Poor+ Grade Elbow Objective Measurements Wrist/Hand Eval Bottom Cager/Pinch Strength Right Bottom Cager Strength Measurement (lbs) 20 Left Bottom Cager Strength Measurement (lbs) 40 QuickDASH Activities Please rate your ability to do the following activities in the last week by selecting the number below the appropriate response. 1. Open a tight or new jar. Severe difficulty 2. Do heavy business continuity planner (e.g., wash Unable lo[place], floors). 3. Carry a shopping bag or briefcase. Severe difficulty 4. Wash your back. Unable 5. Use a knife to cut food. Severe difficulty 6. Recreational activities in which you Unable take some force or impact through your arm, shoulder, or hand (e.g., golf, hammering, tennis, etc.). 7. During the past week, to what extent Quite a bit has your arm, shoulder or hand problem interfered with your normal social activities with family, friends, neighbors or groups? 8. During the past week, were you Unable limited in your work or other regular daily activites as a result of your arm, shoulder or hand problem? 9. Arm, shoulder or hand pain. Moderate 10. Tingling (pins and needles) in your Mild arm, shoulder or hand. 11. During the past week, how much Mild difficulty difficulty have you had sleeping because of the pain in your arm, shoulder or hand? Quick DASH 43 OT Outpatient Assessment Impairments Problems/Impairments Impaired Range of Motion, Impaired Strength,Subjective C /O Pain Prognosis Rehab Potential Good Clinical Impression Consistent with Diagnosis Yes Short Term Goals Number of Weeks 2 Increase Range of Motion Yes: Improve AROM of R UE shld flex: 110 abd: 100 Increase Strength Yes: Improve R UE hand digital media analyst: 25# Decrease Subjective C/O Pain Yes: 4/10 pain at worst Patient to be Ind w/ HEP Yes: AAROM Patient to be Ind w/ Advanced HEP Yes: Strengthening Improve Quick Dash Score Yes: 40 Tool Rental Technician Goals Increase Range of Motion Yes: Improve AROM of R UE shld flex: 110 abd: 100; er: 30; ir: 30 Increase Strength Yes: Improve R UE hand digital media analyst: 30# Decrease Subjective C/O Pain Yes: 3/10 pain at worst Patient to be Ind w/ HEP Yes: AROM Patient to be Ind w/ Advanced HEP Yes: Advance strengthening Improve Quick Dash Score Yes: 35 Outpatient Therapy Plan of Care Treatment Plan May Include Therapeutic Exercise Including Home Yes Exercise Program Manual Therapy Techniques Yes Therapeutic Activities to Return to Yes Previous Functional/Work Level Thermal Modalities Yes Electrical Stimulation Yes Ultrasound/Phonophoresis Yes Iontophoresis Yes Eval/Re-Eval Yes Aquatic Therapy Yes Frequency Times per week 2x/wk Duration Number of Weeks 4 weeks Addendums This patient is a candidate for social No or vocational rehab? Patient/Guardian verbally acknowledges Yes understanding of treatment program and consents to further treatment? Patient/Guardian verbally acknowledges Yes understanding of diagnosis, prognosis and goals for treatment? Eval Complexity OT Charge 61452 - Low Complexity PHYSICIAN CERTIFICATION: I certify the specified therapy services for Bibi Aguila are required, authorized, and reviewed every 30 days.
== END 2023-11-06 11:05 | disposition home or self-care (01) ==
LOC: OT 11:00
PROVIDERS: Visit Provider Orthopaedic Surgery
DX: M25.511 Pain in right shoulder (principal)
CPT/HCPCS: 97010; 97014; 97110; 97140; 97164; 97165; G0283

== ENCOUNTER 2023-12-24 14:50 | Outpatient (CLI) | payer MEDICARE, SELFPAY ==
[2023-12-24] MEDS: ALBUTEROL 0.083% 2.5 MG/3 ML NEB IH (15:43)
== END 2023-12-24 23:59 | disposition home or self-care (01) ==
LOC: RT 14:50
PROVIDERS: PCP Family Medicine; Visit Provider Internal Medicine Pulmonary Disease
DX: R06.09 Other forms of dyspnea (principal)
CPT/HCPCS: 94060; 94618; 94726; 94729; J7613

== ENCOUNTER 2024-01-12 11:49 | Outpatient (CLI) | payer MEDICARE, SELFPAY | END 2024-01-12 23:59 | disposition home or self-care (01) | LOC: RT 11:50 | PROVIDERS: PCP Family Medicine; Visit Provider Internal Medicine Pulmonary Disease | DX: G47.33 Obstructive sleep apnea (adult) (pediatric) (principal) | CPT/HCPCS: 94762 ==

== ENCOUNTER 2024-02-11 14:15 | Outpatient (CLI) | payer MEDICARE, SELFPAY ==
--- NOTE | 2024-02-11 | CA_ITS ---
APPROVED REPORT EXAM: Limited 2D Echocardiogram with contrast Trucksmith: KIRAN Holland, RVS Ht: 5 ft 5 in Wt: 186lbs BSA: 1.92 BP: 112/76 mmHg Indications: CVA, CAD, COPD, HTN, HLD Echo Enhancing Agent Indication: Rule out Shunt Agent(s) / Amount(s) Used: Agitated Saline 30 cc Comments: Negative for right to left shunt 2D Dimensions IVSd 0.00 cm LVEF (Visual) 61.10 % PWd 0.00 cm EF AP4 53.90 % LVDd 4.81 cm GL Strain -18.7 % LVDs 3.20 cm Left Atrium 3.96 cm M-Mode Dimensions LVDd 4.81 cm (3.5-5.7) Ao Diam 3.09 cm (2.0-3.7) LVDs 3.20 cm (3.5-5.7) IVSd 0.00 cm (0.6-1.1) PWd 0.00 cm (0.6-1.1) EPSs 0.57 cm FS 32.80% Tricuspid Valve TR P. Velocity 249.00 cm/s RAP Estimate 10.00 mmHg RVSP 34.80 mmHg Other Information Study Quality: Fair Conclusion This is a limited TTE to evaluate for interatrial shunt in the setting of prior stroke. Limited windows were obtained. Grossly, there is normal biventricular systolic function present. There is no Doppler evidence of interatrial shunt. Agitated saline administration at rest or with sniff and Valsalva maneuvers demonstrates no evidence of interatrial shunt. Electronically signed by : Samira Amanda MD 02/12/2024 17:27:47
--- NOTE | 2024-02-11 14:56 | CT_ITS ---
FINAL REPORT TECHNIQUE: Axial imaging of the chest was obtained without contrast. Reformatted images were also obtained and reviewed.supine inspiration, supine expiration and prone inspiration sequences were also performed per high-resolution technique. This study was performed with techniques to keep radiation doses as low as reasonably achievable, (ALARA). Individualized dose reduction technique using automated exposure control or adjustment of mA and/or kV according to the patient's size were employed. CLINICAL HISTORY: SOA, HIGH RES CHEST CT X 3 SUPINE INSPIRATION SUPINE EXPIRATION PRONE INSPIRATION COMPARISON: 08/18/2023 FINDINGS: There is streak artifact from median sternotomy wires. Dense coronary artery calcification is noted. There are calcified right hilar lymph nodes. There is no axillary adenopathy. There is no hilar or mediastinal mass or adenopathy. Heart size is normal. There is no pericardial or pleural effusion. Limited images of the upper abdomen are unremarkable. There is a stable nodule at the periphery of the left lung apex measuring 5 mm. On supine expiration there are minimal changes of centrilobular emphysema. Prone inspiration demonstrates no significant fibrosis or honeycombing. IMPRESSION: Minimal centrilobular emphysema. Nodule at the periphery of the left lung apex measuring 5 mm. Coronary artery calcifications. Reviewed, Interpreted and Dictated by Godfrey Cuadra MD Transcribed by Sofya Coleman Authenticated and [facility]
== END 2024-02-11 23:59 | disposition home or self-care (01) ==
LOC: RT 14:16
PROVIDERS: PCP Family Medicine; Visit Provider Internal Medicine Pulmonary Disease
DX: I25.10 Atherosclerotic heart disease of native coronary artery without angina pectoris (principal); J84.9 Interstitial pulmonary disease, unspecified; J96.11 Chronic respiratory failure with hypoxia
CPT/HCPCS: 71250; 93308

== ENCOUNTER 2024-06-09 12:46 | Outpatient (CLI) | payer MEDICARE, SELFPAY ==
[2024-06-09 13:32] LABS: Chloride 100 mmol/L (98-107); Sodium 139 mmol/L (136-145)
[2024-06-09 13:33] LABS: Potassium 4.7 mmoL/L (3.5-5.1)
[2024-06-09 13:35] LABS: Anion Gap 20.7 mEq/L (5-15); Blood Urea Nitrogen 26 mg/dl (7-17); Carbon Dioxide 23 mmol/L (22.0-30.0); Estimated Glomerular Filt Rate 50 ml/min (>60); GFR (African American) 61 ML/MIN (>60)
[2024-06-09 13:36] LABS: Calcium 10.3 mg/dl (8.4-10.2); Glucose 273 mg/dl (74-100)
[2024-06-09 14:45] LABS: Hemoglobin A1C 8.5 % (4.0-6.0)
[2024-06-09 14:50] LABS: Microalbumin/Creatinine Ratio 46.6
[2024-06-09 14:55] LABS: Creatinine,Urine Random 53 mg/dL (Not Estab.)
== END 2024-06-09 23:59 | disposition home or self-care (01) ==
LOC: LAB 12:47
PROVIDERS: PCP Family Medicine; Visit Provider Family Medicine
DX: E11.42 Type 2 diabetes mellitus with diabetic polyneuropathy (principal); Z79.84 Long term (current) use of oral hypoglycemic drugs; Z79.85 Long-term (current) use of injectable non-insulin antidiabetic drugs; Z79.4 Long term (current) use of insulin
CPT/HCPCS: 36415; 80048; 82043; 82570; 83036

== ENCOUNTER 2024-06-10 14:31 | Outpatient (CLI) | payer MEDICARE, SELFPAY ==
--- NOTE | 2024-06-10 14:34 | MM_ITS ---
PROCEDURE INFORMATION: Exam: MG Bilateral Screening 3D Mammography Exam date and time: 06/10/2024 2:54 PM Age: 63 years old Clinical indication: Screening examination TECHNIQUE: Imaging protocol: Bilateral Screening tomosynthesis and 2D mammography including computer-aided detection (CAD) when performed. COMPARISON: 1. MG MM DIG SCREENING MAMM BI W/CAD 08/27/2022 7:46 AM 2. MG MM DIG SCREENING MAMM BI W/CAD 06/25/2021 8:18 AM FINDINGS: MAMMOGRAPHY: Breast composition: There are scattered areas of fibroglandular density. Mass: No suspicious masses. Architectural distortion: None. Calcifications: No suspicious calcifications. Asymmetric density: None. Skin thickening: None. Axillary adenopathy: None. IMPRESSION: No mammographic evidence of malignancy. Annual screening is recommended unless otherwise clinically indicated. ASSESSMENT: BI-RADS Category 1: Negative.
== END 2024-06-10 23:59 | disposition home or self-care (01) ==
LOC: RAD 14:31
PROVIDERS: PCP Family Medicine; Visit Provider Family Medicine
DX: Z12.31 Encounter for screening mammogram for malignant neoplasm of breast (principal)
CPT/HCPCS: 77063; 77067

== ENCOUNTER 2024-08-18 14:48 | Outpatient (CLI) | payer MEDICARE, SELFPAY ==
--- NOTE | 2024-08-18 14:48 | CT_ITS ---
FINAL REPORT CLINICAL HISTORY: lung cancer screening former smoker quit 6 years ago. 2.5 ppd x 25 years. COMPARISON: CT of the chest 02/11/2024 FINDINGS: CT CHEST LOW DOSE SCREENING 64-year-old female, quit smoking 6 years ago, 14-korm-lybz history HISTORY: Screening exam for lung cancer. DOSE: CTDI vol: 2.90 mGy, DLP: Nine 6.38 mGy*cm TECHNIQUE: Axial CT without IV contrast administration using low dose protocol. This study was performed with techniques to keep radiation doses as low as reasonably achievable, (ALARA). Individualized dose reduction techniques using automated exposure control or adjustment of mA and/or kV according to the patient's size were employed. No acute lung disease is present. No pulmonary lesions are seen suspicious for neoplasm. Multiple scattered calcified granulomas are identified. There are underlying changes of emphysema again noted. No pleural or pericardial effusion is seen. No adenopathy or mass lesion is present. IMPRESSION: No evidence of lung cancer LUNG RADS CATEGORY 1 RECOMMENDATION: 12 month LDCT follow up Reviewed, Interpreted and Dictated by Sukhjinder Campos MD Transcribed by Reba Silva Authenticated and [facility]
== END 2024-08-18 23:59 | disposition home or self-care (01) ==
LOC: RAD 14:48
PROVIDERS: PCP Family Medicine; Visit Provider Internal Medicine Pulmonary Disease
DX: F17.210 Nicotine dependence, cigarettes, uncomplicated (principal)
CPT/HCPCS: 71271

== ENCOUNTER 2024-09-07 12:16 | Inpatient (IN) | payer MEDICARE, SELFPAY ==
[2024-09-07] VITALS (12 sets, daily range): BP systolic 124–179; BP diastolic 75–97; PULSE 77–90; RESP 16–24; TEMP 36.6–36.7; O2SAT 83–96; BMI 33.3; BMI 31.4
--- NOTE | 2024-09-07 12:19 | ECG_ITS ---
APPROVED REPORT Exam: Resting ECG HR:83 bpm ECG Measurements Heart Rate 83 AXES [place] 156 P -31 QRSd 105 QRS -7 QT 347 T 155 QTc 387 Conclusion Sinus rhythm Old Q waves in septal leads ST depressions and T wave inversions lateral and inferiorly Electronically signed by : LINA CHRISTIANSON, 09/08/2024 11:08:17
--- NOTE | 2024-09-07 12:26 | XR_ITS ---
FINAL REPORT TECHNIQUE: Chest PA & Lateral CLINICAL HISTORY: Shortness of breath, vapes COMPARISON: 08/21/2023 FINDINGS: 2 views of the chest were performed. There is mild cardiomegaly. Sternotomy wires are noted. There are new mild mixed interstitial and airspace opacities in both lower lobes which may be due to acute diffuse pneumonia or edema. There are no pleural effusions. There is no pneumothorax. The bony thorax appears intact. IMPRESSION: New mixed interstitial and airspace opacities both lower lobes may be due to acute diffuse pneumonia or edema. Correlate with clinical presentation. Reviewed, Interpreted and Dictated by Godfrey Cuadra MD Transcribed by Tamy Hall Authenticated and . [facility]
[2024-09-07 12:34] LABS: Basophils # 0.1 K/mm3 (0-0.2); Basophils % 0.6 % (0.1-2.0); Eosinophils # 0.2 Kmm3 (0.0-0.4); Eosinophils % 1.5 % (0.1-12.0); Hematocrit 42.5 % (37.0-47.0); Hemoglobin 13.8 g/dL (12.2-16.2); Lymphocytes # 4.6 K/mm3 (0.7-4.5); Lymphocytes % 45.3 % (10-50); Mean Corpuscular HGB Conc 32.5 g/dL (31.8-35.4); Mean Corpuscular Hemoglobin 30.9 pg (27.0-31.2); Mean Corpuscular Volume 95.1 fl (81-99); Monocytes # 0.9 K/mm3 (0.1-1.0); Monocytes % 8.5 % (1.7-9.3); Neutrophils # 4.4 K/mm3 (1.8-7.8); Neutrophils % 43.9 % (37.0-80.0); Nucleated Red Blood Cells # 0 10^3/uL; Nucleated Red Blood Cells % 0 %; Platelet Count 281 K/mm3 (142-424); Red Blood Count 4.47 M/mm3 (4.20-5.40); Red Cell Distribution Width 14.6 % (11.5-17.5); Red Cell Distribution Width-SD 50.3 fL; White Blood Count 10.1 K/mm3 (4.8-10.8)
--- NOTE | 2024-09-07 12:39 | PC.NURSE ---
This RN rounds with patient to titrate oxygen down. Pt noted to have nasal cannula off as well as BP cuff. When O2 sensor was reapplied oxygen saturation noted to be 76%. Nasal cannula was reapplied. Pt encouraged to take slow breaths. Oxygen saturation returns to 93%
[2024-09-07 12:41] LABS: Chloride 106 mmol/L (98-107); Potassium 4.6 mmoL/L (3.5-5.1); Sodium 138 mmol/L (136-145)
[2024-09-07 12:44] LABS: Alanine Aminotransferase 32 U/L (12-78); Albumin/Globulin Ratio 1.7 (1.1-1.8); Alkaline Phosphatase 85 U/L (38-126); Anion Gap 17.6 mEq/L (5-15); Aspartate Amino Transferase 45 U/L (14-36); Bilirubin,Total 0.5 mg/dl (0.2-1.3); Blood Urea Nitrogen 21 mg/dl (7-17); Calcium 9.9 mg/dl (8.4-10.2); Carbon Dioxide 19 mmol/L (22.0-30.0); Creatinine Clearance Estimated 69 mL/min (50-200); Estimated Glomerular Filt Rate 45 ml/min (>60); GFR (African American) 55 ML/MIN (>60); Globulin 2.9 g/dL (1.3-3.2); Glucose 343 mg/dl (74-100); Total Protein,Serum 7.9 g/dl (6.3-8.2)
--- NOTE | 2024-09-07 12:50 | [facility].EDCP ---
Discharge Plan Disposition Patient Disposition: Admitted Prescriptions Prescriptions: No Action cholecalciferol (vitamin D3) 1,000 unit capsule 1,000 unit PO DAILY sennosides [Senna Lax] 8.6 mg tablet 8.6 mg PO DAILY PRN (Reason: Constipation) insulin asp prt-insulin aspart 100 unit/mL (70-30) cartridge 60 unit SQ BID metformin 1,000 mg tablet 1,000 mg PO QPMWITHMEAL Rx Instructions: 500 in AM and 500 at HS Ozempic 2 mg/dose (8 mg/3 mL) pen injector SQ nitroglycerin 0.6 mg tablet, sublingual 0.6 mg SUBLINGUAL Q5M PRN (Reason: Chest Pain) [id number] acid [Centrum Complete] 18-400 mg-mcg tablet 1 tab PO QAM aspirin [Aspir-81] 81 mg tablet,delayed release (DR/EC) 81 mg PO DAILY metoclopramide HCl 10 mg tablet 10 mg PO BID black cohosh 200 mg capsule 540 mg PO DAILY vitamin E 400 unit tablet 450 mg PO DAILY gabapentin 800 mg tablet 800 mg PO TID dapagliflozin propanediol [Farxiga] 10 mg tablet 10 mg PO DAILY Qty: 90 1RF dapagliflozin propanediol [Farxiga] 10 mg tablet 0RF bisoprolol fumarate 5 mg tablet See Rx Instructions .ROUTE .COMPLEX Qty: 90 2RF Dose Instruction: Take 1 tablet by mouth once daily Rx Instructions: Take 1 tablet by mouth once daily spironolactone [Aldactone] 50 mg Tablet 50 mg PO DAILY Qty: 30 3RF glimepiride 4 mg tablet 8 mg PO DAILY atorvastatin 80 mg tablet 80 mg PO HS Patient Comments: TAKE 1 TABLET BY MOUTH ONCE DAILY citalopram 40 mg tablet 40 mg PO DAILY Patient Comments: TAKE 1 TABLET BY MOUTH ONCE DAILY gemfibrozil 600 mg tablet 600 mg PO BID Patient Comments: TAKE 1 TABLET BY MOUTH TWICE DAILY lisinopril 10 mg tablet 10 mg PO BID Patient Comments: TAKE 1 TABLET BY MOUTH TWICE DAILY clopidogrel [Plavix] 75 mg tablet 75 mg PO DAILY hydrochlorothiazide 25 mg tablet 25 mg PO DAILY omega-3 fatty acids 1,000 mg capsule 1,000 mg PO QDAY Referrals Follow up/Referrals: Benja Catalan MD [Primary Care Provider] - See instructions Clinical Impressions Clinical Impression: New onset of congestive heart failure, Acute hypoxemic respiratory failure, CHF exacerbation Print Language Print Language: Italian Discharge ED Provider: Beka Mars HPI <Jorge Perkins ([facility]), OFFICE SUPPORT CLERK - Last Filed: 09/07/24 14:09> General Chief Complaint: Chest Pain Stated Complaint: Chest Pain Time Seen by Provider: 09/07/24 12:25 Mode of Arrival: Ambulatory Source of Information: Patient Description of Symptoms (Recalled from ER Triage Doc. by RN): pt to the ED with intermitten epigastric pain x 3 weeks that worsens after eating. pt reports she was diagnosed with a hiatal hernia years ago and hasnt followed up on it, she also reports she usually gets a GI cocktail with this pain and it gives her relief. pt is found to be 83% on room air on assessment. she reports she wears 2L oxygen at night and is supposed to wear it all the time but she doesnt like to due to the weight of her machine. History of Present Illness HPI narrative: 64-year-old female presents for complaints of intermediate epigastric pain for about 3 weeks worsens after she eats, patient states she had a cheeseburger around 1030 this morning and the pain started shortly after that. Patient states she has a hernia that was diagnosed years ago but has not seen anybody for it. She said couple years ago she had this pain and was given a GI cocktail and it improved. Patient states she developed increased shortness of breath today. Patient states she wears O2 at home and was told she needs to wear it when she is out but states that tanks are too heavy. Patient states she was in the hospital with her and due to the chest pain with the shortness of breath she wanted to be checked out. Related Data Home Medications ?Medication ?Instructions ?Recorded ?Confirmed aspirin 81 mg tablet,delayed 81 mg PO DAILY 05/22/17 05/26/24 release (Aspir-) multivitamin-ferrous 1 tab PO QAM 05/22/17 05/26/24 fumarate-folic acid 18 mg-400 mcg tablet (Centrum Complete) nitroglycerin 0.6 mg sublingual 0.6 mg sublingual Q5M PRN Chest 05/22/17 05/26/24 tablet Pain cholecalciferol (vitamin D3) 25 1,000 unit PO DAILY 09/22/17 05/26/24 mcg (1,000 unit) capsule sennosides 8.6 mg tablet (Senna 8.6 mg PO DAILY PRN Constipation 09/22/17 05/26/24 Lax) black cohosh 200 mg capsule 540 mg PO DAILY 06/05/20 05/26/24 glimepiride 4 mg tablet 8 mg PO DAILY 06/05/20 05/26/24 insulin aspart prot-aspart 100 60 unit SQ BID 06/05/20 05/26/24 unit/mL (70-30) subcutaneous cartridge metoclopramide HCl 10 mg tablet 10 mg PO BID 06/05/20 05/26/24 vitamin E 400 unit tablet 450 mg PO DAILY 06/05/20 05/26/24 gabapentin 800 mg tablet 800 mg PO TID 07/08/21 05/26/24 metformin 1,000 mg tablet 1,000 mg PO QPMWITHMEAL 07/29/22 05/26/24 atorvastatin 80 mg tablet 80 mg PO HS 08/18/23 05/26/24 citalopram 40 mg tablet 40 mg PO DAILY 08/18/23 05/26/24 clopidogrel 75 mg tablet (Plavix) 75 mg PO DAILY 08/18/23 05/26/24 gemfibrozil 600 mg tablet 600 mg PO BID 08/18/23 05/26/24 hydrochlorothiazide 25 mg tablet 25 mg PO DAILY 08/18/23 05/26/24 lisinopril 10 mg tablet 10 mg PO BID 08/18/23 05/26/24 omega-3 fatty acids 1,000 mg 1,000 mg PO QDAY 08/18/23 05/26/24 capsule semaglutide 2 mg/dose (8 mg/3 mL) mg SQ 10/19/23 05/26/24 subcutaneous pen injector (Ozempic) Previous Rx's ?Medication ?Instructions ?Recorded spironolactone 50 mg tablet 50 mg PO DAILY #30 tabs 07/30/22 (Aldactone) bisoprolol fumarate 5 mg tablet See Rx Instructions .Route 01/26/24 .COMPLEX #90 tabs dapagliflozin propanediol 10 mg 10 mg PO DAILY #90 tabs 05/26/24 tablet (Farxiga) Allergies Allergy/AdvReac Type Severity Reaction Status Date / Time No Known Allergies Allergy Verified 05/26/24 13:12 PFSH <Jorge Perkins ([facility]), OFFICE SUPPORT CLERK - Last Filed: 09/07/24 14:09> [facility] Disclaimer: The information contained in this section may have been updated after the patient was seen, as this information can be updated by other users. Medical History (Reviewed 09/07/24 @ 14:02 by Jorge Perkins ([facility]), OFFICE SUPPORT CLERK) Chronic respiratory failure with hypoxia JHON (obstructive sleep apnea) Right arm pain AV fistula Claudication Abnormal ankle brachial index (MARIOLA) Dyspnea on exertion History of smoking 30 or more pack years Pneumonia On mechanically assisted ventilation Sleep apnea History of stroke Typical angina Cerebrovascular accident COPD (chronic obstructive pulmonary disease) Tobacco dependence Diabetes mellitus HTN (hypertension) HLD (hyperlipidemia) CAD (coronary artery disease) Surgical History (Reviewed 09/07/24 @ 14:02 by Jorge [facility] OFFICE SUPPORT CLERK) History of open heart surgery History of coronary artery stent placement H/O hysterectomy with oophorectomy History of coronary artery bypass graft Family History (Reviewed 09/07/24 @ 14:02 by Jorge Perkins ([facility]), OFFICE SUPPORT CLERK) Heart disease Social History Smoking Status: Former smoker tobacco type: cigarettes packs per day: 1 second hand exposure: No alcohol intake: never substance use type: denies use current occupational status: disabled Travel in the last 8 weeks?: None household members: significant other housing: house current occupational exposures/hazards: No caffeine: Yes Have you lived/traveled outside [place] in past 30 days?: No Contact w/someone who lives/traveled outside US past 30 days?: No Exposure to someone with infectious disease in past 14 days?: No Do you have a fever (greater than 100.4 F or 38 C)?: No Have you tested positive for COVID-19?: No Exposed to someone with COVID-19 in past 14 days?: No Do you have a sore throat?: No Do you have a cough?: No Do you have any weakness?: No Do you have any diarrhea?: No Are you experiencing any unusual bleeding?: No Do you have any muscle aches/pain?: No Do you have any abdominal pain?: No Are you experiencing loss of taste or smell?: No Other Medical History Have you received the Flu Vaccine for this season: No Have you received the Pneumonia Vaccine: No <Jorge Perkins ([facility]), OFFICE SUPPORT CLERK - Last Filed: 09/07/24 14:09> ROS Obtained: Yes Systems reviewed as appropriate & no additional complaints except as documented Physical Exam <Jorge Perkins ([facility]), OFFICE SUPPORT CLERK - Last Filed: 09/07/24 14:09> General General appearance: alert and in no apparent distress Eye Eye exam: Present normal appearance and PERRL ENT ENT exam: Present normal exam Respiratory Respiratory exam: Present other Expanded Respiratory Exam Location: Left: rales and decreased breath sounds, Right: rales and decreased breath sounds, Upper: rales and decreased breath sounds and Lower: rales and decreased breath sounds Cardiovascular Cardiovascular exam: Present regular rate and normal rhythm Neurological Exam Neurological exam: Present alert Skin Skin exam: Present warm and intact HEART Score <Jorge Perkins ([facility]), OFFICE SUPPORT CLERK - Last Filed: 09/07/24 14:09> HEART Score HEART Score assessment performed?: Yes History (anamnesis): Moderately suspicious ECG: Non-specific disturbance Age: 45-65 years Risk factors: Atherosclerosis history Troponin: 1-3x normal limit HEART Score: 6 <Beka Mars MD - Last Filed: 09/07/24 14:45> HEART Score HEART Score: 6 Procedures <Beka Mars MD - Last Filed: 09/07/24 14:45> Limited Ultrasound Indication:: Limited cardiac ultrasound Indication: Chest pain, shortness of breath, PND and orthopnea Identified cardiac views: -Cardiac parasternal long axis -Cardiac parasternal short axis Findings: -Cardiac activity present -Gross wall motion normal, but depressed EF around 50 to 55% -Pericardial effusion absent -Right heart strain absent Impression: - Mildly decreased ejection fraction 50 to 55%, no other obvious abnormality Images were saved to permanent archive The study was technically adequate CPT: 75339 This study was performed by me, and I personally interpreted all images/videos. Based on my clinical judgement, these images were adequate and did not necessitate further imaging Critical Care <Jroge Perkins ([facility]), OFFICE SUPPORT CLERK - Last Filed: 09/07/24 14:09> Critical Care Time Critical Care Time: Yes Attestation: On 09/07/24, the high probability of a clinically significant, sudden or life threatening deterioration of the following system(s) required my full and direct attention, intervention and personal management. The time I documented below is in addition to time spent performing reported procedures but includes the following listed in this critical care notation. Total Time Total Critical Care Time: 30 Medical Decision Making <Jorge Perkins ([facility]), OFFICE SUPPORT CLERK - Last Filed: 09/07/24 14:09> Medical Records Medical records reviewed: Yes I reviewed the patient's medical records. Rigo Inquiry Pt receiving controlled substance: No Rigo was queried for this patient: No Vital Signs Vital Signs: 09/07/24 12:35 09/07/24 13:10 09/07/24 13:30 Temperature 97.8 F Temperature Source Oral Pulse Rate 82 79 Pulse Rate [Left Radial] 84 Respiratory Rate 17 24 18 Blood Pressure 160/78 H 153/93 H Blood Pressure [Right Arm] 134/84 Blood Pressure Mean [Right Arm] 100 Blood Pressure Source [Right Arm] Automatic Cuff Blood Pressure Position [Right Arm] Sitting 02 Sat by Pulse Oximetry 83 L 92 L 91 L Oxygen Delivery Method Room Air Nasal Cannula Nasal Cannula 09/07/24 14:01 Temperature Temperature Source Pulse Rate 87 Pulse Rate [Left Radial] Respiratory Rate 18 Blood Pressure 179/97 H Blood Pressure [Right Arm] Blood Pressure Mean [Right Arm] Blood Pressure Source [Right Arm] Blood Pressure Position [Right Arm] 02 Sat by Pulse Oximetry 93 L Oxygen Delivery Method Nasal Cannula Lab Data Lab results reviewed: Yes I reviewed the patient's lab results. Labs: Lab Results 09/07/24 12:26: WBC 10.1, RBC 4.47, Hgb 13.8, Hct 42.5, MCV 95.1, MCH 30.9, MCHC 32.5, RDW 14.6, Plt Count 281, MPV 11.0 H, Neut % (Auto) 43.9, Lymph % (Auto) 45.3, Archuleta % (Auto) 8.5, Eos % (Auto) 1.5, Baso % (Auto) 0.6, Neut # (Auto) 4.4, Lymph # (Auto) 4.6 H, Archuleta # (Auto) 0.9, Eos # (Auto) 0.2, Baso # (Auto) 0.1, D-Dimer 0.62 H, Sodium 138, Potassium 4.6, Chloride 106, Carbon Dioxide 19 L, Anion Gap 17.6 H, BUN 21 H, Creatinine 1.20 H, Estimated Creat Clear 69, Estimated GFR 45 L, Est GFR ( Amer) 55 L, Glucose 343 H, Calcium 9.9, Total Bilirubin 0.5, AST 45 H, ALT 32, Alkaline Phosphatase 85, Troponin I 0.19 H, Total Protein 7.9, Albumin 5.0, Globulin 2.9, Albumin/Globulin Ratio 1.7 09/07/24 12:49: NT-Pro-B Natriuret Pep 1220 H 09/07/24 12:50: VBG pH 7.21 L, VBG pCO2 48.9, VBG pO2 37.3, VBG HCO3 18.9 L, VBG Total CO2 20.4 L, VBG O2 Saturation 62.3, VBG Base Excess -9.0 L, VBG Lactic Acid 3.3 H 09/07/24 12:26 09/07/24 12:26 Response Orders (Tests/Meds): ED MEDICATIONS Discontinued Medications Generic Name Dose Route Start Last Admin Trade Name Sanchoq PRN Reason Stop Dose Admin Aspirin 324 mg 09/07/24 14:00 09/07/24 14:08 Aspirin 81mg Chewable Tablet PO 09/07/24 14:01 324 mg ONCE ONE Administration Furosemide 60 mg 09/07/24 13:48 09/07/24 13:53 Furosemide 40mg/4ml Vial IV 09/07/24 13:49 60 mg ONCE ONE Administration Nitroglycerin 1 gm 09/07/24 13:59 09/07/24 14:09 Nitroglycerin 1 Gm Ointment TD 09/07/24 14:00 1 gm ONCE ONE Administration ORDERS Category Date Time Status Chest XR 2 view (NOT portable) [XR chest 2V] Stat Exams 09/07/24 12:26 Completed POCUS Point of Care (ER Only) Stat Exams 09/07/24 13:59 Completed BNP [NT Pro Brain Natriuretic Pep.] Stat Lab 09/07/24 12:49 Completed CBC w/Auto Diff [Complete Blood Count Auto Diff] Stat Lab 09/07/24 12:26 Completed CMP [Comprehensive Metabolic Panel] Stat Lab 09/07/24 12:26 Completed D-Dimer Stat Lab 09/07/24 12:26 Completed Lactate Venous Stat Lab 09/07/24 12:51 Ordered Trop I [Troponin I] Stat Lab 09/07/24 12:26 Completed Troponin I Q3H Lab 09/07/24 15:30 Ordered Troponin I Q3H Lab 09/07/24 18:30 Ordered Venous Blood Gas Stat RT 09/07/24 12:50 Completed MDM Narrative Medical Decision Narrative: In summary patient is a 64-year-old female who presents to the emergency department for evaluation of shortness of breath, chest pain, and abdominal pain for 3 weeks that comes and goes but increase shortness of breath started today.. Patient is hemodynamically stable upon arrival, afebrile. Lungs positive for crackles with low O2 sat. Differential diagnosis includes CHF, pneumonia, SD,. Initial workup will be conducted with labs, chest x-ray. Initial inventions include O2, placed on BiPAP,. Initial workup reviewed by in labs-acute kidney injury, slightly elevated troponin and D-dimer, chest x-ray positive for congestive heart failure. Upon repeat evaluation patient's placed on CPAP due to fluid overload and low O2. Given this spoke with hospitalist regarding admission. <Beka Mars MD - Last Filed: 09/07/24 14:45> Vital Signs Vital Signs: 09/07/24 12:35 09/07/24 13:10 09/07/24 13:30 Temperature 97.8 F Temperature Source Oral Pulse Rate 82 79 Pulse Rate [Left Radial] 84 Respiratory Rate 17 24 18 Blood Pressure 160/78 H 153/93 H Blood Pressure [Right Arm] 134/84 Blood Pressure Mean [Right Arm] 100 Blood Pressure Source [Right Arm] Automatic Cuff Blood Pressure Position [Right Arm] Sitting 02 Sat by Pulse Oximetry 83 L 92 L 91 L Oxygen Delivery Method Room Air Nasal Cannula Nasal Cannula 09/07/24 14:01 Temperature Temperature Source Pulse Rate 87 Pulse Rate [Left Radial] Respiratory Rate 18 Blood Pressure 179/97 H Blood Pressure [Right Arm] Blood Pressure Mean [Right Arm] Blood Pressure Source [Right Arm] Blood Pressure Position [Right Arm] 02 Sat by Pulse Oximetry 93 L Oxygen Delivery Method Nasal Cannula Lab Data Labs: Lab Results 09/07/24 12:26: WBC 10.1, RBC 4.47, Hgb 13.8, Hct 42.5, MCV 95.1, MCH 30.9, MCHC 32.5, RDW 14.6, Plt Count 281, MPV 11.0 H, Neut % (Auto) 43.9, Lymph % (Auto) 45.3, Archuleta % (Auto) 8.5, Eos % (Auto) 1.5, Baso % (Auto) 0.6, Neut # (Auto) 4.4, Lymph # (Auto) 4.6 H, Archuleta # (Auto) 0.9, Eos # (Auto) 0.2, Baso # (Auto) 0.1, D-Dimer 0.62 H, Sodium 138, Potassium 4.6, Chloride 106, Carbon Dioxide 19 L, Anion Gap 17.6 H, BUN 21 H, Creatinine 1.20 H, Estimated Creat Clear 69, Estimated GFR 45 L, Est GFR ( Amer) 55 L, Glucose 343 H, Calcium 9.9, Total Bilirubin 0.5, AST 45 H, ALT 32, Alkaline Phosphatase 85, Troponin I 0.19 H, Total Protein 7.9, Albumin 5.0, Globulin 2.9, Albumin/Globulin Ratio 1.7 09/07/24 12:49: NT-Pro-B Natriuret Pep 1220 H 09/07/24 12:50: VBG pH 7.21 L, VBG pCO2 48.9, VBG pO2 37.3, VBG HCO3 18.9 L, VBG Total CO2 20.4 L, VBG O2 Saturation 62.3, VBG Base Excess -9.0 L, VBG Lactic Acid 3.3 H Response Orders (Tests/Meds): ED MEDICATIONS Discontinued Medications Generic Name Dose Route Start Last Admin Trade Name Freq PRN Reason Stop Dose Admin Aspirin 324 mg 09/07/24 14:00 09/07/24 14:08 Aspirin 81mg Chewable Tablet PO 09/07/24 14:01 324 mg ONCE ONE Administration Furosemide 60 mg 09/07/24 13:48 09/07/24 13:53 Furosemide 40mg/4ml Vial IV 09/07/24 13:49 60 mg ONCE ONE Administration Nitroglycerin 1 gm 09/07/24 13:59 09/07/24 14:09 Nitroglycerin 1 Gm Ointment TD 09/07/24 14:00 1 gm ONCE ONE Administration ORDERS Category Date Time Status Chest XR 2 view (NOT portable) [XR chest 2V] Stat Exams 09/07/24 12:26 Completed POCUS Point of Care (ER Only) Stat Exams 09/07/24 13:59 Completed BNP [NT Pro Brain Natriuretic Pep.] Stat Lab 09/07/24 12:49 Completed CBC w/Auto Diff [Complete Blood Count Auto Diff] Stat Lab 09/07/24 12:26 Completed CMP [Comprehensive Metabolic Panel] Stat Lab 09/07/24 12:26 Completed D-Dimer Stat Lab 09/07/24 12:26 Completed Lactate Venous Stat Lab 09/07/24 12:51 Ordered Trop I [Troponin I] Stat Lab 09/07/24 12:26 Completed Troponin I Q3H Lab 09/07/24 15:30 Ordered Troponin I Q3H Lab 09/07/24 18:30 Ordered Venous Blood Gas Stat RT 09/07/24 12:50 Completed MDM Narrative Medical Decision Narrative: In summary patient is a 64-year-old female who presents to the emergency department for evaluation of shortness of breath, chest pain, and abdominal pain for 3 weeks that comes and goes but increase shortness of breath started today.. Patient is hemodynamically stable upon arrival, afebrile. Lungs positive for crackles with low O2 sat. Differential diagnosis includes CHF, pneumonia, SD,. Initial workup will be conducted with labs, chest x-ray. Initial inventions include O2, placed on BiPAP,. Initial workup reviewed by me labs-acute kidney injury, slightly elevated troponin and D-dimer, chest x-ray positive for congestive heart failure. Upon repeat evaluation patient's placed on CPAP due to fluid overload and low O2. Given this spoke with hospitalist regarding admission. I was consulted by the JUAN ALBERTO, and we discussed the complexity of the problems being addressed. I approved the treatment and management plan for this patient's care in the Emergency Department, thus performing a substantive portion of the medical decision making. I also independently evaluated, interviewed and examined patient. Not particular volume overloaded, but she is hypertensive and tachypneic requiring 4 L nasal cannula. Desaturated to the low 80s when taking nasal cannula off. Lungs are edematous on exam, no focal breath sounds, but what wheezes in all lung huang. No lower extremity edema. Cardiac exam without murmurs gallops or rubs obvious. EKG independently interpreted, sinus rhythm 83 bpm with NC 156, QRS 105, QTc 387. She does have ST depressions and T wave inversions in anterior, lateral, inferior leads with no reciprocal elevations. Normal axis. Patient's workup independently interpreted. Nonactionable CBC, but BNP elevated over 1200, troponin nearly 0.2 consistent with type II cardiac injury likely secondary to new onset CHF with exacerbation. VBG mild metabolic acidosis with pH around 7.2/normal CO2, but decreased bicarb. Lactate mildly elevated as well, I feel this could be lifeline representatives of lab not being placed on ice prior to transport. Chest x-ray independently interpreted, patient has pulmonary edema and cephalization of pulmonary vessels distant with CHF exacerbation. Patient was given aspirin and nitroglycerin paste as well as CPAP. Also given 60 mg IV Lasix and PureWick placed. Reevaluation after these interventions, patient states that she is actually feeling much better and breathing much easier. Bedside [id number] ultrasound was performed and patient has grossly normal cardiac activity with mildly decreased ejection fraction 50-55. No pericardial effusion. I contacted patient's primary care group, recommended admission. Also requesting emergency department consultation from cardiology. Cardiology was formally consulted and case was discussed. Patient to be evaluated. Because patient high risk for clinical decompensation, deemed appropriate for inpatient admission. Results were relayed to patient who voiced understanding and patient was agreeable to inpatient admission and management. Patient was admitted to the hospital for further definitive management. Beka Mars MD
[2024-09-07 12:55] LABS: Troponin I 0.19 ng/ml (0.00-0.034)
[2024-09-07 12:56] LABS: Lactate Venous 3.3 mmol/L (0.4-2.0); VBG HCO3 18.9 mmol/L (23-30); VBG Oxygen Saturation 62.3 % (50-70); VBG PCO2 48.9 mmol/L (35-51); VBG PH 7.21 mmol/L (7.31-7.41); VBG PO2 37.3 mmol/L (28-40); VBG Total CO2 20.4 mmol/L (23-27)
[2024-09-07 12:59] LABS: D-Dimer 0.62 ug/mL (0.0-0.5)
[2024-09-07 13:15] LABS: NT Pro Brain Natriuretic Pep. 1220 pg/mL (0-125)
[2024-09-07] MEDS: FUROSEMIDE 40MG/4ML VIAL 60 MG IV (13:53)
[2024-09-07] MEDS: ASPIRIN 81MG CHEWABLE TABLET 324 MG PO (14:08)
[2024-09-07] MEDS: NITROGLYCERIN 1 GM OINTMENT TD (14:09)
--- NOTE | 2024-09-07 14:15 | PC.NURSE ---
pt is being placed on bipap
--- NOTE | 2024-09-07 14:16 | PC.NURSE ---
on phone with hospitalist, pt is tiff mares.
--- NOTE | 2024-09-07 14:28 | PC.NURSE ---
patient placed on purewick, provider at bedside doing ultrasound on heart
--- NOTE | 2024-09-07 14:32 | PC.NURSE ---
lonnie aware of consult for cardiology in room 2
--- NOTE | 2024-09-07 14:51 | CA_ITS ---
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: KIRAN Holland, RVS Ht: 5 ft 5 in Wt: 200lbs BSA: 1.98 BP: 179/97 mmHg Rhythm: NSR Indications: COPD, Ex-smoker, CP, SOA, BIPAP, Hx-respiratory failure, JHON, hx-stroke Echo Enhancing Agent Comments: Patient supine on BIPAP throughout exam=limited acoustic windows 2D Dimensions Left Atrium 4.30 cm F: 2.7 - 3.8 LA Volume 53.70 mL LA Volume Index 27.938503 mL/m2 (M/F) 16-34 EF AP4 38.30 % GL Strain -10.5 % M-Mode Dimensions RVDd 2.05 cm (0.9-2.6) LA Diam 4.35 cm (1.9-4.0) LVDd 5.02 cm (3.5-5.7) LVDs 4.03 cm (3.5-5.7) IVSd 1.25 cm (0.6-1.1) PWd 1.03 cm (0.6-1.1) EF (Teich) 40.20% EPSs 1.11 cm FS 19.70% EDV (Teich) 119.30 mL TAPSE 1.19 (<1.7) ESV (Teich) 71.30 mL LV Diastology E Decel Time 123 (160-240 msec) E/A Ratio 0.53 MED A' 5.40 cm/s LAT A' 8.10 cm/s Aortic Valve DORINA Index 1.49 cm2/m2 AoV Peak Epte. 94.0 (50-130 cm/s) AO Peak GR. 3.60 mmHg AO Mean GR. 1.80 (<5 mmHg) AO VTI 19.3 (18-25 cm) DORINA (VTI) 3.02 (2.5-4.5 cm2) Mitral Valve MV A Velocity 64.0 (40-130 cm/s) E/A Ratio 0.53 MV Mean Gr. 1.10 (<2mmHg) Left Ventricle The left ventricle is normal size. Left ventricular systolic function is moderately decreased. There is increased LV wall thickness. There is moderate reduction of global LV systolic function. There is severe hypokinesis of the septal and anteroseptal LV lozano. Grade 2 diastolic dysfunction is present. LVEF is 35-40%. Right Ventricle The right ventricle is not, but appears grossly at least mildly to moderately dilated with mild reduction in RV function. Atria The left atrium is mildly dilated. Right atrium is mildly dilated. there is no Doppler evidence of interatrial shunt. Aortic Valve The aortic valve is mildly thickened. Trace aortic regurgitation. There is no aortic valvular stenosis. Mitral Valve The mitral valve is normal in structure. No evidence of mitral valve stenosis. Mild mitral regurgitation. Tricuspid Valve Tricuspid valve is grossly normal in structure and function. Trace tricuspid regurgitation. There is insufficient TR jet to estimate RVSP. Pulmonic Valve The pulmonary valve is normal in structure. Trace pulmonic regurgitation. Great Vessels The aortic root is normal in size. IVC is normal in size and collapses >50% with inspiration. Pericardium There is no pericardial effusion. Other Information Study Quality: Technically Difficult Conclusion Technically difficult study due to poor accoustic windows. Moderate reduction in LV systolic function (LVEF 35-40%). Severe hypokinesis of the septal and anteroseptal LV lozano. RV not well-visualized, but appears mildly to moderately dilated with mild reduction in RV function. Mild biatrial dilation. Mild MR. Electronically signed by : Samira Amanda MD 09/07/2024 15:56:44
--- NOTE | 2024-09-07 14:57 | CT_ITS ---
FINAL REPORT TECHNIQUE: The patient was injected with IV contrast. Axial images were obtained through the chest in a PE protocol. 3-D reconstruction images were also performed. Individualized dose reduction techniques using automated exposure control or adjustment of the MA and/or KV according to patient's size were employed. CLINICAL HISTORY: soa and chest pain, positive d dimer COMPARISON: LDCT dated 08/18/2024 FINDINGS: Sternotomy wires are present. Mediastinal vasculature is adequately opacified. No pulmonary artery filling defects are identified to suggest PE. There is no aortic dissection. There is no axillary adenopathy. There are calcified prevascular and right hilar nodes. The heart size is normal. There is no pericardial or pleural effusion. Moderate changes of centrilobular emphysema are present. Limited images of the upper abdomen are unremarkable. Patchy right upper lobe and bilateral lower lobe ground glass infiltrates are present more prominent on the right than on the left, which likely represent acute pneumonitis. IMPRESSION: No pulmonary embolus or dissection. Right upper lobe and bilateral lower lobe ground glass infiltrates, likely represent acute pneumonitis. Moderate changes of centrilobular emphysema. Reviewed, Interpreted and Dictated by Godfrey Cuadra MD Transcribed by Reba Silva Authenticated and [facility]
--- NOTE | 2024-09-07 15:10 | PC.NURSE ---
PT ADMITTED AT THIS TIME. CARE MANAGEMENT NOTIFIED, PT INPATIENT, ROOM 214. ALL STAFF NOTIFIED
[2024-09-07] MEDS: SODIUM CHLORIDE 0.9% 10ML SYR (RAD ONLY) 10 ML IV (15:38)
[2024-09-07] MEDS: IOPAMIDOL-370 (76%);100ML BOTTLE 70 ML IV (15:38)
[2024-09-07] MEDS: 0.9 % SODIUM CHLORIDE 50 ML VIAL IV (15:38)
--- NOTE | 2024-09-07 15:47 | P.CONCA_ITS ---
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 EKG upon admission to ER shows worsening ST depression in V4, 5 and 6. Labs as follow: WBC 10.1, hemoglobin 13.8, platelets 281, D-dimer positive, sodium 138, potassium 4.6, creatinine 1.2, troponin 0.19 and proBNP 1220. Chest x-ray shows new mixed interstitial and airspace opacities both lower lobes may be due to acute diffuse pneumonia or edema. Initial oxygen saturation upon presentation was 83% on room air. Patient was started on CPAP and given IV Lasix 60 mg IV x 1. Patient will be admitted for volume overload and NSTEMI. [facility] Disclaimer: The information contained in this section may have been updated after the patient was seen, as this information can be updated by other users. Medical History (Updated 09/07/24 @ 16:00 by Veronika Cortez APRN) CHF (congestive heart failure) Chronic respiratory failure with hypoxia JHON (obstructive sleep apnea) Right arm pain AV fistula Claudication Abnormal ankle brachial index (MARIOLA) Dyspnea on exertion History of smoking 30 or more pack years Pneumonia On mechanically assisted ventilation Sleep apnea History of stroke Typical angina Cerebrovascular accident COPD (chronic obstructive pulmonary disease) Tobacco dependence Diabetes mellitus HTN (hypertension) HLD (hyperlipidemia) CAD (coronary artery disease) Surgical History History of open heart surgery History of coronary artery stent placement H/O hysterectomy with oophorectomy History of coronary artery bypass graft Family History , 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) Heart disease Social History (Updated 09/07/24 @ 15:26 by Eli Givens, NIIK) Smoking Status: Former smoker tobacco type: cigarettes packs per day: 1 second hand exposure: No alcohol intake: never substance use type: denies use current occupational status: disabled Travel in the last 8 weeks?: None household members: significant other housing: house current occupational exposures/hazards: No caffeine: Yes Have you lived/traveled outside [place] in past 30 days?: No Contact w/someone who lives/traveled outside [place] past 30 days?: No Exposure to someone with infectious disease in past 14 days?: No Do you have a fever (greater than 100.4 F or 38 C)?: No Have you tested positive for COVID-19?: No Exposed to someone with COVID-19 in past 14 days?: No Do you have a sore throat?: No Do you have a cough?: No Do you have any weakness?: No Are you experiencing any nausea/vomitting?: No Do you have any diarrhea?: No Are you experiencing any unusual bleeding?: No Do you have any muscle aches/pain?: No Do you have any abdominal pain?: No Are you experiencing loss of taste or smell?: No Review of Systems Review of Systems Review of systems:: pertinent systems reviewed and negative unless documented below Constitutional Constitutional: Reports system reviewed and no additional complaints, except as documented *Cardiovascular Cardiovascular: Reports chest pain with activity and Reports dyspnea *Respiratory Respiratory: Reports system reviewed and no additional complaints, except as documented and Reports dyspnea *Gastrointestinal Gastrointestinal: Reports system reviewed and no additional complaints, except as documented *Neurologic Neurologic: Reports system reviewed and no additional complaints, except as documented and Denies confusion Psychiatric Psychiatric: Reports system reviewed and no additional complaints, except as documented and Denies confusion Exam Data for Last 24 hours Vital signs and Labs for Last 24 Hours: Temp Pulse Resp BP Pulse Ox O2 Del Method 97.9 F 79 22 154/87 H 96 CPAP 09/07/24 15:17 09/07/24 15:17 09/07/24 15:17 09/07/24 15:17 09/07/24 15:00 09/07/24 15:17 Laboratory Results - last 24 hr 09/07/24 12:26: WBC 10.1, RBC 4.47, Hgb 13.8, Hct 42.5, MCV 95.1, MCH 30.9, MCHC 32.5, RDW 14.6, Plt Count 281, MPV 11.0 H, Neut % (Auto) 43.9, Lymph % (Auto) 45.3, [place] % (Auto) 8.5, Eos % (Auto) 1.5, Baso % (Auto) 0.6, Neut # (Auto) 4.4, Lymph # (Auto) 4.6 H, [place] # (Auto) 0.9, Eos # (Auto) 0.2, Baso # (Auto) 0.1, D- Dimer 0.62 H, Sodium 138, Potassium 4.6, Chloride 106, Carbon Dioxide 19 L, Anion Gap 17.6 H, BUN 21 H, Creatinine 1.20 H, Estimated Creat Clear 69, Estimated GFR 45 L, Est GFR ( Amer) 55 L, Glucose 343 H, Calcium 9.9, Total Bilirubin 0.5, AST 45 H, ALT 32, Alkaline Phosphatase 85, Troponin I 0.19 H, Total Protein 7.9, Albumin 5.0, Globulin 2.9, Albumin/Globulin Ratio 1.7 09/07/24 12:49: NT-Pro-B Natriuret Pep 1220 H 09/07/24 12:50: VBG pH 7.21 L, VBG pCO2 48.9, VBG pO2 37.3, VBG HCO3 18.9 L, VBG Total CO2 20.4 L, VBG O2 Saturation 62.3, VBG Base Excess -9.0 L, VBG Lactic Acid 3.3 H I & O for Last 24 hours: Intake & Output 09/04/24 09/05/24 09/06/24 09/07/24 23:59 23:59 23:59 23:59 Weight 200 lb Constitutional Constitutional: no acute distress *Routine Respiratory Exam Respiratory: Present symmetric chest movement Comments: Bilateral rhonchi noted *Routine Cardiovascular Exam Cardiovascular: Present RRR, Normal S1 and Normal S2 *Routine Abdominal Exam Abdominal: Present soft and normoactive bowel sounds; Absent tenderness Comments: Abdominal distention noted *Routine Extremities Exam Extremities: Present edema, full ROM and normal capillary refill Comments: Bilateral lower extremity edema present *Routine Skin Exam Skin: Present intact, dry and warm Detailed Neck Exam: Thyroids Thyroid: Absent bruit Meds Home Medications and Allergies Home Medications ?Medication ?Instructions ?Recorded ?Confirmed ?Type aspirin 81 mg tablet,delayed 81 mg PO DAILY 05/22/17 09/07/24 History release (Aspir-) multivitamin-ferrous 1 tab PO QAM 05/22/17 09/07/24 History fumarate-folic acid 18 mg-400 mcg tablet (Centrum Complete) nitroglycerin 0.6 mg sublingual 0.6 mg sublingual Q5M PRN Chest 05/22/17 09/07/24 History tablet Pain cholecalciferol (vitamin D3) 25 1,000 unit PO DAILY 09/22/17 09/07/24 History mcg (1,000 unit) capsule sennosides 8.6 mg tablet (Senna 8.6 mg PO DAILY PRN Constipation 09/22/17 09/07/24 History Lax) black cohosh 200 mg capsule 540 mg PO DAILY 06/05/20 09/07/24 History glimepiride 4 mg tablet 8 mg PO DAILY 06/05/20 09/07/24 History insulin aspart prot-aspart 100 60 unit SQ BID 06/05/20 09/07/24 History unit/mL (70-30) subcutaneous cartridge metoclopramide HCl 10 mg tablet 10 mg PO BID 06/05/20 09/07/24 History vitamin E 400 unit tablet 450 mg PO DAILY 06/05/20 09/07/24 History gabapentin 800 mg tablet 800 mg PO TID 07/08/21 09/07/24 History metformin 1,000 mg tablet 1,000 mg PO QPMWITHMEAL 07/29/22 09/07/24 History spironolactone 50 mg tablet 50 mg PO DAILY #30 tabs 07/30/22 09/07/24 Rx (Aldactone) atorvastatin 80 mg tablet 80 mg PO HS 08/18/23 09/07/24 History citalopram 40 mg tablet 40 mg PO DAILY 08/18/23 09/07/24 History clopidogrel 75 mg tablet (Plavix) 75 mg PO DAILY 08/18/23 09/07/24 History gemfibrozil 600 mg tablet 600 mg PO BID 08/18/23 09/07/24 History hydrochlorothiazide 25 mg tablet 25 mg PO DAILY 08/18/23 09/07/24 History lisinopril 10 mg tablet 10 mg PO BID 08/18/23 09/07/24 History omega-3 fatty acids 1,000 mg 1,000 mg PO QDAY 08/18/23 09/07/24 History capsule semaglutide 2 mg/dose (8 mg/3 mL) 2 mg SQ WEEKLY 10/19/23 09/07/24 History subcutaneous pen injector (Ozempic) dapagliflozin propanediol 10 mg 10 mg PO DAILY #90 tabs 05/26/24 09/07/24 Rx tablet (Farxiga) bisoprolol fumarate 5 mg tablet 5 mg PO BID 09/07/24 09/07/24 History New Prescriptions to Start Prescriptions: Allergies Allergy/AdvReac Type Severity Reaction Status Date / Time No Known Allergies Allergy Verified 05/26/24 13:12 Assessment and Plan *Assessment and plan (1) Heart failure with reduced ejection fraction: Status: Acute Category: Medical Code(s): I50.20 - Unspecified systolic (congestive) heart failure (2) Acute hypoxemic respiratory failure: Status: Acute Category: Medical Code(s): J96.01 - Acute respiratory failure with hypoxia (3) NSTEMI (non-ST elevated myocardial infarction): Status: Acute Category: Medical Code(s): I21.4 - Non-ST elevation (NSTEMI) myocardial infarction (4) CAD (coronary artery disease): Status: Chronic Qualifiers: Associated angina: without angina Coronary Disease-Associated Artery/Lesion type: [place] artery [place] vs. transplanted heart: [place] heart Qualified Code(s): I25.10 - Atherosclerotic heart disease of [place] coronary artery without angina pectoris Category: Medical Code(s): I25.10 - Atherosclerotic heart disease of [place] coronary artery without angina pectoris (5) History of coronary artery bypass graft: Status: Chronic Category: Surgical Code(s): Z95.1 - Presence of aortocoronary bypass graft (6) HTN (hypertension): Status: Chronic Qualifiers: Hypertension type: essential hypertension Qualified Code(s): I10 - Essential (primary) hypertension Category: Medical Code(s): I10 - Essential (primary) hypertension (7) HLD (hyperlipidemia): Status: Chronic Qualifiers: Hyperlipidemia type: mixed hyperlipidemia Qualified Code(s): E78.2 - Mixed hyperlipidemia Category: Medical Code(s): E78.5 - Hyperlipidemia, unspecified Plan Acute hypoxic respiratory failure New onset HFrEF History of coronary artery disease History of CABG NSTEMI Patient presents to emergency department with chest pain and shortness of breath EKG shows ST depressions in V 4 5 and 6 worse than normal Initial troponin 0.19 and proBNP 1220 Patient has bilateral edema noted on chest x-ray, distended abdomen and bilateral lower extremity edema present. Initial O2 saturation in the 80s on room air Given Lasix 60 mg IV x 1 in emergency department Requiring CPAP D-dimer is positive CTA is pending Echo shows an EF of 35 to 40% with severe hypokinesis of the septal and anteroseptal LV lozano. The RV is not well-visualized but appears mildly to moderately dilated with mild reduction in RV function. Mild MR. Start Lovenox 1 mg/kg SQ Continue aspirin 81 mg p.o. daily and Plavix 75 mg p.o. daily Continue atorvastatin 80 mg p.o. daily Continue bisoprolol 5 mg p.o. daily, Farxiga 10 mg p.o. daily. Start Entresto 24/26 mg p.o. twice daily, Lasix 40 mg IV daily and Aldactone 25 mg p.o. daily. Will proceed with left heart catheterization to further evaluate for coronary artery disease tomorrow. Discussed risk versus benefits with patient she is agreeable to proceed. CV summary 09/07/2024: Echo shows a reduced ejection fraction of 35 to 40% in the setting of shortness of breath and chest pain with an elevated troponin. Will proceed with left heart catheterization tomorrow for evaluation of coronary artery disease. Please continue below listed medications. Aspirin 81 mg p.o. daily Plavix 75 mg p.o. daily Atorvastatin 80 mg p.o. daily Bisoprolol 5 mg p.o. daily Farxiga 10 mg p.o. daily Entresto 24/26 mg p.o. twice daily Lasix 40 mg IV daily Aldactone 25 mg p.o. daily
--- NOTE | 2024-09-07 15:56 | PC.NURSE ---
arrived by w/c from ED
--- NOTE | 2024-09-07 16:09 | PC.NURSE ---
RESP CARE NOTE: Pt moved to 2nd floor on 3lpm nc. She requests to leave CPAP off until her brings her home CPAP this evening. Will continue to monitor patient.
[2024-09-07 16:30] LABS: Troponin I 0.28 ng/ml (0.00-0.034)
--- NOTE | 2024-09-07 16:31 | EXP.HP ---
History of Present Illness *Admission Date: 09/07/24 *Reason for visit:: shortness of breath *History of present illness: This is a 64-year-old white female with past medical history of coronary artery disease with multiple stents and CABG (1999), last CHRISTAL to circumflex 08/2023, hypertension, hyperlipidemia, right-sided CVA in July 2017 with left-sided deficits, former smoker, diabetes mellitus and obstructive sleep apnea who presented to emergency department with complaints of chest pressure and shortness of breath x 3 weeks, intermittent becoming more frequent in nature. EKG upon admission to ER shows worsening ST depression in V4, 5 and 6. Labs as follow: WBC 10.1, hemoglobin 13.8, platelets 281, D-dimer positive, sodium 138, potassium 4.6, creatinine 1.2, troponin 0.19 and proBNP 1220. Chest x-ray shows new mixed interstitial and airspace opacities both lower lobes may be due to acute diffuse pneumonia or edema. Initial oxygen saturation upon presentation was 83% on room air. Patient was started on CPAP and given IV Lasix 60 mg IV x 1. Patient will be admitted for volume overload and NSTEMI. (above as per cardiology) [facility] Disclaimer: The information contained in this section may have been updated after the patient was seen, as this information can be updated by other users. Medical History CHF (congestive heart failure) Chronic respiratory failure with hypoxia JHON (obstructive sleep apnea) Right arm pain AV fistula Claudication Abnormal ankle brachial index (MARIOLA) Dyspnea on exertion History of smoking 30 or more pack years Pneumonia On mechanically assisted ventilation Sleep apnea History of stroke Typical angina Cerebrovascular accident COPD (chronic obstructive pulmonary disease) Tobacco dependence Diabetes mellitus HTN (hypertension) HLD (hyperlipidemia) CAD (coronary artery disease) Surgical History History of open heart surgery History of coronary artery stent placement H/O hysterectomy with oophorectomy History of coronary artery bypass graft Family History Heart disease Social History Smoking Status: Former smoker tobacco type: cigarettes packs per day: 1 second hand exposure: No alcohol intake: never substance use type: denies use current occupational status: disabled Travel in the last 8 weeks?: None household members: significant other housing: house current occupational exposures/hazards: No caffeine: Yes Have you lived/traveled outside [place] in past 30 days?: No Contact w/someone who lives/traveled outside US past 30 days?: No Exposure to someone with infectious disease in past 14 days?: No Do you have a fever (greater than 100.4 F or 38 C)?: No Have you tested positive for COVID-19?: No Exposed to someone with COVID-19 in past 14 days?: No Do you have a sore throat?: No Do you have a cough?: No Do you have any weakness?: No Are you experiencing any nausea/vomitting?: No Do you have any diarrhea?: No Are you experiencing any unusual bleeding?: No Do you have any muscle aches/pain?: No Do you have any abdominal pain?: No Are you experiencing loss of taste or smell?: No Other Medical History Have you received the Flu Vaccine for this season: Yes Have you received the Pneumonia Vaccine: Yes Review of Systems Constitutional Constitutional: Reports fatigue, Denies headache(s) and Reports weakness Eyes Eyes: Denies blurry vision and Denies diplopia ENT Ears, Nose, Mouth, and Throat: Denies headache(s), Denies nasal congestion and Denies sore throat *Cardiovascular Cardiovascular: Reports chest pain, Reports dyspnea and Reports radiating jaw, neck or arm pain *Respiratory Respiratory: Reports cough, Reports dyspnea and Reports wheezing *Gastrointestinal Gastrointestinal: Denies diarrhea, Denies nausea and Denies vomiting *Genitourinary Genitourinary: Denies difficulty voiding and Denies dysuria *Musculoskeletal Musculoskeletal: Denies back pain and Denies myalgias *Neurologic Neurologic: Reports system reviewed and no additional complaints, except as documented, Denies confusion, Denies headache(s) and Reports weakness Psychiatric Psychiatric: Denies confusion Endocrine Endocrine: Reports fatigue Allergic/Immunologic Allergic/Immunologic: Reports wheezing Meds Home Medications and Allergies Home Medications ?Medication ?Instructions ?Recorded ?Confirmed ?Type aspirin 81 mg tablet,delayed 81 mg PO DAILY 05/22/17 09/07/24 History release (Aspir-) multivitamin-ferrous 1 tab PO QAM 05/22/17 09/07/24 History fumarate-folic acid 18 mg-400 mcg tablet (Centrum Complete) nitroglycerin 0.6 mg sublingual 0.6 mg sublingual Q5M PRN Chest 05/22/17 09/07/24 History tablet Pain cholecalciferol (vitamin D3) 25 1,000 unit PO DAILY 09/22/17 09/07/24 History mcg (1,000 unit) capsule sennosides 8.6 mg tablet (Senna 8.6 mg PO DAILY PRN Constipation 09/22/17 09/07/24 History Lax) black cohosh 200 mg capsule 540 mg PO DAILY 06/05/20 09/07/24 History glimepiride 4 mg tablet 8 mg PO DAILY 06/05/20 09/07/24 History insulin aspart prot-aspart 100 60 unit SQ BID 06/05/20 09/07/24 History unit/mL (70-30) subcutaneous cartridge metoclopramide HCl 10 mg tablet 10 mg PO BID 06/05/20 09/07/24 History vitamin E 400 unit tablet 450 mg PO DAILY 06/05/20 09/07/24 History gabapentin 800 mg tablet 800 mg PO TID 07/08/21 09/07/24 History metformin 1,000 mg tablet 1,000 mg PO QPMWITHMEAL 07/29/22 09/07/24 History spironolactone 50 mg tablet 50 mg PO DAILY #30 tabs 07/30/22 09/07/24 Rx (Aldactone) atorvastatin 80 mg tablet 80 mg PO HS 08/18/23 09/07/24 History citalopram 40 mg tablet 40 mg PO DAILY 08/18/23 09/07/24 History clopidogrel 75 mg tablet (Plavix) 75 mg PO DAILY 08/18/23 09/07/24 History gemfibrozil 600 mg tablet 600 mg PO BID 08/18/23 09/07/24 History hydrochlorothiazide 25 mg tablet 25 mg PO DAILY 08/18/23 09/07/24 History lisinopril 10 mg tablet 10 mg PO BID 08/18/23 09/07/24 History omega-3 fatty acids 1,000 mg 1,000 mg PO QDAY 08/18/23 09/07/24 History capsule semaglutide 2 mg/dose (8 mg/3 mL) 2 mg SQ WEEKLY 10/19/23 09/07/24 History subcutaneous pen injector (Ozempic) dapagliflozin propanediol 10 mg 10 mg PO DAILY #90 tabs 05/26/24 09/07/24 Rx tablet (Farxiga) bisoprolol fumarate 5 mg tablet 5 mg PO DAILY 09/07/24 09/07/24 History New Prescriptions to Start Prescriptions: Allergies Allergy/AdvReac Type Severity Reaction Status Date / Time No Known Allergies Allergy Verified 05/26/24 13:12 Exam Data for Last 24 hours Vital signs and Labs for Last 24 Hours: Temp Pulse Resp BP Pulse Ox O2 Del Method 97.9 F 79 22 154/87 H 96 CPAP 09/07/24 15:17 09/07/24 15:17 09/07/24 15:17 09/07/24 15:17 09/07/24 15:00 09/07/24 15:17 Laboratory Results - last 24 hr 09/07/24 12:26: WBC 10.1, RBC 4.47, Hgb 13.8, Hct 42.5, MCV 95.1, MCH 30.9, MCHC 32.5, RDW 14.6, Plt Count 281, MPV 11.0 H, Neut % (Auto) 43.9, Lymph % (Auto) 45.3, [place] % (Auto) 8.5, Eos % (Auto) 1.5, Baso % (Auto) 0.6, Neut # (Auto) 4.4, Lymph # (Auto) 4.6 H, [place] # (Auto) 0.9, Eos # (Auto) 0.2, Baso # (Auto) 0.1, D-Dimer 0.62 H, Sodium 138, Potassium 4.6, Chloride 106, Carbon Dioxide 19 L, Anion Gap 17.6 H, BUN 21 H, Creatinine 1.20 H, Estimated Creat Clear 69, Estimated GFR 45 L, Est GFR ( Amer) 55 L, Glucose 343 H, Calcium 9.9, Total Bilirubin 0.5, AST 45 H, ALT 32, Alkaline Phosphatase 85, Troponin I 0.19 H, Total Protein 7.9, Albumin 5.0, Globulin 2.9, Albumin/Globulin Ratio 1.7 09/07/24 12:49: NT-Pro-B Natriuret Pep 1220 H 09/07/24 12:50: VBG pH 7.21 L, VBG pCO2 48.9, VBG pO2 37.3, VBG HCO3 18.9 L, VBG Total CO2 20.4 L, VBG O2 Saturation 62.3, VBG Base Excess -9.0 L, VBG Lactic Acid 3.3 H 09/07/24 15:40: Troponin I 0.28 H I & O for Last 24 hours: Intake & Output 09/05/24 09/06/24 09/07/24 09/08/24 11:59 11:59 11:59 11:59 Weight 200 lb Constitutional Constitutional: no acute distress *Routine HEENT Exam Head: Present normocephalic and atraumatic Eye: Present EOMI and PERRL ENT: Present mucous membranes dry *Routine Neck Exam Neck: Present supple and full ROM *Routine Respiratory Exam Respiratory: Present wheezes, crackles (bibasilar) and diminished air movement *Routine Cardiovascular Exam Cardiovascular: Present RRR *Routine Abdominal Exam Abdominal: Present soft and normoactive bowel sounds; Absent tenderness *Routine Rectal Exam Rectal:: deferred *Routine Genitalia Exam Genitalia:: deferred *Routine Extremities Exam Extremities: Absent cyanosis, clubbing or edema *Routine Skin Exam Skin: Present intact; Absent erythema *Routine Neurological Exam Neurological: Present alert and oriented X3 H&P: Result Impressions CXR - New mixed interstitial and airspace opacities both lower lobes may be due to acute diffuse pneumonia or edema. Correlate with clinical presentation. Echo Technically difficult study due to poor accoustic windows. Moderate reduction in LV systolic function (LVEF 35-40%). Severe hypokinesis of the septal and anteroseptal LV lozano. RV not well-visualized, but appears mildly to moderately dilated with mild reduction in RV function. Mild biatrial dilation. Mild MR. Assessment and Plan *Assessment and plan (1) Heart failure with reduced ejection fraction: Status: Acute Category: Medical Code(s): I50.20 - Unspecified systolic (congestive) heart failure (2) Acute hypoxemic respiratory failure: Status: Acute Category: Medical Code(s): J96.01 - Acute respiratory failure with hypoxia (3) NSTEMI (non-ST elevated myocardial infarction): Status: Acute Category: Medical Code(s): I21.4 - Non-ST elevation (NSTEMI) myocardial infarction (4) CAD (coronary artery disease): Status: Chronic Qualifiers: Associated angina: without angina Coronary Disease-Associated Artery/Lesion type: [place] artery [place] vs. transplanted heart: [place] heart Qualified Code(s): I25.10 - Atherosclerotic heart disease of [place] coronary artery without angina pectoris Category: Medical Code(s): I25.10 - Atherosclerotic heart disease of [place] coronary artery without angina pectoris (5) History of coronary artery bypass graft: Status: Chronic Category: Surgical Code(s): Z95.1 - Presence of aortocoronary bypass graft (6) HTN (hypertension): Status: Chronic Qualifiers: Hypertension type: essential hypertension Qualified Code(s): I10 - Essential (primary) hypertension Category: Medical Code(s): I10 - Essential (primary) hypertension (7) HLD (hyperlipidemia): Status: Chronic Qualifiers: Hyperlipidemia type: mixed hyperlipidemia Qualified Code(s): E78.2 - Mixed hyperlipidemia Category: Medical Code(s): E78.5 - Hyperlipidemia, unspecified (8) JHON (obstructive sleep apnea): Status: Acute Category: Medical Code(s): G47.33 - Obstructive sleep apnea (adult) (pediatric) (9) Diabetes mellitus: Status: Chronic Qualifiers: Diabetes mellitus type: type 2 Diabetes mellitus complication status: without complication 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 CTA is pending. Echo shows an EF of 35 to 40% with severe hypokinesis of the septal and anteroseptal LV lozano. Cardiology has started the patient on lovenox and want her to have a heart cath tomorrow. She is now off the CPAP and on nasal oxygen. She is feeling a little better than she was in the ER. Dr. Talamantes entry - Saw patient, agree with above note.
[2024-09-07] MEDS: SPIRONOLACTONE 25MG TABLET 25 MG PO (16:54)
[2024-09-07 16:55] LABS: Reflex Lactic Add Lactic Reflex
[2024-09-07 17:39] LABS: Lactic Acid Follow Up (RFLX 1) 2.1 mmol/L (0.7-2.1)
[2024-09-07] MEDS: humaLOG 100 UNITS/ML 10ML VIAL (SSI) SUBCUT ×2 (17:51→20:14)
[2024-09-07 17:55] LABS: POC Glucose,Bedside 323 (70-110)
[2024-09-07 19:21] LABS: Reflex Lactic (2 hrs) Add Lactic Reflex
[2024-09-07 19:56] LABS: Lactic Acid Follow up (RFLX 2) 1.9 mmol/L (0.7-2.1)
[2024-09-07] MEDS: GABAPENTIN 800MG TABLET 800 MG PO (20:14)
[2024-09-07] MEDS: ATORVASTATIN 40MG TABLET 80 MG PO (20:14)
[2024-09-07] MEDS: SACUBITRIL/VALSARTAN 24-26MG TABLET 1 EACH PO (20:14)
[2024-09-07] MEDS: ACETAMINOPHEN 325MG TAB 650 MG PO (20:15)
[2024-09-07 20:16] LABS: POC Glucose,Bedside 291 (70-110)
[2024-09-08] VITALS (31 sets, daily range): BP systolic 93–137; BP diastolic 47–78; PULSE 58–90; RESP 14–20; TEMP 36.5–36.9; O2SAT 90–98
--- NOTE | 2024-09-08 04:16 | PC.NURSE ---
Patient is alert and oriented x4. She was observed to have eyes closed, respirations even and unlabored, and no apparent distress throughout the majority of the night. While awake, the patient has been tolerating 3 L of oxygen via nasal cannula; at the patient's bedtime (between 21:00 and 21:30), she was placed onto her personal CPAP machine. Oxygen saturations have remained > 90%; continuous pulse ox in place. Bilateral crackles and diminished lung sounds were heard upon auscultation. No wheezing was present. Auscultation of heart and bowels were within normal findings. Normal sinus rhythm on telemetry, occasional PVCs. The patient complained of mild, left upper chest pain, with a frequency that would come and go, once this shift. Tylenol was given per MAR with reported relief. Scheduled medications were administered as appropriately per MAR as well. She has been ambulating independently (standby assistance as needed) in her room/to the bathroom without difficulties. Urine output measured and documented accordingly for diuresis progress. No swelling noted at this time. Patient refused a bedtime snack due to reported decreased appetite; now remains NPO, since midnight. ACHS glucose checks performed. At this time, the patient is resting in bed without any further complaints. No new needs at this time. Call light within reach.
[2024-09-08 05:24] LABS: POC Glucose,Bedside 187 (70-110)
[2024-09-08 06:07] LABS: Basophils % 0.5 % (0.1-2.0); Eosinophils # 0.1 Kmm3 (0.0-0.4); Eosinophils % 1.3 % (0.1-12.0); Hematocrit 39.2 % (37.0-47.0); Hemoglobin 12.8 g/dL (12.2-16.2); Lymphocytes % 25.8 % (10-50); Mean Corpuscular HGB Conc 32.7 g/dL (31.8-35.4); Mean Corpuscular Hemoglobin 30.2 pg (27.0-31.2); Mean Corpuscular Volume 92.5 fl (81-99); Mean Platelet Volume 11.2 fl (7.4-10.4); Monocytes # 0.8 K/mm3 (0.1-1.0); Monocytes % 9.6 % (1.7-9.3); Neutrophils # 4.9 K/mm3 (1.8-7.8); Neutrophils % 62.4 % (37.0-80.0); Nucleated Red Blood Cells # 0 10^3/uL; Nucleated Red Blood Cells % 0 %; Platelet Count 231 K/mm3 (142-424); Red Blood Count 4.24 M/mm3 (4.20-5.40); Red Cell Distribution Width 14.6 % (11.5-17.5); White Blood Count 7.8 K/mm3 (4.8-10.8)
[2024-09-08] MEDS: humaLOG 100 UNITS/ML 10ML VIAL (SSI) SUBCUT ×2 (06:11→12:23)
[2024-09-08 06:15] LABS: Anion Gap 10.7 mEq/L (5-15); Blood Urea Nitrogen 25 mg/dl (7-17); Calcium 9.6 mg/dl (8.4-10.2); Carbon Dioxide 26 mmol/L (22.0-30.0); Chloride 107 mmol/L (98-107); Creatinine Clearance Estimated 45 mL/min (50-200); Estimated Glomerular Filt Rate 50 ml/min (>60); GFR (African American) 61 ML/MIN (>60); Glucose 185 mg/dl (74-100); Potassium 3.7 mmoL/L (3.5-5.1); Sodium 140 mmol/L (136-145)
--- NOTE | 2024-09-08 07:12 | IR_ITS ---
APPROVED REPORT Patient Location: Inpatient Cattle Tester: Barber Quinones, RT (R) PROCEDURES Left heart catheterization Left ventriculogram Selective coronary angiogram Selective engagement left internal mammary artery Drug-eluting stent deployment to the distal circumflex artery INDICATION Coronary artery disease, Non-ST elevation myocardial infarction, History of coronary bypass surgery Informed consent was obtained prior to the procedure. COMPLICATIONS NONE Estimated Blood Loss: LESS THAN 10 ML TECHNIQUE One percent lidocaine used to anesthetize the right groin. The right femoral artery was accessed via the Seldinger technique and a 5 [place] sheath was placed in the right femoral artery. A JL 4, JR4 catheter were used to perform left heart catheterization, left ventriculogram selective coronary angiography as well as selective engagement of the left internal mammary artery. At the end of the diagnostic angiogram the 5 [place] sheath exchanged for a 6 [place] sheath and therapeutic heparin was administered. A JL 4 guide catheter was placed in the left main artery followed by Choice PT extra-support wire placed distally in the circumflex artery. A guide liner was advanced and a 2.5 x 15 mm [place] frontier stent was deployed at 20 yu reducing the stenosis. A 3 mm x 12 mm noncompliant balloon was then deployed at 22 yu to post dilate the proximal and midportion of the stent. BIGG-3 flow was present before and after the procedure. At the end the procedure the apparatus was removed the patient was transferred to the postop putting in stable condition for sheath removal and postoperative care. ANGIOGRAPHIC RESULTS The left main artery Has a stent in the ostial segment which extends into the circumflex artery. The left main artery stent is widely patent free of disease The left anterior descending artery Proximally occluded The circumflex artery Is dominant and has a stent originating from the left main artery and extends into the mid vessel. The stent has 30% concentric in-stent restenosis in the proximal mid segment with distal concentric 90% stenosis just proximal to the large posterior descending artery The right coronary artery Vestigial and nondominant with her proximal 80 to 90% stenosis The ORTEZ ventriculogram reveals Slightly reduced with ejection fraction of 45 to 50% The left ventricular end-diastolic pressure 10 mmHg MURRAY to LAD is widely patent with a 40% stenosis at the anastomosis with a large widely patent LAD Saphenous vein graft noted to be ostially occluded IMPRESSION Severe disease in the distal dominant circumflex artery as described above with successful stenting reducing lesion to 0% with 1 drug-eluting stent Slightly reduced ejection fraction Normal LVEDP Moderate disease at the anastomosis of the MURRAY to the LAD Chronically occluded saphenous vein graft to the circumflex artery Vestigial right coronary PLAN 1. Dual antiplatelet therapy 2. Avoidance of tobacco products 3. Risk factor modification 4. LDL less than 55 achieved with high intensity statin 5. Cardiac rehabilitation Electronically signed by : Nilton Lange MD 09/08/2024 17:45:47
--- NOTE | 2024-09-08 07:58 | EXP.ACUTE.PN ---
Subjective *Date: 09/08/24 *Time: 08:48 Interval history: Patient is feeling better this am. She is less SOA and has had good urine output. She denies any CP this am. Medical Exam Vital signs and Labs for Last 24 Hours: Vital Signs Temp Pulse Pulse Resp BP BP Pulse Ox 09/08/24 07:37 98.0 F 80 16 126/65 96 09/08/24 06:40 09/08/24 05:00 09/08/24 04:00 90 09/08/24 04:00 97.9 F 58 L 14 126/78 96 09/08/24 03:00 09/08/24 01:00 09/08/24 00:00 70 09/08/24 00:00 97.7 F 81 14 96/69 L 90 L 09/07/24 23:00 09/07/24 21:45 94 L 09/07/24 21:00 09/07/24 20:00 80 16 91 L 09/07/24 20:00 90 09/07/24 19:37 98.0 F 80 16 124/75 91 L 09/07/24 18:54 09/07/24 17:00 09/07/24 16:38 09/07/24 16:04 90 09/07/24 16:00 98.1 F 89 18 140/80 92 L 09/07/24 15:17 97.9 F 79 22 154/87 H 09/07/24 15:00 77 22 154/87 H 96 09/07/24 14:30 82 20 156/88 H 95 09/07/24 14:01 87 18 179/97 H 93 L 09/07/24 13:30 79 18 153/93 H 91 L 09/07/24 13:10 82 24 160/78 H 92 L 09/07/24 12:35 97.8 F 84 17 134/84 83 L O2 Del Method O2 Flow Rate 09/08/24 07:37 CPAP 09/08/24 06:40 Room Air 09/08/24 05:00 CPAP 09/08/24 04:00 09/08/24 04:00 BiPAP 09/08/24 03:00 CPAP 09/08/24 01:00 Room Air 09/08/24 00:00 09/08/24 00:00 CPAP 3.5 09/07/24 23:00 CPAP 09/07/24 21:45 Nasal Cannula, CPAP 3 09/07/24 21:00 Nasal Cannula 3 09/07/24 20:00 Nasal Cannula 3 09/07/24 20:00 09/07/24 19:37 Nasal Cannula 09/07/24 18:54 Nasal Cannula 3 09/07/24 17:00 Nasal Cannula 3 09/07/24 16:38 Nasal Cannula 2 09/07/24 16:04 09/07/24 16:00 Nasal Cannula 09/07/24 15:17 CPAP 09/07/24 15:00 BiPAP 09/07/24 14:30 BiPAP 09/07/24 14:01 Nasal Cannula 09/07/24 13:30 Nasal Cannula 09/07/24 13:10 Nasal Cannula 09/07/24 12:35 Room Air Intake and Output 09/07/24 09/08/24 09/08/24 19:59 03:59 11:59 Intake Total 480 / 830 350 / 830 Output Total 1399 Balance -920 / -1172 -50 / -1172 -202 / -1172 Intake: Intake, Oral Amount 480 / 830 350 / 830 Output: Output, Urine Amount 1399 Other: Number of Unmeasured Voids 1 0 1 Number of Bowel Movements 1 Weight 188 lb 9.6 oz 120 lb 3.454 oz Patient Weight 09/08/24 11:59 Weight 120 lb 3.454 oz Laboratory Results - last 24 hr 09/07/24 12:26: WBC 10.1, RBC 4.47, Hgb 13.8, Hct 42.5, MCV 95.1, MCH 30.9, MCHC 32.5, RDW 14.6, Plt Count 281, MPV 11.0 H, Neut % (Auto) 43.9, Lymph % (Auto) 45.3, [place] % (Auto) 8.5, Eos % (Auto) 1.5, Baso % (Auto) 0.6, Neut # (Auto) 4.4, Lymph # (Auto) 4.6 H, [place] # (Auto) 0.9, Eos # (Auto) 0.2, Baso # (Auto) 0.1, D-Dimer 0.62 H, Sodium 138, Potassium 4.6, Chloride 106, Carbon Dioxide 19 L, Anion Gap 17.6 H, BUN 21 H, Creatinine 1.20 H, Estimated Creat Clear 69, Estimated GFR 45 L, Est GFR ( Amer) 55 L, Glucose 343 H, Calcium 9.9, Total Bilirubin 0.5, AST 45 H, ALT 32, Alkaline Phosphatase 85, Troponin I 0.19 H, Total Protein 7.9, Albumin 5.0, Globulin 2.9, Albumin/Globulin Ratio 1.7 09/07/24 12:49: NT-Pro-B Natriuret Pep 1220 H 09/07/24 12:50: VBG pH 7.21 L, VBG pCO2 48.9, VBG pO2 37.3, VBG HCO3 18.9 L, VBG Total CO2 20.4 L, VBG O2 Saturation 62.3, VBG Base Excess -9.0 L, VBG Lactic Acid 3.3 H 09/07/24 15:40: Troponin I 0.28 H 09/07/24 17:16: Lactate 2.1 09/07/24 17:46: POC Glucose 323 H* 09/07/24 19:40: Lactate 1.9 09/07/24 20:05: POC Glucose 291 H 09/08/24 05:12: POC Glucose 187 H 09/08/24 05:18: WBC 7.8, RBC 4.24, Hgb 12.8, Hct 39.2, MCV 92.5, MCH 30.2, MCHC 32.7, RDW 14.6, Plt Count 231, MPV 11.2 H, Neut % (Auto) 62.4, Lymph % (Auto) 25.8, [place] % (Auto) 9.6 H, Eos % (Auto) 1.3, Baso % (Auto) 0.5, Neut # (Auto) 4.9, Lymph # (Auto) 2.0, [place] # (Auto) 0.8, Eos # (Auto) 0.1, Baso # (Auto) 0.0, Sodium 140, Potassium 3.7, Chloride 107, Carbon Dioxide 26, Anion Gap 10.7, BUN 25 H, Creatinine 1.10 H, Estimated Creat Clear 45, Estimated GFR 50 L, Est GFR ( Amer) 61, Glucose 185 H D, Calcium 9.6 I & O for Labs for Last 24 Hours: Intake & Output 09/05/24 09/06/24 09/07/24 09/08/24 11:59 11:59 11:59 11:59 Intake Total 830 / 830 Output Total 2001 Balance -1172 / -1172 Weight 120 lb 3.454 oz Constitutional: Present no acute distress Respiratory: Present CTA bilaterally Cardiac: Present Reg Rate and Rhythm GI: Present soft and normal bowel sounds; Absent distention or tenderness Extremities: Absent edema, clubbing or cyanosis Skin: Present intact Neuro: Present alert and awake Assessment and Plan *Assessment and plan (1) Heart failure with reduced ejection fraction: Status: Acute Category: Medical Code(s): I50.20 - Unspecified systolic (congestive) heart failure (2) Acute hypoxemic respiratory failure: Status: Acute Category: Medical Code(s): J96.01 - Acute respiratory failure with hypoxia (3) NSTEMI (non-ST elevated myocardial infarction): Status: Acute Category: Medical Code(s): I21.4 - Non-ST elevation (NSTEMI) myocardial infarction (4) CAD (coronary artery disease): Status: Chronic Qualifiers: Associated angina: without angina Coronary Disease-Associated Artery/Lesion type: [place] artery [place] vs. transplanted heart: [place] heart Qualified Code(s): I25.10 - Atherosclerotic heart disease of [place] coronary artery without angina pectoris Category: Medical Code(s): I25.10 - Atherosclerotic heart disease of [place] coronary artery without angina pectoris (5) History of coronary artery bypass graft: Status: Chronic Category: Surgical Code(s): Z95.1 - Presence of aortocoronary bypass graft (6) HTN (hypertension): Status: Chronic Qualifiers: Hypertension type: essential hypertension Qualified Code(s): I10 - Essential (primary) hypertension Category: Medical Code(s): I10 - Essential (primary) hypertension (7) HLD (hyperlipidemia): Status: Chronic Qualifiers: Hyperlipidemia type: mixed hyperlipidemia Qualified Code(s): E78.2 - Mixed hyperlipidemia Category: Medical Code(s): E78.5 - Hyperlipidemia, unspecified (8) JHON (obstructive sleep apnea): Status: Acute Category: Medical Code(s): G47.33 - Obstructive sleep apnea (adult) (pediatric) (9) Diabetes mellitus: Status: Chronic Qualifiers: Diabetes mellitus complication status: without complication 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 Dr. Talamantes entry - Saw patient, agree with above note.
[2024-09-08] MEDS: CLOPIDOGREL 75MG TAB 75 MG PO (08:29)
[2024-09-08] MEDS: SACUBITRIL/VALSARTAN 24-26MG TABLET 1 EACH PO ×2 (08:29→20:49)
[2024-09-08] MEDS: ASPIRIN EC 81MG TABLET 81 MG PO (08:29)
[2024-09-08] MEDS: DAPAGLIFLOZIN PROPANEDIOL 10 MG TABLET PO (08:29)
[2024-09-08] MEDS: SPIRONOLACTONE 25MG TABLET 25 MG PO (08:29)
[2024-09-08] MEDS: FUROSEMIDE 40MG/4ML VIAL 40 MG IV (08:30)
[2024-09-08] MEDS: BISOPROLOL 5MG TABLET 5 MG PO (08:30)
[2024-09-08] MEDS: GABAPENTIN 800MG TABLET 800 MG PO ×3 (08:31→20:49)
--- NOTE | 2024-09-08 09:44 | P.PN_ITS ---
Subjective Subjective Date: 09/08/24 Time: 08:00 Principal diagnosis: soa, HFrEF Nstemi Interval history: Doing well this morning. Patient denies chest pain. Reports shortness of air has greatly improved. Morning labs reviewed and left heart catheterization pending. Exam Data for Last 24 hours Vital signs and Labs for Last 24 Hours: Temp Pulse Resp BP Pulse Ox O2 Del Method O2 Flow Rate 98.0 F 80 16 126/65 96 CPAP 3.5 09/08/24 07:37 09/08/24 07:37 09/08/24 07:37 09/08/24 07:37 09/08/24 07:37 09/08/24 07:37 09/08/24 00:00 Laboratory Results - last 24 hr 09/07/24 12:26: WBC 10.1, RBC 4.47, Hgb 13.8, Hct 42.5, MCV 95.1, MCH 30.9, MCHC 32.5, RDW 14.6, Plt Count 281, MPV 11.0 H, Neut % (Auto) 43.9, Lymph % (Auto) 45.3, Norman % (Auto) 8.5, Eos % (Auto) 1.5, Baso % (Auto) 0.6, Neut # (Auto) 4.4, Lymph # (Auto) 4.6 H, Norman # (Auto) 0.9, Eos # (Auto) 0.2, Baso # (Auto) 0.1, D- Dimer 0.62 H, Sodium 138, Potassium 4.6, Chloride 106, Carbon Dioxide 19 L, Anion Gap 17.6 H, BUN 21 H, Creatinine 1.20 H, Estimated Creat Clear 69, Estimated GFR 45 L, Est GFR ( Amer) 55 L, Glucose 343 H, Calcium 9.9, Total Bilirubin 0.5, AST 45 H, ALT 32, Alkaline Phosphatase 85, Troponin I 0.19 H, Total Protein 7.9, Albumin 5.0, Globulin 2.9, Albumin/Globulin Ratio 1.7 09/07/24 12:49: NT-Pro-B Natriuret Pep 1220 H 09/07/24 12:50: VBG pH 7.21 L, VBG pCO2 48.9, VBG pO2 37.3, VBG HCO3 18.9 L, VBG Total CO2 20.4 L, VBG O2 Saturation 62.3, VBG Base Excess -9.0 L, VBG Lactic Acid 3.3 H 09/07/24 15:40: Troponin I 0.28 H 09/07/24 17:16: Lactate 2.1 09/07/24 17:46: POC Glucose 323 H* 09/07/24 19:40: Lactate 1.9 09/07/24 20:05: POC Glucose 291 H 09/08/24 05:12: POC Glucose 187 H 09/08/24 05:18: WBC 7.8, RBC 4.24, Hgb 12.8, Hct 39.2, MCV 92.5, MCH 30.2, MCHC 32.7, RDW 14.6, Plt Count 231, MPV 11.2 H, Neut % (Auto) 62.4, Lymph % (Auto) 25.8, Norman % (Auto) 9.6 H, Eos % (Auto) 1.3, Baso % (Auto) 0.5, Neut # (Auto) 4.9, Lymph # (Auto) 2.0, Norman # (Auto) 0.8, Eos # (Auto) 0.1, Baso # (Auto) 0.0, Sodium 140, Potassium 3.7, Chloride 107, Carbon Dioxide 26, Anion Gap 10.7, BUN 25 H, Creatinine 1.10 H, Estimated Creat Clear 45, Estimated GFR 50 L, Est GFR ( Amer) 61, Glucose 185 H D, Calcium 9.6 I & O for Last 24 hours: Intake & Output 09/05/24 09/06/24 09/07/24 09/08/24 23:59 23:59 23:59 23:59 Intake Total 480 / 830 350 / 350 Output Total 1800 / 1800 / 202 Balance -1320 / -970 148 / 148 Weight 188 lb 9.6 oz 120 lb 3.454 oz Constitutional Constitutional: no acute distress *Routine Respiratory Exam Respiratory: Present CTA bilaterally and symmetric chest movement *Routine Cardiovascular Exam Cardiovascular: Present RRR, Normal S1 and Normal S2 *Routine Abdominal Exam Abdominal: Present soft and normoactive bowel sounds; Absent tenderness *Routine Extremities Exam Extremities: Present full ROM and normal capillary refill; Absent edema *Routine Skin Exam Skin: Present intact, dry and warm Detailed Neck Exam: Thyroids Thyroid: Absent bruit Progress Note: A&P Assessment and plan (1) Heart failure with reduced ejection fraction: Status: Acute (2) Acute hypoxemic respiratory failure: Status: Acute (3) NSTEMI (non-ST elevated myocardial infarction): Status: Acute (4) CAD (coronary artery disease): Status: Chronic (5) History of coronary artery bypass graft: Status: Chronic (6) HTN (hypertension): Status: Chronic (7) HLD (hyperlipidemia): Status: Chronic (8) JHON (obstructive sleep apnea): Status: Acute (9) Diabetes mellitus: Status: Chronic Assessment and Plan Assessment and Plan for All Diagnoses:: Acute hypoxic respiratory failure New onset HFrEF History of coronary artery disease History of CABG NSTEMI Patient presents to emergency department with chest pain and shortness of breath EKG shows ST depressions in V 4 5 and 6 worse than normal Initial troponin 0.19 and proBNP 1220 Has diuresed over 1 L Off of CPAP and maintaining oxygen saturation on nasal cannula D-dimer is positive-CTA chest is negative for PE but does show right upper lobe and bilateral lower l lobe groundglass infiltrates likely representing acute pneumonitis. Will defer to primary service Echo shows an EF of 35 to 40% with severe hypokinesis of the septal and anteroseptal LV lozano. The RV is not well-visualized but appears mildly to moderately dilated with mild reduction in RV function. Mild MR. Continue Lovenox 1 mg/kg SQ Continue aspirin 81 mg p.o. daily and Plavix 75 mg p.o. daily Continue atorvastatin 80 mg p.o. daily Continue bisoprolol 5 mg p.o. daily, Farxiga 10 mg p.o. daily. Start Entresto 24/26 mg p.o. twice daily, Lasix 40 mg IV daily and Aldactone 25 mg p.o. daily. Left heart cath pending CV summary 09/08/2024: Patient improved today. Maintaining oxygen saturation on room air. Has diuresed over 1 L. Left heart cath pending. CV meds: Aspirin 81 mg p.o. daily Plavix 75 mg p.o. daily Atorvastatin 80 mg p.o. daily Bisoprolol 5 mg p.o. daily Farxiga 10 mg p.o. daily Entresto 24/26 mg p.o. twice daily Lasix 40 mg IV daily Aldactone 25 mg p.o. daily
[2024-09-08 12:29] LABS: POC Glucose,Bedside 407 (70-110)
--- NOTE | 2024-09-08 15:00 | HMH.PHAINT1 ---
Pharmacy Intervention Comments: MEDICATION RECONCILIATION COMPLETED ON PATIENT USING EXTERNAL FILL HISTORY FROM PHARMACY AND LIST FROM CARDIOLOGY OFFICE. -MONIKA ARELLANO, MOSESD
[2024-09-08] MEDS: 0.9 % SODIUM CHLORIDE 500 ML 25 ML IV (15:54)
[2024-09-08] MEDS: diphenhydrAMINE 50MG/ML VIAL 50 MG IV (15:54)
[2024-09-08] MEDS: HEPARIN 1,000 UNITS/500ML NS (CATH LAB) 3000 UNIT IV (15:54)
[2024-09-08] MEDS: FENTANYL 100MCG/2ML VIAL 50 MCG IV (16:00)
[2024-09-08] MEDS: MIDAZOLAM HCL 1MG/ML 5ML VIAL 1 MG IV (16:00)
[2024-09-08] MEDS: HEPARIN 1,000 UNITS/ML 10ML VIAL (CATH LAB) 5000 UNIT IV (16:20)
[2024-09-08 17:33] LABS: POC Glucose,Bedside 190 (70-110)
[2024-09-08] MEDS: IOPAMIDOL-370 (76%);100ML BOTTLE 90 ML IV (18:25)
[2024-09-08 18:36] LABS: CATHL Activated Clotting Time 199 SEC (74-125)
[2024-09-08 18:37] LABS: CATHL Activated Clotting Time 223 SEC (74-125)
[2024-09-08] MEDS: ATORVASTATIN 40MG TABLET 80 MG PO (20:49)
[2024-09-08 21:26] LABS: POC Glucose,Bedside 133 (70-110)
[2024-09-09] VITALS (7 sets, daily range): BP systolic 95–109; BP diastolic 52–63; PULSE 71–79; RESP 17–20; TEMP 36.7–36.8; O2SAT 90–96; BMI 31.8
--- NOTE | 2024-09-09 04:50 | PC.NURSE ---
Patient is pleasantly alert and oriented x4. Her visited her yesterday evening and later departed at bedtime. She was observed to have eyes closed, respirations even and unlabored, and no apparent distress throughout the majority of the night. Post-angio assessments and vital sign assessments were completed during this shift. Patient remained lying flat/supine upon returning from her heart cath (occurred during previous shift) until 23:45 this shift, and was allowed to stand by 00:45. Patient ambulates independently at baseline. Right femoral cath site was assessed; dressing remains clean, dry, and intact. Pulses +2. Patient tolerates 3 L of oxygen via nasal cannula while awake and wears her personal CPAP machine at night. Oxygen saturations have remained > 90%; continuous pulse ox remains in place. 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 She has not had any complaints this shift. Scheduled medications were administered as appropriately per MAR as well. ACHS glucose checks performed. At this time, the patient is resting in bed without any further complaints. No new needs at this time. Call light within reach.
[2024-09-09 05:54] LABS: POC Glucose,Bedside 162 (70-110)
[2024-09-09] MEDS: humaLOG 100 UNITS/ML 10ML VIAL (SSI) SUBCUT ×2 (06:35→11:20)
--- NOTE | 2024-09-09 08:20 | P.PN_ITS ---
Subjective *Date: 09/09/24 *Time: 08:47 Interval history: Patient is feeling much better this am. She denies any pain and her SOA has improved. She slept last night. Medical Exam Vital signs and Labs for Last 24 Hours: Vital Signs Temp Pulse Pulse Resp BP Pulse Ox O2 Del Method 09/09/24 06:55 CPAP 09/09/24 05:00 CPAP 09/09/24 04:00 75 09/09/24 03:00 CPAP 09/09/24 01:00 71 18 95/52 L 95 CPAP 09/09/24 01:00 CPAP 09/09/24 00:00 72 17 109/54 L 93 L CPAP 09/09/24 00:00 72 09/08/24 23:00 77 16 107/61 L 92 L CPAP 09/08/24 23:00 CPAP 09/08/24 22:00 73 16 97/57 L 91 L Nasal Cannula 09/08/24 21:00 73 18 94/52 L 95 Nasal Cannula 09/08/24 21:00 Nasal Cannula 09/08/24 20:30 74 17 107/61 L 93 L Nasal Cannula 09/08/24 20:00 76 17 102/49 L 93 L Nasal Cannula 09/08/24 20:00 73 17 93 L Nasal Cannula 09/08/24 20:00 73 09/08/24 19:30 66 18 94/62 L 94 L Nasal Cannula 09/08/24 19:00 77 17 123/59 L 93 L Nasal Cannula 09/08/24 18:51 Nasal Cannula 09/08/24 18:45 72 16 98/67 L 94 L Nasal Cannula 09/08/24 18:45 72 18 98/67 L 94 L Nasal Cannula 09/08/24 18:30 75 18 93/63 L 94 L Nasal Cannula 09/08/24 18:15 75 16 113/68 95 Nasal Cannula 09/08/24 18:00 98.2 F 77 18 123/59 L 94 L Nasal Cannula 09/08/24 17:50 76 18 103/73 L 95 09/08/24 17:45 77 17 107/64 L 95 09/08/24 17:40 80 17 112/71 96 09/08/24 17:35 76 17 127/50 L 94 L 09/08/24 17:30 77 18 126/50 L 93 L 09/08/24 17:25 78 18 111/65 98 Room Air 09/08/24 17:20 78 18 104/59 L 97 09/08/24 17:15 79 18 96/59 L 96 Room Air 09/08/24 17:10 84 17 106/56 L 95 Room Air 09/08/24 17:05 81 17 137/58 L 95 09/08/24 17:00 81 17 115/66 93 L 09/08/24 16:56 82 18 115/67 93 L 09/08/24 16:44 85 85 20 110/70 95 Room Air 09/08/24 14:44 Nasal Cannula 09/08/24 12:45 Nasal Cannula 09/08/24 12:00 80 09/08/24 11:20 98.4 F 78 18 109/47 L 93 L Nasal Cannula 09/08/24 11:00 Nasal Cannula 09/08/24 10:55 98.0 F 80 20 126/65 96 Nasal Cannula O2 Flow Rate 09/09/24 06:55 09/09/24 05:00 09/09/24 04:00 09/09/24 03:00 09/09/24 01:00 09/09/24 01:00 09/09/24 00:00 09/09/24 00:00 09/08/24 23:00 09/08/24 23:00 09/08/24 22:00 3 09/08/24 21:00 3 09/08/24 21:00 3 09/08/24 20:30 3 09/08/24 20:00 3 09/08/24 20:00 3 09/08/24 20:00 09/08/24 19:30 3 09/08/24 19:00 3 09/08/24 18:51 3 09/08/24 18:45 3 09/08/24 18:45 3 09/08/24 18:30 3 09/08/24 18:15 3 09/08/24 18:00 3 09/08/24 17:50 09/08/24 17:45 09/08/24 17:40 09/08/24 17:35 09/08/24 17:30 09/08/24 17:25 09/08/24 17:20 09/08/24 17:15 09/08/24 17:10 09/08/24 17:05 09/08/24 17:00 09/08/24 16:56 09/08/24 16:44 09/08/24 14:44 3 09/08/24 12:45 3 09/08/24 12:00 09/08/24 11:20 3 09/08/24 11:00 3 09/08/24 10:55 3 Intake and Output 09/08/24 09/09/24 09/09/24 19:59 03:59 11:59 Intake Total 200 / 200 Output Total 100 / 100 Balance 200 / 100 -100 / 100 Intake: Intake, Oral Amount 200 / 200 Output: Output, Urine Amount 100 / 100 Other: Weight 191 lb Patient Weight 09/09/24 11:59 Weight 191 lb Laboratory Results - last 24 hr 09/08/24 12:22: POC Glucose 407 H* 09/08/24 16:17: Activated Clotting Time 223 H* 09/08/24 16:44: Activated Clotting Time 199 H* 09/08/24 17:27: POC Glucose 190 H 09/08/24 20:53: POC Glucose 133 H 09/09/24 05:45: POC Glucose 162 H I & O for Labs for Last 24 Hours: Intake & Output 09/06/24 09/07/24 09/08/24 09/09/24 11:59 11:59 11:59 11:59 Intake Total 830 / 830 200 / 200 Output Total 2402 / 2402 100 / 100 Balance -1572 / -1572 100 / 100 Weight 120 lb 3.454 oz 191 lb Constitutional: Present no acute distress Respiratory: Present CTA bilaterally Cardiac: Present Reg Rate and Rhythm GI: Present soft and normal bowel sounds; Absent distention or tenderness Extremities: Absent edema, clubbing or cyanosis Skin: Present intact Neuro: Present alert and awake Additional Findings:: Cardiac Cath IMPRESSION Severe disease in the distal dominant circumflex artery as described above with successful stenting reducing lesion to 0% with 1 drug-eluting stent Slightly reduced ejection fraction Normal LVEDP Moderate disease at the anastomosis of the MURRAY to the LAD Chronically occluded saphenous vein graft to the circumflex artery Vestigial right coronary PLAN 1. Dual antiplatelet therapy 2. Avoidance of tobacco products 3. Risk factor modification 4. LDL less than 55 achieved with high intensity statin 5. Cardiac rehabilitation Assessment and Plan *Assessment and plan (1) Heart failure with reduced ejection fraction: Status: Acute Category: Medical Code(s): I50.20 - Unspecified systolic (congestive) heart failure (2) Acute hypoxemic respiratory failure: Status: Acute Category: Medical Code(s): J96.01 - Acute respiratory failure with hypoxia (3) NSTEMI (non-ST elevated myocardial infarction): Status: Acute Category: Medical Code(s): I21.4 - Non-ST elevation (NSTEMI) myocardial infarction (4) CAD (coronary artery disease): Status: Chronic Qualifiers: Associated angina: without angina Coronary Disease-Associated Artery/Lesion type: three affiliated artery [place] vs. transplanted heart: three affiliated heart Qualified Code(s): I25.10 - Atherosclerotic heart disease of three affiliated coronary artery without angina pectoris Category: Medical Code(s): I25.10 - Atherosclerotic heart disease of three affiliated coronary artery without angina pectoris (5) History of coronary artery bypass graft: Status: Chronic Category: Surgical Code(s): Z95.1 - Presence of aortocoronary bypass graft (6) HTN (hypertension): Status: Chronic Qualifiers: Hypertension type: essential hypertension Qualified Code(s): I10 - Essential (primary) hypertension Category: Medical Code(s): I10 - Essential (primary) hypertension (7) HLD (hyperlipidemia): Status: Chronic Qualifiers: Hyperlipidemia type: mixed hyperlipidemia Qualified Code(s): E78.2 - Mixed hyperlipidemia Category: Medical Code(s): E78.5 - Hyperlipidemia, unspecified (8) JHON (obstructive sleep apnea): Status: Acute Category: Medical Code(s): G47.33 - Obstructive sleep apnea (adult) (pediatric) (9) Diabetes mellitus: Status: Chronic Qualifiers: Diabetes mellitus complication status: without complication Diabetes mellitus intermission coordinator insulin use: without detention use Diabetes mellitus type: type 2 Qualified Code(s): E11.9 - Type 2 diabetes mellitus without complications Category: Medical Code(s): E11.9 - Type 2 diabetes mellitus without complications Plan Patient had a stent placed yesterday. Cardiology to follow. Patient can likely be discharged today. Dr. Talamantes entry - Saw patient, agree with above note.
[2024-09-09] MEDS: SPIRONOLACTONE 25MG TABLET 25 MG PO (08:37)
[2024-09-09] MEDS: SACUBITRIL/VALSARTAN 24-26MG TABLET 1 EACH PO (08:37)
[2024-09-09] MEDS: CITALOPRAM 40MG TABLET 40 MG PO (08:37)
[2024-09-09] MEDS: BISOPROLOL 5MG TABLET 5 MG PO (08:37)
[2024-09-09] MEDS: ASPIRIN EC 81MG TABLET 81 MG PO (08:37)
[2024-09-09] MEDS: DAPAGLIFLOZIN PROPANEDIOL 10 MG TABLET PO (08:38)
[2024-09-09] MEDS: CLOPIDOGREL 75MG TAB 75 MG PO (08:38)
[2024-09-09] MEDS: FUROSEMIDE 40MG/4ML VIAL 40 MG IV (08:38)
[2024-09-09] MEDS: GABAPENTIN 800MG TABLET 800 MG PO ×2 (08:43→13:28)
--- NOTE | 2024-09-09 10:14 | EXP.CARD.PN ---
Subjective Subjective Date: 09/09/24 Time: 08:00 Principal diagnosis: soa, HFrEF Nstemi Interval history: Patient doing well this morning. She reports she is feeling much better. Denies chest pain or shortness of breath. Maintaining oxygen saturation greater than 92% on room air Exam Data for Last 24 hours Vital signs and Labs for Last 24 Hours: Temp Pulse Resp BP Pulse Ox O2 Del Method O2 Flow Rate 98.0 F 78 18 109/63 L 90 L Room Air 3 09/09/24 08:00 09/09/24 08:00 09/09/24 08:00 09/09/24 08:00 09/09/24 09:36 09/09/24 09:36 09/09/24 08:00 Laboratory Results - last 24 hr 09/08/24 12:22: POC Glucose 407 H* 09/08/24 16:17: Activated Clotting Time 223 H* 09/08/24 16:44: Activated Clotting Time 199 H* 09/08/24 17:27: POC Glucose 190 H 09/08/24 20:53: POC Glucose 133 H 09/09/24 05:45: POC Glucose 162 H I & O for Last 24 hours: Intake & Output 09/06/24 09/07/24 09/08/24 09/09/24 23:59 23:59 23:59 23:59 Intake Total 480 / 830 350 / 550 450 / 450 Output Total 1800 / 1800 602 / 602 800 / 800 Balance -1320 / -970 -252 / -52 -350 / -350 Weight 188 lb 9.6 oz 120 lb 3.454 oz 191 lb Constitutional Constitutional: no acute distress *Routine Respiratory Exam Respiratory: Present CTA bilaterally and symmetric chest movement *Routine Cardiovascular Exam Cardiovascular: Present RRR, Normal S1 and Normal S2 *Routine Abdominal Exam Abdominal: Present soft and normoactive bowel sounds; Absent tenderness *Routine Extremities Exam Extremities: Present full ROM and normal capillary refill; Absent edema *Routine Skin Exam Skin: Present intact, dry and warm Detailed Neck Exam: Thyroids Thyroid: Absent bruit Progress Note: A&P Assessment and plan (1) Heart failure with reduced ejection fraction: Status: Acute (2) Acute hypoxemic respiratory failure: Status: Acute (3) NSTEMI (non-ST elevated myocardial infarction): Status: Acute (4) CAD (coronary artery disease): Status: Chronic (5) History of coronary artery bypass graft: Status: Chronic (6) HTN (hypertension): Status: Chronic (7) HLD (hyperlipidemia): Status: Chronic (8) JHON (obstructive sleep apnea): Status: Acute (9) Diabetes mellitus: Status: Chronic Assessment and Plan Assessment and Plan for All Diagnoses:: Acute hypoxic respiratory failure New onset HFrEF History of coronary artery disease History of CABG NSTEMI Patient presents to emergency department with chest pain and shortness of breath EKG shows ST depressions in V 4 5 and 6 worse than normal Initial troponin 0.19 and proBNP 1220 Has a negative balance of 2 L Off of CPAP and maintaining oxygen saturation on room air Status post left heart catheterization yesterday-patient received a stent to her circumflex Echo shows an EF of 35 to 40% with severe hypokinesis of the septal and anteroseptal LV lozano. The RV is not well-visualized but appears mildly to moderately dilated with mild reduction in RV function. Mild MR. Continue aspirin 81 mg p.o. daily and Plavix 75 mg p.o. daily Continue atorvastatin 80 mg p.o. daily Continue bisoprolol 5 mg p.o. daily, Farxiga 10 mg p.o. daily. Start Entresto 24/26 mg p.o. twice daily, Lasix 40 mg IV daily and Aldactone 25 mg p.o. daily. CV summary 09/08/2024: Patient continues to improve. She reports her shortness of breath is resolved. Denies chest pain. Patient is CV stable for discharge home. Please have patient follow-up with cardiology clinic in 1 week for reevaluation. Please continue below listed medications. CV meds: Aspirin 81 mg p.o. daily Plavix 75 mg p.o. daily Atorvastatin 80 mg p.o. daily Bisoprolol 5 mg p.o. daily Farxiga 10 mg p.o. daily Entresto 24/26 mg p.o. twice daily Lasix 40 mg IV daily Aldactone 25 mg p.o. daily
[2024-09-09 11:18] LABS: POC Glucose,Bedside 366 (70-110)
--- NOTE | 2024-09-09 14:49 | EXP.DC.SUM ---
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 EKG upon admission to ER shows worsening ST depression in V4, 5 and 6. Labs as follow: WBC 10.1, hemoglobin 13.8, platelets 281, D-dimer positive, sodium 138, potassium 4.6, creatinine 1.2, troponin 0.19 and proBNP 1220. Chest x-ray shows new mixed interstitial and airspace opacities both lower lobes may be due to acute diffuse pneumonia or edema. Initial oxygen saturation upon presentation was 83% on room air. Patient was started on CPAP and given IV Lasix 60 mg IV x 1. Patient will be admitted for volume overload and NSTEMI. (above as per cardiology) Hospital Course Hospital Course Hospital Course: The patient's chest x-ray showed new mixed interstitial and airspace opacities which could be due to acute diffuse pneumonia or edema. Her echo showed an EF of 35 to 40% with severe hypokinesis of the septal and anterior septal ventricular lozano. She was initially started on CPAP and given IV Lasix. Cardiology also started on Lovenox and wanted her to have a heart cath. She was able to be weaned off the CPAP onto nasal oxygen. Her cardiac cath revealed severe disease in the distal dominant circumflex artery and she received 1 stent. Cardiology wanted her to have dual antiplatelet therapy and cardiac rehab. She felt much better after heart cath and had no further chest pain. Her shortness of breath improved. She was able to be weaned off of oxygen onto room air and she diuresed over a liter. By 09/09/2024 she was much better and was stable to be discharged home. She will have follow-up with cardiology. Exam Data for Last 24 hours Vital signs and Labs for Last 24 Hours: Temp Pulse Resp BP Pulse Ox O2 Del Method O2 Flow Rate 98.3 F 79 20 102/62 L 96 Room Air 3 09/09/24 12:00 09/09/24 12:00 09/09/24 12:00 09/09/24 12:00 09/09/24 12:00 09/09/24 13:05 09/09/24 08:45 Laboratory Results - last 24 hr 09/08/24 16:17: Activated Clotting Time 223 H* 09/08/24 16:44: Activated Clotting Time 199 H* 09/08/24 17:27: POC Glucose 190 H 09/08/24 20:53: POC Glucose 133 H 09/09/24 05:45: POC Glucose 162 H 09/09/24 11:11: POC Glucose 366 H* I & O for Last 24 hours: Intake & Output 09/07/24 09/08/24 09/09/24 09/10/24 11:59 11:59 11:59 11:59 Intake Total 830 / 830 450 / 450 Output Total 2402 / 2402 800 / 800 0 / 0 Balance -1572 / -1572 -350 / -350 0 / 0 Weight 120 lb 3.454 oz 191 lb Narrative: Constitutional Constitutional: no acute distress *Routine HEENT Exam Head: Present normocephalic and atraumatic Eye: Present EOMI and PERRL ENT: Present mucous membranes dry *Routine Neck Exam Neck: Present supple and full ROM *Routine Respiratory Exam Respiratory: Present wheezes, crackles (bibasilar) and diminished air movement *Routine Cardiovascular Exam Cardiovascular: Present RRR *Routine Abdominal Exam Abdominal: Present soft and normoactive bowel sounds; Absent tenderness *Routine Rectal Exam Rectal:: deferred *Routine Genitalia Exam Genitalia:: deferred *Routine Extremities Exam Extremities: Absent cyanosis, clubbing or edema *Routine Skin Exam Skin: Present intact; Absent erythema *Routine Neurological Exam Neurological: Present alert and oriented X3 Results Data Completed and Pending Labs on day of discharge: Labs from last 24 hours 09/09/24 09/09/24 09/08/24 11:11 05:45 20:53 Activated Clotting Time POC Glucose 366 H* 162 H 133 H 09/08/24 09/08/24 09/08/24 17:27 16:44 16:17 Activated Clotting Time 199 H* 223 H* POC Glucose 190 H DS: Diagnosis Discharge Diagnosis (1) Heart failure with reduced ejection fraction: Status: Acute Code(s): I50.20 - Unspecified systolic (congestive) heart failure (2) Acute hypoxemic respiratory failure: Status: Acute Code(s): J96.01 - Acute respiratory failure with hypoxia (3) NSTEMI (non-ST elevated myocardial infarction): Status: Acute Code(s): I21.4 - Non-ST elevation (NSTEMI) myocardial infarction (4) CAD (coronary artery disease): Status: Chronic Code(s): I25.10 - Atherosclerotic heart disease of [place] coronary artery without angina pectoris Qualifiers: Coronary Disease-Associated Artery/Lesion type: [place] artery [place] vs. transplanted heart: [place] heart Associated angina: without angina Qualified Code(s): I25.10 - Atherosclerotic heart disease of [place] coronary artery without angina pectoris (5) History of coronary artery bypass graft: Status: Chronic Code(s): Z95.1 - Presence of aortocoronary bypass graft (6) HTN (hypertension): Status: Chronic Code(s): I10 - Essential (primary) hypertension Qualifiers: Hypertension type: essential hypertension Qualified Code(s): I10 - Essential (primary) hypertension (7) HLD (hyperlipidemia): Status: Chronic Code(s): E78.5 - Hyperlipidemia, unspecified Qualifiers: Hyperlipidemia type: mixed hyperlipidemia Qualified Code(s): E78.2 - Mixed hyperlipidemia (8) JHON (obstructive sleep apnea): Status: Acute Code(s): G47.33 - Obstructive sleep apnea (adult) (pediatric) (9) Diabetes mellitus: Status: Chronic Code(s): E11.9 - Type 2 diabetes mellitus without complications Qualifiers: Diabetes mellitus type: type 2 Diabetes mellitus complication status: without complication Diabetes mellitus technician terminal and repeater insulin use: without technician terminal and repeater use Qualified Code(s): E11.9 - Type 2 diabetes mellitus without complications Meds Home Medications and Allergies Home Medications ?Medication ?Instructions ?Recorded ?Confirmed ?Type multivitamin-ferrous 1 tab PO DAILY 05/22/17 09/08/24 History fumarate-folic acid 18 mg-400 mcg tablet (Centrum Complete) nitroglycerin 0.6 mg sublingual 0.6 mg sublingual Q5MINP PRN Chest 05/22/17 09/08/24 History tablet Pain cholecalciferol (vitamin D3) 25 1,000 unit PO DAILY 09/22/17 09/07/24 History mcg (1,000 unit) capsule sennosides 8.6 mg tablet (Senna 8.6 mg PO DAILYP PRN Constipation 09/22/17 09/08/24 History Lax) black cohosh 200 mg capsule 540 mg PO DAILY 06/05/20 09/07/24 History glimepiride 4 mg tablet 8 mg PO DAILY 06/05/20 09/07/24 History insulin aspart prot-aspart 100 60 unit SQ BID 06/05/20 09/07/24 History unit/mL (70-30) subcutaneous cartridge metoclopramide HCl 10 mg tablet 10 mg PO BID 06/05/20 09/07/24 History gabapentin 800 mg tablet 800 mg PO TID 07/08/21 09/07/24 History atorvastatin 80 mg tablet 80 mg PO HS 08/18/23 09/07/24 History citalopram 40 mg tablet 40 mg PO DAILY 08/18/23 09/07/24 History clopidogrel 75 mg tablet (Plavix) 75 mg PO DAILY 08/18/23 09/07/24 History gemfibrozil 600 mg tablet 600 mg PO BID 08/18/23 09/07/24 History omega-3 fatty acids 1,000 mg 1,000 mg PO DAILY 08/18/23 09/08/24 History capsule semaglutide 2 mg/dose (8 mg/3 mL) 2 mg SQ WEEKLY 10/19/23 09/07/24 History subcutaneous pen injector (Ozempic) dapagliflozin propanediol 10 mg 10 mg PO DAILY #90 tabs 05/26/24 09/09/24 Rx tablet (Farxiga) bisoprolol fumarate 5 mg tablet 5 mg PO DAILY 09/07/24 09/07/24 History aspirin 81 mg tablet,delayed 81 mg PO DAILY 09/08/24 09/08/24 History release spironolactone 25 mg tablet 25 mg PO DAILY 09/08/24 09/08/24 History furosemide 40 mg tablet 40 mg PO DAILY #30 tabs 09/09/24 Rx sacubitril 24 mg-valsartan 26 mg 1 tab PO BID #60 tabs 09/09/24 Rx tablet (Entresto) New Prescriptions to Start Prescriptions: furosemide Austin,Marshall sacubitril-valsartan [Entresto] Austin,Marshall Allergies Allergy/AdvReac Type Severity Reaction Status Date / Time No Known Allergies Allergy Verified 05/26/24 13:12 Discharge Plan Disposition Patient Disposition: Home, Self-Care Condition: Fair Discharge Order Discharge Orders: Discharge Order (Routine); Ordered 09/09/24 Ordered By: Marshall Talamantes Follow up Plan Follow up with: Veronika Cortez APRN [Nurse Practitioner] - 09/19/24 2:45 pm Benja Catalan MD [Primary Care Provider] - 09/13/24 11:15 am Prescriptions/Medication Reconciliation: New Entresto 24-26 mg Tablet 1 tab PO BID Qty: 60 0RF furosemide 40 mg tablet 40 mg PO DAILY Qty: 30 0RF Continued cholecalciferol (vitamin D3) 1,000 unit capsule 1,000 unit PO DAILY sennosides [Senna Lax] 8.6 mg tablet 8.6 mg PO DAILYP PRN (Reason: Constipation) insulin asp prt-insulin aspart 100 unit/mL (70-30) cartridge 60 unit SQ BID Ozempic 2 mg/dose (8 mg/3 mL) pen injector 2 mg SQ WEEKLY nitroglycerin 0.6 mg tablet, sublingual 0.6 mg SUBLINGUAL Q5MINP PRN (Reason: Chest Pain) [id number] acid [Centrum Complete] 18-400 mg-mcg tablet 1 tab PO DAILY metoclopramide HCl 10 mg tablet 10 mg PO BID black cohosh 200 mg capsule 540 mg PO DAILY gabapentin 800 mg tablet 800 mg PO TID dapagliflozin propanediol [Farxiga] 10 mg tablet 10 mg PO DAILY Qty: 90 1RF bisoprolol fumarate 5 mg tablet 5 mg PO DAILY aspirin 81 mg Tablet,Delayed Release (Dr/Ec) 81 mg PO DAILY spironolactone 25 mg Tablet 25 mg PO DAILY glimepiride 4 mg tablet 8 mg PO DAILY atorvastatin 80 mg tablet 80 mg PO HS Patient Comments: TAKE 1 TABLET BY MOUTH ONCE DAILY citalopram 40 mg tablet 40 mg PO DAILY Patient Comments: TAKE 1 TABLET BY MOUTH ONCE DAILY gemfibrozil 600 mg tablet 600 mg PO BID Patient Comments: TAKE 1 TABLET BY MOUTH TWICE DAILY clopidogrel [Plavix] 75 mg tablet 75 mg PO DAILY omega-3 fatty acids 1,000 mg capsule 1,000 mg PO DAILY Discontinued lisinopril 10 mg tablet 10 mg PO BID Patient Comments: TAKE 1 TABLET BY MOUTH TWICE DAILY hydrochlorothiazide 25 mg tablet 25 mg PO DAILY Problem Reconciliation Problems Reviewed?: Yes Patient Discharge Instructions ACTIVITY: Limited activity DIET: continue same diet Patient Instructions: DI for Heart Failure, DI for Cardiac Catheterization, DI for Surgical Site Infection, DI for Respiratory Failure, Stop Light Heart Failure Print Language: [place] Providers Primary Care Provider: Benja Catalan Admit Provider: Marshall Talamantes Attending Provider: Marshall Talamantes
--- NOTE | 2024-09-12 11:08 | SW/DCPLANNER ---
Spoke with patient on the phone. Patient stated that she is feeling much better. Patient stated that she is aware of her upcoming appointments. patient stated that she was able to get her new medicine picked up at [facility]. Patient stated that she has no concerns or questions at this time. Rolly Harrison
== END 2024-09-09 14:19 | disposition home or self-care (01) | DRG 321 ==
LOC: ER 14:09 → 2ND 15:13
PROVIDERS: Internal Medicine; Nurse Practitioner; Nurse Practitioner Family; Admitting Provider Family Medicine; Emergency Provider Emergency Medicine; PCP Family Medicine; Visit Provider Family Medicine
PROC: 4A023N7 Measurement of Cardiac Sampling and Pressure, Left Heart, Percutaneous Approach (ICD-10-PCS; CPT 93452; principal; 2024-09-08 14:30)
DX: I25.810 Atherosclerosis of coronary artery bypass graft(s) without angina pectoris (principal); I21.A1 Myocardial infarction type 2; I50.21 Acute systolic (congestive) heart failure; J96.01 Acute respiratory failure with hypoxia; I69.354 Hemiplegia and hemiparesis following cerebral infarction affecting left non-dominant side; E66.9 Obesity, unspecified; I11.0 Hypertensive heart disease with heart failure; G47.33 Obstructive sleep apnea (adult) (pediatric); R91.8 Other nonspecific abnormal finding of lung field; E11.9 Type 2 diabetes mellitus without complications; E78.5 Hyperlipidemia, unspecified; Z87.891 Personal history of nicotine dependence; Z95.1 Presence of aortocoronary bypass graft; Z82.49 Family history of ischemic heart disease and other diseases of the circulatory system; Z95.5 Presence of coronary angioplasty implant and graft; Z68.31 Body mass index [BMI] 31.0-31.9, adult; Z79.02 Long term (current) use of antithrombotics/antiplatelets; Z79.899 Other long term (current) drug therapy; Z79.84 Long term (current) use of oral hypoglycemic drugs; Z79.82 Long term (current) use of aspirin; Z79.85 Long-term (current) use of injectable non-insulin antidiabetic drugs
CPT/HCPCS: 36415; 71046; 71275; 80048; 80053; 82803; 82962; 83605; 83880; 84484; 85025; 85347; 85378; 92928; 93005; 93306; 93459; 94761; 99152; 99153; 99291; C1725; C1769; C1874; C1894; C9600; J1200; J1644; J1938; J2250; J3010; Q9967

== ENCOUNTER → 2024-09-15 11:55 | Outpatient (CLI) | payer MEDICARE, SELFPAY | LOC: SL 11:58 | PROVIDERS: PCP Family Medicine; Visit Provider Internal Medicine Pulmonary Disease | DX: R06.02 Shortness of breath (principal) | CPT/HCPCS: 94762 ==

== ENCOUNTER 2024-09-27 12:33 | Outpatient (RCR) | payer MEDICARE, SELFPAY | END 2024-11-09 08:00 | disposition home or self-care (01) | LOC: CR 12:33 | PROVIDERS: Visit Provider Internal Medicine | DX: Z48.812 Encounter for surgical aftercare following surgery on the circulatory system (principal); Z98.61 Coronary angioplasty status ==

== ENCOUNTER 2024-10-21 09:39 | Outpatient (CLI) | payer MEDICARE, SELFPAY ==
--- OUTSIDE RECORDS SUMMARY | 2024-05-31 09:45 | XMS_ITS ---
[facility] Address [address] [place] [id number] Care Team Providers Care Medical Data Analyst Name Role Phone Lee Catalan Primary Care Provider [phone] Allergies Allergen (clinical drug ingredient) Drug/Non Drug Allergy documented on EMR Reaction Allergy Type Onset Date Status Diclofenac stomach upset Drug Allergy Ac tive Results Component Value Reference Range Notes H-BMP Reviewed date:06/10/2024 04:26:16 PM Interpretation: Performing Lab: Notes/Report: H-Microalbumine/Creatinine Reviewed date:06/10/2024 04:26:28 PM Interpretation: Performing Lab: Notes/Report: H-Glycohemoglobin A1C Reviewed date:06/10/2024 04:26:40 PM Interpretation: Performing Lab: Notes/Report: Mammogram Reviewed date:06/16/2024 12:44:36 PM Interpretation:Negative,annual f/u Performing Lab: Notes/Report: Negative,annual f/u result Negative,annual f/u REASON FOR VISIT AWV and check up, Due for Diabetic Eye Exam Medications Medication SIG (Take, Route, Frequency, Duration) Notes Start Date End Date Status Gemfibrozil 600 MG 1 tab(s) orally 2 times a day Active Atorvastatin Calcium 80 MG 1 tab(s) orally once a day Active Clopidogrel Bisulfate 75 MG 1 tab(s) orally once a day Active Lisinopril 10 MG 1 tab(s) orally Two times a day Active hydroCHLOROthiazide 25 MG Take 1 tablet by mouth once daily Active Furosemide 20 MG 1 tab(s) orally once a day Active Spironolactone 50 MG 1 tab(s) orally Active Cipro 250 MG 1 tab(s) orally every 12 hours for 5 day(s) 12/20/2021 Not-Taking Invokana 300 MG 1 tab(s) orally once a day Not-Taking Bisoprolol Fumarate 5 MG 1 tab(s) orally once a day Active Glimepiride 4 MG 2 tab(s) orally once a day for 90 days Active Cyclobenzaprine HCl 5 MG 1 tab(s) Orally two times a day as needed 05/31/2024 Active traMADol HCl 50 MG 1 tab(s) orally every 6 hours prn 03/05/2021 Not-Taking Citalopram Hydrobromide 40 MG Take 1 tablet by mouth once daily for 90 Active Ozempic (2 MG/DOSE) 8 MG/3ML INJECT 2 MG SUBCUTANEOUSLY ONCE A WEEK Active Metoclopramide HCl 10 MG 1 tab(s) orally Two times a day Active Gemfibrozil 600 MG Take 1 tablet by mouth twice daily for 90 Active hydroCHLOROthiazide 25 MG 1 tablet in morning Orally Once a day for 90 days Active Lisinopril 10 MG 1 tab(s) orally Two times a day for 90 days Active Clopidogrel Bisulfate 75 MG 1 tab(s) orally once a day for 90 days Active CPAP SUPPLIES DIRECTED G47.33 JHON (obstructi ve sleep apnea) 07/05/2019 Active CPAP TITRATION 1 EVALUATION DIRECTED 07/22/2022 Active NovoLIN 70/30 (70-30) 100 UNIT/ML 60 units subcutaneously bid Active Vitamin D3 50 MCG (2000 UT) 1 tab(s) orally once a day for 30 day(s) Active Atorvastatin Calcium 80 MG 1 tab(s) orally once a day for 90 days Active Gabapentin 800 MG 1 tab(s) orally 3 times a day Active metFORMIN HCl ER 500 MG 1 tab(s) Orally Two times a day Active Fish Oil 500 MG 2 cap(s) orally once a day Active Nitroglycerin 0.4 MG 1 tab(s) sublingually every 5 minutes 06/26/2022 Active Ozempic (2 MG/DOSE) 8 MG/3ML INJECT 2 MG SUBCUTANEOUSLY ONCE A WEEK Active Glimepiride 4 MG 2 tab(s) orally once a day Active Farxiga 10 MG 1 tablet Orally Once a day 30 mg, once daily Active Immunizations Vaccine Route Administration Date Status Comme nts PNEUMOVAX 23 VACCINE IM Intramuscular 05/31/2024 Administe jose cruz Social History Tobacco Use: Social History Observation Description Date Details (start date - stop date) Former Smoker NA - 07/09/2017 CURRENT TOBACCO USE: Question Answer Notes Are you a: former smoker When did you stop smoking? 07/09/2017 Problems Problem Type SNOMED Code ICD Code Onset Dates Problem Status W/U Status Risk Notes Problem Cervicalgia (M54.2) Active confirmed Vital Signs Blood pressure systolic 116 mm Hg 05/31/19 25 Blood pressure diastolic 64 mm Hg 025 Heart Rate 82 /min 05/31/2024 Height 65 in 05/31/2024 Weight 194 lbs 05/31/2024 BMI 32.28 kg/m2 05/31/2024 Encounters Encounter Location Date Provider Diagnosis [facility] [address] [facility] [address] [place] [id number] 05/31/2024 Lee Catalan Adult general medica l examination Z00.00 ; HTN (hypertension) I10 ; ASCVD (arteriosclerotic cardiovascular disease) I25.10 ; Dyslipidemia E78.5 ; Diabetic polyneuropathy associated with type 2 diabetes mellitus E11.42 ; Cervicalgia M54.2 ; Screening for breast cancer Z12.39 ; History of CVA (cerebrovascular accident) Z86.73 ; JHON (obstructive sleep apnea) G47.33 ; Depression with anxiety F41.8 ; BMI 32.0-32.9,adult Z68.32 and History of non-ST elevation myocardial infarction (NSTEMI) I25.2 Assessments Encounter Date Diagnosis (ICD Code) Assessment Notes Treatment Notes Treatment Clinical Notes Section Notes 05/31/2024 Adult general medical examination (ICD-10 - Z00.00) Patient instructed to return to office Annually for Annual Wellness Visits to include annual screenings of Pain assessment, Functional Ability assessment, Cognitive Ability assessment, Fall Risk assessment, Depression screening and Bladder control screening. 05/31/2024 HTN (hypertension) (ICD-10 - I10) 05/31/2024 ASCVD (arteriosclerotic cardiovascular disease) (ICD-10 - I25.10) 05/31/2024 Dyslipidemia (ICD-10 - E78.5) 05/31/2024 Diabetic polyneuropathy associated with type 2 diabetes mellitus (ICD-10 - E11.42) 05/31/2024 Cervicalgia (ICD-10 - M54.2) 05/31/2024 Screening for breast cancer (ICD-10 - Z12.39) 05/31/2024 History of CVA (cerebrovascular accident) (ICD-10 - Z86.73) 05/31/2024 JHON (obstructive sleep apnea) (ICD-10 - G47.33) 05/31/2024 Depression with anxiety (ICD-10 - F41.8) 05/31/2024 BMI 32.0-32.9,adult (ICD-10 - Z68.32) 05/31/2024 History of non-ST elevation myocardial infarction (NSTEMI) (ICD-10 - I25.2) Plan Of Treatment Medication Medication Name Sig Start Date Stop Date Notes Gemfibrozil 600 MG 1 tab(s) orally 2 ti mes a day Atorvastatin Calcium 80 MG 1 tab(s) oral ly once a day Clopidogrel Bisulfate 75 MG 1 tab(s) ora lly once a day Lisinopril 10 MG 1 tab(s) orally Two times a day hydroCHLOROthiazide 25 MG Take 1 tablet by mouth once daily Furosemide 20 MG 1 tab(s) orally once a day Spironolactone 50 MG 1 tab(s) orally Bisoprolol Fumarate 5 MG 1 tab(s) orally once a day Cyclobenzaprine HCl 5 MG 1 tab(s) Orally two times a day as needed 05/31/2024 Gabapentin 800 MG 1 tab(s) orally 3 ti mes a day metFORMIN HCl ER 500 MG 1 tab(s) Orally Two times a day Ozempic (2 MG/DOSE) 8 MG/3ML INJECT 2 MG SUBCUTANEOUSLY ONCE A WEEK Glimepiride 4 MG 2 tab(s) orally once a day Farxiga 10 MG 1 tablet Orally Once a day 30 mg, once daily Treatment Notes Assessment Notes Adult general medical examination Patien t instructed to return to office Annually for Annual Wellness Visits to include annual screenings of Pain assessment, Functional Ability assessment, Cognitive Ability assessment, Fall Risk assessment, Depression screening and Bladder control screening. Next Appt Details Follow Up: 6 Months, Reason: Provider Name:Lee Hernandez, 01/12/2025 10:00:00 AM, [address] [facility], [address], [place], [place], [id number], Progress Notes * NIYAH NAVARRETEOB:1960 (64 yo F)Acc No.[id number]:05/31/2024 Physical Patient: CRISTÓBAL GILL Provider: Lee Catalan M.D. :1960 A ge:63 Y S ex:Female Date:05/31/2024 Address:[address] [place] [address] [address], [place], [id number] Subjective: * Chief Complaints: * 1 . AWV and check up. 2. Due for Diabetic Eye Exam. * HPI: H PI: Patient is here today for a scheduled check up and a Medicare Annual Wellness Visit. Pt sts that she is due for refills. Pt is not fasting today. She is concerned about cost of medications at the beginning of the year until she gets her co-pay..? N christine: c/o pain P t sts that she believes she may have pulled a muscle or slept on her neck wrong due to having pain in the muscles on the right side of the neck for 1 week. * ROS: D ERMATOLOGY: no R linn. n o H emmanuelle. G ASTROENTEROLOGY: no V omiting. n o D iarrhea. O PTHALMOLOGY: Negative for d enies vision issues. U ROLOGY: no B lood in urine. n o F requent urination. ? * Medical History: H ypertension, Tobacco abuse, Depression, Esophageal reflux, Type 2 diabetes, ASCVD - anterior MA 05/1997, JHON, Left carotid stenosis with stroke - 07/2017, right CTS, Current every day smoker, Tobacco use disorder, NSTEMI/ [facility]/ 08/2023. * Surgical History: C ABG , total hysterectomy- heavy bleeding 12/07/05, 3 cardiac stents-Dr Lange 08/13/14, C-scope - polyps 2017, 1 cardiac stent 07/2022, Right rotator cuff repair/ Dr. Tyson/ [facility] 08/2023, Heart cath/ Stent x 1/ [facility] 08/2023. * Hospitalization/Major Diagno stic Procedure: E R visit hiatal hernia, muscle spasms 11/14/06, [facility]-Pneumonia 07/24/09 to 07/26/09, [facility]-chest pain 06/23, own ER-UTI 05/27, - stroke/left hemiparsis 07/09/17, [facility]/ NSTEMI 08/2023. * Family History: F ather: alive, heart disease. M other: , heart disease, breast cancer. P aternal aunt: cancer-breast x 2. 1 brother(s) , 4 sister(s) - healthy. . * Social History: C URRENT TOBACCO USE A re you a: f ormer smoker, W hen did you stop smoking? 0 07/09/2017. C affeine: yes, frequency:. Exercise: no. Home smoke detector use: yes. Marital Status: . 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 Past smoking status: yes, PPD:1 , years: since 19 yr old ,determination:. Recreational drug use: no. Alcohol: no. * Medications: T aking Nitroglycerin 0.4 MG Tablet Sublingual 1 tab(s) sublingually every 5 minutes , Taking Fish Oil 500 MG Capsule 2 cap(s) orally once a day , Taking Vitamin D3 50 MCG (2000 UT) Tablet 1 tab(s) orally once a day , Taking NovoLIN 70/30 (70-30) 100 UNIT/ML Suspension 60 units subcutaneously bid , Taking CPAP TITRATION 1 EVALUATION DIRECTED , Taking CPAP SUPPLIES DIRECTED , Notes to Pharmacist: G47.33 JHON (obstructive sleep apnea), Taking Farxiga 10 MG Tablet 1 tablet Orally Once a day , Notes to Pharmacist: 30 mg, once daily, Taking metFORMIN HCl ER 500 MG Tablet Extended Release 24 Hour 1 tab(s) Orally Two times a day , Taking Spironolactone 50 MG Tablet 1 tab(s) orally , Taking Furosemide 20 MG Tablet 1 tab(s) orally once a day , Taking Bisoprolol Fumarate 5 MG Tablet 1 tab(s) orally once a day , Taking Atorvastatin Calcium 80 MG Tablet 1 tab(s) orally once a day , Taking Clopidogrel Bisulfate 75 MG Tablet 1 tab(s) orally once a day , Taking Lisinopril 10 MG Tablet 1 tab(s) orally Two times a day , Taking Gabapentin 800 MG Tablet 1 tab(s) orally 3 times a day , Taking hydroCHLOROthiazide 25 MG Tablet 1 tablet in the morning Orally Once a day , Taking Gemfibrozil 600 MG Tablet Take 1 tablet by mouth twice daily , Taking Metoclopramide HCl 10 MG Tablet 1 tab(s) orally Two times a day , Taking Glimepiride 4 MG Tablet 2 tab(s) orally once a day , Taking Ozempic (2 MG/DOSE) 8 MG/3ML Solution Pen-injector INJECT 2 MG SUBCUTANEOUSLY ONCE A WEEK , Taking Citalopram Hydrobromide 40 MG Tablet Take 1 tablet by mouth once daily , Not- Taking traMADol HCl 50 MG Tablet 1 tab(s) orally every 6 hours prn , Not-Taking Invokana 300 MG Tablet 1 tab(s) orally once a day , Not-Taking Cipro 250 MG Tablet 1 tab(s) orally every 12 hours , Medication List reviewed and reconciled with the patient * Allergies: D iclofenac: stomach upset - Side Effects. Objective: * Vitals: W t:194, Temp:97.9, BP:116/64, HR:82, O2 Sat:96% on RA, Nurse:IRVING, Ht: 65, BMI:32.28. * Examination: C ardiology: General Appearance: p leasant, NAD. Carotid upstroke: n ormal, no bruits. Heart sounds: R RR, normal S1, S2. Murmur, click , gallop: n one. Lungs: c lear, no rales or wheezes. Extremities: n o leg edema. G eneral Examination: Neck: N o deformity of C-spine. Tenderness to palpation of the right upper trapezius. Range of motion is nearly full.. * Physical Examination: G ENERAL: Pain Assessment: P ain level: 0, on a scale of 0-10 (with 10 being extreme pain). F unctional Status Assessment: P atient response to question of how often physical health interferes with daily activities: . Frequenstly Able to perform ADLs-including meal preparation, grocery shopping, housework, laundry, taking medications or handling finances. Cognitive Status: alert and oriented. Ambulation Status: Fully ambulatory . F all Risk Assessment: I ndependant in ambulation, adequate lighting in home. Patient has NOT fallen or had trouble walking within the past 12 months. D epression Screening: D enies depressed mood or anxiety. Describes emotional health as: positive. B ladder Control Screening: Trung parson problems. Assessment: * Assessment: 1. A dult general medical examination - Z00.00 (Primary) 2 . H TN (hypertension) - I10 3 . A SCVD (arteriosclerotic cardiovascular disease) - I25.10 ? 4 . D yslipidemia - E78.5 5 . D iabetic polyneuropathy associated with type 2 diabetes mellitus - E11.42 6 . C ervicalgia - M54.2 7 . S creening for breast cancer - Z12.39 8 . H istory of CVA (cerebrovascular accident) - Z86.73 9 . O SA (obstructive sleep apnea) - G47.33 10. D epression with anxiety - F41.8 1 1. B MA 32.0-32.9,adult - Z68.32? 12. H istory of non-ST elevation myocardial infarction (NSTEMI) - I25.2 ? Plan: * Treatment: 2. H TN (hypertension) Continue hydroCHLOROthiazide Tablet, 25 MG, Take 1 tablet by mouth once daily; C ontinue Lisinopril Tablet, 10 MG, 1 tab(s), orally, Two times a day. 3. A SCVD (arteriosclerotic cardiovascular disease) Continue Spironolactone Tablet, 50 MG, 1 tab(s), orally; C ontinue Furosemide Tablet, 20 MG, 1 tab(s), orally, once a day; C ontinue Bisoprolol Fumarate Tablet, 5 MG, 1 tab(s), orally, once a day; C ontinue Clopidogrel Bisulfate Tablet, 75 MG, 1 tab(s), orally, once a day. 4. D yslipidemia Continue Atorvastatin Calcium Tablet, 80 MG, 1 tab(s), orally, once a day; C ontinue Gemfibrozil Tablet, 600 MG, 1 tab(s), orally, 2 times a day. 5. D iabetic polyneuropathy associated with type 2 diabetes mellitus Continue Farxiga Tablet, 10 MG, 1 tablet, Orally, Once a day, Notes to Pharmacist: 30 mg, once daily; C ontinue Glimepiride Tablet, 4 MG, 2 tab(s), orally, once a day; C ontinue Gabapentin Tablet, 800 MG, 1 tab(s), orally, 3 times a day; C ontinue Ozempic (2 MG/DOSE) Solution Pen-injector, 8 MG/3ML, INJECT 2 MG SUBCUTANEOUSLY ONCE A WEEK; C ontinue metFORMIN HCl ER Tablet Extended Release 24 Hour, 500 MG, 1 tab(s), Orally, Two times a day. 6. C ervicalgia Start Cyclobenzaprine HCl Tablet, 5 MG, 1 tab(s), Orally, two times a day as needed, 20. 7. S creening for breast cancer I maging: Mammogram (Performed Date - 06/10/2024) N egative,annual f/u Value Reference Range r esult Negative,annual f/u * Smita Navarrete 06/01/2024 10:47 :29 AM > no auth required; faxed to [facility] Lisa Manzano 06/16/2024 12:44:27 PM > Pt informed * Immunizations: PNEUMOVAX 23 VACCINE : 0.5 mL (Route: Intramuscular) given by Anna Singh on Right Deltoid (Adult general medical examination) * Labs: * L ab: H-Microalbumine/Creatinine (Collection Date & Time - 06/10/2024) ?Lab: H-Glycohemoglobin A1C (Collection Date & Time - 06/10/2024)* see duplicate order ?Lab: H-BMP (Collection Date & Time - 06/10/2024)* see duplicate order * Procedure Codes: G 0439 ANNUAL WELLNESS VST; PPS SUBSQT VST, G0444 ANNUAL DEPRESSION SCREENING 15 MIN, 1090F PRES/ABSN URINE INCON ASSESS, 3288F FALL RISK ASSESSMENT DOCD, 1170F FXNL STATUS ASSESSED, 1126F AMNT PAIN NOTED NONE PRSNT, 1159F MED LIST DOCD IN RCRD, 1003F LEVEL OF ACTIVITY ASSESS, 1036F TOBACCO NON-USER, 3017F COLORECTAL CA SCREEN DOC REV, 4040F PNEUMOC IMM ORDER/ADMIN, 3052F HG A1C>EQUAL 8.0%<EQUAL 9.0%, G8431 CLIN DEPRESSION SCREEN DOC positive, Modifiers: U8 , G8752 MOST RECENT SYSTOLIC BP < 140MM HG, G8754 MOST RECENT DIASTOLIC BP < 90MM HG * Preventive Medicine: Counseling: E motional health: D iscussed ways to improve socialization. B ladder control: M ethods of controlling or managing leakage of urine discussed. E xercise: Patient advised to start, increase or maintain level of exercise/physical activity. I njury prevention: F all prevention discussed. Discussed need for cane/walker. Potential trip hazards discussed. Immunizations: P neumococcal r ecommended. I nfluenza u p to date. Screening / Special Tests: M ammogram R ecent history: 08/27/2022, negative, recommended today. C olonoscopy R ecent history: 06/01/2017, polyps, hemorrhoids, repeat 3-5 years, recommended. B one mineral Density R ecent history: 06/25/2021, normal, recommended. D iabetic Retinal Eye Exam R ecent history:, recommended today. N ephrology History R ecent history: urine m/a ordered. L zohra cancer screening 1 stable, ordered by Dr Singh . * Follow Up: 6 Months * Billing Information: * Visit Code: 33237 Office Visit, Est Pt., Level 3. Modifiers: 25 * Procedure Codes: G0439 ANNUAL WELLNESS VST; PPS SUBSQT VST. G0444 ANNUAL DEPRESSION SCREENING 15 MIN. 1090F PRES/ABSN URINE INCON ASSESS. 3288F FALL RISK ASSESSMENT DOCD. 1170F FXNL STATUS ASSESSED. 1126F AMNT PAIN NOTED NONE PRSNT. 1159F MED LIST DOCD IN RCRD. 1003F LEVEL OF ACTIVITY ASSESS. 1036F TOBACCO NON-USER. 3017F COLORECTAL CA SCREEN DOC REV. 4040F PNEUMOC IMM ORDER/ADMIN. 3052F HG A1C>EQUAL 8.0%<EQUAL 9.0%. G8431 CLIN DEPRESSION SCREEN DOC positive. Modifiers: U8 G8752 MOST RECENT SYSTOLIC BP < 140MM HG. G8754 MOST RECENT DIASTOLIC BP < 90MM HG. * Electronic signature of Lee Catalan MD on 10/21/2024 at 09:42 AM EDT Sign off status: Pending * Provider: Lee Catalan M.D. Date: 0 05/31/2024 Generated for Printi birgit/Falisag/eTransmitting on: 0 10/21/2024 09:42 AM EDT History and Physical Notes * HPI (History of Present Illness) Category Sub-Category Detail Notes Category Not es Neck pain Pt sts that she believes she may have pulled a muscle or slept on her neck wrong due to having pain in the muscles on the right side of the neck for 1 week HPI Patient is here today for a [facility] duled check up and a Medicare Annual Wellness Visit. Pt sts that she is due for refills. Pt is not fasting today. She is concerned about cost of medications at the beginning of the year until she gets her co-pay. Physical Examination Category Sub-Category Detail Notes Section Note s GENERAL Pain Assessment: Pain level: 0, on a scale of 0-10 (with 10 being extreme pain) Functional Status Assessment: Patient response to question of how often physical health interferes with daily activities: . Frequenstly Able to perform ADLs-including meal preparation, grocery shopping, housework, laundry, taking medications or handling finances. Cognitive Status: alert and oriented. Ambulation Status: Fully ambulatory Fall Risk Assessment: Independant in amb ulation, adequate lighting in home. Patient has NOT fallen or had trouble walking within the past 12 months Depression Screening: Denies depressed m ood or anxiety. Describes emotional health as: positive Bladder Control Screening: Denies proble ms Examination Category Sub-Category Detail Notes Category Not es General Examination Neck: No deformity of C-spine. Tenderness to palpation of the right upper trapezius. Range of motion is nearly full. Cardiology Lungs: clear, no rales or wheezes Heart sounds: RRR, normal S1, S2 Carotid upstroke: normal, no bruits Extremities: no leg edema Murmur, click , gallop: none General Appearance: pleasant, NAD
--- OUTSIDE RECORDS SUMMARY | 2024-08-09 05:00 | XMS_ITS ---
Author Organization [facility] Address [address] [facility] [address] [facility] [address] [place] [id number] Care Team Providers Care Vice President Of Compliance Name Role Phone Lee Catalan Primary Care Provider REASON FOR VISIT 6 month check, Needs labs, bone density screening, colon cancer screening, low dose chest CT, &diabetic eye exam Encounters Encounter Location Date Provider Diagnosis [facility] [address] [facility] [address] [facility] [address] [place] [id number] 08/09/2024 Lee Catalan Plan Of Treatment Next Appt Details Provider Name:Lee Hernandez, 01/12/2025 10:00:00 AM, [address] [facility] [address] [facility], [address], [place], [id number], Progress Notes * LANDONNIYAHOB:1960 (64 yo F)Acc No.[id number]:08/09/2024 Progress Notes Patient: CRISTÓBAL GILL Provider: Lee Catalan M.D. :1960 A ge:63 Y S ex:Female Date:08/09/2024 Address:[place] [address], [id number] Subjective: * Chief Complaints: * 1 . 6 month check. 2. Needs labs, bone density screening, colon cancer screening, low dose chest CT, & diabetic eye exam. * Medical History: Objective: * Vitals: Assessment: Plan: * Treatment: * Billing Information: * Visit Code: * Procedure Codes: * Electronic signature of Lee Catalan MD on 10/21/2024 at 09:42 AM EDT Sign off status: Pending * Provider: Lee Catalan M.D. Date: 08/09/2024 Generated for Aretha genao/Jose/Mateo on: 0 10/21/2024 09:42 AM EDT
--- OUTSIDE RECORDS SUMMARY | 2024-09-13 07:15 | XMS_ITS ---
Author Organization [facility] Address [address] [place] [id number] Care Team Providers Care Regulator Mechanic Name Role Phone Lee [facility] Primary Care [...] Interpretation: Performing Lab: Notes/Report: Test performed by [facility] [address] [place] [address] , [address], [place] [address] Meliton Parra MD, Gluing Machine Operator Electronic CLIA: [id number] Sodium 139 135-145 mmol/L Potassium 5.1 3.5-5.3 [...] Interpretation: Performing Lab: Notes/Report: Test performed by [facility], [address] , [place] [address] Meliton Parra MD, Gluing Machine Operator Electronic CLIA: [id number] Cholesterol 160 <200 mg/dL Triglycerides 145 <150 [...] (1999 UT) 1 tab(s) orally once a day for 30 day(s) Active Glimepiride 4 MG 2 [...] INJECT 2 MG SUBCUTANEOUSLY ONCE A WEEK for 28 Active Clopidogrel Bisulfate 75 MG Take 1 tablet by mouth once daily for 90 Active Gemfibrozil 600 MG Take 1 tablet by mouth twice daily for 90 Active Atorvastatin Calcium 80 MG Take 1 tablet by mouth once daily for 90 Active Citalopram Hydrobromide 40 MG Take 1 tablet by mouth once daily for 90 Active Cyclobenzaprine HCl 5 MG 1 tab(s) Orally two times a day as needed 05/31/2024 Active Glimepiride 4 MG 2 tab(s) orally once a day for 90 days Active Metoclopramide HCl 10 MG [...] Problem Status W/U Status Risk Notes Problem [id number] BMI 31.0-31.9,ad ult (Z68.31) Active confirmed Vital Signs Blood pressure systolic 102 mm Hg 09/14/19 25 Blood pressure diastolic 68 mm Hg 025 Heart Rate 75 /min 09/13/2024 Height 65 in 09/13/2024 Weight 188.6 lbs 09/13/2024 BMI 31.38 kg/m2 09/13/2024 Encounters Encounter Location Date Provider Diagnosis [facility] [address] [facility] [address] [place], [place] [address], [place] [phone] 09/13/2024 Lee Catalan HTN (hypertension) I 10 [...] Follow Up: 4 Months, Reason: Provider Name:Lee Medley et, 01/12/2025 10:00:00 AM, [address] [facility] [address], [place], [place], [id number], Progress Notes * NIYAH NAVARRETEOB:1960 (64 yo F)Acc No.[id number]:09/13/2024 Progress Notes Patient: CRISTÓBAL GILL Provider: Lee [facility]an M.D. :1960 A ge:64 Y S ex:Female Date:09/13/2024 Address:[address] [place] [address], [facility], [id number] Subjective: * Chief Complaints: * 1 . [...] reflux, Type 2 diabetes, ASCVD - anterior MD 05/1997, JHON, Left carotid stenosis with stroke - 07/2017, right CTS, Current every day smoker, Tobacco use disorder, NSTEMI/ [facility]/ 08/2023. * Surgical History: C ABG , total hysterectomy- heavy bleeding 12/07/05, 3 cardiac stents-Dr Lange 08/13/14, C-scope - polyps 2017, 1 cardiac stent 07/2022, Right rotator cuff repair/ Dr. Tyson/ [facility] 08/2023, Heart cath/ Stent x 1/ Anisa 08/2023, Heart Cath/ stent x 1/ Anisa 08/2024. * Hospitalization/Major Diagno stic Procedure: E R visit hiatal hernia, muscle spasms 11/14/06, [facility]-Pneumonia 07/24/09 to 07/26/09, [facility]-chest pain 06/23, own ER-UTI 05/27, - stroke/left hemiparsis 07/09/17, [facility]/ NSTEMI 08/2023. * Family History: F [...] or wheezes. Extremities: n o leg edema. Assessment: * Assessment: [...] - I25.2 & #160; 1 0. B MD 31.0-31.9,adult - Z68.31 Plan: * Treatment: 2. [...] Creatinine 46 L >59 - mL/min/1.73m2 * AlaynaLee 09/15/2024 1: 24:00 PM >See phone encounter [...] visit add on, 3051F HG A1C>EQUAL 7.0%<8.0%, 62948 GLYCATED HEMOGLOBIN TEST, Modifiers: QW , G8752 MOST RECENT SYSTOLIC BP < 140MM HG, G8754 MOST RECENT DIASTOLIC BP < 90MM HG * Follow Up: 4 Months * Billing Information: * Visit Code: 56580 Office Visit, Est Pt., Level 4. * Procedure Codes: G2211 Complex e/m visit add on. 3051F HG A1C>EQUAL 7.0%<8.0%. 82555 GLYCATED HEMOGLOBIN TEST. Modifiers: QW G8752 MOST RECENT SYSTOLIC BP < 140MM HG. G8754 MOST RECENT DIASTOLIC BP < 90MM HG. * Electronic signature of Lee Catalan MD on 10/21/2024 at 09:42 AM EDT Sign off status: Pending * Provider: Lee Catalan M.D. Date: 0 09/13/2024 Generated for Aretha genao/Jose/eTransmitting on: 0 10/21/2024 09:42 AM EDT History [...]
--- OUTSIDE RECORDS SUMMARY | 2024-10-21 09:42 | XMS_ITS | Patient Health Record ---
[facility] Address [address] [place] [phone] Care Team Providers Care Building Cleaner Name Role Phone Lee Catalan Primary Care Provider Allergies Allergen (clinical drug ingredient) Drug/Non Drug Allergy documented on EMR Reaction Allergy Type Onset Date Status Diclofenac stomach upset Drug Allergy Ac tive Results Component Value Reference Range Notes Glycohemoglobin A1c (in hous e) Reviewed date:02/11/2024 04:04:22 PM Interpretation:8.9% Performing Lab: Notes/Report: 8.9% glycohemoglobin 8.9% 5 - 6.5 % P-Lipid Panel Reviewed date:02/11/2024 04:04:22 PM Interpretation:trigs 190, hdl 31, dhol/hdl 4.74 Performing Lab: Notes/Report: Test performed by [facility] [address] [place] [address] , [address], [place] [address] Meliton Parra MD, Hospice Care Consultant CLIA: [id number] Cholesterol 147 <200 mg/dL Triglycerides 190 <150 mg/dL HDL Cholesterol 31 >39 mg/dL Cholesterol / HDL Ratio 4.74 0.00-4.44 Ratio Non-HDL Cholesterol 116 <130 mg/dL LDL Cholesterol (Calculation) 78 <130 mg/dL LDL Cholesterol Levels* Less than 100 mg/dL Optimal 100 to 129 mg/dL Near Optimal/ Above Optimal 130 to 159 mg/dL Borderline High 160 to 189 mg/dL High 190 mg/dL and above Very High * Categories as recommended by the 2004 ATPIII guidelines LDL/HDL Ratio 2.5 <3.3 Ratio ____ LDL Cholesterol Patient History ____ Test Date: 02/12/2023 LDL Results: 59 Units: mg/dL % Change: - ---- Test Date: 08/11/2023 LDL Results: 65 Units: mg/dL % Change: +10% ---- Test Date: 02/09/2024 LDL Results: 78 Units: mg/dL % Change: +20% ____ P-Comprehensive Metabolic Pa fartun (CMP) Reviewed date:02/11/2024 04:04:22 PM Interpretation:gluc 245 Performing Lab: Notes/Report: Test performed by [facility]), [place] [address] [facility] , [place] [address] Meliton Parra MD, Hospice Care Consultant CLIA: [id number] Sodium 136 135-145 mmol/L Potassium 4.3 3.5-5.3 mmol/L Chloride 99 97-108 mmol/L CO2 28 22-32 mmol/L Glucose 245 65-99 mg/dL BUN 21 8-23 mg/dL Creatinine 1.00 0.50-1.00 mg/dL Calcium 10.0 8.6-10.4 mg/dL eGFR by Creatinine 64 >59 mL/min/1.73m2 Protein 7.1 6.0-8.3 g/dL Albumin 4.6 3.5-5.3 g/dL Alkaline Phosphatase 73 35-121 IU/L ALT (SGPT) 17 <5-47 IU/L AST (SGOT) 18 <5-40 IU/L Bilirubin, Total 0.3 <0.2-1.2 mg/dL A/G Ratio 1.8 1.1-2.5 CBC Fingerstick (in house) Reviewed date:12/17/2023 04:27:22 PM Interpretation: Performing Lab: Notes/Report: wbc 6.3 3.5 - 10 lym 23.5 15 - 50 mid 4.7 2 - 15 gran 71.8 35 - 80 rbc 4.47 3.5 - 5.5 hgb 13.8 11.5 - 16.5 hct 42.9 35 - 55 mcv 95.9 75 - 100 mch 30.8 25 - 35 mchc 32.1 31 - 38 plat 240 100 - 400 Urinalysis - Inhouse Reviewed date:12/17/2023 04:26:14 PM Interpretation: Performing Lab: Notes/Report: Color/Clarity yellow/clear Leuk neg Nitrite neg Urobili 3.2 Protein neg pH 5.5 Blood neg Sp. Gr. 1.010 Ketone neg Bili neg Gluc 2+ H-BMP Reviewed date:06/10/2024 04:26:16 PM Interpretation: Performing Lab: Notes/Report: H-Microalbumine/Creatinine Reviewed date:06/10/2024 04:26:28 PM Interpretation: Performing Lab: Notes/Report: H-Glycohemoglobin A1C Reviewed date:06/10/2024 04:26:40 PM Interpretation: Performing Lab: Notes/Report: Mammogram Reviewed date:06/16/2024 12:44:36 PM Interpretation:Negative,annual f/u Performing Lab: Notes/Report: Negative,annual f/u result Negative,annual f/u Glycohemoglobin A1c (in hous e) Reviewed date:09/15/2024 01:24:08 PM Interpretation: Performing Lab: Notes/Report: glycohemoglobin 7.9% 5 - 6.5 % P-Comprehensive Metabolic Pa fartun (CMP) Reviewed date:09/15/2024 01:24:08 PM Interpretation: Performing Lab: Notes/Report: Test performed by [facility] [address] [place] [address] , [address], [place] [address] Meliton Parra MD, Hospice Care Consultant CLIA: [id number] Sodium 139 135-145 mmol/L Potassium 5.1 3.5-5.3 [...] Interpretation: Performing Lab: Notes/Report: Test performed by [facility] [address] [place] [address] , [address], [place] [address] Meliton Parra MD, Hospice Care Consultant CLIA: [id number] Cholesterol 160 <200 mg/dL Triglycerides 145 <150 [...] ATPIII guidelines LDL/HDL Ratio 3.1 <3.3 Ratio ____ LDL Cholesterol Patient History ____ Test Date: 08/11/2023 LDL Results: 65 Units: mg/dL % Change: +10% ---- Test Date: 02/09/2024 LDL Results: 78 Units: mg/dL % Change: +20% ---- Test Date: 09/13/2024 LDL Results: 99 Units: mg/dL % Change: +26% ____ H-Microalbumine/Creatinine Reviewed date:06/14/2024 08:45:14 AM Interpretation:UAC 46.6 Performing Lab: Notes/Report: UCREAT 53 Not Estab. mg/dL Random urine reference range not established. 24 hour urine samples recommended. MICROALB 24.700 0-16.7 mg/L MALBCREAT 46.6 Units: mg/g creat Normal: 0 - 29 Moderately Increased: 30 - 300 Severely Increased: >300 H-Glycohemoglobin A1C Reviewed date:06/14/2024 08:45:14 AM Interpretation:8.5% Performing Lab: Notes/Report: HGBA1C 8.5 4.0-6.0 % < 6% Non-Diabetic Level < 7% Controlled Diabetic Level > 8% Poorly Controlled Diabetic Level H-BMP Reviewed date:06/14/2024 08:45:14 AM Interpretation:GFR 50 Performing Lab: Notes/Report: NA 139 136-145 mmol/L K 4.7 3.5-5.1 mmoL/L CL 100 98-107 mmol/L CO2 23 22.0-30.0 mmol/L GAP 20.7 5-15 mEq/L BUN 26 7-17 mg/dl CREATT 1.10 0.52-1.04 mg/dl GFRAA 61 >60 ML/MIN EGFR 50 >60 ml/min GLU 273 74-100 mg/dl CA 10.3 8.4-10.2 mg/dl Medications Medication SIG (Take, Route, Frequency, Duration) Notes Start Date End Date Status Furosemide 40 MG Take 1 tablet by mouth once daily for 30 Active Glimepiride 4 MG Take 2 tablets by mouth once daily for 90 Active Ozempic (2 MG/DOSE) 8 MG/3ML INJECT 2MG SUBCUTANEOUSLY ONCE A WEEK for 28 Active Cyclobenzaprine HCl 5 MG 1 tab(s) Orally two times a day as needed 05/31/2024 Active Clopidogrel Bisulfate 75 MG Take 1 tablet by mouth once daily for 90 Active Gemfibrozil 600 MG Take 1 tablet by mouth twice daily for 90 Active Atorvastatin Calcium 80 MG Take 1 tablet by mouth once daily for 90 Active Nitroglycerin 0.4 MG 1 tab(s) sublingually every 5 minutes 06/26/2022 Active Fish Oil 500 MG 2 cap(s) orally once a day Active Spironolactone 50 MG 1 tab(s) orally Active hydroCHLOROthiazide 25 MG Take 1 tablet by mouth once daily Active Bisoprolol Fumarate 5 MG 1 tab(s) orally once a day Active NovoLIN 70/30 (70-30) 100 UNIT/ML 60 units subcutaneously bid Active Vitamin D3 50 MCG (2000 UT) 1 tab(s) orally once a day for 30 day(s) Active Invokana 300 MG 1 tab(s) orally once a day Not-Taking traMADol HCl 50 MG 1 tab(s) orally every 6 hours prn 03/05/2021 Not-Taking CPAP SUPPLIES DIRECTED G47.33 JHON (obstructi ve sleep apnea) 07/05/2019 Active CPAP TITRATION 1 EVALUATION DIRECTED 07/22/2022 Active Citalopram Hydrobromide 40 MG Take 1 tablet by mouth once daily for 90 Active Gemfibrozil 600 MG 1 tab(s) orally 2 times a day Active Atorvastatin Calcium 80 MG 1 tab(s) orally once a day Active Clopidogrel Bisulfate 75 MG 1 tab(s) orally once a day Active Lisinopril 10 MG 1 tab(s) orally Two times a day Active Gabapentin 800 MG 1 tab(s) orally 3 times a day Active Farxiga 10 MG 1 tablet Orally Once a day 30 mg, once daily Active Entresto 24-26 MG Take 1 tablet by mouth twice daily for 30 Active Metoclopramide HCl 10 MG Take 1 tablet b y mouth twice daily for 90 Active metFORMIN HCl ER 500 MG 1 tab(s) Orally Two times a day Active Immunizations Vaccine Route Administration Date Status Comme nts COVID 19 Moderna Unknown 07/25/2020 Administered COVID 19 Moderna Unknown 08/22/2020 Administered COVID 19 Moderna Unknown 03/27/2021 Administered Fluzone PF Quad (6-35 months) Unknown 02/07/2020 Administered Fluzone PF Quad (6-35 months) Unknown 02/27/2021 Administered Fluzone PF Quad (6-35 months) Unknown 02/15/2022 Administered Fluzone Quad (6months&older) IM Intramuscular 02/12/2023 Administered Fluzone Quad (6months&older) Unknown 02/23/2024 Administered Fluzone Quad-Medicare (6months&older) Unknown 03/26/2016 Administered Fluzone Quad-Medicare (6months&older) IM Intramuscular 02/23/2018 Administered Fluzone Quad-Medicare (6months&older) IM Intramuscular 02/24/2019 Administered PNEUMOVAX 23 VACCINE IM Intramuscular 03/30/2015 Administe red PNEUMOVAX 23 VACCINE IM Intramuscular 05/31/2024 Administe red xFlu shot-36 months and older Unknown 03/11/2017 Administered Social History Tobacco Use: Social History Observation Description Date Details (start date - stop date) Former Smoker NA - 07/09/2017 CURRENT TOBACCO USE: Question Answer Notes Are you a: former smoker When did you stop smoking? 07/09/2017 Problems Problem Type SNOMED Code ICD Code Onset Dates Problem Status W/U Status Risk Notes Problem 238449314 GERD (gastroesophageal reflux disease) (K21.9) Active confirmed Problem Coronary arteriosclerosis (01507098) ASCVD (arteriosclerotic cardiovascular disease) (I25.10) Active confirmed Problem 20641666 HTN (hypertensio n) (I10) Active confirmed Problem Carpal tunnel syndrome (78535990) Carpal tunnel syndrome (G56.00) Active confirmed Problem Acute non-ST segment elevation myocardial infarction (847433221) NSTEMI (non-ST elevated myocardial infarction) (I21.4) Active confirmed Problem 151534022 History of CVA (cerebrovascular accident) (Z86.73) Active confirmed Problem 205712376 Seasonal allergi es (J30.2) Active confirmed Problem Cervicalgia (60964275) Cervicalgia (M54.2) Active confirmed Problem 957892346 Depression with anxiety (F41.8) Active confirmed Problem BMI 30+ - obesity (135857085) BMI 32.0-32.9,adult (Z68.32) Active confirmed Problem 563145082 BMI 33.0-33.9,adult (Z68.33) Active confirmed Problem Old myocardial infarction (9683481) History of non-ST elevation myocardial infarction (NSTEMI) (I25.2) Active confirmed Problem 37226791 Congestive heart failure, unspecified (I50.9) Active confirmed Problem History of polyp of colon (situation) (781856089) History of colon polyps (Z86.010) Active confirmed Problem Irritable bowel syndrome (01769267) Irritable bowel syndrome (K58.9) Active confirmed Problem 550674956 Hx of arteriosclerotic cardiovascular disease (Z86.79) Active confirmed Problem 672610077646935 Carpal tunnel syndrome of right wrist (G56.01) Active confirmed Problem 01975196 JHON (obstructive sleep apnea) (G47.33) Active confirmed Problem 83239813 Diabetic polyneuropathy associated with type 2 diabetes mellitus (E11.42) Active confirmed Problem 41998629 Menopausal symptoms (N95.1) Active confirmed Problem 341955902 BMI 31.0-31.9,adult (Z68.31) Active confirmed Problem Dyslipidemia (424000029) Dyslipidemia (E78.5) Active confirmed Problem 494950968 Noncompliance wi th dietary restriction (Z91.11) Active confirmed Problem 578102737 Cerebrovascular accident (CVA) due to occlusion of cerebral artery (I63.50) Active confirmed Problem 339710068567745 Left carotid stenosis (I65.22) Active confirmed Problem 485658081 Uncontrolled typ e 2 diabetes mellitus with hyperglycemia (E11.65) Active confirmed Problem 023936993 HFrEF (heart failure with reduced ejection fraction) (I50.20) Active confirmed Vital Signs Heart Rate 75 /min 09/13/2024 Blood pressure diastolic 68 mm Hg 09/13/2024 Height 65 in 09/13/2024 Blood pressure systolic 102 mm Hg 09/13/2024 Weight 188.6 lbs 09/13/2024 BMI 31.38 kg/m2 09/13/2024 Encounters Encounter Location Date Provider Diagnosis [facility] [address] [place] [id number] 12/17/2023 R Mikhail Catalan Acute sinusitis J01. 90 and Yeast infection B37.9 [facility] [address] [place] [id number] 02/09/2024 Lee Catalan HTN (hypertension) I 10 ; ASCVD (arteriosclerotic cardiovascular disease) I25.10 ; Dyslipidemia E78.5 and Diabetic polyneuropathy associated with type 2 diabetes mellitus E11.42 [facility] [facility] [address] [place] [id number] 05/31/2024 Lee Catalan Adult general medica l [...] of non-ST elevation myocardial infarction (NSTEMI) I25.2 [facility] [address] [place], [place] [id number] 09/13/2024 R Mikhail Alayna HTN (hypertension) I 10 ; ASCVD (arteriosclerotic cardiovascular disease) I25.10 ; Dyslipidemia E78.5 ; Diabetic polyneuropathy associated with type 2 diabetes mellitus E11.42 ; Cervicalgia M54.2 ; History of CVA (cerebrovascular accident) Z86.73 ; JHON (obstructive sleep apnea) G47.33 ; Depression with anxiety F41.8 ; History of non-ST elevation myocardial infarction (NSTEMI) I25.2 and BMI 31.0-31.9,adult Z68.31 [facility] [address] [place], [place] [id number] 01/29/2024 R Mikhail Alayna JHON (obstructive sle ep apnea) G47.33 [facility] [address] [place], [place] [id number] 02/11/2024 R Mikhail Alayna [facility] [address] [place], [place] [id number] 02/29/2024 R Mikhail Alayna Diabetic polyneuropa thy associated with type 2 diabetes mellitus E11.42 [facility] [address] [place], [place] [id number] 06/14/2024 R Mikhail Alayna [facility] [address] [place], [place] [id number] 09/05/2024 R Mikhail Alayna Diabetic polyneuropa thy associated with type 2 diabetes mellitus E11.42 [facility] [address] [place], [place] [id number] 09/15/2024 R Mikhail Alayna [facility] [address] [place] [id number] 10/17/2024 Lee Catalan Assessments Encounter Date Diagnosis (ICD Code) Assessment Notes Treatment Notes Treatment Clinical Notes Section Notes 12/17/2023 Acute sinusitis (ICD-10 - J01.90) 12/17/2023 Yeast infection (ICD-10 - B37.9) 01/29/2024 JHON (obstructive sleep apnea) (ICD-10 - G47.33) 02/09/2024 ASCVD (arteriosclerotic cardiovascular disease) (ICD-10 - I25.10) 02/09/2024 HTN (hypertension) (ICD-10 - I10) 02/29/2024 Diabetic polyneuropathy associated with type 2 diabetes mellitus (ICD-10 - E11.42) 05/31/2024 HTN (hypertension) (ICD-10 - I10) 05/31/2024 Adult general medical examination (ICD-10 - Z00.00) Patient instructed to return to office Annually for Annual Wellness Visits to include annual screenings of Pain assessment, Functional Ability assessment, Cognitive Ability assessment, Fall Risk assessment, Depression screening and Bladder control screening. 09/05/2024 Diabetic polyneuropathy associated with type 2 diabetes mellitus (ICD-10 - E11.42) 09/13/2024 ASCVD (arteriosclerotic cardiovascular disease) (ICD-10 - I25.10) 09/13/2024 HTN (hypertension) (ICD-10 - I10) 09/13/2024 Dyslipidemia (ICD-10 - E78.5) 02/09/2024 Dyslipidemia (ICD-10 - E78.5) 05/31/2024 ASCVD (arteriosclerotic cardiovascular disease) (ICD-10 - I25.10) 02/09/2024 Diabetic polyneuropathy associated with type 2 diabetes mellitus (ICD-10 - E11.42) 05/31/2024 Dyslipidemia (ICD-10 - E78.5) 09/13/2024 Diabetic polyneuropathy associated with type 2 diabetes mellitus (ICD-10 - E11.42) 05/31/2024 Diabetic polyneuropathy associated with type 2 diabetes mellitus (ICD-10 - E11.42) 09/13/2024 Cervicalgia (ICD-10 - M54.2) 09/13/2024 History of CVA (cerebrovascular accident) (ICD-10 - Z86.73) 05/31/2024 Cervicalgia (ICD-10 - M54.2) 05/31/2024 Screening for breast cancer (ICD-10 - Z12.39) 09/13/2024 JHON (obstructive sleep apnea) (ICD-10 - G47.33) 09/13/2024 Depression with anxiety (ICD-10 - F41.8) 05/31/2024 History of CVA (cerebrovascular accident) (ICD-10 - Z86.73) 09/13/2024 History of non-ST elevation myocardial infarction (NSTEMI) (ICD-10 - I25.2) 05/31/2024 JHON (obstructive sleep apnea) (ICD-10 - G47.33) 09/13/2024 BMI 31.0-31.9,adult (ICD-10 - Z68.31) 05/31/2024 Depression with anxiety (ICD-10 - F41.8) 05/31/2024 BMI 32.0-32.9,adult (ICD-10 - Z68.32) 05/31/2024 History of non-ST elevation myocardial infarction (NSTEMI) (ICD-10 - I25.2) Plan Of Treatment Pending Test Test Name Order Date colonoscopy 09/13/2024 Next Appt Details Provider Name:Lee Hernandez, 01/12/2025 10:00:00 AM, [address] [facility], [address], [place], [place], [id number], Insurance Providers Payer Name Payer Address Payer Phone Subscriber Number Group Number Insured Name Patient Relationship to Insured Coverage Start Date Coverage End Date [employer] (MEDICAR E) [address] [address] [place] [address] [phone] [id number] CRISTÓBAL NAVARRETE Self - patient is the insured Medications Administered Medication Instructions Date of Administration Dosage Notes Depo- Medrol 40 mg/ml 06/15/2014 1.5 mL Dexamethasone 05/07/2005 1 mL Dexamethasone 01/05/2006 1 mL Dexamethasone 05/18/2007 1 mL Dexamethasone 12/17/2023 1 mL Medical (General) History Medical History History ICD Code Hypertension tobacco abuse depression Esophageal reflux type 2 diabetes ASCVD - anterior PA 05/1997 JHON left carotid stenosis with stroke - 3/20 18 right CTS Current every day smoker F17.200 Tobacco use disorder Z72.0 NSTEMI/ [facility]/ 08/2023 Surgical History Surgery Date(Month/Year) CABG total hysterectomy- heavy bleeding 3 cardiac stents-Dr Lange 08/13/14 C-scope - polyps 2017 1 cardiac stent 07/2022 Right rotator cuff repair/ Dr. Tyson/ [facility] 08/2023 Heart cath/ Stent x / [facility] 08/2023 Heart Cath/ stent x / [facility] 08/2024 Hospitalization History Reason Date(Month/Year) [facility]/ NSTEMI 08/2023 - stroke/left hemiparsis 07/09/17 [facility]-UTI 05/27 [facility]-chest pain 06/23 [facility]-Pneumonia 07/24/09 to 07/26/09 ER visit hiatal hernia, muscle spasms 11/14/06
--- OUTSIDE RECORDS SUMMARY | 2024-10-21 09:42 | XMS_ITS | Clinical Summary ---
Author Organization Healthcare Address [address] [place] [address] Care Team Providers Care Print Binding Worker Name Role Phone Benja Catalan MD Primary Care Provider [phone] Family History Medical History Relation Name Comments Cardiac disorder Other 1 Diabetes Other 2 Hypertension Other 3 Other cancer Other 4 Relation Name Status Comments Other 1 Other 2 Other 3 Other 4 Social History Tobacco Use Types Packs/Day Years Used Date Smoking Tobacco: Former Comments Unknown Sex and Gender Information Value Date Recorded Sex Assigned at Not on file Legal Sex Female 6:13 PM EDT Gender Identity Not on file Sexual Orientation Not on file Last Filed Vital Signs Vital Sign Reading Time Taken Comments Blood Pressure 116/76 11/16/2017 10:05 AM EDT Pulse - - Temperature - - Respiratory Rate - - Oxygen Saturation - - Inhaled Oxygen Concentration - - Weight 92 kg (202 lb 13.2 oz) 11/16/2017 10:05 A M EDT Height 165.1 cm (5' 5 ) 11/16/2017 10:05 AM EDT Body Mass Index 33.75 11/16/2017 10:05 AM EDT Plan of Treatment Not on file Care Teams Print Binding Worker Relationship Specialty Start Date End Date Benja Caatlan MD [address] [place] [id number] PCP - General 09/21/20
[2024-10-21] MEDS: ALBUTEROL 0.083% 2.5 MG/3 ML NEB IH (10:21)
== END 2024-10-21 23:59 | disposition home or self-care (01) ==
LOC: RT 09:40
PROVIDERS: PCP Nurse Practitioner Family; Visit Provider Internal Medicine Pulmonary Disease
DX: R94.2 Abnormal results of pulmonary function studies (principal); R06.02 Shortness of breath; R06.09 Other forms of dyspnea
CPT/HCPCS: 94010; 94618

== ENCOUNTER 2024-11-23 16:26 | Outpatient (CLI) | payer MEDICARE, SELFPAY ==
[2024-11-23 14:54] LABS: Microscopic, Urine URINE MICROSCOPIC (MICROSCOPIC)
[2024-11-23 15:58] LABS: Bilirubin,Urine Negative (Negative); Color,Urine YELLOW (Yellow); Glucose,Urine (UA) 3+ (Negative); Ketones,Urine Negative (Negative); Leukocyte Esterase,Urine Negative (Negative); PH,Urine 6.0 (5.0-8.5); Protein,Urine Negative (Negative); Specific Gravity, Urine <= 1.005 (1.005-1.030); Urobilinogen,Urine 0.2 EU/dl (0.2)
[2024-11-23 16:07] LABS: Bacteria,Urine 4+ /lpf; RBC,Urine Occasional #/hpf (0-3); Squamous Epithelial Cell,Urine Occasional #/hpf (0-5); WBC,Urine TNTC #/hpf (0-3)
--- OUTSIDE RECORDS SUMMARY | 2024-11-23 16:27 | XMS_ITS | Clinical Summary ---
Author Organization Healthcare Address [address] [place] [address] Care Team Providers Care Edge Bander Hand Name Role Phone Benja Catalan MD Primary Care Provider [phone]- [phone] Family History Medical History Relation Name Comments [...] of Treatment Not on file Care Teams Edge Bander Hand Relationship Specialty Start Date End Date Benja Catalan MD [address] [place] [address] PCP - General 09/21/20
[2024-11-23 16:44] LABS: Albumin Level 4.7 g/dl (3.5-5.0); Chloride 99 mmol/L (98-107)
[2024-11-23 16:45] LABS: Potassium 4.8 mmoL/L (3.5-5.1); Sodium 141 mmol/L (136-145)
[2024-11-23 16:47] LABS: Alanine Aminotransferase 27 U/L (12-78); Albumin/Globulin Ratio 1.5 (1.1-1.8); Alkaline Phosphatase 104 U/L (38-126); Anion Gap 17.8 mEq/L (5-15); Aspartate Amino Transferase 43 U/L (14-36); Bilirubin,Total 0.4 mg/dl (0.2-1.3); Blood Urea Nitrogen 29 mg/dl (7-17); Carbon Dioxide 29 mmol/L (22.0-30.0); Cholesterol 173 mg/dl (140-200); Creatinine,Serum 1.10 mg/dl (0.52-1.04); Estimated Glomerular Filt Rate 50 ml/min (>60); GFR (African American) 61 ML/MIN (>60); Globulin 3.1 g/dL (1.3-3.2); Iron 107 ug/dL (37-170); Total Protein,Serum 7.8 g/dl (6.3-8.2); Triglycerides 180 mg/dl (30-150)
[2024-11-23 16:48] LABS: Calcium 10.1 mg/dl (8.4-10.2); Glucose 223 mg/dl (74-100); HDL Cholesterol 34 mg/dl (40-60); Magnesium 2.3 mg/dl (1.6-2.3); Phosphorous 4.1 mg/dl (2.5-4.5)
[2024-11-23 17:02] LABS: 25-OH Vitamin D, Total 50.7 ng/mL (30-100)
[2024-11-23 17:08] LABS: Free T4 (Free Thyroxine) 0.93 ng/dl (0.78-2.19)
[2024-11-23 17:16] LABS: Thyroid Stimulating Hormone 1.16 uIU/mL (0.465-4.68)
[2024-11-23 17:18] LABS: Total Iron Binding Capacity 448 ug/dL (265-497)
[2024-11-23 17:22] LABS: Ferritin 17.9 ng/ml (11.1-264)
[2024-11-23 17:35] LABS: Vitamin B12 875 pg/mL (239-931)
[2024-11-23 17:36] LABS: Hepatitis C Ab Qual. W/ RFX NEGATIVE (Negative)
[2024-11-23 18:20] LABS: Folate > 20.00 ng/mL
[2024-11-23 19:07] LABS: Hemoglobin A1C 10.7 % (4.0-6.0)
== END 2024-11-23 23:59 | disposition home or self-care (01) ==
LOC: LAB.DROPOF 16:26
PROVIDERS: PCP Nurse Practitioner Family; Visit Provider Nurse Practitioner Family
DX: F41.9 Anxiety disorder, unspecified (principal); F32.A Depression, unspecified; Z68.30 Body mass index [BMI] 30.0-30.9, adult; R25.1 Tremor, unspecified; E11.40 Type 2 diabetes mellitus with diabetic neuropathy, unspecified; G47.33 Obstructive sleep apnea (adult) (pediatric); I10 Essential (primary) hypertension; E55.9 Vitamin D deficiency, unspecified; Z11.4 Encounter for screening for human immunodeficiency virus [HIV]; Z11.59 Encounter for screening for other viral diseases; E53.8 Deficiency of other specified B group vitamins; R41.3 Other amnesia; J44.9 Chronic obstructive pulmonary disease, unspecified; E78.5 Hyperlipidemia, unspecified
CPT/HCPCS: 80053; 80061; 80074; 81001; 82043; 82306; 82570; 82607; 82728; 82746; 83036; 83540; 83550; 83735; 84100; 84156; 84439; 84443; 87086; 87088; 87186; 87389

== ENCOUNTER 2024-12-13 10:56 | Outpatient (CLI) | payer MEDICARE, SELFPAY ==
--- OUTSIDE RECORDS SUMMARY | 2024-05-31 09:45 | XMS_ITS ---
Author Organization [facility] Address [address] [place] [id number] Care Team Providers Care Cabinet Abrasive Sandblaster Name Role Phone Lee Catalan Primary Care Provider Allergies Allergen (clinical drug ingredient) Drug/Non Drug [...] 250 MG 1 tab(s) orally every 12 hours; Duration: 5 day(s) 12/20/2021 Not-Taking Invokana 300 MG 1 tab(s) orally once a day Not-Taking Bisoprolol Fumarate 5 MG 1 tab(s) orally once a day Active Glimepiride 4 MG 2 tab(s) orally once a day; Duration: 90 days Active Cyclobenzaprine HCl 5 MG 1 tab(s) Orally two times a day as needed 05/31/2024 Active traMADol HCl 50 MG 1 tab(s) orally every 6 hours prn 03/05/2021 Not-Taking Citalopram Hydrobromide 40 MG Take 1 tablet by mouth once daily; Duration: 90 Active Ozempic (2 MG/DOSE) 8 MG/3ML INJECT 2 MG SUBCUTANEOUSLY ONCE A WEEK Active Metoclopramide HCl 10 MG 1 tab(s) orally Two times a day Active Gemfibrozil 600 MG Take 1 tablet by mouth twice daily; Duration: 90 Active hydroCHLOROthiazide 25 MG 1 tablet in morning Orally Once a day; Duration: 90 days Active Lisinopril 10 MG 1 tab(s) orally Two times a day; Duration: 90 days Active Clopidogrel Bisulfate 75 MG 1 tab(s) orally once a day; Duration: 90 days Active CPAP SUPPLIES DIRECTED G47.33 JHON (obstructi ve sleep apnea) 07/05/2019 Active CPAP TITRATION 1 EVALUATION DIRECTED 07/22/2022 Active NovoLIN 70/30 (70-30) 100 UNIT/ML 60 units subcutaneously bid Active Vitamin D3 50 MCG (2000 UT) 1 tab(s) orally once a day; Duration: 30 day(s) Active Atorvastatin Calcium 80 MG 1 tab(s) orally once a day; Duration: 90 days Active Gabapentin 800 MG 1 [...] PNEUMOVAX 23 VACCINE IM Intramuscular 05/31/2024 Administe red Social History Tobacco Use: Social History Observation [...] 05/31/2024 Encounters Encounter Location Date Provider Diagnosis [facility] [address] [id number] 05/31/2024 Lee Catalan Adult general medica l [...] 01/12/2025 10:00:00 AM, [address], [address], [place], [id number], Progress Notes * NIYAH NAVARRETEOB:1960 (64 yo F)Acc No.[id number]:05/31/2024 Physical Patient: CRISTÓBAL GILL Provider: Lee Catalan M.D. :1960 A ge:63 Y S ex:Female Date:05/31/2024 Address:[address] [place] [address] RD, [place], [id number] Subjective: * Chief Complaints: * 1 . [...] reflux, Type 2 diabetes, ASCVD - anterior IA 05/1997, JHON, Left carotid stenosis with stroke - 07/2017, right CTS, Current every day smoker, Tobacco use disorder, NSTEMI/ [facility]/ 08/2023. * Surgical History: C ABG , total hysterectomy- heavy bleeding 12/07/05, 3 cardiac stents-Dr Lange 08/13/14, C-scope - polyps 2017, 1 cardiac stent 07/2022, Right rotator cuff repair/ Dr. Tyson/ [facility] 08/2023, Heart cath/ Stent x 1/ Anisa 08/2023. * Hospitalization/Major Diagno stic Procedure: E R visit hiatal hernia, muscle spasms 11/14/06, [facility]-Pneumonia 07/24/09 to 07/26/09, [facility]-chest pain 06/23, [facility]-UTI 05/27, - stroke/left hemiparsis 07/09/17, [facility]/ NSTEMI 08/2023. * Family History: [...] C ardiology: General Appearance: p leasant, NAD. C arotid upstroke:?normal, no bruits. H eart sounds: R RR, normal S1, S2. M urmur, click , gallop:?none. L ungs: c lear, no rales or wheezes. E xtremities: n o leg edema. G eneral Examination: [...] the past 12 months. D epression Screening: Trung parson depressed mood or anxiety. Describes emotional health [...] with anxiety - F41.8 1 1. B IA 32.0-32.9,adult - Z68.32? 12. H istory of [...] AM > no auth required; faxed to [facility] Lisa Manzano 06/16/2024 12:44:27 PM [...] . * Follow Up: 6 Months * Images: Billing Information: * Visit Code: 68355 Office Visit, Est Pt., Level 3. Modifiers: [...] Electronic signature of Lee Catalan MD on 12/13/2024 at 10:58 AM EDT Sign off status: Pending * Provider: Lee Catalan M.D. Date: 0 05/31/2024 Generated for Aretha genao/Jose/eTransmitting on: 0 12/13/2024 10:58 AM EDT History and Physical Notes * HPI (History of Present Illness) Category Sub-Category Detail Notes Category Not es Neck pain Pt sts that she believes she may have pulled a muscle or slept on her neck wrong due to having pain in the muscles on the right side of the neck for 1 week HPI Patient is here today for a [facility] check up and a Medicare Annual Wellness [...]
--- OUTSIDE RECORDS SUMMARY | 2024-08-09 05:00 | XMS_ITS ---
Author Organization [facility] Address [address] [facility] [address] [facility] [address] [place] [id number] Care Team Providers Care Business Support Coordinator Name Role Phone Lee Catalan Primary Care Provider [phone] REASON FOR VISIT 6 month check, Needs labs, bone density screening, colon cancer screening, low dose chest CT, &diabetic eye exam Encounters Encounter Location Date Provider Diagnosis [facility] [address] [facility] [address] [facility] [address] [place] [id number] 08/09/2024 Lee Catalan Plan Of Treatment Next Appt Details Provider Name:Lee Hernandez, 01/12/2025 10:00:00 AM, [address] [facility], [address], [place], [phone], Progress Notes * LANDONNIYAHOB:1960 (64 yo F)Acc No.[id number]:08/09/2024 Progress Notes Patient: CRISTÓBAL GILL Provider: Lee Catalan M.D. :1960 A ge:63 Y S ex:Female Date:08/09/2024 Address:[place] [address], [id number] Subjective: * Chief Complaints: * 1 . 6 month check. 2. Needs labs, bone density screening, colon cancer screening, low dose chest CT, & diabetic eye exam. * Medical History: Objective: * Vitals: Assessment: Plan: * Treatment: * Images: Billing Information: * Visit Code: * Procedure Codes: * Electronic signature of Lee Catalan MD on 12/13/2024 at 10:57 AM EDT Sign off status: Pending * Provider: Lee Catalan M.D. Date: 08/09/2024 Generated for Aretha genao/Jose/Mateo on: 0 12/13/2024 10:57 AM EDT
--- OUTSIDE RECORDS SUMMARY | 2024-09-13 07:15 | XMS_ITS ---
Author Organization [facility] Address [address] [place] [id number] Care Team Providers Care Disability Insurance Claim Examiner Name Role Phone Lee Catalan Primary Care Provider Allergies Allergen (clinical drug ingredient) Drug/Non Drug Allergy documented on EMR Reaction Allergy Type Onset Date Status Diclofenac stomach upset Drug Allergy Ac tive Results Component Value Reference Range Notes Glycohemoglobin A1c (in hous e) Reviewed date:09/15/2024 01:24:08 PM Interpretation: Performing Lab: Notes/Report: glycohemoglobin 7.9% 5 - 6.5 % P-Comprehensive Metabolic Pa fartun (CMP) Reviewed date:09/15/2024 01:24:08 PM Interpretation: Performing Lab: Notes/Report: Test performed by [facility] [address] [place] [address] , [address], [place] [address] Meliton Parra MD, Assembler Dielectric Heater CLIA: [id number] Sodium 139 135-145 mmol/L Potassium 5.1 3.5-5.3 mmol/L Chloride 100 97-108 mmol/L CO2 24 22-32 mmol/L Glucose 260 65-99 mg/dL BUN 29 8-23 mg/dL Creatinine 1.31 0.50-1.00 mg/dL Calcium 9.9 8.6-10.4 mg/dL eGFR by Creatinine 46 >59 mL/min/1.73m2 Protein 7.5 6.0-8.3 g/dL Albumin 4.6 3.5-5.3 g/dL Alkaline Phosphatase 84 35-121 IU/L ALT (SGPT) 21 <5-47 IU/L AST (SGOT) 23 <5-40 IU/L Bilirubin, Total 0.3 <0.2-1.2 mg/dL A/G Ratio 1.6 1.1-2.5 P-Lipid Panel Reviewed date:09/15/2024 01:24:08 PM Interpretation: Performing Lab: Notes/Report: Test performed by [facility], [address] , [place] [address] Meliton Parra MD, Assembler Dielectric Heater CLIA: [id number] Cholesterol 160 <200 mg/dL Triglycerides 145 <150 mg/dL HDL Cholesterol 32 >39 mg/dL Cholesterol / HDL Ratio 5.00 0.00-4.44 Ratio Non-HDL Cholesterol 128 <130 mg/dL LDL Cholesterol (Calculation) 99 <130 mg/dL LDL Cholesterol Levels* Less than 100 mg/dL Optimal 100 to 129 mg/dL Near Optimal/ Above Optimal 130 to 159 mg/dL Borderline High 160 to 189 mg/dL High 190 mg/dL and above Very High * Categories as recommended by the 2004 ATPIII guidelines LDL/HDL Ratio 3.1 <3.3 Ratio LDL Cholesterol Patient History Test Date: 08/11/2023 LDL Results: 65 Units: mg/dL % Change: +10% Test Date: 02/09/2024 LDL Results: 78 Units: mg/dL % Change: +20% Test Date: 09/13/2024 LDL Results: 99 Units: mg/dL % Change: +26% REASON FOR VISIT yearly exam, Needs labs, colon cancer screening, diabetic eye exam, & shingles vaccine Medications Medication SIG (Take, Route, Frequency, Duration) Notes Start Date End Date Status Fish Oil 500 MG 2 cap(s) orally once a day Active Ozempic (2 MG/DOSE) 8 MG/3ML INJECT 2 MG SUBCUTANEOUSLY ONCE A WEEK Active Gabapentin 800 MG 1 tab(s) orally 3 times a day Active Vitamin D3 50 MCG (1999 UT) 1 tab(s) orally once a day; Duration: 30 day(s) Active Glimepiride 4 MG 2 tab(s) orally once a day Active Nitroglycerin 0.4 MG 1 tab(s) sublingually every 5 minutes 06/26/2022 Active Entresto 24-26 MG 1 tablet Orally Twice a day Active Furosemide 40 MG 1 tablet Orally Once a day Active Gemfibrozil 600 MG 1 tab(s) orally 2 times a day Active Farxiga 10 MG 1 tablet Orally Once a day 30 mg, once daily Active Atorvastatin Calcium 80 MG 1 tab(s) orally once a day Active Clopidogrel Bisulfate 75 MG 1 tab(s) orally once a day Active Lisinopril 10 MG 1 tab(s) orally Two times a day Active hydroCHLOROthiazide 25 MG Take 1 tablet by mouth once daily Active Bisoprolol Fumarate 5 MG 1 tab(s) orally once a day Active Spironolactone 50 MG 1 tab(s) orally Active Invokana 300 MG 1 tab(s) orally once a day Not-Taking traMADol HCl 50 MG 1 tab(s) orally every 6 hours prn 03/05/2021 Not-Taking Furosemide 20 MG 1 tab(s) orally once a day Active Ozempic (2 MG/DOSE) 8 MG/3ML INJECT 2 MG SUBCUTANEOUSLY ONCE A WEEK; Duration: 28 Active Clopidogrel Bisulfate 75 MG Take 1 tablet by mouth once daily; Duration: 90 Active Gemfibrozil 600 MG Take 1 tablet by mouth twice daily; Duration: 90 Active Atorvastatin Calcium 80 MG Take 1 tablet by mouth once daily; Duration: 90 Active Citalopram Hydrobromide 40 MG Take 1 tablet by mouth once daily; Duration: 90 Active Cyclobenzaprine HCl 5 MG 1 tab(s) Orally two times a day as needed 05/31/2024 Active Glimepiride 4 MG 2 tab(s) orally once a day; Duration: 90 days Active Metoclopramide HCl 10 MG 1 tab(s) orally Two times a day Active CPAP SUPPLIES DIRECTED G47.33 JHON (obstructi ve sleep apnea) 07/05/2019 Active NovoLIN 70/30 (70-30) 100 UNIT/ML 60 units subcutaneously bid Active metFORMIN HCl ER 500 MG 1 tab(s) Orally Two times a day Active CPAP TITRATION 1 EVALUATION DIRECTED 07/22/2022 Active Social History Tobacco Use: Social History Observation Description Date Details (start date - stop date) Former Smoker NA - 07/09/2017 CURRENT TOBACCO USE: Question Answer Notes Are you a: former smoker When did you stop smoking? 07/09/2017 Problems Problem Type SNOMED Code ICD Code Onset Dates Problem Status W/U Status Risk Notes Problem BMI 31.0-31.9,ad ult (Z68.31) Active confirmed Vital Signs Blood pressure systolic 102 mm Hg 09/14/19 25 Blood pressure diastolic 68 mm Hg 025 Heart Rate 75 /min 09/13/2024 Height 65 in 09/13/2024 Weight 188.6 lbs 09/13/2024 BMI 31.38 kg/m2 09/13/2024 Encounters Encounter Location Date Provider Diagnosis [facility] [address] [facility] [address] [place], [place] [id number] 09/13/2024 Lee Catalan HTN (hypertension) I 10 ; ASCVD (arteriosclerotic cardiovascular disease) I25.10 ; Dyslipidemia E78.5 ; Diabetic polyneuropathy associated with type 2 diabetes mellitus E11.42 ; Cervicalgia M54.2 ; History of CVA (cerebrovascular accident) Z86.73 ; JHON (obstructive sleep apnea) G47.33 ; Depression with anxiety F41.8 ; History of non-ST elevation myocardial infarction (NSTEMI) I25.2 and BMI 31.0-31.9,adult Z68.31 Assessments Encounter Date Diagnosis (ICD Code) Assessment Notes Treatment Notes Treatment Clinical Notes Section Notes 09/13/2024 HTN (hypertension) (ICD-10 - I10) 09/13/2024 ASCVD (arteriosclerotic cardiovascular disease) (ICD-10 - I25.10) 09/13/2024 Dyslipidemia (ICD-10 - E78.5) 09/13/2024 Diabetic polyneuropathy associated with type 2 diabetes mellitus (ICD-10 - E11.42) 09/13/2024 Cervicalgia (ICD-10 - M54.2) 09/13/2024 History of CVA (cerebrovascular accident) (ICD-10 - Z86.73) 09/13/2024 JHON (obstructive sleep apnea) (ICD-10 - G47.33) 09/13/2024 Depression with anxiety (ICD-10 - F41.8) 09/13/2024 History of non-ST elevation myocardial infarction (NSTEMI) (ICD-10 - I25.2) 09/13/2024 BMI 31.0-31.9,adult (ICD-10 - Z68.31) Plan Of Treatment Medication Medication Name Sig Start Date Stop Date Notes Ozempic (2 MG/DOSE) 8 MG/3ML INJECT 2 MG SUBCUTANEOUSLY ONCE A WEEK Gabapentin 800 MG 1 tab(s) orally 3 ti mes a day Glimepiride 4 MG 2 tab(s) orally once a day Gemfibrozil 600 MG 1 tab(s) orally 2 ti mes a day Farxiga 10 MG 1 tablet Orally Once a day 30 mg, once daily Atorvastatin Calcium 80 MG 1 tab(s) oral ly once a day Clopidogrel Bisulfate 75 MG 1 tab(s) ora lly once a day Lisinopril 10 MG 1 tab(s) orally Two times a day hydroCHLOROthiazide 25 MG Take 1 tablet by mouth once daily Bisoprolol Fumarate 5 MG 1 tab(s) orally once a day Spironolactone 50 MG 1 tab(s) orally Furosemide 20 MG 1 tab(s) orally once a day metFORMIN HCl ER 500 MG 1 tab(s) Orally Two times a day Pending Test Test Name Order Date colonoscopy 09/13/2024 Next Appt Details Follow Up: 4 Months, Reason: Provider Name:Lee Mikhail Esmercarmela lesia, 01/12/2025 10:00:00 AM, [address], [address], [place], [place], [id number], Progress Notes * NIYAH NAVARRETEOB:1960 (64 yo F)Acc No.[id number]:09/13/2024 Progress Notes Patient: CRISTÓBAL GILL Provider: Lee Catalan M.D. :1960 A ge:64 Y S ex:Female Date:09/13/2024 Address:[address] [place] [address], [place], [id number] Subjective: * Chief Complaints: * 1 . Yearly exam. 2. Needs labs, colon cancer screening, diabetic eye exam, & shingles vaccine. * HPI: C ardiology: She comes in for scheduled checkup, refills, and blood work. Interim history is reviewed and she was hospitalized last week with chest pain and underwent heart cath by Dr. Lange and received 1 stent to the circumflex artery. She is now asymptomatic. Denies : Chest Pain. D enies : Short of Breath. D enies : Dizziness. D enies : Palpitations. Her lisinopril and hydrochlorothiazide were discontinued and she was started on Entresto and Lasix. Medication list updated. E ndocrinology: Denies : Weight Gain. D enies : Weight Loss. D enies : Polyuria. D enies : Polydypsia. She continues to report elevated blood sugars. She did start back taking her metformin twice a day and has had some recurring loose stools. * ROS: D ERMATOLOGY: no R linn. n o H emmanuelle. G ASTROENTEROLOGY: no N ausea. n o V omiting. n o D iarrhea.? U ROLOGY: no D ifficulty urinating. n o B lood in urine. * Medical History: H ypertension, Tobacco abuse, Depression, Esophageal reflux, Type 2 diabetes, ASCVD - anterior DC 05/1997, JHON, Left carotid stenosis with stroke - 07/2017, right CTS, Current every day smoker, Tobacco use disorder, NSTEMI/ [facility]/ 08/2023. * Surgical History: C ABG , total hysterectomy- heavy bleeding 12/07/05, 3 cardiac stents-Dr Lange 08/13/14, C-scope - polyps 2017, 1 cardiac stent 07/2022, Right rotator cuff repair/ Dr. Tyson/ [facility] 08/2023, Heart cath/ Stent x 1/ Anisa 08/2023, Heart Cath/ stent x 1/ Anisa 08/2024. * Hospitalization/Major Diagno stic Procedure: E R visit hiatal hernia, muscle spasms 11/14/06, [facility]-Pneumonia 07/24/09 to 07/26/09, [facility]-chest pain 06/23, [facility] ER-UTI 05/27, - stroke/left hemiparsis 07/09/17, [facility]/ NSTEMI 08/2023. * Family History: F [...] no. Alcohol: no. * Medications: T aking Furosemide 40 MG Tablet 1 tablet Orally Once a day , Taking Entresto 24-26 MG Tablet 1 tablet Orally Twice a day , Taking Nitroglycerin 0.4 MG Tablet Sublingual 1 tab(s) sublingually every 5 minutes , Taking Fish Oil 500 MG Capsule 2 cap(s) orally once a day , Taking Vitamin D3 50 MCG (1999 UT) Tablet 1 tab(s) orally once a day , Taking NovoLIN 70/30 (70-30) 100 UNIT/ML Suspension 60 units subcutaneously bid , Taking CPAP TITRATION 1 EVALUATION DIRECTED , Taking CPAP SUPPLIES DIRECTED , Notes to Pharmacist: G47.33 JHON (obstructive sleep apnea), Taking Metoclopramide HCl 10 MG Tablet 1 tab(s) orally Two times a day , Taking Glimepiride 4 MG Tablet 2 tab(s) orally once a day , Taking Citalopram Hydrobromide 40 MG Tablet Take 1 tablet by mouth once daily , Taking Bisoprolol Fumarate 5 MG Tablet 1 tab(s) orally once a day , Taking Farxiga 10 MG Tablet 1 tablet Orally Once a day , Notes to Pharmacist: 30 mg, once daily, Taking Glimepiride 4 MG Tablet 2 tab(s) orally once a day , Taking metFORMIN HCl ER 500 MG Tablet Extended Release 24 Hour 1 tab(s) Orally Two times a day , Taking Cyclobenzaprine HCl 5 MG Tablet 1 tab(s) Orally two times a day as needed , Taking Ozempic (2 MG/DOSE) 8 MG/3ML Solution Pen-injector INJECT 2 MG SUBCUTANEOUSLY ONCE A WEEK , Taking Atorvastatin Calcium 80 MG Tablet Take 1 tablet by mouth once daily , Taking Gemfibrozil 600 MG Tablet Take 1 tablet by mouth twice daily , Taking Gabapentin 800 MG Tablet 1 tab(s) orally 3 times a day , Taking Clopidogrel Bisulfate 75 MG Tablet Take 1 tablet by mouth once daily , Taking Spironolactone 50 MG Tablet 1 tab(s) orally , Not-Taking Furosemide 20 MG Tablet 1 tab(s) orally once a day , Not-Taking traMADol HCl 50 MG Tablet 1 tab(s) orally every 6 hours prn , Not-Taking Invokana 300 MG Tablet 1 tab(s) orally once a day , Discontinued Lisinopril 10 MG Tablet 1 tab(s) orally Two times a day , Discontinued hydroCHLOROthiazide 25 MG Tablet TAKE 1 TABLET BY MOUTH IN THE MORNING ONCE DAILY , Medication List reviewed and reconciled with the patient * Allergies: D iclofenac: stomach upset - Side Effects. Objective: * Vitals: W t: 188.6, Temp: 98.1, BP: 102/68, HR: 75, O2 Sat: 96% on RA, Nurse: PABLO, Ht: 65, BMI:31.38. * Examination: C ardiology: General Appearance: p leasant, NAD. C arotid upstroke:?normal, no bruits. H eart sounds: R RR, normal S1, S2. M urmur, click , gallop:?none. L ungs: c lear, no rales or wheezes. E xtremities: n o leg edema. Assessment: * Assessment: 1. A SCVD (arteriosclerotic cardiovascular disease) - I25.10 2 . H TN (hypertension) - I10 3 . D yslipidemia - E78.5 4 . D iabetic polyneuropathy associated with type 2 diabetes mellitus - E11.42 5 . C ervicalgia - M54.2 6 . H istory of CVA (cerebrovascular accident) - Z86.73 7 . O SA (obstructive sleep apnea) - G47.33 8 . D epression with anxiety - F41.8 9 . H istory of non-ST elevation myocardial infarction (NSTEMI) - I25.2 & #160; 1 0. B DC 31.0-31.9,adult - Z68.31 Plan: * Treatment: 2. H TN (hypertension) Continue hydroCHLOROthiazide Tablet, 25 MG, Take 1 tablet by mouth once daily; C ontinue Lisinopril Tablet, 10 MG, 1 tab(s), orally, Two times a day. L AB: P-Comprehensive Metabolic Panel (CMP) (Collection Date & Time - 09/13/2024 10:49 AM) Value Reference Range A /G Ratio 1.6 1.1-2.5 - * A lbumin 4.6 3.5-5.3 - g/dL * A lkaline Phosphatase 84 35-121 - IU/L * A LT (SGPT) 21 <5-47 - IU/L * A ST (SGOT) 23 <5-40 - IU/L * B ilirubin, Total 0.3 <0.2-1.2 - mg/dL * B UN 29 H 8-23 - mg/dL * C alcium 9.9 8.6-10.4 - mg/dL * C hloride 100 97-108 - mmol/L * C O2 24 22-32 - mmol/L * C reatinine 1.31 H 0.50-1.00 - mg/dL * G lucose 260 H 65-99 - mg/dL * P otassium 5.1 3.5-5.3 - mmol/L * S odium 139 135-145 - mmol/L * P rotein 7.5 6.0-8.3 - g/dL * e GFR by Creatinine 46 L >59 - mL/min/1.73m2 * Lee Catalan 09/15/2024 1: 24:00 PM >See phone encounter 3.?Dyslipidemia? Continue Atorvastatin Calcium Tablet, 80 MG, 1 tab(s), orally, once a day;?Continue Gemfibrozil Tablet, 600 MG, 1 tab(s), orally, 2 times a day.?LAB: P-Lipid Panel (Collection Date & Time - 09/13/2024 10:49 AM)* Value Reference Range C holesterol / HDL Ratio 5.00 H 0.00-4.44 - Ratio * C holesterol 160 <200 - mg/dL * H DL Cholesterol 32 L >39 - mg/dL * L DL Cholesterol (Calculation) 99 <130 - mg/d L * L DL/HDL Ratio 3.1 <3.3 - Ratio * N on-HDL Cholesterol 128 <130 - mg/dL * T riglycerides 145 <150 - mg/dL * Lee Catalan 09/15/2024 1: 24:00 PM >See phone encounter 4.?Diabetic polyneuropathy associated with type 2 diabetes mellitus? Continue Farxiga Tablet, 10 MG, 1 tablet, Orally, Once a day, Notes to Pharmacist: 30 mg, once daily;?Continue Glimepiride Tablet, 4 MG, 2 tab(s), orally, once a day;?Continue Gabapentin Tablet, 800 MG, 1 tab(s), orally, 3 times a day;?Continue Ozempic (2 MG/DOSE) Solution Pen-injector, 8 MG/3ML, INJECT 2 MG SUBCUTANEOUSLY ONCE A WEEK;?Continue metFORMIN HCl ER Tablet ExtendedRelease 24 Hour, 500 MG, 1 tab(s), Orally, Two times a day.?LAB: Glycohemoglobin A1c (in house) (Collection Date & Time - 09/13/2024)* Value Reference Range g lycohemoglobin 7.9% 5 - 6.5 % * Radha Grewal 09/13/2024 12:06:2 2 PM > Lee Catalan 09/15/2024 1:24:00 PM >See phone encounter * Imaging: * I maging: colonoscopy * Procedure Codes: G 2211 Complex e/m visit add on, 3051F HG A1C>EQUAL 7.0%<8.0%, 03685 GLYCATED HEMOGLOBIN TEST, Modifiers: QW , G8752 MOST RECENT SYSTOLIC BP < 140MM HG, G8754 MOST RECENT DIASTOLIC BP < 90MM HG * Follow Up: 4 Months * Images: Billing Information: * Visit Code: 30879 Office Visit, Est Pt., Level 4. * Procedure Codes: G2211 Complex e/m visit add on. 3051F HG A1C>EQUAL 7.0%<8.0%. 12059 GLYCATED HEMOGLOBIN TEST. Modifiers: QW G8752 MOST RECENT SYSTOLIC BP < 140MM HG. G8754 MOST RECENT DIASTOLIC BP < 90MM HG. * Electronic signature of Lee Catalan MD on 12/13/2024 at 10:59 AM EDT Sign off status: Pending * Provider: Lee Catalan M.D. Date: 0 09/13/2024 Generated for Aretha genao/Jose/Mateo on: 0 12/13/2024 10:59 AM EDT History and Physical Notes * HPI (History of Present Illness) Category Sub-Category Detail Notes Category Not es Endocrinology Weight Gain She continues to report elevated blood sugars. She did start back taking her metformin twice a day and has had some recurring loose stools. Weight Loss Polyuria Polydypsia Cardiology Short of Breath Her lisinopr il and hydrochlorothiazide were discontinued and she was started on Entresto and Lasix. Medication list updated. Chest Pain Palpitations Dizziness Examination Category Sub-Category Detail Notes Category Not es Cardiology Lungs: clear, no rales or wheezes Heart sounds: RRR, normal S1, S2 Carotid upstroke: normal, no bruits Extremities: no leg edema Murmur, click , gallop: none General Appearance: pleasant, NAD
--- OUTSIDE RECORDS SUMMARY | 2024-12-13 10:58 | XMS_ITS | Clinical Summary ---
[facility] Address [address] [place] [address] Care Team Providers Care Medical Administrative Technician Name Role Phone Lauren Bonilla APRN Primary Care Provider [phone] Social History Tobacco Use Types Packs/Day Years Used Date Smoking Tobacco: Never Assessed Comments Unknown Sex and Gender Information Value Date Recorded Sex Assigned at Not on file Legal Sex Female 10:03 AM EDT Gender Identity Not on file Sexual Orientation Not on file Plan of Treatment Upcoming Encounters Date Type Department Care Team (Late st Contact Info) Description 02/21/2025 11:00 AM EDT Office Visit [facility] [address] [id number] Raul Riggs, DNP, CHANNEL MARKETING SPECIALIST [address] [facility] [address] [place] [address] Health Maintenance Due Date Last Done Comments ANNUAL WELLNESS VISIT 1961 Annual Gynecologic Pelvic an d Breast Exam 1961 HEPATITIS C SCREENING 1961 TDAP/TD VACCINES (1 - Tdap) 1980 COLOGUARD 2006 COLON CANCER SCREENING 5 YEA R SIGMOIDOSCOPY 2006 COLONOSCOPY [address] CANCER SCREENING 2006 CT COLONOGRAPHY 2006 FECAL OCCULT BLOOD TEST 2006 FIT Testing (1 year) 2006 ZOSTER VACCINE (1 of 2) 08/21/2011 COVID-19 Vaccine (2023-2 5 season) 2024 03/27/2021, 08/22/2020, 07/25/2020 INFLUENZA VACCINE 02/08/2025 02/23/2024, , 02/15/2022, Additional history exists Pneumococcal Vaccine 50+ (2 of 2 - PCV) 05/31/2025 05/31/2024, 03/30/2015 MAMMOGRAM 06/10/2026 06/10/2024, 08/09, 06/25/2021, Additional history exists Procedures Procedure Name Priority Date/Time Associated Diagnosis Comments SCANNED - SLEEP STUDY EXTERNAL 09/15/2024 SCANNED - MAMMO 06/10/2024 from Last 3 Months or Most Recently Relevant to Health Maintenance Results * Sleep Study External Scan (09/15/2024) [facility] SLEEP CENTER ORDERABLES Final Result * MAMMO Scan (06/10/2024) Anatomical Region Laterality Modality Other [facility] CHART REVIEW TABS Final Re sult from Last 3 Months or Most Recently Relevant to Health Maintenance Insurance [employer] MED[employer]ARE [employer]VANTAGE PPO Care Teams Medical Administrative Technician Relationship Specialty Start Date End Date Lauren Bonilla APRN [address] [facility] [id number] PCP - General Nurse Practitioner 11/09/24
--- OUTSIDE RECORDS SUMMARY | 2024-12-13 10:58 | XMS_ITS | Clinical Summary ---
Author Organization Healthcare Address [address] [place] [address] Care Team Providers Care Regional Clinical Director Name Role Phone Benja Catalan MD Primary Care Provider [phone]- [phone] Family History Medical History Relation Name Comments [...] of Treatment Not on file Care Teams Regional Clinical Director Relationship Specialty Start Date End Date Benja Catalan MD [address] [place] [address] PCP - General 09/21/20
--- OUTSIDE RECORDS SUMMARY | 2024-12-13 10:58 | XMS_ITS | Patient Health Record ---
Author Organization [facility] Address [address] [place] [address] Care Team Providers Care Medical Laboratory Manager Name Role Phone Chantal Corbin Unavailable [phone] Reason For Referral No Information Social History Social History Sexual History: Social Info Question Answer Notes Sexual History Had sex in the past 12 months (vaginal, oral, or anal)? Yes Drugs/Alcohol: Social Info Question Answer Notes Drugs Have you used drugs other than those for medical reasons in the past 12 months? No Alcohol Screen Did you have a drink containing alcohol in the past year? Yes Points 0 Interpretation Negative Tobacco Use: Social Info Question Answer Notes Tobacco Use/Smoking Are you a former smoker Tobacco use other than smoking: Are you an other tobac co user? No Problems Problem Type SNOMED Code ICD Code Onset Dates Problem Status W/U Status Risk Notes Problem Menopause (631221039) *Menopausal and female climacteric states (Code also, associated symptoms) (N95.1) 010 Active confirmed MENOPAUSAL SYMPTOMS Problem Abnormal cervical Papanicolaou smear with positive human papillomavirus deoxyribonucleic acid test (666618099) *Cervical low risk human papillomavirus (HPV) DNA test positive (Code also - for assoc. HPV (B97.7) (R87.820) 010 Active confirmed LGSIL Plan Of Treatment No Information Medical (General) History Medical History History ICD Code SOCIAL HX: 1 pack cigs/day, denies alcoh ol and recreational drug use SOCIAL HX: 1 pack cigs/day, denies alcoh ol and recreational drug use ABORTIONS: 2 Abnormal paps Cervical cancer Diabetes High blood pressure Heart disease Acid reflux METFORMIN HCL 1000 MG ORAL TABLET METOPROLOL TARTRATE 50 MG ORAL TABLET ECOTRIN 325 MG ORAL TABLET DELAYED RELEA SE LISINOPRIL 5 MG ORAL TABLET HYDROCHLOROTHIAZIDE TABS CITALOPRAM HYDROBROMIDE 20 MG ORAL TABLE T SIMVASTATIN 80 MG ORAL TABLET GEMFIBROZIL 600 MG ORAL TABLET METOCLOPRAMIDE HCL TABLET Surgical History Surgery Date(Month/Year) Stent (1997), Triple Bypass (1999), BTL (2003), Hysterectomy (2006)
--- OUTSIDE RECORDS SUMMARY | 2024-12-13 10:59 | XMS_ITS | Patient Health Record ---
[facility] Address [address] [place] [id number] Care Team Providers Care Food Service Assistant Name Role Phone Lee Catalan Primary Care [...] Lab: Notes/Report: Negative,annual f/u result Negative,annual f/u H-Glycohemoglobin A1C Reviewed date:06/14/2024 08:45:14 AM Interpretation:8.5% Performing Lab: Notes/Report: HGBA1C 8.5 4.0-6.0 % < 6% Non-Diabetic Level < 7% Controlled Diabetic Level > 8% Poorly Controlled Diabetic Level H-Microalbumine/Creatinine Reviewed date:06/14/2024 08:45:14 AM Interpretation:UAC 46.6 Performing Lab: Notes/Report: UCREAT 53 Not Estab. mg/dL Random urine reference range not established. 24 hour urine samples recommended. MICROALB 24.700 0-16.7 mg/L MALBCREAT 46.6 Units: mg/g creat Normal: 0 - 29 Moderately Increased: 30 - 300 Severely Increased: >300 H-BMP Reviewed date:06/14/2024 08:45:14 AM Interpretation:GFR 50 Performing Lab: Notes/Report: NA 139 136-145 mmol/L K 4.7 3.5-5.1 mmoL/L CL 100 98-107 mmol/L CO2 23 22.0-30.0 mmol/L GAP 20.7 5-15 mEq/L BUN 26 7-17 mg/dl CREATT 1.10 0.52-1.04 mg/dl GFRAA 61 >60 ML/MIN EGFR 50 >60 ml/min GLU 273 74-100 mg/dl CA 10.3 8.4-10.2 mg/dl Glycohemoglobin A1c (in hous e) Reviewed date:09/15/2024 01:24:08 PM Interpretation: Performing Lab: Notes/Report: glycohemoglobin 7.9% 5 - 6.5 % P-Comprehensive Metabolic Pa fartun (CMP) Reviewed date:09/15/2024 01:24:08 PM Interpretation: Performing Lab: Notes/Report: Test performed by [facility] [address] [place] [address] , [address], [place] [address] Meliton Parra MD, Cytologist CLIA: [id number] Sodium 139 135-145 mmol/L Potassium 5.1 3.5-5.3 [...] Interpretation: Performing Lab: Notes/Report: Test performed by [facility] [facility] [address] [place] [address] , [address], [place] [address] Meliton Parra MD, Cytologist SALLY: [id number] Cholesterol 160 <200 mg/dL Triglycerides 145 <150 [...] 99 Units: mg/dL % Change: +26% ____ Urinalysis - Inhouse Reviewed date:12/17/2023 04:26:14 PM Interpretation: Performing Lab: Notes/Report: Color/Clarity yellow/clear Leuk neg Nitrite neg Urobili 3.2 Protein neg pH 5.5 Blood neg Sp. Gr. 1.010 Ketone neg Bili neg Gluc 2+ CBC Fingerstick (in house) Reviewed date:12/17/2023 04:27:22 [...] - 38 plat 240 100 - 400 Glycohemoglobin A1c (in hous e) Reviewed date:02/11/2024 04:04:22 PM Interpretation:8.9% Performing Lab: Notes/Report: 8.9% glycohemoglobin 8.9% 5 - 6.5 % P-Comprehensive Metabolic Pa fartun (CMP) Reviewed date:02/11/2024 04:04:22 PM Interpretation:gluc 245 Performing Lab: Notes/Report: Test performed by [facility] [address] [place] [address] , [address], [place] [address] Meliton Parra MD, Cytologist CLIA: [id number] Sodium 136 135-145 mmol/L Potassium 4.3 3.5-5.3 [...] 0.3 <0.2-1.2 mg/dL A/G Ratio 1.8 1.1-2.5 P-Lipid Panel Reviewed date:02/11/2024 04:04:22 PM Interpretation:trigs 190, hdl 31, dhol/hdl 4.74 Performing Lab: Notes/Report: Test performed by [facility] [address] [place] [address] , [place] [address] Meliton Parra MD, Cytologist CLIA: [id number] Cholesterol 147 <200 mg/dL Triglycerides 190 <150 [...] 78 Units: mg/dL % Change: +20% ____ Medications Medication SIG (Take, Route, Frequency, Duration) Notes Start Date End Date Status Furosemide 40 MG Take 1 tablet by mouth once daily; Duration: 30 Active Glimepiride 4 MG Take 2 tablets by mouth once daily; Duration: 90 Active Citalopram Hydrobromide 40 MG 1 tablet Orally Once a day; Duration: 90 days Active Cyclobenzaprine HCl 5 MG 1 tab(s) Orally two times a day as needed 05/31/2024 Active Clopidogrel Bisulfate 75 MG Take 1 tablet by mouth once daily; Duration: 90 Active Gemfibrozil 600 MG Take 1 tablet by mouth twice daily; Duration: 90 Active Nitroglycerin 0.4 MG 1 tab(s) sublingually every 5 minutes 06/26/2022 Active Fish Oil 500 MG 2 cap(s) orally once a day Active Spironolactone 50 MG 1 tab(s) orally Active hydroCHLOROthiazide 25 MG Take 1 tablet by mouth once daily Active Bisoprolol Fumarate 5 MG 1 tab(s) orally once a day Active Ozempic (2 MG/DOSE) 8 MG/3ML 2 mg Subcutaneous once a week; Duration: 28 days Active Atorvastatin Calcium 80 MG 1 tablet Orally Once a day; Duration: 90 days Active NovoLIN 70/30 (70-30) 100 UNIT/ML 60 units subcutaneously bid Active Vitamin D3 50 MCG (2000 UT) 1 tab(s) orally once a day; Duration: 30 day(s) Active Invokana 300 MG 1 tab(s) orally once a day Not-Taking traMADol HCl 50 MG 1 tab(s) orally every 6 hours prn 03/05/2021 Not-Taking CPAP SUPPLIES DIRECTED G47.33 JHON (obstructi ve sleep apnea) 07/05/2019 Active CPAP TITRATION 1 EVALUATION DIRECTED 07/22/2022 Active Gemfibrozil 600 MG 1 tab(s) orally 2 times a day Active Clopidogrel Bisulfate 75 MG 1 tab(s) orally once a day Active Lisinopril 10 MG 1 tab(s) orally Two times a day Active Gabapentin 800 MG 1 tab(s) orally 3 times a day Active Farxiga 10 MG 1 tablet Orally Once a day 30 mg, once daily Active Entresto 24-26 MG Take 1 tablet by mouth twice daily; Duration: 30 Active Metoclopramide HCl 10 MG Take 1 tablet b y mouth twice daily; Duration: 90 Active metFORMIN HCl ER 500 MG [...] Problem Status W/U Status Risk Notes Problem Gastroesophageal reflux disease (536814785) GERD (gastroesophageal reflux disease) (K21.9) Active confirmed Problem Coronary arteriosclerosis (48044718) ASCVD (arteriosclerotic cardiovascular disease) (I25.10) Active confirmed Problem Hypertension (60844181) HTN (hypertension) (I10) Active confirmed Problem Carpal tunnel syndrome (72091143) Carpal tunnel syndrome (G56.00) Active confirmed Problem Acute non-ST segment elevation myocardial infarction (951426190) NSTEMI (non-ST elevated myocardial infarction) (I21.4) Active confirmed Problem History of cerebrovascular accident without residual deficits (371913777) History of CVA (cerebrovascular accident) (Z86.73) Active confirmed Problem Seasonal allergy (415754580) Seasonal allergies (J30.2) Active confirmed Problem Cervicalgia (72223839) Cervicalgia (M54.2) Active confirmed Problem Mixed anxiety and depressive disorder (355837693) Depression with anxiety (F41.8) Active confirmed Problem BMI 30+ - obesity (249283034) BMI 32.0-32.9,adult (Z68.32) Active confirmed Problem Obese class I (170827766397944) BMI 33.0-33.9,adult (Z68.33) Active confirmed Problem Old myocardial infarction (2662470) History of non-ST elevation myocardial infarction (NSTEMI) (I25.2) Active confirmed Problem Congestive heart failure (40567235) Congestive heart failure, unspecified (I50.9) Active confirmed Problem History of polyp of colon (situation) (527853134) History of colon polyps (Z86.010) Active confirmed Problem Irritable bowel syndrome (26965100) Irritable bowel syndrome (K58.9) Active confirmed Problem History of circulatory system disease (198841962) Hx of arteriosclerotic cardiovascular disease (Z86.79) Active confirmed Problem Carpal tunnel syndrome of right wrist (530855476867708) Carpal tunnel syndrome of right wrist (G56.01) Active confirmed Problem Obstructive sleep apnea syndrome (78605894) JHON (obstructive sleep apnea) (G47.33) Active confirmed Problem Polyneuropathy due to type 2 diabetes mellitus (584875117) Diabetic polyneuropathy associated with type 2 diabetes mellitus (E11.42) Active confirmed Problem Menopausal symptom (40143729) Menopausal symptoms (N95.1) Active confirmed Problem Body mass index 30.00 to 34.99 (797105196240188) BMI 31.0-31.9,adult (Z68.31) Active confirmed Problem Dyslipidemia (748971196) Dyslipidemia (E78.5) Active confirmed Problem Noncompliance with dietary regimen (finding) (609877581) Noncompliance with dietary restriction (Z91.11) Active confirmed Problem Cerebral infarction due to carotid artery occlusion (610494413314460) Cerebrovascular accident (CVA) due to occlusion of cerebral artery (I63.50) Active confirmed Problem Left carotid artery occlusion (475732737854730) Left carotid stenosis (I65.22) Active confirmed Problem Hyperglycemia due to type 2 diabetes mellitus (649988357161769) Uncontrolled type 2 diabetes mellitus with hyperglycemia (E11.65) Active confirmed Problem Systolic heart failure (918416867) HFrEF (heart failure with reduced ejection fraction) (I50.20) Active confirmed Vital Signs Heart Rate 75 /min 09/13/2024 Blood pressure diastolic 68 mm Hg 09/13/2024 Height 65 in 09/13/2024 Blood pressure systolic 102 mm Hg 09/13/2024 Weight 188.6 lbs 09/13/2024 BMI 31.38 kg/m2 09/13/2024 Encounters Encounter Location Date Provider Diagnosis [facility] 36 [facility] [address] [place] [id number] 12/17/2023 Lee Catalan Acute sinusitis J01. 90 and Yeast infection B37.9 [facility] [address] [place] [id number] 02/09/2024 Lee Solanot HTN (hypertension) I 10 ; ASCVD (arteriosclerotic cardiovascular disease) I25.10 ; Dyslipidemia E78.5 and Diabetic polyneuropathy associated with type 2 diabetes mellitus E11.42 [facility] [address] [place] [id number] 05/31/2024 R Mikhail Catalan Adult general medica l examination Z00.00 [...] of non-ST elevation myocardial infarction (NSTEMI) I25.2 [facility] [address] [place] [id number] 09/13/2024 R Mikhail Catalan HTN (hypertension) I 10 ; ASCVD (arteriosclerotic cardiovascular disease) I25.10 ; Dyslipidemia E78.5 ; Diabetic polyneuropathy associated with type 2 diabetes mellitus E11.42 ; Cervicalgia M54.2 ; History of CVA (cerebrovascular accident) Z86.73 ; JHON (obstructive sleep apnea) G47.33 ; Depression with anxiety F41.8 ; History of non-ST elevation myocardial infarction (NSTEMI) I25.2 and BMI 31.0-31.9,adult Z68.31 [facility] [address] [place] [id number] 01/29/2024 R Mikhail Catalan JHON (obstructive sle ep apnea) G47.33 [facility] [address] [place] [id number] 02/11/2024 R Mikhail Catalan [facility] [address] [place] [id number] 02/29/2024 R Mikhail Catalan Diabetic polyneuropa thy associated with type 2 diabetes mellitus E11.42 [facility] [address] [place], [place] [id number] 06/14/2024 R Mikhail Solanot [facility] [address] [place], [place] [id number] 09/05/2024 R Mikhail Lymaneet Diabetic polyneuropa thy associated with type 2 diabetes mellitus E11.42 [facility] [address] [place], [place] [id number] 09/15/2024 R Mikhail Lymaneet [facility] [address] [place], [place] [id number] 10/17/2024 R Mikhail Lymaneet Assessments Encounter Date Diagnosis (ICD Code) Assessment [...] assessment, Depression screening and Bladder control screening. 09/13/2024 ASCVD (arteriosclerotic cardiovascular disease) (ICD-10 - I25.10) 09/13/2024 HTN (hypertension) (ICD-10 - I10) 09/05/2024 Diabetic polyneuropathy associated with type 2 diabetes mellitus (ICD-10 - E11.42) 09/13/2024 Dyslipidemia (ICD-10 - E78.5) 02/09/2024 Dyslipidemia [...] - Z86.73) 05/31/2024 Cervicalgia (ICD-10 - M54.2) 09/13/2024 JHON (obstructive sleep apnea) (ICD-10 - G47.33) 05/31/2024 Screening for breast cancer (ICD-10 - Z12.39) 05/31/2024 History of CVA (cerebrovascular accident) (ICD-10 - Z86.73) 09/13/2024 Depression with anxiety (ICD-10 - F41.8) 09/13/2024 History of non-ST elevation myocardial infarction (NSTEMI) (ICD-10 - I25.2) 05/31/2024 JHON (obstructive sleep apnea) (ICD-10 - G47.33) 05/31/2024 Depression with anxiety (ICD-10 - F41.8) 09/13/2024 BMI 31.0-31.9,adult (ICD-10 - Z68.31) 05/31/2024 BMI 32.0-32.9,adult (ICD-10 - Z68.32) 05/31/2024 History of non-ST elevation myocardial infarction (NSTEMI) (ICD-10 - I25.2) Plan Of Treatment Pending Test Test Name Order Date colonoscopy 09/13/2024 Next Appt Details Provider Name:Lee Hernandez, 01/12/2025 10:00:00 AM, [address], [address], [place], [place], [id number], Insurance Providers Payer Name Payer Address Payer Phone Subscriber Number Group Number Insured Name Patient Relationship to Insured Coverage Start Date Coverage End Date [employer] (MEDICAR E) [address] [address] [place] [address] [id number] AYLA CRISTÓBAL Self - patient is the insured Medications Administered Medication Instructions Date of Administration Dosage Notes Depo- Medrol 40 mg/ml 06/15/2014 1.5 mL Dexamethasone 05/07/2005 1 mL Dexamethasone 01/05/2006 1 mL Dexamethasone 05/18/2007 1 mL Dexamethasone 12/17/2023 1 mL Medical (General) History Medical History History ICD Code Hypertension tobacco abuse depression Esophageal reflux type 2 diabetes ASCVD - anterior UT 05/1997 JHON left carotid stenosis with stroke - 07/28 17 right CTS Current every day smoker F17.200 Tobacco use disorder Z72.0 NSTEMI/ [facility]/ 08/2023 Surgical History Surgery Date(Month/Year) CABG total hysterectomy- heavy bleeding 3 cardiac stents-Dr Lange 08/13/14 C-scope - polyps 2017 1 cardiac stent 07/2022 Right rotator cuff repair/ Dr. Tyson/ [facility] 08/2023 Heart cath/ Stent x / Anisa 08/2023 Heart Cath/ stent x / Anisa 08/2024 Hospitalization History Reason Date(Month/Year) [facility]/ NSTEMI 08/2023 - stroke/left hemiparsis 07/09/17 [facility]-UTI 05/27 [facility]-chest pain 06/23 [facility]-Pneumonia 07/24/09 to 07/26/09 ER visit hiatal hernia, muscle spasms 11/14/06
--- NOTE | 2024-12-13 11:15 | CA_ITS ---
APPROVED REPORT EXAM: Limited 2D and color flow Echocardiogram Cotton Inspector: Suzette Coronado RCS, RVS Ht: 5 ft 5 in Wt: 185lbs BSA: 1.91 BP: 115/69 mmHg Indications: CM, CABG, LVEF 2D Dimensions IVSd 0.79 cm LVEF (Visual) 42.90 % PWd 0.83 cm LVDd 4.68 cm LVDs 3.69 cm Left Atrium 3.27 cm M-Mode Dimensions RVDd 2.46 cm (0.9-2.6) LA Diam 4.95 cm (1.9-4.0) LVDd 4.97 cm (3.5-5.7) LVDs 3.79 cm (3.5-5.7) IVSd 0.96 cm (0.6-1.1) PWd 0.89 cm (0.6-1.1) EF (Teich) 47.20% EPSs 1.15 cm FS 23.70% EDV (Teich) 116.60 mL ESV (Teich) 61.60 mL Other Information Study Quality: Technically Difficult Conclusion This is a limited TTE to evaluate LV systolic function. Limited windows are obtained. Technically difficult study. The left ventricle is normal in size. There is increased LV wall thickness. There is low-normal global LV systolic function. There is mild hypokinesis of the anterior and anteroseptal LV lozano. LVEF is 50%. Electronically signed by : Samira Amanda MD 12/13/2024 19:42:23
== END 2024-12-13 23:59 | disposition home or self-care (01) ==
LOC: RT 10:57
PROVIDERS: PCP Nurse Practitioner Family; Visit Provider Nurse Practitioner Family
DX: I11.9 Hypertensive heart disease without heart failure (principal); I25.10 Atherosclerotic heart disease of native coronary artery without angina pectoris; I42.9 Cardiomyopathy, unspecified; R93.1 Abnormal findings on diagnostic imaging of heart and coronary circulation; Z95.1 Presence of aortocoronary bypass graft
CPT/HCPCS: 93308

== ENCOUNTER 2025-02-01 14:02 | Outpatient (CLI) | payer MEDICARE, SELFPAY ==
--- OUTSIDE RECORDS SUMMARY | 2025-02-01 14:05 | XMS_ITS | Clinical Summary ---
Author Organization [facility]ste Address [address] [place] [address] Care Team Providers Care Blanking Press Operator Name Role Phone Lauren Bonilla APRN Primary Care Provider [phone] Encounters Date Type Department Care Team Description 01/19/2025 Telephone [facility] [address] [place] [address] Raul Riggs, DNP, AUTOMATIC BANDSAW TENDER from Last 3 Months Social History Tobacco Use Types Packs/Day Years Used Date Smoking Tobacco: Never Assessed Abuse Screen Answer Date Recorded Unsafe at Home or Work/School Not on file Feels Threatened by Someone? Not on file 01/2023 Does Anyone Keep You from Co ntacting Others or Doint Things Outside the Home? Not on file 02/16/2023 Physical Sign of Abuse Present Not on file 1 Housing Stability Answer Date Recorded Current Living Arrangements Not on file 01/2023 Potentially Unsafe Housing Conditions Not on jace e 02/16/2023 Family and Community Support Answer Davin e Recorded Help with Day-to-Day Activities Not on file 02/16/2023 Lonely or Isolated Not on file 02/16/2023 Employment Answer Date Recorded Do you want help finding or keeping work or a fabiano b? Not on file 02/16/2023 Disabilities Answer Date Recorded Concentrating, Remembering, or Making Decisions Difficulty Not on file 02/16/2023 Doing Errands Independently Difficulty Not on fi le 02/16/2023 Education Answer Date Recorded Help with school or training? Not on file Preferred Language Not on file 02/16/2023 Comments Unknown Sex and Gender Information Value Date Recorded Sex Assigned at Not on file Legal Sex Female 11:09 AM EDT Gender Identity Not on file Sexual Orientation Not on file Plan of Treatment Upcoming Encounters Date Type Department Care Team (Late st Contact Info) Description 02/21/2025 11:00 AM EDT Office Visit [facility] [address] [place] [address] Raul Riggs, DNP, AUTOMATIC BANDSAW TENDER [address] [place] [address] Health Maintenance Due Date Last Done Comments Annual Gynecologic Pelvic an d Breast Exam 1961 DIABETIC EYE EXAM 08/21/1971 DIABETIC FOOT EXAM 08/21/1971 URINE MICROALBUMIN-CREATININ E RATIO (uACR) 08/21/1971 TDAP/TD VACCINES (1 - Tdap) 1980 PAP SMEAR 1982 COLOGUARD 2006 COLON CANCER SCREENING 5 YEA R SIGMOIDOSCOPY 2006 COLONOSCOPY [address] CANCER SCREENING 2006 CT COLONOGRAPHY 2006 FECAL OCCULT BLOOD TEST 2006 FIT Testing (1 year) 2006 ZOSTER VACCINE (1 of 2) 08/21/2011 INFLUENZA VACCINE 12/09/2024 02/23/2024, , 02/15/2022, Additional history exists ANNUAL WELLNESS VISIT 01/19/2025 HEMOGLOBIN A1C 01/19/2025 07/09/2017 HEPATITIS C SCREENING 01/19/2025 Pneumococcal Vaccine 50+ (2 of 2 - PCV) 05/31/2025 05/31/2024, 03/30/2015 MAMMOGRAM 11/09/2026 06/10/2024, 08/09, 06/25/2021, Additional history exists Procedures Procedure Name Priority Date/Time Associated Diagnosis Comments SCANNED - MAMMO 06/10/2024 from Last 3 Months or Most Recently Relevant to Health Maintenance Results * MAMMO Scan (06/10/2024) Anatomical Region Laterality Modality Other [facility] CHART REVIEW TABS Final Re sult from Last 3 Months or Most Recently Relevant to Health Maintenance Insurance [facility] MEDICARE ADVANTAGE PPO Care Teams Blanking Press Operator Relationship Specialty Start Date End Date Lauren Bonilla APRN [address] [place] [address] PCP - General Nurse Practitioner 11/09/24
--- OUTSIDE RECORDS SUMMARY | 2025-02-01 14:05 | XMS_ITS | Patient Health Record ---
Author Organization [facility] Address [address] [place] [address] Care Team Providers Care Barbering Instructor Name Role Phone Chantal Corbin Unavailable [phone] Reason For Referral No Information Social History [...] Status W/U Status Risk Notes Problem Menopause (624876248) *Menopausal and female climacteric states (Code also, associated symptoms) (N95.1) 010 Active confirmed MENOPAUSAL SYMPTOMS Problem Abnormal cervical Papanicolaou smear with positive human papillomavirus deoxyribonucleic acid test (678394693) *Cervical low risk human papillomavirus (HPV) DNA [...]
--- OUTSIDE RECORDS SUMMARY | 2025-02-01 14:05 | XMS_ITS | Encounter Summary ---
Author Organization [facility] yste Address [address] [place] [address] Care Team Providers Care Trail Maintenance Worker Name Role Phone Chad Lauren BEARDEN Primary Care Provider [phone] Encounter Details Date Type Department Care Team (Late st Contact Info) Description 01/19/2025 Telephone [facility] [address] [facility] [address] [place] [address] Raul Riggs, DNP, RECORD LABEL INTERN [address] [facility] [address] [place], [place] [id number] Social History Tobacco Use Types Packs/Day Years [...] on file Sexual Orientation Not on file documented as of this encounter Miscellaneous Notes * Telephone Encounter - Jillian Ferraro MA - 01/19/2025 9:06 AM EDT Relay Called patient to offer sooner appointment and stated she was in the bed and let him know if she would like sooner appointment to call. documented in this encounter Plan of Treatment Upcoming Encounters Date Type Department Care Team (Late st Contact Info) Description 02/21/2025 11:00 AM EDT Office Visit [facility] [address] [facility] [address] [place] [phone] Raul Riggs, DNP, RECORD LABEL INTERN [address] [place] [address] documented as of this encounter Visit Diagnoses Not on filedocumented in this encounter Care Teams Trail Maintenance Worker Relationship Specialty Start Date End Date Lauren Bonilla, RECORD LABEL INTERN [address] [place] [address] PCP - General Nurse Practitioner 11/09/24 documented as of this encounter
--- OUTSIDE RECORDS SUMMARY | 2025-02-01 14:05 | XMS_ITS | Clinical Summary ---
Author Organization Healthcare Address [address] [place] [address] Care Team Providers Care Pharmacist In Charge Name Role Phone Benja Catalan MD Primary Care Provider [phone] Family History Medical History Relation Name Comments [...] of Treatment Not on file Care Teams Pharmacist In Charge Relationship Specialty Start Date End Date Benja Catalan MD [address] [place] [address] PCP - General 09/21/20
[2025-02-01 15:00] VITALS: PULSE 71; PULSE 73
[2025-02-01] MEDS: ALBUTEROL 0.083% 2.5 MG/3 ML NEB IH (15:00)
== END 2025-02-01 23:59 | disposition home or self-care (01) ==
LOC: RT 14:03
PROVIDERS: PCP Nurse Practitioner Family; Visit Provider Internal Medicine Pulmonary Disease
DX: R94.2 Abnormal results of pulmonary function studies (principal); R06.09 Other forms of dyspnea; R06.02 Shortness of breath
CPT/HCPCS: 94060; 94618; 94640; 94726; 94729

== ENCOUNTER 2025-02-10 12:42 | Outpatient (CLI) | payer MEDICARE, SELFPAY ==
--- OUTSIDE RECORDS SUMMARY | 2025-02-10 12:44 | XMS_ITS | Encounter Summary ---
Author Organization [facility] yste Address [address] [place] [address] Care Team Providers Care Director Of Event Marketing Name Role Phone Chad Lauren BEARDEN Primary Care Provider [phone] Encounter Details Date Type Department Care Team (Late st Contact Info) Description 01/19/2025 Telephone [facility] NE[facility] [address] [facility] [address] [place] [address] Raul Riggs, DNP, CONTROL CLERK REPAIRS [address] [facility] [address] [place], [place] [id number] Social History Tobacco Use Types Packs/Day Years [...] Description 02/21/2025 11:00 AM EDT Office Visit [facility] NEUR[facility] [address] [facility] [address] [place] [phone] Raul Riggs, DNP, CONTROL CLERK REPAIRS [address] [place] [address] documented as of this encounter Visit Diagnoses Not on filedocumented in this encounter Care Teams Director Of Event Marketing Relationship Specialty Start Date End Date Lauren Bonilla, CONTROL CLERK REPAIRS [address] [place] [address] PCP - General Nurse Practitioner 11/09/24 documented as of this encounter
--- OUTSIDE RECORDS SUMMARY | 2025-02-10 12:44 | XMS_ITS | Clinical Summary ---
Author Organization Healthcare Address [address] [place] [address] Care Team Providers Care Rock Duster Name Role Phone Benja Catalan MD Primary Care Provider [phone] Family History Medical History Relation Name Comments [...] of Treatment Not on file Care Teams Rock Duster Relationship Specialty Start Date End Date Benja Catalan MD [address] [place] [address] PCP - General 09/21/20
--- OUTSIDE RECORDS SUMMARY | 2025-02-10 12:44 | XMS_ITS | Clinical Summary ---
Author Organization [facility] yste Address [address] [place] [address] Care Team Providers Care Lean Consultant Name Role Phone Lauren Bonilla APRN Primary Care Provider Encounters Date Type Department Care Team Description 01/19/2025 Telephone [facility] NEUROLOGY [address] [place] [address] Raul Riggs, DNP, SALES AND MARKETING ASSOCIATE from Last 3 Months Social History Tobacco [...] Description 02/21/2025 11:00 AM EDT Office Visit [facility] NEUROLOG[facility] [address] [place] [address] Raul Riggs, DNP, SALES AND MARKETING ASSOCIATE [address] [place] [address] Health Maintenance Due Date Last Done Comments [...] Scan (06/10/2024) Anatomical Region Laterality Modality Other [facility] CHART REVIEW TABS Final Re sult from Last 3 Months or Most Recently Relevant to Health Maintenance Insurance [facility] MEDICARE ADVANTAGE PPO Care Teams Lean Consultant Relationship Specialty Start Date End Date Lauren Bonilla APRN [address] [place] [address] PCP - General Nurse Practitioner 11/09/24
[2025-02-10 13:07] LABS: Hematocrit 39.6 % (37.0-47.0); Hemoglobin 13.0 g/dL (12.2-16.2); Immature Granulocytes % 0.2 %; Mean Corpuscular HGB Conc 32.8 g/dL (31.8-35.4); Mean Corpuscular Hemoglobin 30.8 pg (27.0-31.2); Mean Corpuscular Volume 93.8 fl (81-99); Nucleated Red Blood Cells % 0 %; Platelet Count 225 K/mm3 (142-424); Red Blood Count 4.22 M/mm3 (4.20-5.40); Red Cell Distribution Width-SD 46.4 fL; White Blood Count 5.5 K/mm3 (4.8-10.8)
[2025-02-13 15:16] LABS: Antinuclear Antibodies (ANA) Negative (Negative)
== END 2025-02-10 23:59 | disposition home or self-care (01) ==
LOC: LAB 12:42
PROVIDERS: PCP Nurse Practitioner Family; Visit Provider Internal Medicine Pulmonary Disease
DX: J45.909 Unspecified asthma, uncomplicated (principal); J84.9 Interstitial pulmonary disease, unspecified
CPT/HCPCS: 36415; 82785; 85025; 86003

== ENCOUNTER 2025-02-22 11:31 | Outpatient (CLI) | payer MEDICARE, SELFPAY ==
--- OUTSIDE RECORDS SUMMARY | 2025-02-21 11:00 | XMS_ITS | Encounter Summary ---
[facility] Address [address] [place] [address] Care Team Providers Care Quality Measurement Specialist Name Role Phone Lauren Bonilla APRN Primary Care Provider [phone] Reason for Visit * Reason Comments Tremors * Consultation (Routine) - Closed Specialty Diagnoses / Procedures Referred By Contac t Referred To Contact Neurology Diagnoses Tremor, unspecified Cerebral infarction, unspecified Lauren Bonilla, DECISION UNIT RN [address] [place] [address] Phone: tel: fax: [facility] [address] [facility] [address] [place] [address] Phone: tel: fax: Referral ID Status Reason Start Date Expiration Date Visits Re quested Visits Authorized [id number] Closed 10/26/2024 01/25/2026 1 1 Encounter Details Date Type Department Care Team (Late st Contact Info) Description 02/21/2025 11:00 AM EDT Office Visit [facility] NEUROLOG[facility] [address] [facility] [address] [place] [phone] Raul Riggs, DNP, DECISION UNIT RN [address] [facility] [address] [place] [address] History of stroke (Primary Dx); Benign essential tremor Social History Tobacco Use Types Packs/Day Years Used Date Smoking Tobacco: Former Cigarettes 2 34 S tarted: 1979 Tobacco Cessation:Counseling Given: No Alcohol Use Standard Drinks/Week Comments Not Asked 0 (1 standard drink = 0.6 oz pur e alcohol) Socially Abuse Screen Answer Date Recorded Unsafe at [...] Information Value Date Recorded Sex Assigned at Female 02/15/2025 1:13 PM EDT Legal Sex Female 11:09 AM EDT Gender Identity Not on file Sexual Orientation Straight 02/15/2025 1: 13 PM EDT documented as of this encounter Last Filed Vital Signs Vital Sign Reading Time Taken Comments Blood Pressure 106/64 02/21/2025 10:29 AM EDT Pulse 78 02/21/2025 10:29 AM EDT Temperature - - Respiratory Rate - - Oxygen Saturation 93% 02/21/2025 10:29 AM EDT Inhaled Oxygen Concentration - - Weight 85.1 kg (187 lb 9.6 oz) 02/21/2025 10:29 AM EDT Height 165.1 cm (5' 5 ) 02/21/2025 10:29 AM EDT Body Mass Index 31.22 02/21/2025 10:29 AM EDT documented in this encounter Progress Notes * Raul Riggs, DNP, DECISION UNIT RN - 02/21/2025 11:00 AM EDT Neuro Office Visit Encounter Date: 02/21/2025 Patient Name: Bibi Aguila : 1960 PCP: Lauren Bonilla APRN Chief Complaint: Chief Complaint Patient presents with Tremors History of Present Illness: Bibi Aguila is a 64 y.o. female who is here today in Neurology for history of stroke, tremor History of Present Illness Tremor Onset 9 years 2013 after CVA in both hands. With action and rest. Was on GBP 2400mg for hormones weaned down to 200mg. Tremor improved w lower dose. Mild and intermittent. She considered cancellingher appt since the tremor was resolved. No FH of tremor. Denies parkinsonian traits. No treatment. History of CVA 2013 pt with CVA. Now on asa, plavix and statin. Denies stroke like sx. Some residual Left side weakness. Cryptogenic stroke. No records available from that time. No records or MRIs available to review. Diabetes DM for years. Some mild diabetic neuropathy causes mild balance issues. GBP is beneficial PMH: CAD s/p cabg, DM, HLD FH: -tremor SH: Lives in [facility], -tob, -etoh, -drug Subjective Past Medical History: Past Medical History: Diagnosis Date Benign essential tremor Diabetes Heart disease Hyperlipidemia Stroke Past Surgical History: Past Surgical History: Procedure Laterality Date CARDIAC SURGERY 1999 HYSTERECTOMY 2004 SHOULDER SURGERY Right 2023 Family History: Family History Problem Relation Age of Onset Heart disease Mother Diabetes Mother Diabetes Father Heart disease Father Diabetes Sister Social History: Social History[1] Medications: Current Medications[2] Allergies: Allergies[3] PHQ-9 Total Score: STEADI Fall Risk Assessment has not been completed. Objective Physical Exam: Physical Exam Eyes: Extraocular Movements: No nystagmus. Neurological: Motor: Motor strength is normal. Coordination: Coordination is intact. Deep Tendon Reflexes: Reflex Scores: Bicep reflexes are 2+ on the right side and 2+ on the left side. Brachioradialis reflexes are 2+ on the right side and 2+ on the left side. Patellar reflexes are 2+ on the right side and 2+ on the left side. Achilles reflexes are 2+ on the right side and 2+ on the left side. Psychiatric: Speech: Speech normal. Neurological Exam Mental Status Awake, alert and oriented to person, place and time. Recent and remote memory are intact. Speech isnormal. Follows complex commands. Attention and concentration are normal. Fund of knowledge is appropriate for level of education. Cranial Nerves CN III, IV, : No nystagmus. Normal saccades. Normal smooth pursuit. Right pupil: Round. Left pupil: Round. CN V: Facial sensation is normal. CN VII: Full and symmetric facial movement. Motor Normal muscle bulk throughout. No fasciculations present. Normal muscle tone. No abnormal involuntary movements. Strength is 5/5 throughout all four extremities. Sensory Sensation is intact to light touch, pinprick, vibration and proprioception in all four extremities. Reflexes Right Left Brachioradialis 2+ 2+ Biceps 2+ 2+ Patellar 2+ 2+ Achilles 2+ 2+ Coordination Rhpvvi-[id number]-vgbm, rapid alternating movements and ibhu-la-qvep normal bilaterally without dysmetria. Gait Normal casual, toe, heel and tandem gait. Physical Exam Vital Signs: Vitals: 02/21/25 1029 BP: 106/64 Pulse: 78 SpO2: 93% Weight: 85.1 kg (187 lb 9.6 oz) Height: 165.1 cm (65 ) Body mass index is 31.22 kg/m??. Assessment / Plan Assessment/Plan: Diagnoses and all orders for this visit: 1. History of stroke (Primary) Comments: Cont asa, plavix and statin 2. Benign essential tremor Comments: very mild and intermittent. Sx improved on lower dose of GBP. No new tx. Assessment & Plan Patient Education: Reviewed medications, potential side effects and signs and symptoms to report. Discussed risk versus benefits of treatment plan with patient and/or family- including medications, labs and radiology that may be ordered. Addressed questions and concerns during visit. Patient and/or family verbalized un derstanding and agree with plan. Instructed to call the office with any questions and report to ER with any life-threatening symptoms. Follow Up: Return if symptoms worsen or fail to improve. During this visit the following were done: Labs Reviewed [x] Labs Ordered [] Radiology Reports Reviewed [x] Radiology Ordered [] PCP Records Reviewed [x] Referring Provider Records Reviewed [] ER Records Reviewed [] Hospital Records Reviewed [] History Obtained From Family [] Radiology Images Reviewed [] Other Reviewed [x] Records Requested [] Patient or patient teleservices representative verbalized consent for the use of Ambient Listening during the visit with Raul Riggs, CARI, DECISION UNIT RN for chart documentation. 02/21/2025 11:16 EDT Raul Riggs, CARI, DECISION UNIT RN [1] Social History Socioeconomic History Marital status: Tobacco Use Smoking status: Former Average packs/day: 2.0 packs/day for 34.0 years (68.0 ttl pk-yrs) Types: Cigarettes Start date: 1979 Vaping Use Vaping status: Never Used Substance and Sexual Activity Drug use: Never Sexual activity: Defer [2] Current Outpatient Medications: albuterol sulfate HFA 108 (90 Base) MCG/ACT inhaler, Inhale 2 puffs Every 4 (Four) Hours As Needed., Disp: , Rfl: aspirin 81 MG EC tablet, Take 1 tablet by mouth Daily., Disp: , Rfl: atorvastatin (LIPITOR) 80 MG tablet, Take 1 tablet by mouth Daily., Disp: , Rfl: bisoprolol (ZEBeta) 5 MG tablet, Take 1 tablet by mouth Daily., Disp: , Rfl: Black Cohosh 40 MG capsule, Take by mouth., Disp: , Rfl: Black Cohosh 540 MG capsule, Take by mouth., Disp: , Rfl: Cholecalciferol (VITAMIN D-3 PO), Take by mouth., Disp: , Rfl: citalopram (CeleXA) 40 MG tablet, Take 1 tablet by mouth Daily., Disp: , Rfl: clopidogrel (PLAVIX) 75 MG tablet, Take 1 tablet by mouth Daily., Disp: , Rfl: Continuous Glucose Sensor (FreeStyle Estrella 3 Plus Sensor), USE DIRECTED EVERY 15 DAYS, Disp: , Rfl: Embecta Pen Needle Ultrafine 31G X 8 MM misc, 1 each by Other route 3 (Three) Times a Day., Disp: ,Rfl: furosemide (LASIX) 40 MG tablet, Take 1 tablet by mouth Every Morning., Disp: , Rfl: gabapentin (NEURONTIN) 400 MG capsule, Take 1 capsule by mouth Every 12 (Twelve) Hours., Disp: , Rfl: gemfibrozil (LOPID) 600 MG tablet, Take 1 tablet by mouth Every 12 (Twelve) Hours., Disp: , Rfl: HumaLOG KwikPen 100 UNIT/ML solution pen-injector, INJECT 20 UNITS SUBCUTANEOUSLY THREE TIMES DAILY, Disp: , Rfl: Jardiance 25 MG tablet tablet, Take 1 tablet by mouth Daily., Disp: , Rfl: multivitamin with minerals tablet tablet, Take 1 tablet by mouth Daily., Disp: , Rfl: Ozempic, 2 MG/DOSE, 8 MG/3ML solution pen-injector, Inject 2 mg under the skin into the appropriatearea as directed 1 (One) Time Per Week., Disp: , Rfl: sacubitril-valsartan (ENTRESTO) 24-26 MG tablet, Take 1 tablet by mouth Every 12 (Twelve) Hours., Disp: , Rfl: Symbicort 160-4.5 MCG/ACT inhaler, Inhale 2 puffs 2 (Two) Times a Day., Disp: , Rfl: VITAMIN E PO, Take by mouth., Disp: , Rfl: [3] No Known Allergies documented in this encounter Plan of Treatment Not on file documented as of this encounter Visit Diagnoses Diagnosis History of stroke- Primary Transient ischemic attack (TIA), and cerebral infarction without residual deficits Benign essential tremor Essential and other specified forms of tremor documented in this encounter Care Teams Quality Measurement Specialist Relationship Specialty Start Date End Date Lauren Bonilla APRN [address] [place] [address] PCP - General Nurse Practitioner 02/21/25 documented as of this encounter
[2025-02-22 13:29] LABS: Microscopic, Urine URINE MICROSCOPIC (MICROSCOPIC)
[2025-02-22 14:12] LABS: Chloride 101 mmol/L (98-107)
[2025-02-22 14:13] LABS: Potassium 4.5 mmoL/L (3.5-5.1); Sodium 142 mmol/L (136-145)
[2025-02-22 14:15] LABS: Blood Urea Nitrogen 18 mg/dl (7-17); Creatinine,Serum 1.00 mg/dl (0.52-1.04); Estimated Glomerular Filt Rate 56 ml/min (>60); GFR (African American) 68 ML/MIN (>60)
[2025-02-22 14:16] LABS: Anion Gap 14.5 mEq/L (5-15); Calcium 9.4 mg/dl (8.4-10.2); Carbon Dioxide 31 mmol/L (22.0-30.0); Glucose 207 mg/dl (74-100)
[2025-02-22 15:07] LABS: Bilirubin,Urine Negative (Negative); Color,Urine YELLOW (Yellow); Glucose,Urine (UA) 3+ (Negative); Ketones,Urine Negative (Negative); Leukocyte Esterase,Urine Negative (Negative); PH,Urine 6.5 (5.0-8.5); Protein,Urine Negative (Negative); Specific Gravity, Urine 1.010 (1.005-1.030); Urobilinogen,Urine 0.2 EU/dl (0.2)
[2025-02-22 15:21] LABS: Hemoglobin A1C 8.9 % (4.0-6.0)
[2025-02-22 15:33] LABS: Bacteria,Urine Trace /lpf
--- OUTSIDE RECORDS SUMMARY | 2025-02-23 10:11 | XMS_ITS | Clinical Summary ---
Author Organization [facility] Address [address] [place] [address] Care Team Providers Care Blasting Worker Name Role Phone Chad Lauren SULEIMAN Primary Care Provider [phone] Allergies No known active allergies Medications albuterol sulfate HFA 108 (90 Base) MCG/ACT inhaler Inhale 2 puffs Every 4 (Four) Hours As Needed. 5 Active atorvastatin (LIPITOR) 80 MG tablet Take 1 tablet by mouth Daily. 5 Active bisoprolol (ZEBeta) 5 MG tablet Take 1 tablet by mouth Daily. 5 Active Symbicort 160-4.5 MCG/ACT inhaler Inhale 2 puffs 2 (Two) Times a Day. 5 Active citalopram (CeleXA) 40 MG tablet Take 1 tablet by mouth Daily. 5 Active clopidogrel (PLAVIX) 75 MG tablet Take 1 tablet by mouth Daily. 5 Active Continuous Glucose Sensor (FreeStyle Estrella 3 Plus Sensor) USE DIRECTED EVERY 15 DAYS 5 Active Jardiance 25 MG tablet tablet Take 1 tablet by mouth Daily. 5 Active furosemide (LASIX) 40 MG tablet Take 1 tablet by mouth Every Morning. 5 Active gabapentin (NEURONTIN) 400 MG capsule Take 1 capsule by mouth Every 12 (Twelve) Hours. 5 Active gemfibrozil (LOPID) 600 MG tablet Take 1 tablet by mouth Every 12 (Twelve) Hours. 5 Active HumaLOG KwikPen 100 UNIT/ML solution pen-injector INJECT 20 UNITS SUBCUTANEOUSLY THREE TIMES DAILY Active Embecta Pen Needle Ultrafine 31G X 8 MM misc 1 each by Other route 3 (Three) Times a Day. Active sacubitril-daniel sartan (ENTRESTO) 24-26 MG tablet Take 1 tablet by mouth Every 12 (Twelve) Hours. Active Ozempic, 2 MG/DOSE, 8 MG/3ML solution pen-injector Inject 2 mg under the skin into the appropriate area as directed 1 (One) Time Per Week. Active aspirin 81 MG EC tablet Take 1 tablet by mouth Daily. Active multivitamin with minerals tablet tablet Take 1 tablet by mouth Daily. Active VITAMIN E PO Take by mouth. Ac tive Cholecalcifero l (VITAMIN D-3 PO) Take by mouth. Activ e Black Cohosh 40 MG capsule Take by mouth. A ctive Black Cohosh 540 MG capsule Take by mouth. Active Active Problems Problem Noted Date Diagnosed Date Diabetes Heart disease Hyperlipidemia Stroke Benign essential tremor Resolved Problems Problem Noted Date Diagnosed Date Resolved Date History of stroke 02/21/2025 02/21/2025 Encounters Date Type Department Care Team Description 02/21/2025 11:00 AM EDT Office Visit [facility] [address] [place] [address] Raul Riggs DNP, AIRCRAFT LINE ASSEMBLER History of stroke (Primary Dx); Benign essential tremor 02/21/2025 Travel 01/19/2025 Telephone [facility] [address] [place] [address] Raul Riggs DNP, AIRCRAFT LINE ASSEMBLER from Last 3 Months Family History Medical History Relation Name Comments Diabetes Father Heart disease Father Diabetes Mother Heart disease Mother Diabetes Sister Relation Name Status Comments Father Mother Sister Social History Tobacco Use Types Packs/Day Years Used Date Smoking Tobacco: Former Cigarettes 2 34 S tarted: 1979 Tobacco Cessation:Counseling Given: No Alcohol Use Standard Drinks/Week Comments Not Asked 0 (1 standard drink = 0.6 oz pur e alcohol) Socially Abuse Screen Answer Date Recorded Unsafe at Home or Work/School Not on file Feels Threatened by Someone? Not on file 10/ 01/2023 Does Anyone Keep You from Co [...] Orientation Straight 02/15/2025 1: 13 PM EDT Last Filed Vital Signs Vital Sign Reading [...] Mass Index 31.22 02/21/2025 10:29 AM EDT Plan of Treatment Health Maintenance Due Date Last Done Comments Annual Gynecologic Pelvic an d Breast Exam 1960 DIABETIC EYE EXAM 08/21/1971 DIABETIC FOOT EXAM 08/21/1971 URINE MICROALBUMIN-CREATININ E RATIO (uACR) 08/21/1971 TDAP/TD VACCINES (1 - Tdap) 1980 COLOGUARD 2006 COLON CANCER SCREENING 5 YEA R SIGMOIDOSCOPY 2006 COLONOSCOPY 2006 COLOR[address]AL CANCER SCREENING 2006 CT COLONOGRAPHY 2006 FECAL OCCULT BLOOD TEST 2006 FIT Testing (1 year) 2006 ZOSTER VACCINE (1 of 2) 08/21/2011 LIPID PANEL 07/09/2018 07/09/2017 INFLUENZA VACCINE 12/09/2024 02/23/2024, , 02/27/2021, Additional history exists ANNUAL WELLNESS VISIT 01/19/2025 HEMOGLOBIN A1C 01/19/2025 07/09/2017 HEPATITIS C SCREENING 01/19/2025 Pneumococcal Vaccine 50+ (2 of 2 - PCV) 05/31/2025 05/31/2024 MAMMOGRAM 11/09/2026 11/09/2024, 05/13, 08/27/2022, Additional history exists Procedures Procedure Name Priority Date/Time Associated Diagnosis Comments SCANNED - MAMMO 06/10/2024 from Last 3 Months or Most Recently Relevant to Health Maintenance Results * MAMMO Scan (06/10/2024) Anatomical Region Laterality Modality [facility] TABS Final Re sult from Last 3 Months or Most Recently Relevant to Health Maintenance Insurance [employer] PPO Care Teams Blasting Worker Relationship Specialty Start Date End Date Lauren Bonilla APRN [address] [place] [address] PCP - General Nurse Practitioner 10/14/25
--- OUTSIDE RECORDS SUMMARY | 2025-02-23 10:11 | XMS_ITS | Clinical Summary ---
Author Organization Healthcare Address [address] [place] [address] Care Team Providers Care Director Of Laboratory Operations Name Role Phone Benja Catalan MD Primary Care Provider [phone] Family History Medical History Relation Name Comments [...] of Treatment Not on file Care Teams Director Of Laboratory Operations Relationship Specialty Start Date End Date Benja Catalan MD [address] [place] [address] PCP - General 09/21/20
--- OUTSIDE RECORDS SUMMARY | 2025-02-23 10:11 | XMS_ITS | Patient Health Record ---
Author Organization [facility] Address [address] [place] [address] Care Team Providers Care Operator Catalyst Concentration Name Role Phone Chantal Corbin Unavailable [phone] Reason For Referral No Information Social History [...] Status W/U Status Risk Notes Problem Menopause (381186192) *Menopausal and female climacteric states (Code also, associated symptoms) (N95.1) 010 Active confirmed MENOPAUSAL SYMPTOMS Problem Abnormal cervical Papanicolaou smear with positive human papillomavirus deoxyribonucleic acid test ([id number]) *Cervical low risk human papillomavirus (HPV) DNA [...]
--- OUTSIDE RECORDS SUMMARY | 2025-02-23 10:11 | XMS_ITS | Encounter Summary ---
Author Organization [facility] yste Address [address] [place] [address] Care Team Providers Care Track Moving Machine Operator Name Role Phone Chad Lauren BEARDEN Primary Care Provider [phone] Encounter Details Date Type Department Care Team (Late st Contact Info) Description 01/19/2025 Telephone [facility] [address] [facility] [address] [place] [address] Raul Riggs, DNP, CORRECTION OFFICER HEAD [address] [facility] [address] [place], [place] [id number] Social History Tobacco Use Types Packs/Day Years [...] Not on file Sexual Orientation Straight 02/15/2025 1 :13 PM EDT documented as of this encounter Miscellaneous Notes [...] on filedocumented in this encounter Care Teams Track Moving Machine Operator Relationship Specialty Start Date End Date Lauren Bonilla APRN [address] [place] [address] PCP - General Nurse Practitioner 11/09/24 02/20/25 documented as of this encounter
--- OUTSIDE RECORDS SUMMARY | 2025-02-23 10:11 | XMS_ITS | Encounter Summary ---
[facility] Address [address] [place] [address] Care Team Providers Care General Office Worker Name Role Phone Lauren Bonilla SULEIMAN Primary Care Provider [phone] Encounter Details Date Type Department Care Team (Latest Contact Info) Description 02/21/2025 Travel Social History Tobacco Use Types Packs/Day Years Used Date Smoking Tobacco: Former Cigarettes 2 34 S tarted: 1980 Alcohol Use Standard Drinks/Week Comments Not Asked [...] PM EDT documented as of this encounter Plan of Treatment Not on file documented as of this encounter Visit Diagnoses Not on filedocumented in this encounter Care Teams General Office Worker Relationship Specialty Start Date End Date Lauren Bonilla APRN [address] [place] [address] PCP - General Nurse Practitioner 02/21/25 documented as of this encounter
== END 2025-02-22 23:59 | disposition home or self-care (01) ==
LOC: LAB.DROPOF 02-23 09:56
PROVIDERS: PCP Nurse Practitioner Family; Visit Provider Nurse Practitioner Family
DX: I13.0 Hypertensive heart and chronic kidney disease with heart failure and stage 1 through stage 4 chronic kidney disease, or unspecified chronic kidney disease (principal); I50.20 Unspecified systolic (congestive) heart failure; N18.30 Chronic kidney disease, stage 3 unspecified; E11.40 Type 2 diabetes mellitus with diabetic neuropathy, unspecified
CPT/HCPCS: 80048; 81001; 82043; 82570; 83036; 84156; 87086